=== PATIENT | female | born 1935 | race Hispanic/Latino ===

== ENCOUNTER 2018-06-03 12:09 | Emergency (ER) | payer OTHER ==
--- NOTE | 2018-06-03 13:07 | RAD REPORT ---
EXAM DESCRIPTION: David Single View06/03/2018 12:58 pm CLINICAL HISTORY: Chest pain COMPARISON: 2013 FINDINGS: The patient is in a poor degree of inspiration. The lungs appear clear of acute infiltrate. The heart is normal size
[2018-06-03 13:17] LABS: Absolute Monocytes 0.5 K/uL (0.1-1.3); Absolute Neutrophil 4.3 K/uL (1.8-8.0); Basophils % 0.5 % (0-1.3); Eosinophils % 1.6 % (0-4.4); Lymphocytes % 17.4 % (15.3-44.8); Monocytes % 8.3 % (3.3-12.3); Protime INR 1.25; RBC Red Blood Cell Count 3.22 M/uL (3.86-4.86)
[2018-06-03 13:35] LABS: ALT/SGPT 20 U/L (12-78); AST/SGOT 33 U/L (15-37); Albumin 3.8 g/dL (3.4-5.0); Alkaline Phosphatase 62 U/L (45-117); BUN Blood Urea Nitrogen 34 mg/dL (7-18); Bicarbonate 27 mmol/L (21-32); Bilirubin Direct 0.2 mg/dL (0-0.2); Bilirubin Total 0.6 mg/dL (0.2-1.0); Glucose Level 108 mg/dL (74-106); Magnesium 1.9 mg/dL (1.8-2.4); NT PRO-BNP 1716 pg/mL (<450); Potassium 4.4 mmol/L (3.5-5.1); Protein, Total 7.5 g/dL (6.4-8.2); Sodium Level 139 mmol/L (136-145); Troponin (Emerg Dept Use Only) < 0.02 ng/mL (0.0-0.045)
--- NOTE | 2018-06-03 14:50 | ER ---
Nurse's Notes [facility] Name: Bibiana Lara Age: 82 yrs Sex: Female : 1935 Arrival Date: 06/03/2018 Time: 12:10 Bed 14 Private MD: Judith Lizama Diagnosis: Chest pain, unspecified Presentation: 06/03 12:20 Presenting complaint: Patient states: N/V x 2 days, substernal chest pain that began ph yesterday, radiates to back, denies fever. Transition of care: patient was not received from another setting of care. Onset of symptoms was June 03, 2018. Risk Assessment: Do you want to hurt yourself or someone else? Patient reports no desire to harm self or others. Initial Sepsis Screen: Does the patient meet any 2 criteria? No. Patient's initial sepsis screen is negative. Care prior to arrival: None. 12:20 Method Of Arrival: Ambulatory 12:20 Acuity: ROBERT 3 ph 15:22 Initial Sepsis Screen: Does the patient have a suspected source of infection? No. ls4 Patient's initial sepsis screen is negative. Triage Assessment: 15:22 General: Appears in no apparent distress. Behavior is calm, cooperative. Pain: Denies ls4 pain. Historical: - Allergies: 12:21 No Known Allergies; ph - PMHx: 12:21 Depression; Hypertension; Hypothyroidism; ph - Immunization history:: Adult Immunizations unknown. - Social history:: Smoking status: Patient/guardian denies using tobacco. - Ebola Screening: : No symptoms or risks identified at this time. Screenin:29 Abuse screen: Denies threats or abuse. Nutritional screening: No deficits noted. ls4 Tuberculosis screening: No symptoms or risk factors identified. Fall Risk None identified. Assessment: 15:21 Pain: Denies pain. Pain does not radiate. Pain began 2-3 days ago. Is intermittent, ls4 episodic. Cardiovascular: Reports chest pain, yesterday and today intermittently with vomitting. Respiratory: Airway is patent Respiratory effort is even, unlabored, Respiratory pattern is regular, Breath sounds are clear bilaterally. Vital Signs: 12:20 BP 116 / 48; Pulse 60; Resp 18; Temp 98.6; Pulse Ox 98% on R/A; Weight 77.11 kg; ph 14:00 BP 114 / 70; Pulse 60; Resp 16; Temp 98.4; Pulse Ox 98% on R/A; ls4 14:00 BP 118 / 56; Pulse 61; Resp 16; Pulse Ox 98% on R/A; Pain 0/10; ls4 15:00 BP 110 / 54; Pulse 60; Resp 16; Pulse Ox 99% on R/A; Pain 0/10; ls4 ED Course: 12:10 Patient arrived in ED. ag5 12:11 Judith Lizama MD is Private Physician. ag5 12:20 Triage completed. ph 12:21 Arm band placed on. ph 12:32 Iman Durant, RN is Primary Nurse. ls4 12:34 EKG done, by information systems technician. reviewed by Enrico GUEVARA. at1 12:35 Inserted saline lock: 20 gauge in right antecubital area, using aseptic technique. ls4 12:35 No provider procedures requiring assistance completed. Initial lab(s) drawn, by pa, ls4 sent to lab. Patient maintains SpO2 saturation greater than 95% on room air. 12:52 Enrico Pope PA is PHCP. jr8 12:52 Otto Maloney MD is Attending Physician. jr8 12:57 X-ray completed. Portable x-ray completed in exam room. Patient tolerated procedure jb2 well. 12:58 XRAY Chest (1 view) In Process Unspecified. EDMS 13:29 Patient has correct armband on for positive identification. Placed in gown. Bed in low ls4 position. Call light in reach. Side rails up X 1. 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 Pulse ox on. NIBP on. 14:49 Berhane Gonsalez MD is Referral Physician. jr8 15:23 IV discontinued, intact, bleeding controlled, No redness/swelling at site. ls4 Administered Medications: No medications were administered Outcome: 14:49 Discharge ordered by . jr8 15:23 Discharged to home ambulatory. ls4 15:23 Condition: stable 15:23 Discharge instructions given to patient, family, Instructed on discharge instructions, follow up and referral plans. medication usage, Demonstrated understanding of instructions, follow-up care, medications. 15:24 Patient left the ED. ls4 Signatures: Dispatcher [employer] EDOH Ricardo De León jb2 Enrico Pope PA PA jr8 Cassie Mendes, purchasing clerk EKG Tat1 Maribell Jurado, RN RN ph Iman Durant RN RN ls4 Kandi Roth ag5
--- NOTE | 2018-06-03 14:50 | EDPHYS ---
Physician Documentation [facility] Name: Bibiana Lara Age: 82 yrs Sex: Female : 1935 Arrival Date: 06/03/2018 Time: 12:10 Bed 14 Private MD: Judith Lizama ED Physician Otto Maloney HPI: 06/03 13:08 This 82 yrs old Female presents to ER via Ambulatory with complaints of Chest jr8 Pain, Back Pain. 13:08 The patient or guardian reports chest pain that is located primarily in the substernal jr8 area. Onset: acutely, yesterday. The pain radiates to neck, back. Associated signs and symptoms: The patient has no apparent associated signs or symptoms. The chest pain is described as a pressure. Duration: The patient or guardian reports a single episode, that is now resolved. Modifying factors: The symptoms are alleviated by nothing. the symptoms are aggravated by nothing. Severity of pain: At its worst the pain was moderate in the emergency department the pain is unchanged. The patient has not experienced similar symptoms in the past. The patient has not recently seen a physician. Patient stated that she had a few days of n/v/d which has subsided. Now had chest pain that has since resolved . Historical: - Allergies: 12:21 No Known Allergies; ph - PMHx: 12:21 Depression; Hypertension; Hypothyroidism; ph - Immunization history:: Adult Immunizations unknown. - Social history:: Smoking status: Patient/guardian denies using tobacco. - Ebola Screening: : No symptoms or risks identified at this time. ROS: 13:08 Eyes: Negative for injury, pain, redness, and discharge, ENT: Negative for injury, jr8 pain, and discharge, Neck: Negative for injury, pain, and swelling, Respiratory: Negative for shortness of breath, cough, wheezing, and pleuritic chest pain, Back: Negative for injury and pain, MS/Extremity: Negative for injury and deformity, Skin: Negative for injury, rash, and discoloration, Neuro: Negative for headache, weakness, numbness, tingling, and seizure. 13:08 Cardiovascular: Positive for chest pain, Negative for edema, orthopnea, palpitations, paroxysmal nocturnal dyspnea. 13:08 Abdomen/GI: Positive for nausea, vomiting, and diarrhea, Negative for abdominal cramps, abdominal distension, anorexia, dysphagia, hematemesis, black/tarry stool, rectal pain, rectal bleeding, bowel incontinence, flatulence. Exam: 13:08 Eyes: Pupils equal round and reactive to light, extra-ocular motions intact. Lids and jr8 lashes normal. Conjunctiva and sclera are non-icteric and not injected. Cornea within normal limits. Periorbital areas with no swelling, redness, or edema. ENT: Nares patent. No nasal discharge, no septal abnormalities noted. Tympanic membranes are normal and external auditory canals are clear. Oropharynx with no redness, swelling, or masses, exudates, or evidence of obstruction, uvula midline. Mucous membranes moist. Neck: Trachea midline, no thyromegaly or masses palpated, and no cervical lymphadenopathy. Supple, full range of motion without nuchal rigidity, or vertebral point tenderness. No Meningismus. Cardiovascular: Regular rate and rhythm with a normal S1 and S2. No gallops, murmurs, or rubs. Normal PMI, no JVD. No pulse deficits. Respiratory: Lungs have equal breath sounds bilaterally, clear to auscultation and percussion. No rales, rhonchi or wheezes noted. No increased work of breathing, no retractions or nasal flaring. Back: No spinal tenderness. No costovertebral tenderness. Full range of motion. Skin: Warm, dry with normal turgor. Normal color with no rashes, no lesions, and no evidence of cellulitis. MS/ Extremity: Pulses equal, no cyanosis. Neurovascular intact. Full, normal range of motion. Neuro: Awake and alert, GCS 15, oriented to person, place, time, and situation. Cranial nerves II-XII grossly intact. Motor strength 5/5 in all extremities. Sensory grossly intact. Cerebellar exam normal. Normal gait. 13:08 Abdomen/GI: Inspection: abdomen appears normal, Bowel sounds: active, all quadrants, Palpation: soft, in all quadrants, mild abdominal tenderness, in the epigastric area, right upper quadrant and left upper quadrant, mass, is not appreciated, rebound tenderness, is not appreciated, voluntary guarding, is not appreciated, involuntary guarding, is not appreciated, no appreciated organomegaly, Indicators: McBurney's point is not tender, Chiu's sign is negative, Rovsing's sign is negative, Liver: tenderness, is not appreciated. Vital Signs: 12:20 BP 116 / 48; Pulse 60; Resp 18; Temp 98.6; Pulse Ox 98% on R/A; Weight 77.11 kg; ph 14:00 BP 114 / 70; Pulse 60; Resp 16; Temp 98.4; Pulse Ox 98% on R/A; ls4 14:00 BP 118 / 56; Pulse 61; Resp 16; Pulse Ox 98% on R/A; Pain 0/10; ls4 15:00 BP 110 / 54; Pulse 60; Resp 16; Pulse Ox 99% on R/A; Pain 0/10; ls4 MDM: 12:52 Patient medically screened. jr8 14:47 Data reviewed: vital signs, nurses notes, lab test result(s), EKG, radiologic studies, jr8 plain films. Data interpreted: Pulse oximetry: on room air is 98 %. Interpretation: normal. Counseling: I had a detailed discussion with the patient and/or guardian regarding: the historical points, exam findings, and any diagnostic results supporting the discharge/admit diagnosis, lab results, radiology results, the need for outpatient follow up, a horse stud worker, a family practitioner, to return to the emergency department if symptoms worsen or persist or if there are any questions or concerns that arise at home. Response to treatment: the patient's symptoms have markedly improved after treatment. ED course: Patient wanting to go home. Will f/u with PCP tomorrow. Will stay with family tonight since she does not want to be admitted. Knows to come back immediately if something changes . 06/03 12:33 Order name: Basic Metabolic Panel; Complete Time: 14:25 [facility] 06/03 12:33 Order name: CBC with Diff; Complete Time: 13:35 [facility] 06/03 12:33 Order name: LFT's; Complete Time: 14:25 [facility] 06/03 12:33 Order name: Magnesium; Complete Time: 14:25 [facility] 06/03 12:33 Order name: NT PRO-BNP; Complete Time: 14:25 [facility] 06/03 12:33 Order name: PT-INR; Complete Time: 13:35 [facility] 06/03 12:33 Order name: Troponin (emerg Dept Use Only); Complete Time: 14:25 [facility] 06/03 12:33 Order name: XRAY Chest (1 view); Complete Time: 13:08 4 06/03 12:33 Order name: EKG; Complete Time: 12:34 ls4 06/03 12:33 Order name: Cardiac monitoring; Complete Time: 13:28 4 06/03 12:33 Order name: EKG - Nurse/Tech; Complete Time: 13:28 ls4 06/03 12:33 Order name: IV Saline Lock; Complete Time: 13:28 ls4 06/03 12:33 Order name: Labs collected and sent; Complete Time: 13:28 4 06/03 12:33 Order name: O2 Per Protocol; Complete Time: 13:28 ls4 06/03 12:33 Order name: O2 Sat Monitoring; Complete Time: 13:28 ls4 Administered Medications: No medications were administered Disposition: 06/04 08:51 Co-signature as Attending Physician, Otto Maloney MD I agree with the assessment and berta plan of care. Disposition: 06/03/18 14:49 Discharged to Home. Impression: Chest pain, unspecified. - Condition is Stable. - Discharge Instructions: Nonspecific Chest Pain, Aspirin and Your Heart, Chest Pain Observation. - Medication Reconciliation Form, Thank You Letter, Antibiotic Education, Prescription Opioid Use form. - Follow up: Berhane Gonsalez MD; When: 1 - 2 days; Reason: Recheck today's complaints, Continuance of care, Re-evaluation by your physician. - Problem is new. - Symptoms have improved. Signatures: Dispatcher [employer] EDID Otto Maloney MD MD cha Roszak, Josh, PA PA jr8 Maribell Jurado, RN RN Iman Hu RN RN ls4 Corrections: (The following items were deleted from the chart) 06/03 14:49 13:08 Onset: acutely, today, jr8 jr8 15:24 14:49 06/03/2018 14:49 Discharged to Home. Impression: Chest pain, unspecified. ls4 Condition is Stable. Forms are Medication Reconciliation Form, Thank You Letter, Antibiotic Education, Prescription Opioid Use. Follow up: Berhane Gonsalez; When: 1 - 2 days; Reason: Recheck today's complaints, Continuance of care, Re-evaluation by your physician. Problem is new. Symptoms have improved. jr8
[2018-06-03 15:29] VITALS: O2SAT 98
[2018-06-03 15:31] VITALS: BP 118/56; TEMP 98.4
--- NOTE | 2018-06-04 05:30 | EKG ---
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
== END 2018-06-03 15:24 | disposition home or self-care (01) ==
LOC: ER 12:09
DX: R07.9 Chest pain, unspecified (principal); I10 Essential (primary) hypertension
CPT/HCPCS: 36415; 71045; 80048; 80076; 83735; 83880; 84484; 85025; 85610; 93005; 99285

== ENCOUNTER 2018-11-04 16:06 | Observation (INO) | payer OTHER ==
[2018-11-04 16:50] LABS: Urine Blood NEGATIVE (NEG); Urine Glucose NEGATIVE (NEG); Urine Protein NEGATIVE (NEG); Urine Specific Gravity 1.015 (1.005-1.030)
[2018-11-04 16:52] LABS: Absolute Lymphocytes (CBC) 1.2 K/uL (0.7-4.9); Basophils % 0.5 % (0-1.3); Hematocrit 30.3 % (36.0-45.0); Lymphocytes % 12.8 % (15.3-44.8); MPV 9.9 fL (7.6-11.3); RBC Red Blood Cell Count 3.17 M/uL (3.86-4.86)
[2018-11-04 16:53] LABS: Protime INR 1.22
[2018-11-04 16:59] LABS: ALT/SGPT 19 U/L (12-78); AST/SGOT 22 U/L (15-37); Albumin 3.6 g/dL (3.4-5.0); Alkaline Phosphatase 78 U/L (45-117); BUN Blood Urea Nitrogen 28 mg/dL (7-18); Bicarbonate 25 mmol/L (21-32); Bilirubin Direct 0.2 mg/dL (0-0.2); Bilirubin Total 0.6 mg/dL (0.2-1.0); Glucose Level 119 mg/dL (74-106); Lipase 141 U/L (73-393); Magnesium 1.9 mg/dL (1.8-2.4); NT PRO-BNP 2885 pg/mL (<450); Potassium 4.1 mmol/L (3.5-5.1); Protein, Total 7.6 g/dL (6.4-8.2); Sodium Level 140 mmol/L (136-145); Troponin (Emerg Dept Use Only) < 0.02 ng/mL (0.0-0.045)
[2018-11-04] MEDS ORDERED: ASPIRIN EC 81 MG TAB PO ONE (17:27)
[2018-11-04] MEDS ORDERED: ENOXAPARIN 80 MG/0.8 ML SQ ONE (17:27)
[2018-11-04] MEDS ORDERED: PANTOPRAZOLE 40 MG INJ ONE (17:27)
--- NOTE | 2018-11-04 17:28 | EDPHYS ---
Physician Documentation [facility] Name: Bibiana Lara Age: 83 yrs Sex: Female : 1935 Arrival Date: 11/04/2018 Time: 16:07 Bed 6 Private MD: ED Physician Otto Maloney HPI: 11/04 17:24 This 83 yrs old Female presents to ER via Ambulatory with complaints of Chest berta Pain. 17:24 The patient or guardian reports chest pain that is located primarily in the substernal berta area. Onset: 1 day(s) ago. The pain does not radiate. Associated signs and symptoms: Pertinent positives: palpitations. The chest pain is described as a heaviness, sharp. Modifying factors: The symptoms are alleviated by nothing. the symptoms are aggravated by nothing. Severity of pain: At its worst the pain was moderate in the emergency department the pain has improved moderately. The patient has not experienced similar symptoms in the past. Historical: - Allergies: 16:16 No Known Allergies; la1 - PMHx: 16:16 Depression; Hypertension; Hypothyroidism; la1 - Immunization history:: Adult Immunizations up to date. - Social history:: Smoking status: Patient/guardian denies using tobacco. - Ebola Screening: : No symptoms or risks identified at this time. - Family history:: not pertinent. ROS: 17:24 Constitutional: Negative for fever, chills, and weight loss, Eyes: Negative for injury, berta pain, redness, and discharge, ENT: Negative for injury, pain, and discharge, Neck: Negative for injury, pain, and swelling, Respiratory: Negative for shortness of breath, cough, wheezing, and pleuritic chest pain, Abdomen/GI: Negative for abdominal pain, nausea, vomiting, diarrhea, and constipation, Back: Negative for injury and pain, : Negative for injury, bleeding, discharge, and swelling, MS/Extremity: Negative for injury and deformity, Skin: Negative for injury, rash, and discoloration, Neuro: Negative for headache, weakness, numbness, tingling, and seizure, Psych: Negative for depression, anxiety, suicide ideation, homicidal ideation, and hallucinations, Allergy/Immunology: Negative for hives, rash, and allergies, Endocrine: Negative for neck swelling, polydipsia, polyuria, polyphagia, and marked weight changes, Hematologic/Lymphatic: Negative for swollen nodes, abnormal bleeding, and unusual bruising. 17:24 Cardiovascular: Positive for chest pain. Exam: 17:24 Constitutional: This is a well developed, well nourished patient who is awake, alert, berta and in no acute distress. Head/Face: Normocephalic, atraumatic. Eyes: Pupils equal round and reactive to light, extra-ocular motions intact. Lids and lashes normal. Conjunctiva and sclera are non-icteric and not injected. Cornea within normal limits. Periorbital areas with no swelling, redness, or edema. ENT: Nares patent. No nasal discharge, no septal abnormalities noted. Tympanic membranes are normal and external auditory canals are clear. Oropharynx with no redness, swelling, or masses, exudates, or evidence of obstruction, uvula midline. Mucous membranes moist. Neck: Trachea midline, no thyromegaly or masses palpated, and no cervical lymphadenopathy. Supple, full range of motion without nuchal rigidity, or vertebral point tenderness. No Meningismus. Chest/axilla: Normal chest wall appearance and motion. Nontender with no deformity. No lesions are appreciated. Cardiovascular: Regular rate and rhythm with a normal S1 and S2. No gallops, murmurs, or rubs. Normal PMI, no JVD. No pulse deficits. Respiratory: Lungs have equal breath sounds bilaterally, clear to auscultation and percussion. No rales, rhonchi or wheezes noted. No increased work of breathing, no retractions or nasal flaring. Abdomen/GI: Soft, non-tender, with normal bowel sounds. No distension or tympany. No guarding or rebound. No evidence of tenderness throughout. Back: No spinal tenderness. No costovertebral tenderness. Full range of motion. Skin: Warm, dry with normal turgor. Normal color with no rashes, no lesions, and no evidence of cellulitis. MS/ Extremity: Pulses equal, no cyanosis. Neurovascular intact. Full, normal range of motion. Neuro: Awake and alert, GCS 15, oriented to person, place, time, and situation. Cranial nerves II-XII grossly intact. Motor strength 5/5 in all extremities. Sensory grossly intact. Cerebellar exam normal. Normal gait. Psych: Awake, alert, with orientation to person, place and time. Behavior, mood, and affect are within normal limits. Vital Signs: 16:16 BP 136 / 80; Pulse 66; Resp 16; Temp 97.5; Pulse Ox 98% on R/A; Weight 78.47 kg; Height la1 5 ft. 6 in. (167.64 cm); 17:24 BP 140 / 54; Pulse 60; Resp 18; Pulse Ox 100% on R/A; mg2 19:15 BP 158 / 63; Pulse 59; Resp 20; Temp 98.2(O); Pulse Ox 97% on R/A; Pain 0/10; lp1 16:16 Body Mass Index 27.92 (78.47 kg, 167.64 cm) la1 MDM: 16:09 Patient medically screened. [facility] 17:28 Data reviewed: vital signs, nurses notes, lab test result(s), EKG, radiologic studies, berta plain films. 11/04 16:11 Order name: Basic Metabolic Panel [facility] 11/04 16:11 Order name: CBC with Diff [facility] 11/04 16:11 Order name: LFT's [facility] 11/04 16:11 Order name: Magnesium [facility] 11/04 16:11 Order name: NT PRO-BNP [facility] 11/04 16:11 Order name: PT-INR; Complete Time: 17:30 [facility] 11/04 16:11 Order name: Troponin (emerg Dept Use Only); Complete Time: 17:21 [facility] 11/04 16:11 Order name: Lipase; Complete Time: 17:21 [facility] 11/04 16:12 Order name: Basic Metabolic Panel; Complete Time: 17:21 [facility] 11/04 16:12 Order name: CBC with Automated Diff; Complete Time: 17:21 [facility] 11/04 16:12 Order name: Liver (Hepatic) Function; Complete Time: 17:21 [facility] 11/04 16:12 Order name: Magnesium; Complete Time: 17:21 [facility] 11/04 16:12 Order name: NT PRO-BNP; Complete Time: 17:21 [facility] 11/04 16:43 Order name: Urine Dipstick--Ancillary (enter results); Complete Time: 17:21 11/04 16:11 Order name: XRAY Chest (1 view) [facility] 11/04 16:11 Order name: EKG; Complete Time: 16:12 [facility] 11/04 16:11 Order name: Cardiac monitoring; Complete Time: 16:29 [facility] 11/04 16:11 Order name: EKG - Nurse/Tech; Complete Time: 16:17 [facility] 11/04 16:11 Order name: IV Saline Lock; Complete Time: 16:29 [facility] 11/04 16:11 Order name: Labs collected and sent; Complete Time: 16:30 [facility] 11/04 16:11 Order name: O2 Per Protocol; Complete Time: 16:30 [facility] 11/04 16:11 Order name: O2 Sat Monitoring; Complete Time: 16:30 [facility] 11/04 16:11 Order name: Urine Dipstick-Ancillary (obtain specimen); Complete Time: 17:01 [facility] Administered Medications: 17:33 Drug: ProTONIX 40 mg Route: IVP; Site: right antecubital; mg2 18:45 Follow up: Response: No adverse reaction mg2 17:33 Drug: Aspirin 162 mg Route: PO; mg2 18:45 Follow up: Response: No adverse reaction mg2 17:33 Drug: Lovenox 1 mg/kg Route: Sub-Q; Site: right lower abdomen; mg2 18:45 Follow up: Response: No adverse reaction mg2 18:10 Not Given (Physician Discretion): Lopressor 25 mg PO once la1 Disposition: 11/04/18 17:27 Hospitalization ordered by Dorinda Coello for Observation. Preliminary diagnosis are Chest pain, unspecified, Essential (primary) hypertension, Gastro-esophageal reflux disease, Unspecified kidney failure - insufficency, Anemia, unspecified. - Bed requested for Telemetry/MedSurg (observation). - Status is Observation. lp1 - Condition is Fair. - Problem is new. - Symptoms have improved. UTI on Admission? No Signatures: Dispatcher [employer] EDIA Otto Maloney MD MD cha Pena, Laura, RN RN lp1 Heriberto Perales RN RN la1 Cindy Hillman Michele RN RN mg2 Corrections: (The following items were deleted from the chart) 17:28 17:27 Hospitalization Ordered by Dorinda Coello MD for Observation. Preliminary diagnosis berta is Chest pain, unspecified; Essential (primary) hypertension; Gastro-esophageal reflux disease. Bed requested for Telemetry/MedSurg (observation). Status is Observation. Condition is Fair. Problem is new. Symptoms have improved. UTI on Admission? No. [facility] 17:30 17:28 11/04/2018 17:27 Hospitalization Ordered by Dorinda Coello MD for Observation. berta Preliminary diagnosis is Chest pain, unspecified; Essential (primary) hypertension; Gastro-esophageal reflux disease; Unspecified kidney failure - insufficency. Bed requested for Telemetry/MedSurg (observation). Status is Observation. Condition is Fair. Problem is new. Symptoms have improved. UTI on Admission? No. berta 18:18 17:30 11/04/2018 17:27 Hospitalization Ordered by Dorinda Coello MD for Observation. eb Preliminary diagnosis is Chest pain, unspecified; Essential (primary) hypertension; Gastro-esophageal reflux disease; Unspecified kidney failure - insufficency; Anemia, unspecified. Bed requested for Telemetry/MedSurg (observation). Status is Observation. Condition is Fair. Problem is new. Symptoms have improved. UTI on Admission? No. berta 19:58 18:18 11/04/2018 17:27 Hospitalization Ordered by Dorinda Coello MD for Observation. lp1 Preliminary diagnosis is Chest pain, unspecified; Essential (primary) hypertension; Gastro-esophageal reflux disease; Unspecified kidney failure - insufficency; Anemia, unspecified. Bed requested for Telemetry/MedSurg (observation). Status is Observation. Condition is Fair. Problem is new. Symptoms have improved. UTI on Admission? No. eb
--- NOTE | 2018-11-04 17:28 | ER ---
Nurse's Notes [facility] Name: Bibiana Lara Age: 83 yrs Sex: Female : 1935 Arrival Date: 11/04/2018 Time: 16:07 Bed 6 Private MD: Diagnosis: Chest pain, unspecified;Essential (primary) hypertension;Gastro-esophageal reflux disease;Unspecified kidney failure-insufficency;Anemia, unspecified Presentation: 11/04 16:15 Presenting complaint: Patient states: chest pain since noon today while playing bingo. la1 Transition of care: patient was not received from another setting of care. Onset of symptoms was November 04, 2018. Risk Assessment: Do you want to hurt yourself or someone else? Patient reports no desire to harm self or others. Initial Sepsis Screen: Does the patient meet any 2 criteria? No. Patient's initial sepsis screen is negative. Does the patient have a suspected source of infection? No. Patient's initial sepsis screen is negative. Care prior to arrival: None. 16:15 Method Of Arrival: Ambulatory la1 16:15 Acuity: ROBERT 3 la1 Historical: - Allergies: 16:16 No Known Allergies; la1 - PMHx: 16:16 Depression; Hypertension; Hypothyroidism; la1 - Immunization history:: Adult Immunizations up to date. - Social history:: Smoking status: Patient/guardian denies using tobacco. - Ebola Screening: : No symptoms or risks identified at this time. - Family history:: not pertinent. Screenin:00 Abuse screen: Denies threats or abuse. Denies injuries from another. Nutritional mg2 screening: No deficits noted. Tuberculosis screening: No symptoms or risk factors identified. Fall Risk IV access (20 points). Assessment: 16:59 General: Appears in no apparent distress. comfortable, Behavior is calm, cooperative. mg2 Pain: Complains of pain in chest Pain does not radiate. Pain currently is 2 out of 10 on a pain scale. Quality of pain is described as burning, Pain began gradually, Is intermittent. Neuro: Level of Consciousness is awake, alert, obeys commands, Oriented to person, place, time, situation. Cardiovascular: Capillary refill < 3 seconds Patient's skin is warm and dry. Cardiovascular: Chest pain is described as mild. Respiratory: Airway is patent Respiratory effort is even, unlabored, Respiratory pattern is regular, symmetrical. GI: No signs and/or symptoms were reported involving the gastrointestinal system. : No signs and/or symptoms were reported regarding the genitourinary system. EENT: No signs and/or symptoms were reported regarding the EENT system. Derm: Skin is intact, is healthy with good turgor, Skin is pink, warm \T\ dry. normal. Musculoskeletal: Circulation, motion, and sensation intact. Capillary refill < 3 seconds. 18:45 Reassessment: dr coello came and spoke to the patient about the hospitalization. patient mg2 agreed for admission. 19:15 Reassessment: Patient appears in no apparent distress at this time. Patient is alert, lp1 oriented x 3, equal unlabored respirations, skin warm/dry/pink. Patient states feeling better. 19:15 Cardiovascular: Rhythm is sinus rhythm. lp1 Vital Signs: 16:16 BP 136 / 80; Pulse 66; Resp 16; Temp 97.5; Pulse Ox 98% on R/A; Weight 78.47 kg; Height la1 5 ft. 6 in. (167.64 cm); 17:24 BP 140 / 54; Pulse 60; Resp 18; Pulse Ox 100% on R/A; mg2 19:15 BP 158 / 63; Pulse 59; Resp 20; Temp 98.2(O); Pulse Ox 97% on R/A; Pain 0/10; lp1 16:16 Body Mass Index 27.92 (78.47 kg, 167.64 cm) la1 ED Course: 16:07 Patient arrived in ED. as 16:09 Otto Maloney MD is Attending Physician. [facility] 16:12 Guy Asencio, TUSHAR is Primary Nurse. mg2 16:15 Triage completed. la1 16:16 Arm band placed on right wrist. EKG completed in triage. Results shown to . la1 16:32 XRAY Chest (1 view) In Process Unspecified. EDMS 16:39 EKG done, by cartographic technician. reviewed by Otto Maloney MD. sm3 17:00 Patient has correct armband on for positive identification. software product manager on. Pulse mg2 ox on. NIBP on. Door closed. Warm blanket given. 17:00 No provider procedures requiring assistance completed. Inserted saline lock: 20 gauge mg2 in right antecubital area, using aseptic technique. Blood collected. Patient maintains SpO2 saturation greater than 95% on room air. 17:26 Dorinda Coello MD is Hospitalizing Provider. [facility] 19:42 Patient admitted, IV remains in place. lp1 Administered Medications: 17:33 Drug: ProTONIX 40 mg Route: IVP; Site: right antecubital; mg2 18:45 Follow up: Response: No adverse reaction mg2 17:33 Drug: Aspirin 162 mg Route: PO; mg2 18:45 Follow up: Response: No adverse reaction mg2 17:33 Drug: Lovenox 1 mg/kg Route: Sub-Q; Site: right lower abdomen; mg2 18:45 Follow up: Response: No adverse reaction mg2 18:10 Not Given (Physician Discretion): Lopressor 25 mg PO once la1 Outcome: 17:27 Decision to Hospitalize by Provider. [facility] 19:42 Condition: stable lp1 19:42 Instructed on the need for admit. 19:46 Admitted to Tele accompanied by tech, via wheelchair, room 401, with chart, Report lp1 called to TUSHAR Rivera 19:58 Patient left the ED. lp1 Signatures: Dispatcher [employer] Otto Mendiola MD MD cha Martinez, Amelia as Pena, Laura, RN RN lp1 Heriberto Perales RN RN la1 Guy Asencio RN RN [facility] Venus Clark 3
--- NOTE | 2018-11-04 18:18 | P.HP ---
Certification for Inpatient Patient admitted to: Observation With expected LOS: <2 Midnights Practitioner: I am a practitioner with admitting privileges, knowledge of patient current condition, hospital course, and medical plan of care. Services: Services provided to patient in accordance with Admission requirements found in Title 42 Section 412.3 of the Code of Federal Regulations Patient History Date of Service: 11/04/18 Reason for admission: Chest pain History of Present Illness: This is an 83-year-old female with a past medical history hypertension, hyperlipidemia, hypothyroidism, depression/anxiety and reflux disease admitted for chest pain. Per patient and daughter at bedside, chest pain started this afternoon around noon. It is a substernal chest pain that is intermittent. She describes it as sharp, without any radiation, and at its worst it is 10/10. There are no alleviating or exacerbating factors. This is associated with dizziness and feeling generally tired. She denied any other shortness of breath , nausea, vomiting, headache, vision changes, speech changes, GI or complaints. Patient does state that she has had previous episodes like this but usually they resolve on their own, but this time the pain has been more persistent and does not resolve with her over the counter reflux medicine. Per daughter, She has had a recent stress test about 2 months ago which was negative. She also has had a recent GI workup including endoscopy and colonoscopy that has been within normal limits. But since this pain remained persistent this time, EMS was called and patient was brought into the emergency room. In the ER, 136/80, heart rate of 66, respirations of 16, afebrile at 97.5, 98% on room air. Her BMI is 27.92. Her labs were remarkable for a hemoglobin of 10 , creatinine elevated at 1.44, BNP elevated at 2885. Her troponin was negative x1. Chest x-ray was still pending. She was given IV fluids, aspirin and reflux medication in the ER. At the time of my exam, she is alert oriented x3, in no acute distress and hemodynamically stable. She continued to complain of 8/10 sharp chest pain. Allergies No Known Allergies Allergy (Verified 07/13/15 10:33) Home medications list reviewed: Yes Home Medications: Citalopram [Celexa] 10 mg PO DAILY 02/25/14 Metoprolol Tartrate [Lopressor] 50 mg PO BID 02/25/14 Oxybutynin Chloride 5 mg PO BID 02/25/14 Pantoprazole Sodium [Protonix] 40 mg PO DAILY 02/25/14 Simvastatin [Zocor] 20 mg PO BEDTIME 02/25/14 Levothyroxine [Synthroid*] 1 tab PO DAILY 07/13/15 - Past Medical/Surgical History Diabetic: No -: Hyperlipidemia -: HTN -: Hypothyroidism -: GERD -: Shouler Sprain -: Hysterectomy -: Hernia repair -: appendectomy -: cholecystectomy -: Thyroiectomy - Social History Alcohol use: No CD- Drugs: No Caffeine use: No Review of Systems 10-point ROS is otherwise unremarkable Physical Examination - Physical Exam General: Alert, In no apparent distress, Oriented x3 HEENT: Atraumatic, PERRLA, Mucous membr. moist/pink, EOMI, Sclerae nonicteric Neck: Supple, 2+ carotid pulse no bruit, No LAD, Without JVD or thyroid abnormality Respiratory: Clear to auscultation bilaterally, Normal air movement Cardiovascular: Regular rate/rhythm, Normal S1 S2 Gastrointestinal: Normal bowel sounds, No tenderness Musculoskeletal: No tenderness Integumentary: No rashes Neurological: Normal gait, Normal speech, Normal strength at 5/5 x4 extr, Normal tone, Normal affect Lymphatics: No axilla or inguinal lymphadenopathy - Studies Laboratory Data (last 24 hrs) 11/04/18 16:20: PT 14.3 H, INR 1.22 11/04/18 16:20: WBC 9.4, Hgb 10.0 L, Hct 30.3 L, Plt Count 141 L 11/04/18 16:20: Sodium 140, Potassium 4.1, BUN 28 H, Creatinine 1.44 H, Glucose 119 H, Magnesium 1.9, Total Bilirubin 0.6, AST 22, ALT 19, Alkaline Phosphatase 78, Lipase 141 Assessment and Plan - Problems (Diagnosis) (1) Chest pain Current Visit: Yes Status: Acute Plan: Chest pain, rule out ACS. Risk factors: Age, female, overweight, hypertension, hyperlipidemia -troponin negative x1, and trend troponins -chest pain guidelines: Aspirin, Plavix, statin, beta-germain. Hold CHELSEA- inhibitor due to acute kidney injury. -morphine and sublingual nitro as needed for pain -echo ordered, pending -cardiology consult, awaiting recommendations. Qualifiers: Chest pain type: unspecified Qualified Code(s): R07.9 - Chest pain, unspecified (2) Acute kidney injury Current Visit: Yes Status: Acute Plan: Likely prerenal -continue IV fluids -monitor kidney function -avoid nephrotoxic medications (3) Anemia Current Visit: Yes Status: Acute Plan: Likely chronic, iron deficiency -monitor H&H. Qualifiers: Anemia type: unspecified type Qualified Code(s): D64.9 - Anemia, unspecified (4) Hypertension Current Visit: No Status: Chronic Plan: Stable, we will resume home medications. Adjust as needed. Qualifiers: Hypertension type: essential hypertension Qualified Code(s): I10 - Essential (primary) hypertension (5) Hypothyroid Current Visit: No Status: Chronic Qualifiers: Hypothyroidism type: unspecified Qualified Code(s): E03.9 - Hypothyroidism , unspecified (6) Hyperlipidemia Current Visit: No Status: Chronic Qualifiers: Hyperlipidemia type: unspecified Qualified Code(s): E78.5 - Hyperlipidemia , unspecified (7) Depression Current Visit: No Status: Chronic Qualifiers: Depression Type: unspecified Qualified Code(s): F32.9 - Major depressive disorder, single episode, unspecified (8) Anxiety Current Visit: No Status: Chronic (9) GERD (gastroesophageal reflux disease) Current Visit: Yes Status: Chronic Plan: Recent GI workup that has been normal. -will start Protonix and monitor Qualifiers: Esophagitis presence: esophagitis presence not specified Qualified Code(s) : K21.9 - Gastro-esophageal reflux disease without esophagitis - Plan DVT prophylaxis: Aspirin/Plavix GI prophylaxis: Protonix, as noted above Diet: Heart healthy Disposition: Pending symptomatic improvement. Anticipate discharge home in the next 24 hr Discharge Plan: Home Plan to discharge in: 24 Hours - Advance Directives Does patient have a Living Will: No Does patient have a Durable POA for Healthcare: No Time Spent Managing Pts Care (In Minutes): 55
--- NOTE | 2018-11-04 18:51 | RAD REPORT ---
EXAM DESCRIPTION: David Single View11/04/2018 4:33 pm CLINICAL HISTORY: Chest pain COMPARISON: May 2018 FINDINGS: The lungs appear clear of acute infiltrate. The heart is normal size IMPRESSION: No acute abnormalities displayed
[2018-11-04] MEDS ORDERED: ALPRAZOLAM 0.25 MG TABLET PO PRN (20:05)
[2018-11-04] MEDS ORDERED: NITROGLYCERIN 0.4 MG/TAB SL PRN (20:05)
[2018-11-04] MEDS ORDERED: MORPHINE 4 MG/ML SYR IV PRN (20:05)
[2018-11-04 20:14] VITALS: BMI 26.3
[2018-11-04] MEDS ORDERED: ATORVASTATIN 40 MG TAB PO SCH (21:00)
[2018-11-04] MEDS: METOPROLOL TAR 50 MG TAB PO SCH (21:34)
[2018-11-04] MEDS ORDERED: ONDANSETRON 4 MG/2 ML VIAL IV PRN (23:00)
[2018-11-05 05:44] LABS: Absolute Lymphocytes (CBC) 1.4 K/uL (0.7-4.9); Basophils % 0.6 % (0-1.3); Hematocrit 27.3 % (36.0-45.0); Lymphocytes % 18.5 % (15.3-44.8); MPV 9.8 fL (7.6-11.3); RBC Red Blood Cell Count 2.89 M/uL (3.86-4.86)
[2018-11-05 05:57] LABS: Potassium 4.4 mmol/L (3.5-5.1)
[2018-11-05] MEDS ORDERED: CLOPIDOGREL 75 MG TABLET PO SCH (09:00)
[2018-11-05] MEDS ORDERED: ASPIRIN EC 81 MG TAB PO SCH (09:00)
[2018-11-05] MEDS: METOPROLOL TAR 50 MG TAB PO SCH (10:35)
--- NOTE | 2018-11-05 11:47 | EKG ---
Test Date: 2018-11-04 Test Time: 16:18:01 Agricultural Education Professor: [place] MEASUREMENT RESULTS: Intervals: Rate: 70 NH: 214 QRSD: 96 QT: 396 QTc: 427 [place]: P: 35 NH: 214 QRS: 20 T: 36 INTERPRETIVE STATEMENTS: Sinus rhythm with 1st degree AV block Cannot rule out Anterior infarct, age undetermined Abnormal ECG Compared to ECG 06/03/2018 12:28:14 First degree AV block now present Sinus bradycardia no longer present Sinus arrhythmia no longer present Myocardial infarct finding still present Electronically Signed On 11-05-18 11:45:08 CDT by Berhane Gonsalez
[2018-11-05 12:42] VITALS: TEMP 97.8
--- NOTE | 2018-11-05 13:04 | ECHO ---
HEIGHT: 5 ft 6 in WEIGHT: 163 lb 0 oz DATE OF STUDY: 11/05/[address]: Dorinda Coello MD 2-DIMENSIONAL: YES M.MODE: YES DOPPLER: YES COLOR FLOW: YES TDS: NO PORTABLE: NO DEFINITY: NO BUBBLE STUDY: NO DIAGNOSIS: CHEST PAIN CARDIAC HISTORY: CATHERIZATION: NO SURGERY: NO PROSTHETIC VALVE: NO PACEMAKER: NO MEASUREMENTS (cm) DIASTOLIC (NORMALS) SYSTOLIC (NORMALS) IVSd 1.1 (0.6-1.2) LA Diam 3.7 (1.9-4.0) LVEF 70% LVIDd 4.1 (3.5-5.7) LVIDs 2.5 (2.0-3.5) %FS 39% LVPWd 1.1 (0.6-1.2) Ao Diam 2.8 (2.0-3.7) 2 DIMENSIONAL ASSESSMENT: RIGHT ATRIUM: NORMAL LEFT ATRIUM: NORMAL RIGHT VENTRICLE: NORMAL LEFT VENTRICLE: NORMAL TRICUSPID VALVE: NORMAL MITRAL VALVE: NORMAL PULMONIC VALVE: NORMAL AORTIC VALVE: NORMAL PERICARDIAL EFFUSION: NONE AORTIC ROOT: NORMAL LEFT VENTRICULAR WALL MOTION: NORMAL. DOPPLER/COLOR FLOW: TRACE AORTIC REGURGITATION. COMMENTS: NORMAL LEFT VENTRICULAR SIZE AND FUNCTION. MILD AORTIC REGURGITATION. NO WALL MOTION ABNORMALITY. NO EFFUSION. TECHNOLOGIST: ZOYA GAYLE RDCS
[2018-11-05 13:27] VITALS: BP 131/68
[2018-11-05 13:46] VITALS: O2SAT 96
--- NOTE | 2018-11-05 15:40 | CON ---
Date of Consultation: 11/05/2018 Reason For Consultation: Chest pain. History Of Present Illness: Ms. Lara is an 83-year-old woman who has a history of depression, hyp ertension, hypothyroidism. She takes Synthroid, metoprolol and Zocor. She came in with chest pain t hat is midepigastric radiating to the back, worse when she eats, worse when she lays down. No nausea , vomiting, diaphoresis, PND, orthopnea, pedal edema, palpitations, or syncope. Symptoms have been g oing on for 2 weeks. In June of this year, 4 months ago, she had a normal echo and a normal stress test in my office. Allergies: NONE. Review of Systems: Negative. Social History: Negative. Family History: Negative. Medications: Listed earlier. Physical Examination: Vital signs: Stable. Afebrile. HEENT: Negative. Neck: Supple. No bruit. Chest: Clear. Cardiac: Revealed a normal sinus rhythm. Regular rhythm and rate. No murmurs, gallops, or rubs. Abdomen: Benign. Extremities: Revealed no clubbing, cyanosis, or edema. Diagnostic Data: Her hemoglobin is 9.3. Creatinine is 1.49. BNP is 2885. Impression And Plan: 1.Hypertension, poorly controlled. I would increase the dose of metoprolol. 2.Chest pain, probably secondary to gastric reflux or ulcer. I would put her on a proton pump inhib itor. 3.Dyslipidemia, well controlled. 4.Depression. 5.Anemia, unknown etiology. 6.Chronic renal insufficiency stage 2. 7.Elevated BNP, not clinically significant. There is an echocardiogram pending on Ms. Lara to se lopez if there are any new wall motion abnormalities. If that is normal, I will send her home on a jose n pump inhibitor and I will see her in the office in the next 2 weeks. DESTINEE/GHANSHYAM Voice ID: [id number] Report ID: [id number]
--- NOTE | 2018-11-05 15:53 | P.SSS ---
Patient History Date of Service: 11/05/18 Reason for admission: Chest pain History of Present Illness: This is an 83-year-old female with a past medical history hypertension, hyperlipidemia, hypothyroidism, depression/anxiety and reflux disease admitted for chest pain. Per patient and daughter at bedside, chest pain started this afternoon around noon. It is a substernal chest pain that is intermittent. She describes it as sharp, without any radiation, and at its worst it is 10/10. There are no alleviating or exacerbating factors. This is associated with dizziness and feeling generally tired. She denied any other shortness of breath , nausea, vomiting, headache, vision changes, speech changes, GI or complaints. Patient does state that she has had previous episodes like this but usually they resolve on their own, but this time the pain has been more persistent and does not resolve with her over the counter reflux medicine. Per daughter, She has had a recent stress test about 2 months ago which was negative. She also has had a recent GI workup including endoscopy and colonoscopy that has been within normal limits. But since this pain remained persistent this time, EMS was called and patient was brought into the emergency room. In the ER, 136/80, heart rate of 66, respirations of 16, afebrile at 97.5, 98% on room air. Her BMI is 27.92. Her labs were remarkable for a hemoglobin of 10 , creatinine elevated at 1.44, BNP elevated at 2885. Her troponin was negative x1. Chest x-ray was still pending. She was given IV fluids, aspirin and reflux medication in the ER. At the time of my exam, she is alert oriented x3, in no acute distress and hemodynamically stable. She continued to complain of 8/10 sharp chest pain. Allergies No Known Allergies Allergy (Verified 07/13/15 10:33) Home medications list reviewed: Yes Home Medications: Citalopram Hydrobromide [Citalopram HBr] 10 mg PO DAILY 11/04/18 Levothyroxine Sodium 100 mcg PO 0630 11/04/18 Metoprolol Tartrate [Lopressor*] 50 mg PO BID 11/04/18 Oxybutynin Chloride 5 mg PO BID 11/04/18 Simvastatin 1 tab PO BEDTIME 11/04/18 Ondansetron [Zofran] 4 mg PO Q4H PRN #15 tab 11/05/18 Pantoprazole [Protonix Tab*] 40 mg PO DAILYAC #30 tab 11/05/18 - Past Medical/Surgical History Has patient received pneumonia vaccine in the past: Yes Diabetic: No -: Hyperlipidemia -: HTN -: Hypothyroidism -: GERD -: Shouler Sprain -: Hysterectomy -: Hernia repair -: appendectomy -: cholecystectomy -: Thyroiectomy - Social History Smoking Status: Never smoker Alcohol use: No CD- Drugs: No Caffeine use: No Place of Residence: Home Review of Systems 10-point ROS is otherwise unremarkable Physical Examination - Vital Signs Temperature: 97.8 F Blood Pressure: 131/68 Pulse: 61 Respirations: 18 Pulse Ox (%): 96 - Physical Exam General: Alert, In no apparent distress, Oriented x3 HEENT: Atraumatic, PERRLA, Mucous membr. moist/pink, EOMI, Sclerae nonicteric Neck: Supple, 2+ carotid pulse no bruit, No LAD, Without JVD or thyroid abnormality Respiratory: Clear to auscultation bilaterally, Normal air movement Cardiovascular: Regular rate/rhythm, Normal S1 S2 Gastrointestinal: Normal bowel sounds, No tenderness Musculoskeletal: No tenderness Integumentary: No rashes Neurological: Normal gait, Normal speech, Normal strength at 5/5 x4 extr, Normal tone, Normal affect Lymphatics: No axilla or inguinal lymphadenopathy - Studies Laboratory Data (last 24 hrs) 11/04/18 16:20: Triglycerides 99, Cholesterol 137, HDL Cholesterol 47, Cholesterol/HDL Ratio 2.91 11/04/18 16:20: PT 14.3 H, INR 1.22 11/04/18 16:20: WBC 9.4, Hgb 10.0 L, Hct 30.3 L, Plt Count 141 L 11/04/18 16:20: Sodium 140, Potassium 4.1, BUN 28 H, Creatinine 1.44 H, Glucose 119 H, Magnesium 1.9, Total Bilirubin 0.6, AST 22, ALT 19, Alkaline Phosphatase 78, Lipase 141 - Diagnosis (Problem(s)) (1) Chest pain Status: Acute Plan: Chest pain - resolved prior to discharge Risk factors: Age, female, overweight, hypertension, hyperlipidemia -troponin negative x3 -chest pain guidelines: Aspirin, Plavix, statin, beta-germain. Hold CHELSEA- inhibitor due to acute kidney injury. -morphine and sublingual nitro as needed for pain -echo normal with 70% ejection fraction. No wall abnormalities noted. -cardiology cleared patient for discharge. Patient has a recent echo and stress test 4 months ago that have been normal and cardiology office. -patient will follow up with cardiology as an outpatient. Qualifiers: Chest pain type: unspecified Qualified Code(s): R07.9 - Chest pain, unspecified (2) Acute kidney injury Status: Acute Plan: Follow up with primary care physician for repeat lab work (3) Anemia Status: Acute Qualifiers: Anemia type: unspecified type Qualified Code(s): D64.9 - Anemia, unspecified (4) Hypertension Status: Chronic Qualifiers: Hypertension type: essential hypertension Qualified Code(s): I10 - Essential (primary) hypertension (5) Hypothyroid Status: Chronic Qualifiers: Hypothyroidism type: unspecified Qualified Code(s): E03.9 - Hypothyroidism , unspecified (6) Hyperlipidemia Status: Chronic Qualifiers: Hyperlipidemia type: unspecified Qualified Code(s): E78.5 - Hyperlipidemia , unspecified (7) Depression Status: Chronic Qualifiers: Depression Type: unspecified Qualified Code(s): F32.9 - Major depressive disorder, single episode, unspecified (8) Anxiety Status: Chronic (9) GERD (gastroesophageal reflux disease) Status: Chronic Plan: Recent GI workup that has been normal. -started patient on Protonix. Symptoms did improve. -discharge patient on p.o. Protonix Qualifiers: Esophagitis presence: esophagitis presence not specified Qualified Code(s) : K21.9 - Gastro-esophageal reflux disease without esophagitis Treatment Summary: Patient otherwise remained stable throughout the stay. Her diagnoses and treatment plan explained to her, all questions were answered and patient/daughter verbalized understanding. She was then discharged home in a safe and stable manner. She will follow up with Cardiology as an outpatient. - Disposition Discharge Date: 11/05/18 Disposition: ROUTINE DISCHARGE Condition: GOOD Consultations: Cardiology Patient Discharge Instructions: Please follow up with your primary care physician in 2-3 days. Please follow up with cardiology in 1 week. Return to the Emergency room for worsening symptoms. Diet: AHA Activity: Ad pam Time Spent Managing Pts Care (In Minutes): 55
[2018-11-06] MEDS ORDERED: PANTOPRAZOLE 40MG TABLET PO SCH (06:30)
== END 2018-11-05 14:57 | disposition home or self-care (01) ==
LOC: ER 16:06 → ERHOLD 18:11 → 4TH 19:47
PROVIDERS: ADMIT Family Medicine; ATTEND Family Medicine
DX: N17.9 Acute kidney failure, unspecified (principal); E03.9 Hypothyroidism, unspecified; E78.5 Hyperlipidemia, unspecified; F32.9 Major depressive disorder, single episode, unspecified; F41.9 Anxiety disorder, unspecified; K21.9 Gastro-esophageal reflux disease without esophagitis; I10 Essential (primary) hypertension; D64.9 Anemia, unspecified
CPT/HCPCS: 93005; 93306; 85025 ×2; 80048 ×2; 36415; 83735; 85610; 80061; 80076; 81003; 84484 ×3; 83690; 83880; 71045; 97112; 97116; 97161; 94760; 96372; 96374; 99285; C9113; J1650; J2405; G0378 ×2

== ENCOUNTER 2020-05-18 08:58 | Emergency (ER) | payer OTHER ==
--- OUTSIDE RECORDS SUMMARY | 2020-05-18 09:01 | XMS REPORT | Continuity of Care Document ---
:1935 Author Organization [facility] t Address [address] [place] [address] Care Team Providers Name Role Phone Unavailable Unavailable Unavailable Problems This patient has no known problems. Allergies, Adverse Reactions, Alerts This patient has no known allergies or adverse reactions. Medications Ordered Filled Start Stop Current Ordering Indication Dosage Frequency Signature Comments Components Source Medication Medication Date Date Medication? Clinician (SIG) Name Name Hemocyte Hemocyte Yes Na Lizama [address] [facility] Levothyroxi Levothyroxi Yes Na Lizama [address] [facility] ne Sodium ne Sodium on an [facility] - empty [facility] stomach in l the [facility]ics Protonix Protonix Yes Na Lizama TAKE ONE [facility] TABLET [facility] Gabapentin Gabapentin Yes Na Lizama [address] [facility] Metoprolol Metoprolol Yes Na Lizama [address] [facility] [address] Tartrate Tartrate with food [facility] Celexa Celexa Yes Na Lizama TAKE ONE [facility] TABLET [facility] Oxybutynin Oxybutynin Yes Na Lizama [address] [facility] Chloride Ch[facility] Levothyroxi Levothyroxi Yes Na Lizama TAKE ONE [facility] ne Sodium ne Sodium TABLET BY [facility] EVERY l MORNING ON [facility]pat[facility] AN EMPTY ent STOMACH Clinics Ferrous Ferrous Yes Na Lizama [address] Sulfate Sulfate [facility] Metoprolol Metoprolol Yes Na Lizama [address] [facility] Tartrate Tartrate with food [facility] Simvastatin Simvastatin Yes Na Lizama [address] l Outpati ent Clinics Procedures This patient has no known procedures. Encounters Start End Encounter Admission Attending Care Care Encounter Source Date/Time Date/Time Type Type Clinicians Facility Department ID 2020-05-10 2020-05-10 Outpatient [facility] [id number] 2020-05-02 2020-05-02 Out[facility] [id number] [facility] 2020-05-02 2020-05-02 Out[facility] [id number] [facility] 2020-04-23 2020-04-23 Out[facility] [id number] [facility] 2020-02-06 2020-02-06 Out[facility] [id number] [facility] 2020-01-26 2020-01-26 Out[facility] [id number] [facility] 2020-01-16 2020-01-16 Out[facility] [id number] [facility] 2019-12-16 2019-12-16 Out[facility] [id number] [facility] 2019-12-16 2019-12-16 Out[facility] [id number] [facility] 2019-11-11 2019-11-11 [facility] [id number] [facility] 16[facility]20[facility]00 16:20:00 [facility] Out[facility] ent Clinics 2019 2019 Outpatient Kunal Jenkins [id number] [address] [facility]:22[facility]pat[facility] Clin[facility] 2019-07-08 2019-07-08 Outpatient Kunal Syedt [id number] [address] 15:00:00 15:00:00 [facility] Results This patient has no known results.
--- NOTE | 2020-05-18 09:43 | RAD REPORT ---
EXAM DESCRIPTION: CT - Head Brain Wo Cont - 05/18/2020 9:34 am CLINICAL HISTORY: TRAUMA COMPARISON: No comparisons TECHNIQUE: Axial 5 mm thick images of the head were obtained without IV contrast. All CT scans are performed using dose optimization technique as appropriate and may include automated exposure control or mA/KV adjustment according to patient size. FINDINGS: No intracranial hemorrhage, mass, edema or shift of mid-line structures. No acute infarcti on changes seen. No abnormal extra-axial fluid collections. Atrophy and chronic ischemic changes are present. Ventricles are in proportion to the volume loss. Small old infarction change present in the convexity of the right frontoparietal lobes. Mastoid air cells and visualized portions of the paranasal sinuses are clear. No acute bony findings. IMPRESSION: No hemorrhage or acute intracranial finding. 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
[2020-05-18] MEDS ORDERED: LIDOCAINE 1% MPF 5 ML VIAL ONE (10:02)
--- NOTE | 2020-05-18 10:58 | ER ---
Nurse's Notes [facility] Name: Bibiana Lara Age: 84 yrs Sex: Female : 1935 Arrival Date: 05/18/2020 Time: 09:00 Bed 19 Private MD: Diagnosis: Fall on same level from slipping, tripping and stumbling;Laceration without foreign body of left hand;Laceration without foreign body of scalp-left caodaism Presentation: 05/18 10:08 Chief complaint: Spouse and/or significant other states: Pt fell this am around 0800 ec1 hours banging the left side of her face on the floor and her glasses cut her just above and lateral to the left brow. Laceration also noted to Left palm. Pt unsure what she cut herself on. Also has a skin tear to the Left upper arm, above the elbow. Daughter states no LOC. 11:16 Coronavirus screen: Client denies travel out of the [place] in the last 14 days. At this dm14 time, the client does not indicate any symptoms associated with coronavirus-19. Ebola Screen: No symptoms or risks identified at this time. Initial Sepsis Screen: Does the patient meet any 2 criteria? No. Patient's initial sepsis screen is negative. Initial Sepsis Screen: Does the patient have a suspected source of infection? No. Patient's initial sepsis screen is negative. Risk Assessment: Do you want to hurt yourself or someone else? Patient reports no desire to harm self or others. Onset of symptoms was May 18, 2020. 11:16 Method Of Arrival: Wheelchair dm14 11:16 Acuity: ROBERT 3 dm14 Triage Assessment: 09:15 General: Appears in no apparent distress. uncomfortable, well groomed, Behavior is dm14 calm, cooperative, appropriate for age. Pain: Complains of pain in palm of left hand Pain currently is 8 out of 10 on a pain scale. Historical: - Allergies: 10:25 No Known Allergies; ec1 - PMHx: 10:25 Hypertension; Depression; Hypothyroidism; ec1 - Immunization history:: Adult Immunizations up to date. - Social history:: Smoking status: Patient denies any tobacco usage or history of. Screenin:00 Abuse screen: Denies threats or abuse. Denies injuries from another. Nutritional dm14 screening: No deficits noted. Tuberculosis screening: No symptoms or risk factors identified. Fall Risk Fall in past 12 months (25 points). Assessment: 09:25 Reassessment: To Radiology for a CT. dm14 11:00 Reassessment: Neosporin applied to head wound. Skin tear to Lt arm cleansed with NS, dm14 neosporin cream applied and dressed with vaseline gauze, 4X4 and secured with curlex. Laceration to left palm cleansed with NS, neosporin applied and dressed with 4 X 4 barbara and secured with curlex. Vital Signs: 09:15 BP 157 / 64; Pulse 93; Resp 18; Pulse Ox 96% ; dm14 11:10 BP 162 / 66; Pulse 50; Resp 18; Pulse Ox 94% ; dm14 ED Course: 09:00 Patient arrived in ED. ds1 09:05 Salena Stanton FNP-C is [facility] kb 09:05 Scooter Salazar MD is Attending Physician. kb 09:10 Darline Smith, TUSHAR is Primary Nurse. dm14 09:34 CT Head Brain wo Cont In Process Unspecified. EDMS 11:00 Patient has correct armband on for positive identification. Bed in low position. Call dm14 light in reach. Side rails up X 1. 11:00 Assist provider with laceration repair on left eye and left hand that was between 2.6 dm14 to 7.5 cm using sutures. Patient did not have IV access during this emergency room visit. 11:10 Arm band placed on right wrist. dm14 11:19 Triage completed. dm14 Administered Medications: No medications were administered Outcome: 10:58 Discharge ordered by . kb 11:00 Discharged to home via wheelchair. dm14 11:00 Condition: stable 11:00 Discharge instructions given to family, Instructed on discharge instructions, follow up and referral plans. medication usage. 11:00 Discharge instructions given to family, Demonstrated understanding of instructions, follow-up care, medications. 11:30 Patient left the ED. dm14 Signatures: Dispatcher [employer] EDMI Salena Stanton FNP-C FNP-Ckb Sanford, Demi ds1 Noelle Doshi RN RN ec1 Darline Smith, TUSHAR RN dm14 Corrections: (The following items were deleted from the chart) 11:22 09:25 BP 157 / 64; Pulse 93bpm; Resp 16bpm; dm14 dm14
--- NOTE | 2020-05-18 10:58 | EDPHYS ---
Physician Documentation [facility] Name: Bibiana Lara Age: 84 yrs Sex: Female : 1935 Arrival Date: 05/18/2020 Time: 09:00 Bed 19 Private MD: ED Physician Scooter Salazar HPI: 05/18 10:55 This 84 yrs old Female presents to ER via Unassigned with complaints of Fall kb Injury - Lac-Head, hand. 10:55 Details of fall: The patient fell from an upright position, while walking. Onset: The kb symptoms/episode began/occurred just prior to arrival. Associated injuries: The patient sustained injury to the head, laceration, 3 cm(s), of the left zoroastrianism, palm of left hand, laceration, 5 cm(s). Severity of symptoms: At their worst the symptoms were moderate, in the emergency department the symptoms are unchanged. The patient has not experienced similar symptoms in the past. The patient has not recently seen a physician. Daughter reports pt got to walking too fast and lost her footing causing her to fall. Cut hand on unknown object, cut left zoroastrianism on glasses. No LOC, no blood thinners. Pt denies any pain, headache, dizziness, chest pain or shortness of breath. Pt able to ambulate with steady gait. Historical: - Allergies: 10:25 No Known Allergies; ec1 - PMHx: 10:25 Hypertension; Depression; Hypothyroidism; ec1 - Immunization history:: Adult Immunizations up to date. - Social history:: Smoking status: Patient denies any tobacco usage or history of. ROS: 10:53 Constitutional: Negative for fever, chills, and weight loss, Cardiovascular: Negative kb for chest pain, palpitations, and edema, Respiratory: Negative for shortness of breath, cough, wheezing, and pleuritic chest pain, Abdomen/GI: Negative for abdominal pain, nausea, vomiting, diarrhea, and constipation, Neuro: Negative for headache, weakness, numbness, tingling, and seizure. 10:53 MS/extremity: Positive for laceration, of the palm of left hand. 10:53 Skin: Positive for laceration(s), of the left zoroastrianism and palm of left hand. Exam: 10:54 Constitutional: This is a well developed, well nourished patient who is awake, alert, kb and in no acute distress. MS/ Extremity: Pulses equal, no cyanosis. Neurovascular intact. Full, normal range of motion. Neuro: Awake and alert, GCS 15, oriented to person, place, time, and situation. Cranial nerves II-XII grossly intact. Motor strength 5/5 in all extremities. Sensory grossly intact. Cerebellar exam normal. Normal gait. 10:54 Head/face: Noted is no obvious of injury or deformity except a laceration(s), that is superficial, that is jagged, of the left zoroastrianism. 10:54 Respiratory: the patient does not display signs of respiratory distress, Respirations: normal. 10:54 Skin: injury, laceration(s), the wound is approximately 5 cm(s), that can be described as clean, no foreign body, linear, without bleeding. 10:55 Skin: injury, laceration(s), the second wound is approximately 3 cm(s), of the left kb zoroastrianism, that can be described as clean, no foreign body, irregular, without bleeding. Vital Signs: 09:15 BP 157 / 64; Pulse 93; Resp 18; Pulse Ox 96% ; dm14 11:10 BP 162 / 66; Pulse 50; Resp 18; Pulse Ox 94% ; dm14 Laceration: 10:51 Wound Repair of 3cm ( 1.2in ) subcutaneous laceration to left zoroastrianism. Irregularly kb shaped.. Distal neuro/vascular/tendon intact. Anesthesia: Wound infiltrated with 2 mls of 1% lidocaine. Wound prep: Moderate cleansing with hibiclenz by me, Wound irrigation with saline by me. Skin closed with 8 5-0 fast absorbing gut using interrupted sutures and sterile technique. Patient tolerated well. 10:51 Wound Repair of 5cm ( 2.0in ) subcutaneous laceration to palm of left hand. Linear kb shaped.. Distal neuro/vascular/tendon intact. Anesthesia: Wound infiltrated with 5 mls of 1% lidocaine. Wound prep: Extensive cleansing with hibiclenz by me, Wound irrigation with saline by me. Skin closed with 11 4-0 Prolene using interrupted sutures and sterile technique. Patient tolerated well. MDM: 09:05 Patient medically screened. kb 10:53 Data reviewed: vital signs, nurses notes. Data interpreted: Pulse oximetry: on room air kb is 100 %. Interpretation: normal. Counseling: I had a detailed discussion with the patient and/or guardian regarding: the historical points, exam findings, and any diagnostic results supporting the discharge/admit diagnosis, radiology results, the need for outpatient follow up, a family practitioner, to return to the emergency department if symptoms worsen or persist or if there are any questions or concerns that arise at home. 05/18 09:19 Order name: CT Head Brain wo Cont; Complete Time: 09:52 kb 05/18 09:19 Order name: Prolene, Sutures; Complete Time: 11:10 kb 05/18 09:19 Order name: Dressing - Wound; Complete Time: 09:42 kb 05/18 09:19 Order name: Gloves, Sterile; Complete Time: 09:42 kb 05/18 09:19 Order name: Setup Suture Tray; Complete Time: 09:43 kb Administered Medications: No medications were administered Disposition: 05/18/20 10:58 Discharged to Home. Impression: Fall on same level from slipping, tripping and stumbling, Laceration without foreign body of left hand, Laceration without foreign body of scalp - left zoroastrianism. - Condition is Stable. - Discharge Instructions: Laceration Care, Adult, [id number], Head Injury, Adult, [id number]. - Prescriptions for Keflex 500 mg Oral Capsule - take 1 capsule by ORAL route every 8 hours for 7 days; 21 capsule. - Medication Reconciliation Form, Thank You Letter, Antibiotic Education, Prescription Opioid Use form. - Follow up: Emergency Department; When: As needed; Reason: Worsening of condition. Follow up: Private Physician; When: 2 - 3 days; Reason: Recheck today's complaints, Continuance of care, Re-evaluation by your physician. Addendum: 05/21/2020 05:58 Co-signature as Attending Physician, Scooter Salazar MD I agree with the assessment and k dr plan of care. Signatures: Dispatcher [employer] EDSalena Mistry, CHOPPED STRAND OPERATOR-C CHOPPED STRAND OPERATOR-CkScooter Levy MD MD [facility] Noelle Doshi RN RN ec1 Darline Smith RN RN dm14 Corrections: (The following items were deleted from the chart) 05/18 10:57 10:55 Daughter reports pt got to walking too fast and lost her footing causing her to kb fall. Cut hand on unknown object, cut left zoroastrianism on glasses. No LOC, no blood thinners. Pt denies any pain, headache, dizziness, chest pain or shortness of breath. jacquelin 11:30 10:58 05/18/2020 10:58 Discharged to Home. Impression: Fall on same level from dm14 slipping, tripping and stumbling; Laceration without foreign body of left hand; Laceration without foreign body of scalp - left zoroastrianism. Condition is Stable. Forms are Medication Reconciliation Form, Thank You Letter, Antibiotic Education, Prescription Opioid Use. Follow up: Emergency Department; When: As needed; Reason: Worsening of condition. Follow up: Private Physician; When: 2 - 3 days; Reason: Recheck today's complaints, Continuance of care, Re-evaluation by your physician. kb
[2020-05-18 11:49] VITALS: BP 162/66; O2SAT 94
== END 2020-05-18 11:30 | disposition home or self-care (01) ==
LOC: ER 08:58
PROC: 0JQK0ZZ Repair Left Hand Subcutaneous Tissue and Fascia, Open Approach (ICD-10-PCS; principal; 2020-05-18)
PROC: 0JQ00ZZ Repair Scalp Subcutaneous Tissue and Fascia, Open Approach (ICD-10-PCS; 2020-05-18)
DX: S01.01XA Laceration without foreign body of scalp, initial encounter (principal); S61.412A Laceration without foreign body of left hand, initial encounter; W18.39XA Other fall on same level, initial encounter; Y93.01 Activity, walking, marching and hiking; Y92.9 Unspecified place or not applicable
CPT/HCPCS: 70450; 99283

== ENCOUNTER 2020-08-22 19:01 | Emergency (ER) | payer OTHER ==
--- OUTSIDE RECORDS SUMMARY | 2020-08-22 19:05 | XMS REPORT | Continuity of Care Document ---
:1935 Author Organization [facility] t Address [address] [place] [address] Care Team Providers Name Role Phone Unavailable [...] M[facility]TH [facility] Gabapentin Gabapentin Yes Na Lizama [address] [facility] Metoprolol Metoprolol Yes Na Lizama [address] Tartrate Tartrate with [facility] Celexa Celexa Yes Na Lizama TAKE ONE [facility] TABLET [facility] Oxybutynin Oxybutynin Yes Na Lizama [address] [facility] Levothyroxi Levothyroxi Yes Na Lizama TAKE ONE [facility] ne Sodium ne Sodium TABLET BY [facility]TH [facility]oria EVERY l MORNING ON Outpati AN EMPTY ent STOMACH Clinics Ferrous Ferrous Yes Na Lizama [address] Sulfate Sulfate [facility] Metoprolol Metoprolol Yes Na Lizama [address] Tartrate Tartrate with food [facility] Simvastatin Simvastatin Yes Na Lizama [address] [facility] l Outpati ent Clinics Procedures This patient has no known procedures. Encounters Start End Encounter Admission Attending Care Care Encounter Source Date/Time Date/Time Type Type Clinicians Facility Department ID 2020-07-12 2020-07-12 Outpatient [facility] [id number] [facility] 2020-06-21 2020-06-21 Outpatient [facility] [id number] [facility] 2020-05-31 2020-05-31 Outpatient [facility] [id number] [facility] 2020-05-15 2020-05-15 Outpatient [facility] [id number] [facility] 2020-05-10 2020-05-10 Outpatient [facility] [id number] [facility] 2020-05-02 2020-05-02 Outpatient [facility] [id number] [facility] 2020-05-02 2020-05-02 Outpatient [facility] [id number] [facility] 2020-04-23 2020-04-23 Outpatient [facility] [id number] [facility] 2020-02-06 2020-02-06 Outpatient [facility] [id number] [facility] 2020-01-26 2020-01-26 Outpatient [facility] [id number] [facility] 2020-01-16 2020-01-16 [facility] [id number] [facility] 2019-12-16 2019-12-16 [facility] [id number] [facility] 2019-12-16 2019-12-16 [facility] [id number] [facility] 2019-11-11 2019-11-11 [facility] [id number] 16:20:00 16:20:00 t [facility] Outpat[facility] Clinics 2019 2019 [facility] [id number] 11:22:00 11:22:00 t [facility] Medicine Outpati ent Clinics 2019-07-08 2019-07-08 [facility] [id number] [facility] 15:00:00 15:00:00 t [facility] Out[facility] Clinics Results This patient has no known results.
[2020-08-22 20:44] LABS: Absolute Lymphocytes (CBC) 2.1 K/uL (0.7-4.9); Basophils % 0.6 % (0-1.3); Hematocrit 35.1 % (36.0-45.0); Lymphocytes % 20.7 % (15.3-44.8); MPV 9.4 fL (7.6-11.3)
[2020-08-22 20:53] LABS: Potassium 4.1 mmol/L (3.5-5.1)
[2020-08-22 20:56] LABS: SARS-COV-2 RT PCR NEGATIVE (NEGATIVE)
--- NOTE | 2020-08-22 21:12 | RAD REPORT ---
EXAM DESCRIPTION: RAD - Chest Single View - 08/22/2020 8:20 pm CLINICAL HISTORY: Cough;Chest pain COMPARISON: Portable October 2018 TECHNIQUE: AP portable chest image was obtained 08/22/2020 8:20 pm . FINDINGS: Lung volumes are low accentuating parenchymal pattern. This could mask early edema or infi ltrate. No peripheral mass or consolidation. Significant failure or volume overload are doubtful. Hea rt and vasculature are normal. No measurable pleural effusion and no pneumothorax. No acute bony abno rmality seen. No acute aortic findings suspected. IMPRESSION: Limited portable imaging without acute cardiopulmonary finding. Shallow inspiration accentuates lung markings potentially masking early interstitial edema or infiltr ate.
--- NOTE | 2020-08-22 21:52 | EDPHYS ---
Physician Documentation [facility] Name: Bibiana Lara Age: 84 yrs Sex: Female : 1935 Arrival Date: 08/22/2020 Time: 19:04 Bed 8 Private MD: Judith Lizama ED Physician Kt Goode HPI: 08/22 21:47 This 84 yrs old Female presents to ER via Ambulatory with complaints of Cough. rn 21:47 The patient or guardian reports cough, described as moderate, with productive sputum. rn Onset: The symptoms/episode began/occurred 1 week(s) ago. Severity of symptoms: At their worst the symptoms were moderate, in the emergency department the symptoms are unchanged. Modifying factors: The symptoms are alleviated by nothing, the symptoms are aggravated by nothing. The patient has not experienced similar symptoms in the past. The patient has not recently seen a physician. Historical: - Allergies: 19:52 No Known Allergies; ca1 - PMHx: 19:52 Depression; Hypertension; Hypothyroidism; High Cholesterol; ca1 - PSHx: 19:52 Cholecystectomy; Thyroidectomy; Knee surgery; ca1 - Immunization history:: Client reports receiving the 2nd dose of the Covid vaccine, Client reports receiving the 1st dose of the Covid vaccine, Pneumococcal vaccine is up to date, Flu vaccine is up to date. - Social history:: Smoking status: Patient denies any tobacco usage or history of. - Family history:: not pertinent. - Hospitalizations: : No recent hospitalization is reported. ROS: 21:47 Constitutional: Negative for fever, chills, and weight loss, Eyes: Negative for injury, rn pain, redness, and discharge, ENT: + congestion Neck: Negative for injury, pain, and swelling, Cardiovascular: Negative for palpitations, and edema, Respiratory: + cough, neg for sob Abdomen/GI: Negative for abdominal pain, nausea, vomiting, diarrhea, and constipation, Back: Negative for injury and pain, MS/Extremity: Negative for injury and deformity, Skin: Negative for injury, rash, and discoloration, Neuro: Negative for headache, numbness, tingling, and seizure. Exam: 21:47 Constitutional: This is a well developed, well nourished patient who is awake, alert, rn and in no acute distress. Head/Face: Normocephalic, atraumatic. Eyes: Periorbital areas with no swelling, redness, or edema. Cardiovascular: Regular rate and rhythm with a normal S1 and S2. No gallops, murmurs, or rubs. Normal PMI, no JVD. No pulse deficits. Respiratory: Clear breath sounds bilaterally. No increased work of breathing, no retractions or nasal flaring. Abdomen/GI: Soft, non-tender Skin: Warm, dry MS/ Extremity: Pulses equal, no cyanosis Neuro: Awake and alert, GCS 15, oriented to person, place, time, and situation. Cranial nerves II-XII grossly intact. Motor strength 4/5 in all extremities. Sensory grossly intact. Vital Signs: 19:48 BP 148 / 70; Pulse 75; Resp 16 S; Temp 97.5(TE); Pulse Ox 94% on R/A; Weight 74.84 kg ca1 (R); Height 5 ft. 6 in. (167.64 cm) (R); Pain 8/10; 22:00 BP 138 / 72; Pulse 70; Resp 18; Pulse Ox 98% ; ea 19:48 Body Mass Index 26.63 (74.84 kg, 167.64 cm) ca1 MDM: 20:01 Patient medically screened. rn 21:47 Differential Diagnosis: Bronchitis Influenza Upper Respiratory Infection Viral Syndrome rn Pneumonia. Data reviewed: vital signs, nurses notes, lab test result(s), EKG, radiologic studies, plain films, and as a result, I will discharge patient. Counseling: I had a detailed discussion with the patient and/or guardian regarding: the historical points, exam findings, and any diagnostic results supporting the discharge/admit diagnosis, lab results, radiology results, the need for outpatient follow up, to return to the emergency department if symptoms worsen or persist or if there are any questions or concerns that arise at home. Response to treatment: the patient's symptoms have mildly improved after treatment, and as a result, I will discharge patient. Special discussion: I discussed with the patient/guardian in detail that at this point there is no indication for admission to the hospital. It is understood, however, that if the symptoms persist or worsen the patient needs to return immediately for re-evaluation. ED course: Feels better, CXR no acute findings, no oxygen requirement, procal neg, covid and flu neg, will dc home with abx given 1 week of symptoms and persistent cough.. 06/02 20:12 Order name: CBC with Diff rn 08/22 20:12 Order name: Basic Metabolic Panel; Complete Time: 21:24 rn 08/22 20:12 Order name: Procalcitonin; Complete Time: 21:40 rn 08/22 20:12 Order name: Blood Culture Adult (2) rn 08/22 20:12 Order name: Lactate; Complete Time: 21:24 rn 08/22 20:15 Order name: Chest Single View; Complete Time: 21:24 EDNE 08/22 20:23 Order name: CBC with Automated Diff; Complete Time: 21:24 EDNE 08/22 20:56 Order name: COVID-19/FLU A+B; Complete Time: 21:24 EDNE 08/22 19:53 Order name: EKG; Complete Time: 19:54 ca1 08/22 19:53 Order name: EKG - Nurse/Tech; Complete Time: 20:30 ca1 08/22 20:12 Order name: IV Start; Complete Time: 20:30 rn Administered Medications: No medications were administered Disposition: 08/22/20 21:52 Discharged to Home. Impression: Cough. - Condition is Stable. - Discharge Instructions: Cough, Adult. - Prescriptions for Augmentin 875- 125 mg Oral Tablet - take 1 tablet by ORAL route every 12 hours for 10 days; 20 tablet. Zithromax Z- Saran 250 mg Oral Tablet - take 1 tablet by ORAL route as directed for 5 days Day 1 - take two (2) tablets one time. Day 2, 3, 4 , 5 take one (1) tablet once daily.; 6 tablet. - Medication Reconciliation Form, Thank You Letter, Antibiotic Education, Prescription Opioid Use form. - Follow up: Private Physician; When: 2 - 3 days; Reason: Recheck today's complaints, Re-evaluation by your physician. - Problem is an ongoing problem. - Symptoms have improved. Signatures: Dispatcher [employer] EDMS Kt Goode MD MD rn Antunez, Elena RN TUSHAR ea Gloria Shahid RN RN ca1 Corrections: (The following items were deleted from the chart) 20:12 19:54 Influenza Screen (A \T\ B)+BA.LAB.BRZ ordered. EDMS EDMS 20:13 19:54 CORONAVIRUS+MR.LAB.BRZ ordered. EDMS EDMS 20:15 19:54 Chest Pa And Lat (2 Views)+RAD.RAD.BRZ ordered. EDMS EDMS 21:49 21:47 Constitutional: This is a well developed, well nourished patient who is awake, rn alert, and in no acute distress. Head/Face: Normocephalic, atraumatic. Eyes: Periorbital areas with no swelling, redness, or edema. Cardiovascular: Regular rate and rhythm with a normal S1 and S2. No gallops, murmurs, or rubs. Normal PMI, no JVD. No pulse deficits. Respiratory: Clear breath sounds bilaterally. No increased work of breathing, no retractions or nasal flaring. Abdomen/GI: Soft, non-tender Skin: Warm, dry MS/ Extremity: Pulses equal, no cyanosis Neuro: Awake and alert, GCS 15, oriented to person, place, time, and situation. Cranial nerves II-XII grossly intact. Motor strength 4/5 in all extremities. Sensory grossly intact. rn 22:07 21:52 08/22/2020 21:52 Discharged to Home. Impression: Cough. Condition is Stable. ea Forms are Medication Reconciliation Form, Thank You Letter, Antibiotic Education, Prescription Opioid Use. Follow up: Private Physician; When: 2 - 3 days; Reason: Recheck today's complaints, Re-evaluation by your physician. Problem is an ongoing problem. Symptoms have improved. rn
--- NOTE | 2020-08-22 21:52 | ER ---
Nurse's Notes [facility] Name: Bibiana Lara Age: 84 yrs Sex: Female : 1935 Arrival Date: 08/22/2020 Time: 19:04 Bed 8 Private MD: Judith Lizama Diagnosis: Cough Presentation: 08/22 19:48 Chief complaint: Patient states: Cough and congestion x 1 week. Now am having chest ca1 pains with the coughing. Denies fever. Denies N/V/D. Coronavirus screen: Client denies travel out of the [place] in the last 14 days. congestion, cough unrelated to allergies, Client presents with at least one sign or symptom that may indicate coronavirus-19. Standard/surgical mask placed on the client. Provider contacted for isolation considerations. Ebola Screen: Patient negative for fever greater than or equal to 101.5 degrees Fahrenheit, and additional compatible Ebola Virus Disease symptoms Patient denies exposure to infectious person. Patient denies travel to an Ebola-affected area in the 21 days before illness onset. No symptoms or risks identified at this time. Initial Sepsis Screen: Does the patient meet any 2 criteria? No. Patient's initial sepsis screen is negative. Does the patient have a suspected source of infection? No. Patient's initial sepsis screen is negative. Risk Assessment: Do you want to hurt yourself or someone else? Patient reports no desire to harm self or others. Onset of symptoms was August 22, 2020. 19:48 Method Of Arrival: Ambulatory ca1 19:48 Acuity: ROBERT 3 ca1 Historical: - Allergies: 19:52 No Known Allergies; ca1 - PMHx: 19:52 Depression; Hypertension; Hypothyroidism; High Cholesterol; ca1 - PSHx: 19:52 Cholecystectomy; Thyroidectomy; Knee surgery; ca1 - Immunization history:: Client reports receiving the 2nd dose of the Covid vaccine, Client reports receiving the 1st dose of the Covid vaccine, Pneumococcal vaccine is up to date, Flu vaccine is up to date. - Social history:: Smoking status: Patient denies any tobacco usage or history of. - Family history:: not pertinent. - Hospitalizations: : No recent hospitalization is reported. Screenin:08 Abuse screen: Denies threats or abuse. Nutritional screening: No deficits noted. ea Tuberculosis screening: No symptoms or risk factors identified. Fall Risk None identified. Assessment: 20:30 General: Appears in no apparent distress. Behavior is calm, cooperative, appropriate ea for age. Pain: Complains of pain in chest Pain does not radiate. Pain began 1 day ago. Neuro: Level of Consciousness is awake, alert, obeys commands, Oriented to person, place, time. Cardiovascular: Patient's skin is warm and dry. Respiratory: Airway is patent Respiratory effort is even, unlabored, Respiratory pattern is regular, symmetrical. Derm: Skin is pink, warm \T\ dry. 21:36 Reassessment: Patient and/or family updated on plan of care and expected duration. Pain ea level reassessed. Patient is alert, oriented x 3, equal unlabored respirations, skin warm/dry/pink. 21:42 Reassessment: Patient and/or family updated on plan of care and expected duration. Pain ea level reassessed. Patient is alert, oriented x 3, equal unlabored respirations, skin warm/dry/pink. Provider at bedside updating plan of care. 22:05 Reassessment: Patient and/or family updated on plan of care and expected duration. Pain ea level reassessed. Patient is alert, oriented x 3, equal unlabored respirations, skin warm/dry/pink. Discharge instruction given to patient verbalized the understanding of instruction. Pt left ED via wheelchair accompanied by family. Pt tolerating well. Vital Signs: 19:48 BP 148 / 70; Pulse 75; Resp 16 S; Temp 97.5(TE); Pulse Ox 94% on R/A; Weight 74.84 kg ca1 (R); Height 5 ft. 6 in. (167.64 cm) (R); Pain 8/10; 22:00 BP 138 / 72; Pulse 70; Resp 18; Pulse Ox 98% ; ea 19:48 Body Mass Index 26.63 (74.84 kg, 167.64 cm) ca1 ED Course: 19:04 Patient arrived in ED. es 19:04 Judith Lizama MD is Private Physician. es 19:50 Triage completed. ca1 19:52 Arm band placed on right wrist. ca1 20:01 Kt Goode MD is Attending Physician. rn 20:07 Patience Wade RN is Primary Nurse. ea 20:08 Patient has correct armband on for positive identification. Bed in low position. Call ea light in reach. Side rails up X2. lease out man on. Pulse ox on. NIBP on. 20:08 Patient maintains SpO2 saturation greater than 95% on room air. ea 20:21 Chest Single View In Process Unspecified. EDMS 22:06 No provider procedures requiring assistance completed. IV discontinued, intact, ea bleeding controlled, No redness/swelling at site. Pressure dressing applied. Administered Medications: No medications were administered Outcome: 21:52 Discharge ordered by . rn 22:06 Discharged to home ambulatory, with family. ea 22:06 Condition: stable 22:06 Discharge instructions given to patient, Instructed on discharge instructions, follow up and referral plans. medication usage, Demonstrated understanding of instructions, follow-up care, medications, Prescriptions given X 2. 22:07 Patient left the ED. ea Signatures: Dispatcher [employer] Renee Quiñones Roman, MD MD rn Antunez, Elena, RN RN ea Acob, Cheryl RN RN ca1
[2020-08-22 22:16] VITALS: TEMP 97.5
[2020-08-22 22:17] VITALS: BP 138/72; O2SAT 98
[2020-08-22] MEDS ORDERED: HYDROCODONE/CHLORPHEN 5 ML/OSYR ONE (22:19)
[2020-08-22] MEDS ORDERED: AZITHROMYCIN 250 MG TAB ONE (22:19)
[2020-08-22] MEDS ORDERED: AMOX/K CLAV 875 MG TAB ONE (22:19)
--- NOTE | 2020-08-23 07:51 | EKG ---
Test Date: 2020-08-22 Test Time: 20:07:47 Med Care Manager: ANDRE MEASUREMENT RESULTS: Intervals: Rate: 73 KS: 210 QRSD: 90 QT: 396 QTc: 436 [place]: P: 83 KS: 210 QRS: 15 T: 37 INTERPRETIVE STATEMENTS: Sinus rhythm with 1st degree AV block with premature atrial complexes Otherwise normal ECG Compared to ECG 11/04/2018 16:18:01 Atrial premature complex(es) now present Myocardial infarct finding no longer present Electronically Signed On 08-23-20 07:50:24 CDT by Berhane Gonsalez
== END 2020-08-22 22:07 | disposition home or self-care (01) ==
LOC: ER 19:01
DX: R05 Cough (principal); I10 Essential (primary) hypertension; Z20.822 Contact with and (suspected) exposure to COVID-19
CPT/HCPCS: 87040 ×2; 85025; 80048; 36415; 83605; 84145; 0240U; 71045; 93005; 99284

== ENCOUNTER 2021-06-22 19:19 | Emergency (ER) | payer OTHER ==
--- OUTSIDE RECORDS SUMMARY | 2021-06-22 19:26 | XMS REPORT | Continuity of Care Document ---
:1935 Author Organization [facility] [place] [facility] t Address [address] [place] [address] Care Team Providers Name Role Phone PROSPER CHO Primary Care Physician Unavailable Alyson Cho Attending Clinician Unavailable [id number] Attending Clinician Unavailable HELEN LONDONO Attending Clinician Unavailable Adis Shepherd Attending Clinician Unavailable Helen Londono V Attending Clinician Unavailable Parmjit FINLYE, B Attending Clinician Unavailable Ondina Lorenzana Attending Clinician Singer VILLASEÑOR Attending Clinician Lyric CYR Attending Clinician Chauncey CYR Attending Clinician Deepa VILLASEÑOR Attending Clinician DEEPA Attending Clinician Unavailable [id number] Admitting Clinician Unavailable CHAUNCEY Admitting Clinician Unavailable Sandie Shepherd Admitting Clinician Unavailable Helen Londono V Admitting Clinician Unavailable Deepa VILLASEÑOR Admitting Clinician DEEPA Admitting Clinician Unavailable Payers Payer Name Policy Type Policy Number Effective Date Expiration Date S cirilo [facility] [place] [id number] Problems Condition Condition Condition Status Onset Resolution Last Treating Co mments Source Name Details Category Date Date Treatment Clinician Date Pulmonary Pulmonary Disease Active 2020-03 Uni vers hypertensi hypertensi 2-06 it y of on on 00:00: [address] Persistent Persistent Disease Active 2020-03 U nivers atrial atrial 2-05 [place]y of fibrill[place] 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 2-05 ity of dysfunctio dysfunctio [place] Essential Essential Disease Active 2020-03 Uni vers hypertensi hypertensi 2-05 it y of on on 00:00: [place] 00 Medical Branch Chronic Chronic Disease Active 2020-03 Univers anticoagul anticoagul 2-05 it y of ation ation 00:00: [place] 00 Medical Branch Toxic Toxic Disease Active 2020-03 Univers metabolic metabolic 2-05 ity of encephalop encephalop [place] at[place] 00 Medical transient transient Bran ch alteration alteration of of awareness awareness Acute Acute Disease Active 2020-03 Univers respirator respirator 2-05 it y of y failure y failure 00:00: Jakubbell s with with 00 Medical hypoxia hypoxia Branch and and hypercapni hypercapni a a Dyslipidem Dyslipidem Disease Active 2020-03 U nivers ia ia 2-05 ity of 00:00: [place] 00 Medical Branch Acute Acute Disease Active 2020-03 Univers kidney kidney 2-05 ity of injury injury 00:00: [place] superimpos superimpos 00 Me dical ed on ed on Branch chronic chronic kidney kidney disease disease Acute Acute Disease Active 2020-03 Univers right-side right-side 2-02 it y of d CHF d CHF 00:00: [place] (congestiv (congestiv 00 Me dical e heart e heart Branch failure) failure) Acute on Acute on Disease Active 2020-03 Unive rs chronic chronic 2-02 ity of diastolic diastolic 00:00: [place] CHF CHF 00 Medical (congestiv (congestiv Br anch e heart e heart failure), failure), NYHA class NYHA class 3 3 Allergies, Adverse Reactions, Alerts Allergy Allergy Status Severity Reaction(s) Onset Inactive Treating Comm ents Source Name Type Date Date Clinician NKA Allergy Active ENCCLR 03-28 14:27: 36 NKA Allergy Active ENCCLR 03-28 14:27: 36 NO KNOWN Drug Active Univers ALLERGIE Class ity of S [facility] Social History Social Habit Start Date Stop Date Quantity Comments Source Exposure to Not sure [facility] SARS-CoV-2 [facility] (event) Branch Alcohol intake 2021-02-27 2021-02-27 Ex-drinker University 00:00:00 00:00:00 (finding) [facility] Tobacco use and 2021-02-21 2021-02-21 Never used Universit y of exposure 00:00:00 00:00:00 [facility] Sex Ass[birth year] At [birth year] Universit y of 00:00:00 00:00:00 [facility] Smoking Status Start Date Stop Date Source Never smoker [facility] Medications Ordered Filled Start Stop Current Ordering Indication Dosage Frequency Signature Comments Components Source Medication Medication Date Date Medication? Clinician (SIG) Name Name multivit-ir 2020-03- No 1{tbl} Take 1 Univers on-FA-calci 2-04-02 tablet by it y of um-mins 9 00:00: 05:59 mouth [place] mg iron-400 00 :00 daily for Med ical mcg tablet 30 days. Bran h vitamin 2020-03- No 1000ug Take 1 Un new B-12 1,000 2-11 04-02 tablet by ity of mcg tablet 00:00: 05:59 mouth [place] 00 :00 daily for Medical 30 days. Branch multivit-ir 2020-03- No 1{tbl} Take 1 Univers on-FA-calci 2-04-02 tablet by it y of um-mins 9 00:00: 05:59 mouth [place] mg iron-400 00 :00 daily for Med ical mcg tablet 30 days. Branc h vitamin 2020-03- No 1000ug Take 1 Un new B-12 1,000 2-11 04-02 tablet by ity of mcg tablet 00:00: 05:59 mouth [place] 00 :00 daily for Medical 30 days. Branch levothyroxi 2020-03 Yes 100ug Take 100 U nivers ne 100 mcg 2-10 mcg by ity of tablet 20:35: mouth [place] 23 every Medical morning. Branch rivaroxaban 2020-03 Yes Take by Un new (XARELTO) 2-10 mouth ity of 20 mg 20:35: daily. [place] tablet 23 Medical Branch simvastatin 2020-03 Yes 20mg Take 20 mg Univers 20 mg 2-10 by mouth ity of tablet 20:35: at [place] 23 bedtime. Medical Branch citalopram 2020-03 Yes 10mg Take 10 mg U nivers 10 mg 2-10 by mouth ity of tablet 20:35: at [place] 23 bedtime. Medical Branch levothyroxi 2020-03 Yes 100ug Take 100 U nivers ne 100 mcg 2-10 mcg by ity of tablet 20:35: mouth [place] 23 every Medical morning. Branch rivaroxaban 2020-03 Yes Take by Un new (XARELTO) 2-10 mouth ity of 20 mg 20:35: daily. [place] tablet 23 Medical Branch simvastatin 2020-03 Yes 20mg Take 20 mg Univers 20 mg 2-10 by mouth ity of tablet 20:35: at [place] 23 bedtime. Medical Branch citalopram 2020-03 Yes 10mg Take 10 mg U nivers 10 mg 2-10 by mouth ity of tablet 20:35: at [place] [id number] bedtime. Medical Branch metoprolol 2020-03- No 50mg Take 50 mg Univers succinate 2-10 12-10 by mouth ity o f XL 50 mg 24 15:57: 00:00 daily. Jakub as hr tablet 41 :00 Medical Branch amLODIPine 2020-03- No 5mg Take 5 mg U nivers 5 mg tablet 2-10 12-10 by mouth ity of 15:57: 00:00 at [place] 41 :00 bedtime. Medical Branch furosemide 2020-03- No 40mg Take 1 U nivers 40 mg 2-10 01-10 tablet by ity of tablet 00:00: 05:59 mouth [place] 00 :00 every Medical morning Branch and evening for 30 days. magnesium 2020-03- No 400mg Take 400 Univers oxide 420 2-10 01-10 mg by ity of mg Tab 00:00: 05:59 mouth [place] 00 :00 daily for Medical 30 days. Branch polyethylen 2020-03- No 17g Take 1 Univers e glycol 2-10 01-10 Packet by ity o f 3350 17 00:00: 05:59 mouth [place] gram powder 00 :00 daily for Med ical 30 days. Branch spironolact 2020-03 No 25mg Take 1 Univers one 25 mg 2-10 -10 tablet by ity of tablet 00:00: 05:59 mouth 2 [place] 00 :00 (two) Medical times Branch daily for 30 days. furosemide 2020-03 No 40mg Take 1 U nivers 40 mg 2-10 -10 tablet by ity of tablet 00:00: 05:59 mouth [place] 00 :00 every Medical morning Branch and evening for 30 days. magnesium 2020-03 No 400mg Take 400 Univers oxide 420 2-10 -10 mg by ity of mg Tab 00:00: 05:59 mouth [place] 00 :00 daily for Medical 30 days. Branch polyethylen 2020-03 No 17g Take 1 Univers e glycol 2-10 -10 Packet by ity o f 3350 17 00:00: 05:59 mouth [place] gram powder 00 :00 daily for Med ical 30 days. Branch spironolact 2020-03 No 25mg Take 1 Univers one 25 mg 2-10 -10 tablet by ity of tablet 00:00: 05:59 mouth 2 [place] 00 :00 (two) Medical times Branch daily for 30 days. bisacodyL 2020-03 10mg 10 mg, Unive rs (DULCOLAX) 05-01 Rectal, ity o f suppository 21:30: 20:40 ONCE, 1 [place] 10 mg 00 :00 dose, On Medical [place] Branch 02/28/21 at 1530, Routine iron 2020-03 300mg 300 mg, IV Unive rs sucrose 05-01 Infusion, ity of (VENOFER) 21:00: 02:00 ONCE, [place] 300 mg in 00 :00 Administer Medi idalmis NaCl 0.9% over 4 Branch (NS) 250 mL Hours, On infusion [place] 02/28/21 at 1500, For 1 dose magnesium 2020-03 Yes 400mg 400 mg, Univ ers oxide 05-01 Oral, BID, ity of (MAG-OX 17:00: [place] 400[place] tablet 00 on [place] Medica l 400 mg 02/28/21 at Branch 1100, Until Discontinu ed, Routine multivit-ir 2020-03 Yes 1{tbl} 1 tablet, Univers on-FA-calci 2-09 Oral, ity of um-mins 15:00: DAILY, [place] (THERA-M) 9 00 First dose Me dical mg iron-400 on [place] Branch mcg tablet 02/28/21 at 1 tablet 0900, Until Discontinu ed, Routine bisacodyL 2020-03 Yes 5mg 5 mg, Univers (DULCOLAX) 2-09 Oral, ity of tablet 5 mg 14:19: QDAILYPRN, [place] 59 Starting Medical on Thu Branch 02/28/21 at 0819, Until Discontinu ed, Routine, Constipati on iron 2020-03 No 300mg 300 mg, IV Unive rs sucrose 04-30 Infusion, ity of (VENOFER) 01:30: 07:02 ONCE, [place] 300 mg in 00 :00 Administer Medi idalmis NaCl 0.9% over 4 Branch (NS) 250 mL Hours, On infusion Thu02/26/21 at 1930, For 1 dose rivaroxaban 2020-03 Yes 15mg 15 mg, Univ ers (XARELTO) 2- Oral, ity of tablet 15 15:00: DAILY, [place] mg 00 First dose Medical (after last modificati on) on Thu02/26/21 at 0900, Until Discontinu ed, Routine traMADoL 2020-03- No 50mg 50 mg, Univer s (ULTRAM) 04-29- Oral, ity of tablet 50 03:52: 18:24 Q6HPRN, [place] mg 34 :55 Starting Medical on Thu02/25/21 at 2152, Until Thu02/27/21 at 1224, Routine, Pain (scale 4-6) polyethylen 2020-03 Yes 17g 17 g, Unive rs e glycol 2-07 Oral, BID, ity o f 3350 powder 02:00: First dose [place] 17 g 00 on [facility] 02/25/21 at Branch 2000, Until Discontinu ed, Routine amoxicillin 2020-03 Yes 1{tbl} 1 tablet, Univers -clavulanat 2-07 Oral, ity of e 02:00: Q12H, [place] (AUGMENTIN) 00 First dose Me dical 875-125 mg on [facility] per tablet 02/25/21 at 1 tablet 2000, Until Discontinu ed, Routine
Reason for Anti-Infec tive: Documented Infection< br>Documen maliha Infection Site: Urine
D uration of Therapy: 7 days sennosides 2020-03 Yes 8.6mg 8.6 mg, Uni vers (SENOKOT) 2-07 Oral, BID, ity of tablet 8.6 01:15: First dose [place] mg 00 on [facility] 02/25/21 at Branch 1915, Until Discontinu ed, Routine furosemide 2020-03 Yes 40mg 40 mg, Unive rs (LASIX) 2 Oral, ity of tablet 40 23:00: QAM+PM, [place] mg 00 First dose Medical on [facility] 02/24/21 at 1700, Until Discontinu ed, Routine traMADoL 2020-03- No 50mg 50 mg, Univer s (ULTRAM) 04-27 Oral, ity of tablet 50 18:35: 17:27 Q6HPRN, [place] mg 00 :14 Starting Medical on [facility] 02/24/21 at 1235, Until [facility] 02/25/21 at 1127, Routine, Pain (scale 7-10) acetaminoph 2020-03 Yes 650mg 650 mg, Un new en 205 Oral, ity of (TYLENOL) 18:34: Q4HPRN, [place] tablet 650 52 Starting Medic al mg on [facility] 02/24/21 at 1234, Until Discontinu ed, Routine, Pain (scale 1-3) cefTRIAXone 2020-03- No 1000mg 1,000 mg, Univers (ROCEPHIN) 04-27- IV ity of 1,000 mg in 18:00: 16:19 [facility], [place] NaCl 0.9% 00 :25 Q24H ABX, Medic al (NS) 50 mL First dose Bra [facility] MINI-BAG (after last modificati on) on [place] 02/24/21 at 1200, Until Discontinu ed, Administer over 30 Minutes, 50 mL
Reas on for Anti-Infec tive: Empiric Therapy for Suspected Infection< br>Empiric Therapy Site: Urine
D uration of therapy: 7 days vitamin 2020-03 Yes 1000ug 1,000 mcg, Un new B-12 2-05 Oral, ity of (CYANOCOBAL 15:15: DAILY, [place] LINDSEY) 00 First dose Medical tablet on [place] Branch 1,000 mcg 02/24/21 at 0915, Until Discontinu ed, Routine furosemide 2020-03 No 40mg 40 mg, IV U nivers (LASIX) 04-27 Push, ity of injection 02:00: 22:38 Q12H, [place] 40 mg 00 :08 First dose Medical (after Branch last modificati on) on 02/23/21 at 2000, Until Discontinu ed, Routine azithromyci 2020-03 No 500mg 500 mg, IV Univers n 04-26 Piggyback, ity of (ZITHROMAX) 17:00: 22:38 Q24H ABX, [place] 500 mg in 00 :53 First dose Medi idalmis NaCl 0.9% on [facility] Branch (NS) 250 mL 02/23/21 at VIAL-MATE 1100, IV Until piggyback Discontinu ed, Administer over 60 Minutes, 250 mL
Reas on for Anti-Infec tive: Empiric Therapy for Suspected Infection< br>Empiric Therapy Site: Respirator y
Durat ion of therapy: 72 hours spironolact 2020-03 No 25mg 25 mg, Uni vers one 04-26 12-11 Oral, BID, ity of (ALDACTONE) 15:45: 02:08 First dose [place] tablet 25 00 :27 on [facility] Medical mg 02/23/21 at Branch 0945, Until Discontinu ed, Routine simvastatin 2020-03 Yes 20mg 20 mg, Univ ers (ZOCOR) 2-04 Oral, QHS, ity of tablet 20 03:00: [place] mg 00 on Thu Medical 02/22/21 at Branch 2100, Until Discontinu ed, Routine KCL 2020-03 No 40meq 40 mEq, Univers (KLOR-CON 2- 12-04 Oral, BID, ity of M20) tablet 16:45: 15:44 First dose [place] 40 mEq 00 :46 on Thu Medical 02/22/21 at Branch 1045, Until Discontinu ed, Routine citalopram 2020-03 Yes 10mg 10 mg, Unive rs (CELEXA) 04-25 Oral, ity of tablet 10 15:00: DAILY, [place] mg 00 First dose Medical on Thu Branch 02/22/21 at 0900, Until Discontinu ed, Routine rivaroxaban 2020-03 No 20mg 20 mg, Uni vers (XARELTO) 04-2506 Oral, ity of tablet 20 15:00: 17:43 DAILY, [place] mg 00 :43 First dose Medical on Thu Branch 02/22/21 at 0900, Until Discontinu ed, Routine amLODIPine 2020-03 No 2.5mg 2.5 mg, Un new (NORVASC) 04-25 1204 Oral, ity of tablet 2.5 15:00: 15:44 DAILY, [place] mg 00 :02 First dose Medical on Thu Branch 02/22/21 at 0900, Until Discontinu ed, Routine levothyroxi 2020-03 Yes 100ug 100 mcg, U nivers ne 04-25 Oral, ity of (SYNTHROID) 12:00: QAM-0600, [place] tablet 100 00 First dose Med ical mcg on Thu Branch 02/22/21 at 0600, Until Discontinu ed, Routine cefTRIAXone 2020-03 No 1000mg 1,000 mg, Univers (ROCEPHIN) 04-25 IV ity of 1,000 mg in 06:15: 16:17 [facility], [place] NaCl 0.9% 00 :58 Q12H ABX, Medic al (NS) 50 mL First dose Bra [facility] MINI-BAG on Thu02/22/21 at 0015, Until Discontinu ed, Administer over 30 Minutes, 50 mL
Reas on for Anti-Infec tive: Empiric Therapy for Suspected Infection< br>Empiric Therapy Site: Urine
D uration of therapy: 7 days furosemide 2020-03 No 20mg 20 mg, IV U nivers (LASIX) 04-25 Push, TID, ity o f injection 05:15: 14:53 First dose [place] 20 mg 00 :25 on [facility] Medical 02/21/21 at Branch 2315, Until Discontinu ed, Routine bumetanide 2020-03- No 1.25mg 1.25 mg, [facility] (BUMEX) 04-24 Slow IV ity of injection 22:30: 04:57 Push, [place] 1.25 mg 00 :57 Q24H, Medical First dose Branch on [place] 02/21/21 at 1630, Until Discontinu ed, Routine Hemocyte Hemocyte Yes Na Cho [address] [facility] Levothyroxi Levothyroxi Yes Na Cho [address] ne Sodium ne Sodium on an Luke s - empty Memoria stomach in l the Outpati morning ent Clinics Protonix Protonix Yes Na Cho TAKE ONE [facility] TABLET BY [facility] - [facility]TH Memoria DAILY l [facility] ent [facility] Gabapentin Gabapentin Yes Na Cho [address] k[facility] - [facility] ent [facility] Metoprolol Metoprolol Yes Na Cho [address] Tartrate Tartrate with food [facility] ent [facility] Celexa Celexa Yes Na Cho TAKE ONE [facility] TABLET BY [facility] - [facility]oria DAILY l [facility] ent [facility] Oxybutynin Oxybutynin Yes Na Cho [address] [facility] [facility] ent [facility] Levothyroxi Levothyroxi Yes Na Cho TAKE ONE [facility] ne Sodium ne Sodium TABLET BY [facility] - [facility]TH Memoria EVERY l MORNING ON Outpati AN EMPTY ent STOMACH Clinics Ferrous Ferrous Yes Na Cho [address] Sulfate Sulfate [facility] ent [facility] Metoprolol Metoprolol Yes Na Cho [address] Tartrate Tartrate with food [facility] ent [facility] Simvastatin Simvastatin Yes Na Cho [address] in the [facility] - evening [facility] ent [facility] Immunizations Ordered Filled Immunization Date Status Comments [facility] e Immunization Name Name Influenza Virus 2021-03-01 Completed Universit y of Vaccine,quad 00:00:00 [place] Medica l Im,preserve [facility] 65+ Influenza Virus 2021-03-01 Completed Universit y of Vaccine,quad 00:00:00 [place] Medica l Im,preserve Free Branch 65+ Vital Signs Vital Name Observation Time Observation Value Comments Source Systolic blood 2021-03-01 22:00:00 122 mm[Hg] Univer sity of pressure [facility] Diastolic blood 2021-03-01 22:00:00 64 mm[Hg] [facility] Heart rate 2021-03-01 22:00:00 83 /min [facility] Body temperature 2021-03-01 22:00:00 36.67 Yesi [facility] Respiratory rate 2021-03-01 22:00:00 15 /min [facility] Oxygen saturation in 2021-03-01 22:00:00 100 /min [facility] Arterial blood by [facility] Pulse oximetry [place] Body weight 2021-03-01 10:02:00 69.99 kg [facility] BMI 2021-03-01 10:02:00 24.17 kg/m2 [facility] Body height 2021-02-21 21:21:00 170.2 cm [facility] Procedures Procedure Date / Time Performing Clinician Source Performed MAGNESIUM 2021-03-01 11:25:00 Jamilah Arenas [facility] [place] [facility] BASIC METABOLIC PANEL (NA, 2021-03-01 11:25:00 Jamilah Arenas [facility] K, CL, CO2, GLUCOSE, BUN, Medica l Branch CREATININE, CA) CBC WITH DIFF 2021-03-01 11:25:00 Jamilah Arenas [facility] [place] [facility] XR ABDOMEN 1 VW 2021-02-28 19:32:28 Ankit Aponte [facility] BASIC METABOLIC PANEL (NA, 2021-02-28 10:25:00 Jamilah Arenas [facility] K, CL, CO2, GLUCOSE, BUN, Medica l Branch CREATININE, CA) N-TERMINAL PRO-BNP 2021-02-28 10:25:00 [facility] US DUPLEX VENOUS ARM RIGHT 2021-02-27 14:40:00 Jamilah Arenas [facility] - BY VASCULAR LAB [facility] FOLATE 2021-02-27 10:18:00 Jamilah Arenas [facility] [place] [facility] BASIC METABOLIC PANEL (NA, 2021-02-27 10:18:00 Jamilah Arenas [facility] K, CL, CO2, GLUCOSE, BUN, Medica l Branch CREATININE, CA) CBC WITH DIFF 2021-02-27 10:18:00 Jamilah Arenas [facility] BASIC METABOLIC PANEL (NA, 2021-02-26 10:41:00 Alfredo Gunter [facility] K, CL, CO2, GLUCOSE, BUN, Medica Branch CREATININE, CA) CBC WITH DIFF 2021-02-26 10:41:00 [facility] 2021-02-25 11:29:00 [facility] MAGNESIUM 2021-02-25 11:29:00 Lyric [facility] BASIC METABOLIC PANEL (NA, 2021-02-25 11:29:00 Alfredo Gunter [facility] K, CL, CO2, GLUCOSE[facility]) TROPONIN I 2021-02-24 16:39:00 Georgina Leach [facility] MAGNESIUM 2021-02-24 11:13:00 Jamilah Arenas [facility] COMP. METABOLIC PANEL 2021-02-24 11:13:00 Dony Grossman [facility] ([id number]) [facility] CBC WITH DIFF 2021-02-24 11:13:00 Deepa [facility] N-TERMINAL PRO-BNP 2021-02-24 11:13:00 Dony Grossman [facility] ACUTE CARE ARTERIAL BLOOD 2021-02-23 20:23:00 [facility] 2021-02-23 15:03:00 [facility] 1 VW 2021-02-23 14:47:06 Alfredo Gunter [facility] ACUTE CARE ARTERIAL BLOOD 2021-02-23 12:33:00 [facility] PHOSPHORUS 2021-02-23 11:09:00 Alfredo Gunter [facility] URIC ACID 2021-02-23 11:09:00 Dony Grossman [facility] MAGNESIUM 2021-02-23 11:09:00 Dony Grossman [facility] TROPONIN I 2021-02-23 11:09:00 Georgina Leach [facility] COMP. METABOLIC PANEL 2021-02-23 11:09:00 Dony Grossman [facility] ([id number]) Medical Branch CBC WITH DIFF 2021-02-23 11:09:00 Chauncey melissa [facility] N-TERMINAL PRO-BNP 2021-02-23 11:09:00 Dony Grossman [facility] AMMONIA, PLASMA 2021-02-23 05:03:00 Jamilah Arenas [facility] ACUTE CARE ARTERIAL BLOOD 2021-02-23 05:01:00 Jamilah Arenas [facility] TROPONIN I 2021-02-22 21:05:00 Alfredo Gunter [facility] HB ECG ROUTINE & RHYTHM 2021-02-22 20:54:09 Shelley Medel [facility] MR BRAIN WO CONTRAST 2021-02-22 19:50:00 Shelley Medel [facility] EKG-12 LEAD 2021-02-22 17:39:32 Shelley Medel [facility] TRANSTHORACIC ECHO (TTE) 2021-02-22 17:28:00 Dony Grossman [facility] US RETROPERITONEAL 2021-02-22 15:00:00 Dony Grossman [facility] PHOSPHORUS 2021-02-22 11:05:00 Dony Grossman [facility] URIC ACID 2021-02-22 11:05:00 Chauncey melissa [facility] MAGNESIUM 2021-02-22 11:05:00 Chauncey [facility] TROPONIN I 2021-02-22 11:05:00 Chauncey [facility] COMP. METABOLIC PANEL 2021-02-22 11:05:00 Chauncey melissa [facility] ([id number]) [facility] LIPID PANEL ([id number])(TOTAL 2021-02-22 11:05:00 Georgina Leach [facility] CHOLESTEROL, Medical Branch TRIGLYCERIDES, HDL) CBC WITH DIFF 2021-02-22 11:05:00 Chauncey melissa [facility] N-TERMINAL PRO-BNP 2021-02-22 11:05:00 Dony Grossman [facility] URINE CULTURE 2021-02-22 06:00:00 Dony Grossman [facility] SODIUM, URINE RANDOM 2021-02-22 06:00:00 Dony Grossman [facility] PROTEIN CREAT RATIO URINE 2021-02-22 06:00:00 oDny Grossman [facility] OSMOLALITY URINE 2021-02-22 05:59:00 Chauncey melissa [facility] UREA NITROGEN, URINE 2021-02-22 05:59:00 Dony Grossman [facility] SEDIMENTATION RATE 2021-02-22 05:50:00 Dony Grossman [facility] RESPIRATORY PANEL BY PCR 2021-02-22 05:49:00 Dony Grossman [facility] PHOSPHORUS 2021-02-22 05:48:00 Dony Grossman [facility] CREATINE KINASE 2021-02-22 05:48:00 Chauncey melissa [facility] URIC ACID 2021-02-22 05:48:00 Chauncey melissa [facility] MAGNESIUM 2021-02-22 05:48:00 Chauncey melissa [facility] FERRITIN SERUM 2021-02-22 05:48:00 Chauncey melissa [facility] VITAMIN B12, LEVEL 2021-02-22 05:48:00 Dony Grossman [facility] TROPONIN I 2021-02-22 05:48:00 Dony Grossman [facility] THYROID STIMULATING 2021-02-22 05:48:00 [facility] LIPID PANEL ([id number])(TOTAL 2021-02-22 05:48:00 Dony Grossman [facility] CHOLESTEROL, Medical Branch TRIGLYCERIDES, HDL) IRON PANEL 2021-02-22 05:48:00 Chauncey melissa [facility] PROTHROMBIN TIME / INR 2021-02-22 05:48:00 Chauncey melissa [facility] VITAMIN D, 25-OH 2021-02-22 05:48:00 Chauncey [facility] PROCALCITONIN 2021-02-22 05:48:00 Chauncey [facility] COVID-19 (ID NOW RAPID 2021-02-21 23:50:00 Singer [facility] TESTING) Medical Branch LAB ONLY COVID 2021-02-21 23:50:00 Singer [facility] URINALYSIS 2021-02-21 23:08:00 Villalpando, [facility] XR CHEST 1 VW 2021-02-21 21:47:00 [facility] TROPONIN I 2021-02-21 21:32:00 [facility] COMP. METABOLIC PANEL 2021-02-21 21:32:00 Singer Tobias [facility] ([id number]) Medical Branch DIFF CONSULT 2021-02-21 21:32:00 Chauncey [facility] CBC WITH DIFF 2021-02-21 21:32[facility] GLYCOSYLATED HEMOGLOBIN 2021-02-21 21:32:00 Chauncey melissa [facility] [facility] ([facility] N-TERMINAL PRO-BNP 2021-02-21 21:32:00 Tobias Villalpando [facility] [place] HB ECG ROUTINE & RHYTHM 2021-02-21 21:17:16 Georgina Leach [facility] NOTICE OF PRIVACY 2021-02-21 21:11:15 Doctor Minerva, [facility] PRACTICES [facility] CONSENT/REFUSAL FOR 2021-02-21 21:08:07 Doctor Unalarry, [facility] DIAGNOSIS AND TREATMENT [facility] [place] Encounters Start End Encounter Admission Attending Care Care Encounter Source Date/Time Date/Time Type Type Clinicians Facility Department ID 2021-05-03 Outpatient Judith Cho [facility]ML[facility] [id number] [facility] 15[facility]53[facility]01 [facility] 2021-04-25 Outpatient Judith Cho STLMLC STLML[facility] [id number] [facility] 10:15:01 [facility] 2021-04-18 Outpatient 3 [id number] E[facility] BIN [id number] [facility] 13:28:13 1209 2021-04-18 Outpatient 3 [id number] E[facility] REF [id number] [facility] 13:27:40 1208 2021-04-17 Outpatient Judith Cho STLMLC STLMLC [id number] [facility] 14:35:27 [facility] 2021-04-17 Outpatient Judith Coh STLMLC STLMLC [id number] [facility] 14:29:40 [id number] [facility] 2021-04-17 Outpatient Judith Cho STLMLC STLMLC [id number] [facility] 13:34:21 [id number] [facility] 2021-04-17 Outpatient Judith Cho STLMLC STLMLC [id number] [facility] 13:10:15 [id number] [facility] 2021-04-17 Outpatient Judith Cho STLMLC STLMLC [id number] [facility] 12:47:18 16068 [facility] 2021-04-17 Outpatient Judith Cho STLMLC STLMLC [id number] [facility] 12:39:12 [id number] [facility] 2021-04-17 Outpatient Dl Na STLMLC STLMLC [id number] [facility] 12:31:18 [id number] [facility] 2021-04-17 Outpatient Dl Na STLMLC STLMLC [id number] [facility] 12:26:31 16984 [facility] 2021-04-17 Outpatient Dl, Na STLMLC STLMLC [id number] [facility] 11:58:28 [id number] [facility] 2021-04-17 Outpatient Dl, Na STLMLC STLMLC [id number] [facility] 11:57:56 [id number] [facility] 2021-04-17 Outpatient Dl, Na STLMLC STLMLC [id number] [facility] 11:39:59 [id number] [facility] 2021-04-17 Outpatient Dl, Na STLMLC STLMLC [id number] [facility] 11:38:39 41694 [facility] 2021-04-17 Outpatient Dl, Na STLMLC STLMLC [id number] [facility] 11:35:50 [id number] [facility] 2021-04-17 Outpatient Dl, Na STLMLC STLMLC [id number] [facility] 11:18:15 [id number] [facility] 2021-04-17 Outpatient Dl, Na STLMLC STLMLC [id number] [facility] 11:17:46 [id number] [facility] 2021-06-06 2021-06-06 ambulatory [facility]MLC [facility] [id number] [facility] 2021-06-05 2021-06-05 ambulatory [facility]LMLC STLMLC [id number] [facility] 2021-06-03 2021-06-03 ambulatory [facility]MLC [facility]ML[facility] [id number] [facility] 2021-05-21 2021-05-21 ambulatory [facility]LMLC STLMLC [id number] [facility] 2021-05-21 2021-05-21 ambulatory [facility]LMLC STLMLC [id number] [facility] 2021-05-21 2021-05-21 ambulatory [facility]LMLC ST[facility]MLC [id number] [facility] 2021-05-03 2021-05-03 ambulatory [facility]MLC [facility]C [id number] [facility] 2021-04-30 2021-04-30 ambulatory [facility]MLC [facility] [id number] [facility] 2021-04-29 2021-04-29 ambulatory [facility]MLC STLMLC [id number] [facility] 2021-04-17 2021-04-17 ambulatory [facility]MLC [facility]C [id number] [facility] 2021-04-16 2021-04-16 ambulatory [facility]MLC [facility]MLC [id number] [facility] 2021-03-28 2021-03-28 Outpatient READMISSMAHAD CERVANTES ENCCLR ENCCLR [id number] ENCCLR 00:00:00 00:00:00 GRICELDA SCHNEIDER 2021-03-26 2021-03-26 ambulatory [facility]LMLC STLMLC [id number] [facility] 2021-03-20 2021-03-20 ambulatory [facility]LMLC STLMLC [id number] [facility] 2021-03-01 2021-03-14 Inpatient 3 [facility] ENCPL BIN [id number] ENCPL 21:21:00 13:25:00 Claudia ely 2021-03-08 2021-03-08 Outpatient Helen [facility] [id number] [facility] 08:58:00 08:58:00 Bry [id number] Romina Knox [facility] 2021-03-04 2021-03-04 Transition EDUARDO Parnell [id number] [facility] 00:00:00 00:00:00 of Jhoana MARCUS [id number] [place] 4.2.7.2.686 Ania wolf [id number] [address] 2021-02-21 2021-03-01 [facility] Patric Bolivar [facility] 1.2.840.1 [id number] [facility] 15:13:00 19:35:00 Encounter Tobias Villalpando [id number] ity of Alfredo Gunter 4.2.7.2.686 [facility] [id number] Jamilah Suero [address] 2021-02-21 2021-03-01 Inpatient Lupis [facility] [id number] [facility] 15:13:00 19:35:00 JAMILAH ramesh [facility] 2021-02-25 2021-02-25 ambulatory STLMLC STLC [id number] [facility] 2021-02-22 2021-02-22 ambulatory [facility]LMLC STLC [id number] [facility] 2021-01-31 2021-01-31 ambulatory STLMLC STLMLC [id number] [facility] 2021-01-24 2021-01-24 ambulatory [facility]LMLC STLMLC [id number] [facility] 2020-11-07 2020-11-07 Outpatient [facility]MLC [facility]C [id number] [facility] 2020-10-25 2020-10-25 Outpatient [facility]LMLC [facility]C [id number] [facility] 2020-10-23 2020-10-23 Outpatient [facility]LMLC STLMLC [id number] [facility] 2020-08-22 2020-08-22 Outpatient [facility]LMLC [facility]MLC [id number] [facility] 2020-07-12 2020-07-12 Outpatient [facility]LMLC [facility]MLC [id number] [facility] 2020-06-21 2020-06-21 Outpatient [facility]LMLC [facility]LMLC [id number] [facility] 2020-05-31 2020-05-31 Outpatient STLMLC [facility]MLC [id number] [facility] 2020-05-15 2020-05-15 Outpatient [facility]LMLC [facility]ML[facility] [id number] [facility] 2020-05-10 2020-05-10 Outpatient STLMLC [facility]LMLC [id number] [facility] 2020-05-02 2020-05-02 Outpatient [facility]LMLC STLMLC [id number] [facility] 2020-05-02 2020-05-02 Outpatient [facility]LMLC STLMLC [id number] [facility] 2020-04-23 2020-04-23 Outpatient [facility]LMLC STLMLC [id number] [facility] 2020-02-06 2020-02-06 Outpatient [facility]LMLC [facility]LMLC [id number] [facility] 2020-01-26 2020-01-26 Outpatient [facility]LMLC [facility]LMLC [id number] [facility] 2020-01-16 2020-01-16 [id number] 2019-12-16 2019-12-16 [facility] [id number] [facility] 2019-12-16 2019-12-16 [facility] [id number] [facility] 2019-11-11 2019-11-11 [facility] [id number] [facility] 16:20:00 16:20:00 [facility] [facility] Clin[facility] 2019 2019 [facility] [id number] [facility] 11:22:00 11:22:00 [facility] Medicine Outpati ent Clinics 2019-07-08 2019-07-08 [facility] [id number] 15:00:00 15:00:00 [employer] [facility] Results Test Description Test Time Test Comments Results Result Comments Source BASIC METABOLIC PANEL 2021-03-08 09:15:00 Test Item Value Reference Range Interpretation Comme nts SODIUM (test code = NA) 134 mmol/L 134-147 N POTASSIUM (test code = K) 4.0 mmol/L 3.4-5.0 N CHLORIDE (test code = CL) 96 mmol/L 100-108 L CARBON DIOXIDE (test code = CO2) 34 mmol/L 21-32 H ANION GAP (test code = GAP) 4.0 GAP calc 4.0-15.0 N GLUCOSE (test code = GLU) 87 MG/DL 70-110 N BLOOD UREA NITROGEN (test code = BUN) 40 MG/DL 7-18 H GLOMERULAR FILTRATION RATE (test code = GFR) 42 estGFR >60 L CREATININE (test code = CREAT) 1.3 MG/DL 0.6-1.0 H CALCIUM (test code = CA) 8.4 MG/DL 8.5-10.1 L BASIC METABOLIC PANEL (NA, K, CL, CO2, GLUCOSE, BUN, CREATININE, CA)2021-03-01 13:01:42 Test Item Value Reference Range Interpretation Comments NA (test code = 131 mmol/L 135-145 L 3113584301) K (test code = 4.9 mmol/L 3.5-5.0 6702129853) CL (test code = 82 mmol/L 98-108 L 7583562071) CO2 TOTAL (test code = 43 mmol/L 23-31 H 4273473376) AGAP (test code = 2-16 6050844545) BUN (test code = 42 mg/dL 7-23 H 7242814203) GLUCOSE (test code = 103 mg/dL 70-110 2231572295) CREATININE (test code = 1.05 mg/dL 0.50-1.04 H 5185797149) CALCIUM (test code = 9.3 mg/dL 8.6-10.6 3087059309) eGFR (test code = mL/min/1.73m2 8535275106) DYLAN (test code = DYLAN) Association of Glomerular Filtration Rate (GFR) and Staging of Kidney Disease* + --+ --+ ------+| GFR (mL/min/1.73 m2) ?| With Kidney Damage ?| ?Without Kidney Damage+ --------+ --------+ +| ?>90 ?| ?Stage one ?| ? Normal ?+ ---+ ---+ -------+| ?60-89 ?| ?Stage two ?| ? Decreased GFR ? + --+ --+ ------+| ?30-59 ?| ?Stage three ?| ? Stage three ? + --+ --+ ------+| ?15-29 ?| ?Stage four ? | ? Stage four ?+ ---+ ---+ -------+| ?<15 (or dialysis) ? ?| ?Stage five ? | ? Stage five ?+ ---+ ---+ -------+ *Each stage assumes the associated GFR level has been in effect for at least three months. ?Stages 1 to 5, with or without kidney disease, indicate chronic kidney disease. Notes: Determination of stages one and two (with eGFR >59mL/min/1.73 m2) requires estimation of kidney damage for at least three months as defined by structural or functional abnormalities of the kidney, manifested by either:Pathological abnormalities or Markers of kidney damage (including abnormalities in the composition of the blood or urine or abnormalities in imaging tests). Lab Interpretation Abnormal (test code = 68177-3) [facility]45 Test Item Value Reference Range Interpretation Comments MAGNESIUM (test code = 3428829780) 2.1 mg/dL 1.7-2.4 Lab Interpretation (test code = Normal 88925-6) [facility] [id number] 12:44:49 Test Item Value Reference Range Interpretation Comments WBC (test code = See_Comment [Automated 6690-2) message] The sy stem which generated this result transmitted reference range : 4.30 - 11.10 10*3/?L. The reference range was not used to interpret this result as normal/abnormal . RBC (test code = See_Comment L [Automated 789-8) message] The sy stem which generated this result transmitted reference range : 3.93 - 5.25 10*6/?L. The reference range was not used to interpret this result as normal/abnormal . HGB (test code = 10.0 g/dL 11.6-15.0 L 718-7) HCT (test code = 30.4 % 35.7-45.2 L 4544-3) MCV (test code = 97.7 fL 80.6-95.5 H 787-2) MCH (test code = 32.2 pg 25.9-32.8 785-6) MCHC (test code = 32.9 g/dL 31.6-35.1 786-4) RDW-SD (test code = 48.2 fL 39.0-49.9 02231-6) RDW-CV (test code = 13.3 % 12.0-15.5 788-0) PLT (test code = See_Comment L [Automated 777-3) message] The sy stem which generated this result transmitted reference range : 166 - 358 10*3/ ?L. The reference r nati was not used to interpret this result as normal/abnormal . MPV (test code = 11.3 fL 9.5-12.9 38145-4) IPF % (test code = 4.4 % 1.3-7.7 Platelet count 2837908560) measured by fluorescence method. NRBC/100 WBC (test See_Comment [Automat ed code = 9894458498) message] The system which generated this result transmitted reference range : 0.0 - 10.0 /100 WBCs. The refer ence range was not u sed to interpret th is result as normal/abnormal . NRBC x10^3 (test code <0.01 See_Comment [Auto mated = 3579414335) message] The s ystem which generated this result transmitted reference range : 10*3/?L. The reference range was not used to interpret this result as normal/abnormal . GRAN MAT (NEUT) % 81.0 % (test code = 770-8) IMM GRAN % (test code 0.70 % = 9462098580) LYMPH % (test code = 7.1 % 736-9) MONO % (test code = 8.5 % 5905-5) EOS % (test code = 2.6 % 713-8) BASO % (test code = 0.1 % 706-2) GRAN MAT x10^3(ANC) 6.12 10*3/uL 1.88-7.09 (test code = 8586307604) IMM GRAN x10^3 (test 0.05 10*3/uL 0.00-0.06 code = 6556461200) LYMPH x10^3 (test code 0.54 10*3/uL 1.32-3.29 L = 731-0) MONO x10^3 (test code 0.64 10*3/uL 0.33-0.92 = 742-7) EOS x10^3 (test code = 0.20 10*3/uL 0.03-0.39 711-2) BASO x10^3 (test code <0.03 0.01-0.07 = 704-7) Lab Interpretation Abnormal (test code = 75147-8) [facility] [id number] 17:56:00 Test Item Value Reference Range Interpretation Comments NT-proBNP (test code 2460 pg/mL See_Comment H [Autom ated = 7765817427) message] The system which generated this result transmitted reference range : <=450. The reference range was not used to interpret this result as normal/abnormal . DYLAN (test code = DYLAN) Biotin has been reported to cause a negative bias, interpret results relative to patient's use of biotin. Lab Interpretation Abnormal (test code = 98231-5) [facility] METABOLIC PANEL (NA, K, CL, CO2, GLUCOSE, BUN, CREATININE, CA)2021-02-28 13:09:46 Test Item Value Reference Range Interpretation Comments NA (test code = 132 mmol/L 135-145 L 7043031875) K (test code = 4.2 mmol/L 3.5-5.0 5459641303) CL (test code = 84 mmol/L 98-108 L 5847414560) CO2 TOTAL (test code = 46 mmol/L 23-31 H 1061723640) AGAP (test code = 2-16 2864723010) BUN (test code = 41 mg/dL 7-23 H 2471917921) GLUCOSE (test code = 94 mg/dL 70-110 8535239747) CREATININE (test code = 1.13 mg/dL 0.50-1.04 H 6042804615) CALCIUM (test code = 8.8 mg/dL 8.6-10.6 7936964664) eGFR (test code = mL/min/1.73m2 9039108756) DYLAN (test code = DYLAN) Association of Glomerular Filtration Rate (GFR) and Staging of Kidney Disease* + --+ --+ ------+| GFR (mL/min/1.73 m2) ?| With Kidney Damage ?| ?Without Kidney Damage+ --------+ --------+ +| ?>90 ?| ?Stage one ?| ? Normal ?+ ---+ ---+ -------+| ?60-89 ?| ?Stage two ?| ? Decreased GFR ? + --+ --+ ------+| ?30-59 ?| ?Stage three ?| ? Stage three ? + --+ --+ ------+| ?15-29 ?| ?Stage four ? | ? Stage four ?+ ---+ ---+ -------+| ?<15 (or dialysis) ? ?| ?Stage five ? | ? Stage five ?+ ---+ ---+ -------+ *Each stage assumes the associated GFR level has been in effect for at least three months. ?Stages 1 to 5, with or without kidney disease, indicate chronic kidney disease. Notes: Determination of stages one and two (with eGFR >59mL/min/1.73 m2) requires estimation of kidney damage for at least three months as defined by structural or functional abnormalities of the kidney, manifested by either:Pathological abnormalities or Markers of kidney damage (including abnormalities in the composition of the blood or urine or abnormalities in imaging tests). Lab Interpretation Abnormal (test code = 13364-9) [facility]18 Test Item Value Reference Range Interpretation Comments FOLATE SER (test code = 5.9 ng/mL 3.0-20.0 Biot in has been 2168561545) reported to cau se a positive bias, interpret resul ts relative to patient's use o f biotin. Lab Interpretation (test Normal code = 99936-4) [facility] (NA, K, CL, CO2, GLUCOSE, BUN, CREATININE, CA)2021-02-27 12:45:07 Test Item Value Reference Range Interpretation Comments NA (test code = 133 mmol/L 135-145 L 4290378802) K (test code = 4.2 mmol/L 3.5-5.0 5670468464) CL (test code = 84 mmol/L 98-108 L 0849553753) CO2 TOTAL (test code = 43 mmol/L 23-31 H 2428879380) AGAP (test code = 2-16 8747766423) BUN (test code = 44 mg/dL 7-23 H 3272681288) GLUCOSE (test code = 89 mg/dL 70-110 6030798550) CREATININE (test code = 1.15 mg/dL 0.50-1.04 H 2655619689) CALCIUM (test code = 8.7 mg/dL 8.6-10.6 0025121081) eGFR (test code = mL/min/1.73m2 7207344047) DYLAN (test code = DYLAN) Association of Glomerular Filtration Rate (GFR) and Staging of Kidney Disease* + --+ --+ ------+| GFR (mL/min/1.73 m2) ?| With Kidney Damage ?| ?Without Kidney Damage+ --------+ --------+ +| ?>90 ?| ?Stage one ?| ? Normal ?+ ---+ ---+ -------+| ?60-89 ?| ?Stage two ?| ? Decreased GFR ? + --+ --+ ------+| ?30-59 ?| ?Stage three ?| ? Stage three ? + --+ --+ ------+| ?15-29 ?| ?Stage four ? | ? Stage four ?+ ---+ ---+ -------+| ?<15 (or dialysis) ? ?| ?Stage five ? | ? Stage five ?+ ---+ ---+ -------+ *Each stage assumes the associated GFR level has been in effect for at least three months. ?Stages 1 to 5, with or without kidney disease, indicate chronic kidney disease. Notes: Determination of stages one and two (with eGFR >59mL/min/1.73 m2) requires estimation of kidney damage for at least three months as defined by structural or functional abnormalities of the kidney, manifested by either:Pathological abnormalities or Markers of kidney damage (including abnormalities in the composition of the blood or urine or abnormalities in imaging tests). Lab Interpretation Abnormal (test code = 73555-9) [facility] WITH [id number] 11:50:40 Test Item Value Reference Range Interpretation Comments WBC (test code = See_Comment [Automated 8590-2) message] The sy stem which generated this result transmitted reference range : 4.30 - 11.10 10*3/?L. The reference range was not used to interpret this result as normal/abnormal . RBC (test code = See_Comment L [Automated 959-8) message] The sy stem which generated this result transmitted reference range : 3.93 - 5.25 10*6/?L. The reference range was not used to interpret this result as normal/abnormal . HGB (test code = 9.8 g/dL 11.6-15.0 L 718-7) HCT (test code = 30.4 % 35.7-45.2 L 4544-3) MCV (test code = 100.7 fL 80.6-95.5 H 787-2) MCH (test code = 32.5 pg 25.9-32.8 785-6) MCHC (test code = 32.2 g/dL 31.6-35.1 786-4) RDW-SD (test code = 49.5 fL 39.0-49.9 75426-7) RDW-CV (test code = 13.2 % 12.0-15.5 788-0) PLT (test code = See_Comment L [Automated 777-3) message] The sy stem which generated this result transmitted reference range : 166 - 358 10*3/ ?L. The reference r nati was not used to interpret this result as normal/abnormal . MPV (test code = 12.4 fL 9.5-12.9 48061-3) NRBC/100 WBC (test See_Comment [Automat ed code = 5448879163) message] The system which generated this result transmitted reference range : 0.0 - 10.0 /100 WBCs. The refer ence range was not u sed to interpret th is result as normal/abnormal . NRBC x10^3 (test code <0.01 See_Comment [Auto mated = 9632456910) message] The s ystem which generated this result transmitted reference range : 10*3/?L. The reference range was not used to interpret this result as normal/abnormal . GRAN MAT (NEUT) % 83.8 % (test code = 770-8) IMM GRAN % (test code 0.80 % = 1193895183) LYMPH % (test code = 5.2 % 736-9) MONO % (test code = 8.0 % 5905-5) EOS % (test code = 2.1 % 713-8) BASO % (test code = 0.1 % 706-2) GRAN MAT x10^3(ANC) 6.39 10*3/uL 1.88-7.09 (test code = 2977724826) IMM GRAN x10^3 (test 0.06 10*3/uL 0.00-0.06 code = 2263963299) LYMPH x10^3 (test code 0.40 10*3/uL 1.32-3.29 L = 731-0) MONO x10^3 (test code 0.61 10*3/uL 0.33-0.92 = 742-7) EOS x10^3 (test code = 0.16 10*3/uL 0.03-0.39 711-2) BASO x10^3 (test code <0.03 0.01-0.07 = 704-7) Lab Interpretation Abnormal (test code = 94186-3) [facility] WITH [id number] 14:18:05 Test Item Value Reference Range Interpretation Comments WBC (test code = See_Comment [Automated 6690-2) message] The sy stem which generated this result transmitted reference range : 4.30 - 11.10 10*3/?L. The reference range was not used to interpret this result as normal/abnormal . RBC (test code = See_Comment L [Automated 789-8) message] The sy stem which generated this result transmitted reference range : 3.93 - 5.25 10*6/?L. The reference range was not used to interpret this result as normal/abnormal . HGB (test code = 9.9 g/dL 11.6-15.0 L 718-7) HCT (test code = 30.9 % 35.7-45.2 L 4544-3) MCV (test code = 101.3 fL 80.6-95.5 H 787-2) MCH (test code = 32.5 pg 25.9-32.8 785-6) MCHC (test code = 32.0 g/dL 31.6-35.1 786-4) RDW-SD (test code = 50.0 fL 39.0-49.9 H 85828-2) RDW-CV (test code = 13.4 % 12.0-15.5 788-0) PLT (test code = See_Comment L [Automated 777-3) message] The sy stem which generated this result transmitted reference range : 166 - 358 10*3/ ?L. The reference r nati was not used to interpret this result as normal/abnormal . MPV (test code = 11.6 fL 9.5-12.9 72222-3) IPF % (test code = 4.5 % 1.3-7.7 Platelet count 0249543518) measured by fluorescence method. NRBC/100 WBC (test See_Comment [Automat ed code = 0799875496) message] The system which generated this result transmitted reference range : 0.0 - 10.0 /100 WBCs. The refer ence range was not u sed to interpret th is result as normal/abnormal . NRBC x10^3 (test code <0.01 See_Comment [Auto mated = 5719979448) message] The s ystem which generated this result transmitted reference range : 10*3/?L. The reference range was not used to interpret this result as normal/abnormal . GRAN MAT (NEUT) % 80.2 % (test code = 770-8) IMM GRAN % (test code 1.40 % = 8898006261) LYMPH % (test code = 7.8 % 736-9) MONO % (test code = 9.4 % 5905-5) EOS % (test code = 1.1 % 713-8) BASO % (test code = 0.1 % 706-2) GRAN MAT x10^3(ANC) 6.42 10*3/uL 1.88-7.09 (test code = 9491374734) IMM GRAN x10^3 (test 0.11 10*3/uL 0.00-0.06 H code = 1049038636) LYMPH x10^3 (test code 0.62 10*3/uL 1.32-3.29 L = 731-0) MONO x10^3 (test code 0.75 10*3/uL 0.33-0.92 = 742-7) EOS x10^3 (test code = 0.09 10*3/uL 0.03-0.39 711-2) BASO x10^3 (test code <0.03 0.01-0.07 = 704-7) HYPERSEG NEUTS (test Present See_Comment A [Autom ated code = 765-8) message] The s ystem which generated this result transmitted reference range : (none). The reference range was not used to interpret this result as normal/abnormal . Lab Interpretation Abnormal (test code = 18452-0) [facility] METABOLIC PANEL (NA, K, CL, CO2, GLUCOSE, BUN, CREATININE, CA)2021-02-26 13:21:25 Test Item Value Reference Range Interpretation Comments NA (test code = 134 mmol/L 135-145 L [id number]) K (test code = 3.9 mmol/L 3.5-5.0 7357795011) CL (test code = 86 mmol/L 98-108 L 0673955919) CO2 TOTAL (test code = 44 mmol/L 23-31 H 9941355545) AGAP (test code = 2-16 8571292881) BUN (test code = 44 mg/dL 7-23 H 5235105791) GLUCOSE (test code = 89 mg/dL 70-110 6203513101) CREATININE (test code = 1.25 mg/dL 0.50-1.04 H 3389436069) CALCIUM (test code = 8.9 mg/dL 8.6-10.6 1550559259) eGFR (test code = mL/min/1.73m2 9469503133) DYLAN (test code = DYLAN) Association of Glomerular Filtration Rate (GFR) and Staging of Kidney Disease* + --+ --+ ------+| GFR (mL/min/1.73 m2) ?| With Kidney Damage ?| ?Without Kidney Damage+ --------+ --------+ +| ?>90 ?| ?Stage one ?| ? Normal ?+ ---+ ---+ -------+| ?60-89 ?| ?Stage two ?| ? Decreased GFR ? + --+ --+ ------+| ?30-59 ?| ?Stage three ?| ? Stage three ? + --+ --+ ------+| ?15-29 ?| ?Stage four ? | ? Stage four ?+ ---+ ---+ -------+| ?<15 (or dialysis) ? ?| ?Stage five ? | ? Stage five ?+ ---+ ---+ -------+ *Each stage assumes the associated GFR level has been in effect for at least three months. ?Stages 1 to 5, with or without kidney disease, indicate chronic kidney disease. Notes: Determination of stages one and two (with eGFR >59mL/min/1.73 m2) requires estimation of kidney damage for at least three months as defined by structural or functional abnormalities of the kidney, manifested by either:Pathological abnormalities or Markers of kidney damage (including abnormalities in the composition of the blood or urine or abnormalities in imaging tests). Lab Interpretation Abnormal (test code = 80141-6) [facility] (NA, K, CL, CO2, GLUCOSE, BUN, CREATININE, CA)2021-02-25 13:41:42 Test Item Value Reference Range Interpretation Comments NA (test code = 135 mmol/L 135-145 7936413851) K (test code = 3.9 mmol/L 3.5-5.0 1228039234) CL (test code = 90 mmol/L 98-108 L 3412799694) CO2 TOTAL (test code = 41 mmol/L 23-31 H 6624605317) AGAP (test code = 2-16 8121422382) BUN (test code = 40 mg/dL 7-23 H 8649236945) GLUCOSE (test code = 90 mg/dL 70-110 1770483928) CREATININE (test code = 1.13 mg/dL 0.50-1.04 H 8046584177) CALCIUM (test code = 8.9 mg/dL 8.6-10.6 4609044354) eGFR (test code = mL/min/1.73m2 6804502081) DYLAN (test code = DYLAN) Association of Glomerular Filtration Rate (GFR) and Staging of Kidney Disease* + --+ --+ ------+| GFR (mL/min/1.73 m2) ?| With Kidney Damage ?| ?Without Kidney Damage+ --------+ --------+ +| ?>90 ?| ?Stage one ?| ? Normal ?+ ---+ ---+ -------+| ?60-89 ?| ?Stage two ?| ? Decreased GFR ? + --+ --+ ------+| ?30-59 ?| ?Stage three ?| ? Stage three ? + --+ --+ ------+| ?15-29 ?| ?Stage four ? | ? Stage four ?+ ---+ ---+ -------+| ?<15 (or dialysis) ? ?| ?Stage five ? | ? Stage five ?+ ---+ ---+ -------+ *Each stage assumes the associated GFR level has been in effect for at least three months. ?Stages 1 to 5, with or without kidney disease, indicate chronic kidney disease. Notes: Determination of stages one and two (with eGFR >59mL/min/1.73 m2) requires estimation of kidney damage for at least three months as defined by structural or functional abnormalities of the kidney, manifested by either:Pathological abnormalities or Markers of kidney damage (including abnormalities in the composition of the blood or urine or abnormalities in imaging tests). Lab Interpretation Abnormal (test code = 37665-6) [facility]:25 Test Item Value Reference Range Interpretation Comments MAGNESIUM (test code = 5134877456) 1.6 mg/dL 1.7-2.4 L Lab Interpretation (test code = Abnormal 08999-0) [facility] 13:08:05 Test Item Value Reference Range Interpretation Comments PHOSPHORUS (test code = 3117502841) 3.0 mg/dL 2.5-5.0 Lab Interpretation (test code = Normal 47185-6) [facility] [id number] 18:31:07 Test Item Value Reference Interpretation Comments Range TROPONIN I (test 0.009 ng/mL See_Comment [Automated code = 6112887129) message] The system which generated this result transmitted reference range : <=0.034. The reference range was not used to interpret this result as normal/abnormal . DYLAN (test code = Reference (Normal) DYLAN) Range (defined by the 99th percentile reference limit): <= 0.034 ng/mL Note: Cardiac troponin begins to rise 3-4 hours after the onset of ischemia. Repeat in 4-6 hours if the sample was drawn within 3-4 hours of the onset of the symptom and found normal. Diagnosis of myocardial injury is made with acute changes in cTn concentrations with at least one serial sample above the 99th percentile upper reference limit (URL), taken together with the patient's clinical presentation. Biotin has been reported to cause a negative bias, interpret results relative to patient's use of biotin. Lab Interpretation Normal (test code = 68958-4) [facility] ([id number][facility]2021-02-24 12:15:59 Test Item Value Reference Range Interpretation Comments NA (test code = 139 mmol/L 135-145 5597031870) K (test code = 3.9 mmol/L 3.5-5.0 8029781131) CL (test code = 95 mmol/L 98-108 L 7253090180) CO2 TOTAL (test code = 42 mmol/L 23-31 H 8594987665) AGAP (test code = 2-16 8191339920) BUN (test code = 37 mg/dL 7-23 H 7656102251) GLUCOSE (test code = 99 mg/dL 70-110 7682600276) CREATININE (test code = 1.26 mg/dL 0.50-1.04 H 3741953350) TOTAL BILI (test code = 0.7 mg/dL 0.1-1.9 5797588043) CALCIUM (test code = 9.1 mg/dL 8.6-10.6 5478639875) T PROTEIN (test code = 6.1 g/dL 6.3-8.2 L 2242082163) ALBUMIN (test code = 3.2 g/dL 3.5-5.0 L 6639106989) ALK PHOS (test code = 68 U/L 34-122 6524034434) ALTv (test code = 12 U/L 5-35 1742-6) AST(SGOT) (test code = 22 U/L 13-40 4553934056) eGFR (test code = mL/min/1.73m2 5291587595) DYLAN (test code = DYLAN) Association of Glomerular Filtration Rate (GFR) and Staging of Kidney Disease* + --+ --+ ------+| GFR (mL/min/1.73 m2) ?| With Kidney Damage ?| ?Without Kidney Damage+ --------+ --------+ +| ?>90 ?| ?Stage one ?| ? Normal ?+ ---+ ---+ -------+| ?60-89 ?| ?Stage two ?| ? Decreased GFR ? + --+ --+ ------+| ?30-59 ?| ?Stage three ?| ? Stage three ? + --+ --+ ------+| ?15-29 ?| ?Stage four ? | ? Stage four ?+ ---+ ---+ -------+| ?<15 (or dialysis) ? ?| ?Stage five ? | ? Stage five ?+ ---+ ---+ -------+ *Each stage assumes the associated GFR level has been in effect for at least three months. ?Stages 1 to 5, with or without kidney disease, indicate chronic kidney disease. Notes: Determination of stages one and two (with eGFR >59mL/min/1.73 m2) requires estimation of kidney damage for at least three months as defined by structural or functional abnormalities of the kidney, manifested by either:Pathological abnormalities or Markers of kidney damage (including abnormalities in the composition of the blood or urine or abnormalities in imaging tests). Lab Interpretation Abnormal (test code = 95106-5) [facility] [id number] 12:13:11 Test Item Value Reference Range Interpretation Comments NT-proBNP (test code 4500 pg/mL See_Comment H [Autom ated = 4722455767) message] The system which generated this result transmitted reference range : <=450. The reference range was not used to interpret this result as normal/abnormal . DYLAN (test code = DYLAN) Biotin has been reported to cause a negative bias, interpret results relative to patient's use of biotin. Lab Interpretation Abnormal (test code = 96276-1) [facility] 12:04:51 Test Item Value Reference Range Interpretation Comments MAGNESIUM (test code = 8002195962) 1.7 mg/dL 1.7-2.4 Lab Interpretation (test code = Normal 31096-4) [facility] WITH [id number] 12:04:31 Test Item Value Reference Range Interpretation Comments WBC (test code = See_Comment [Automated 6690-2) message] The sy stem which generated this result transmitted reference range : 4.30 - 11.10 10*3/?L. The reference range was not used to interpret this result as normal/abnormal . RBC (test code = See_Comment L [Automated 549-8) message] The sy stem which generated this result transmitted reference range : 3.93 - 5.25 10*6/?L. The reference range was not used to interpret this result as normal/abnormal . HGB (test code = 9.5 g/dL 11.6-15.0 L 718-7) HCT (test code = 30.0 % 35.7-45.2 L 4544-3) MCV (test code = 101.4 fL 80.6-95.5 H 787-2) MCH (test code = 32.1 pg 25.9-32.8 785-6) MCHC (test code = 31.7 g/dL 31.6-35.1 786-4) RDW-SD (test code = 52.4 fL 39.0-49.9 H 55691-5) RDW-CV (test code = 14.0 % 12.0-15.5 788-0) PLT (test code = See_Comment L [Automated 777-3) message] The sy stem which generated this result transmitted reference range : 166 - 358 10*3/ ?L. The reference r nati was not used to interpret this result as normal/abnormal . MPV (test code = 11.4 fL 9.5-12.9 08535-8) NRBC/100 WBC (test See_Comment [Automat ed code = 2377578557) message] The system which generated this result transmitted reference range : 0.0 - 10.0 /100 WBCs. The refer ence range was not u sed to interpret th is result as normal/abnormal . NRBC x10^3 (test code <0.01 See_Comment [Auto mated = 4313979589) message] The s ystem which generated this result transmitted reference range : 10*3/?L. The reference range was not used to interpret this result as normal/abnormal . GRAN MAT (NEUT) % 76.7 % (test code = 770-8) IMM GRAN % (test code 0.70 % = 8192715592) LYMPH % (test code = 10.6 % 736-9) MONO % (test code = 11.0 % 5905-5) EOS % (test code = 0.7 % 713-8) BASO % (test code = 0.3 % 706-2) GRAN MAT x10^3(ANC) 5.43 10*3/uL 1.88-7.09 (test code = 8192597169) IMM GRAN x10^3 (test 0.05 10*3/uL 0.00-0.06 code = 6903107853) LYMPH x10^3 (test code 0.75 10*3/uL 1.32-3.29 L = 731-0) MONO x10^3 (test code 0.78 10*3/uL 0.33-0.92 = 742-7) EOS x10^3 (test code = 0.05 10*3/uL 0.03-0.39 711-2) BASO x10^3 (test code <0.03 0.01-0.07 = 704-7) Lab Interpretation Abnormal (test code = 51776-8) [facility] [id number] 14:57:34 Test Item Value Reference Interpretation Comments Range TROPONIN I (test 0.009 ng/mL See_Comment [Automated code = 7237150514) message] The system which generated this result transmitted reference range : <=0.034. The reference range was not used to interpret this result as normal/abnormal . DYLAN (test code = Reference (Normal) DYLAN) Range (defined by the 99th percentile reference limit): <= 0.034 ng/mL Note: Cardiac troponin begins to rise 3-4 hours after the onset of ischemia. Repeat in 4-6 hours if the sample was drawn within 3-4 hours of the onset of the symptom and found normal. Diagnosis of myocardial injury is made with acute changes in cTn concentrations with at least one serial sample above the 99th percentile upper reference limit (URL), taken together with the patient's clinical presentation. Biotin has been reported to cause a negative bias, interpret results relative to patient's use of biotin. Lab Interpretation Normal (test code = 19633-9) [facility] [id number] 11:51:46 Test Item Value Reference Range Interpretation Comments NT-proBNP (test code 4650 pg/mL See_Comment H [Autom ated = 1868900295) message] The system which generated this result transmitted reference range : <=450. The reference range was not used to interpret this result as normal/abnormal . DYLAN (test code = DYLAN) Biotin has been reported to cause a negative bias, interpret results relative to patient's use of biotin. Lab Interpretation Abnormal (test code = 98410-9) [facility] ([id number][facility]2021-02-23 11:45:21 Test Item Value Reference Range Interpretation Comments NA (test code = 141 mmol/L 135-145 2391860088) K (test code = 4.6 mmol/L 3.5-5.0 2151348289) CL (test code = 102 mmol/L 98-108 2984095428) CO2 TOTAL (test code = 38 mmol/L 23-31 H 1981977215) AGAP (test code = 2-16 L 5639451696) BUN (test code = 37 mg/dL 7-23 H 5295910704) GLUCOSE (test code = 97 mg/dL 70-110 2250121082) CREATININE (test code = 1.29 mg/dL 0.50-1.04 H 5644984212) TOTAL BILI (test code = 0.5 mg/dL 0.1-1.6 1598829095) CALCIUM (test code = 8.9 mg/dL 8.6-10.6 8753328205) T PROTEIN (test code = 6.3 g/dL 6.3-8.2 4794110623) ALBUMIN (test code = 3.4 g/dL 3.5-5.0 L 8504160371) ALK PHOS (test code = 67 U/L 34-122 4006326583) ALTv (test code = 13 U/L 5-35 2-6) AST(SGOT) (test code = 25 U/L 13-40 5403608193) eGFR (test code = mL/min/1.73m2 9410494140) DYLAN (test code = DYLAN) Association of Glomerular Filtration Rate (GFR) and Staging of Kidney Disease* + --+ --+ ------+| GFR (mL/min/1.73 m2) ?| With Kidney Damage ?| ?Without Kidney Damage+ --------+ --------+ +| ?>90 ?| ?Stage one ?| ? Normal ?+ ---+ ---+ -------+| ?60-89 ?| ?Stage two ?| ? Decreased GFR ? + --+ --+ ------+| ?30-59 ?| ?Stage three ?| ? Stage three ? + --+ --+ ------+| ?15-29 ?| ?Stage four ? | ? Stage four ?+ ---+ ---+ -------+| ?<15 (or dialysis) ? ?| ?Stage five ? | ? Stage five ?+ ---+ ---+ -------+ *Each stage assumes the associated GFR level has been in effect for at least three months. ?Stages 1 to 5, with or without kidney disease, indicate chronic kidney disease. Notes: Determination of stages one and two (with eGFR >59mL/min/1.73 m2) requires estimation of kidney damage for at least three months as defined by structural or functional abnormalities of the kidney, manifested by either:Pathological abnormalities or Markers of kidney damage (including abnormalities in the composition of the blood or urine or abnormalities in imaging tests). Lab Interpretation Abnormal (test code = 99019-0) [facility] 11:45:21 Test Item Value Reference Range Interpretation Comments MAGNESIUM (test code = 6627500390) 1.8 mg/dL 1.7-2.4 Lab Interpretation (test code = Normal 66633-6) [facility]URIC [id number] 11:45:06 Test Item Value Reference Range Interpretation Comments URIC ACID (test code = 7323237582) 7.3 mg/dL 2.9-6.0 H Lab Interpretation (test code = Abnormal 52036-7) [facility] 11:45:06 Test Item Value Reference Range Interpretation Comments PHOSPHORUS (test code = 2753262063) 5.2 mg/dL 2.5-5.0 H Lab Interpretation (test code = Abnormal 11015-6) [facility] WITH [id number] 11:41:08 Test Item Value Reference Range Interpretation Comments WBC (test code = See_Comment [Automated 6690-2) message] The sy stem which generated this result transmitted reference range : 4.30 - 11.10 10*3/?L. The reference range was not used to interpret this result as normal/abnormal . RBC (test code = See_Comment L [Automated 789-8) message] The sy stem which generated this result transmitted reference range : 3.93 - 5.25 10*6/?L. The reference range was not used to interpret this result as normal/abnormal . HGB (test code = 9.8 g/dL 11.6-15.0 L 718-7) HCT (test code = 32.2 % 35.7-45.2 L 4544-3) MCV (test code = 105.2 fL 80.6-95.5 H 787-2) MCH (test code = 32.0 pg 25.9-32.8 785-6) MCHC (test code = 30.4 g/dL 31.6-35.1 L 786-4) RDW-SD (test code = 54.5 fL 39.0-49.9 H 11567-7) RDW-CV (test code = 14.2 % 12.0-15.5 788-0) PLT (test code = See_Comment L [Automated 777-3) message] The sy stem which generated this result transmitted reference range : 166 - 358 10*3/ ?L. The reference r nati was not used to interpret this result as normal/abnormal . MPV (test code = 11.1 fL 9.5-12.9 43526-7) NRBC/100 WBC (test See_Comment [Automat ed code = 4156244317) message] The system which generated this result transmitted reference range : 0.0 - 10.0 /100 WBCs. The refer ence range was not u sed to interpret th is result as normal/abnormal . NRBC x10^3 (test code <0.01 See_Comment [Auto mated = 3763165859) message] The s ystem which generated this result transmitted reference range : 10*3/?L. The reference range was not used to interpret this result as normal/abnormal . GRAN MAT (NEUT) % 81.2 % (test code = 770-8) IMM GRAN % (test code 0.70 % = 7387774969) LYMPH % (test code = 7.6 % 736-9) MONO % (test code = 9.5 % 5905-5) EOS % (test code = 0.7 % 713-8) BASO % (test code = 0.3 % 706-2) GRAN MAT x10^3(ANC) 5.67 10*3/uL 1.88-7.09 (test code = 4471575276) IMM GRAN x10^3 (test 0.05 10*3/uL 0.00-0.06 code = 9938181825) LYMPH x10^3 (test code 0.53 10*3/uL 1.32-3.29 L = 731-0) MONO x10^3 (test code 0.66 10*3/uL 0.33-0.92 = 742-7) EOS x10^3 (test code = 0.05 10*3/uL 0.03-0.39 711-2) BASO x10^3 (test code <0.03 0.01-0.07 = 704-7) Lab Interpretation Abnormal (test code = 56107-8) [facility] CenterAMMONIA, [id number] 05:26:30 Test Item Value Reference Range Interpretation Comments AMMONIA (test code = 5773095842) <9 9-33 L Lab Interpretation (test code = Abnormal 27298-7) [facility]TR[facility] [id number] 21:59:55 Test Item Value Reference Interpretation Comments Range TROPONIN I (test 0.008 ng/mL See_Comment [Automated code = 0538855939) message] The system which generated this result transmitted reference range : <=0.034. The reference range was not used to interpret this result as normal/abnormal . DYLAN (test code = Reference (Normal) DYLAN) Range (defined by the 99th percentile reference limit): <= 0.034 ng/mL Note: Cardiac troponin begins to rise 3-4 hours after the onset of ischemia. Repeat in 4-6 hours if the sample was drawn within 3-4 hours of the onset of the symptom and found normal. Diagnosis of myocardial injury is made with acute changes in cTn concentrations with at least one serial sample above the 99th percentile upper reference limit (URL), taken together with the patient's clinical presentation. Biotin has been reported to cause a negative bias, interpret results relative to patient's use of biotin. Lab Interpretation Normal (test code = 57185-6) [facility] CenterDIFF CON[facility]ULT [id number] 20:03:46 ABSOLUTE LYMPHOCYTOPENIA. MACROCYTIC NORMOCHROMIC ANEMIA. MILD THROMBOCYTOPENIA. [facility] CenterFERRITIN [id number] 16:23:21 Test Item Value Reference Range Interpretation Comments FERRITIN (test code = 70.3 ng/mL 11.0-264.0 5469721943) DYLAN (test code = DYLAN) Biotin has been reported to cause a negative bias, interpret results relative to patient's use of biotin. Lab Interpretation (test Normal code = 11195-3) [facility] CenterTHYROID STIMULATING [id number] 16:19:39 Test Item Value Reference Range Interpretation Comments TSH (test code = See_Comment [Automated message] 9559580713) The system [employer] generated this result transmitted ref erence range: 0.45 - 4 .70 mIU/L. The refe rence range was not u sed to interpret this result as normal/abnor mal. Lab Interpretation (test Normal code = 01073-8) [facility] CenterIRON [id number] 15:54:20 Test Item Value Reference Range Interpretation Comments IRON (test code = 4379592634) 45 ug/dL 50-160 L TIBC (test code = 4212223353) 322 ug/dL 250-410 % FE SAT (test code = 1304593762) 14 % 20-50 L Lab Interpretation (test code = Abnormal 73257-0) [facility] CenterLIPID PANEL (97749)(TOTAL CHOLESTEROL, TRIGLYCERIDES, HDL)2021-02-22 15:45:34 Test Item Value Reference Range Interpretation Comments CHOL (test code = 123 mg/dL 120-200 4631932875) HDL (test code = 60 mg/dL >50 4250490977) HDLC RATIO (test code = See_Comment [Au tomated message] 9106533036) The system [employer] generated this result transmit maliha reference range : <=4.5. The refe rence range was not u sed to interpret th is result as normal/abnormal . TRIG (test code = 50 mg/dL 30-170 2849346319) LDL CHOL (test code = 53 mg/dL See_Comment [Auto mated message] 71406-0) The system [employer] generated this result transmit maliha reference range : <=160. The refe rence range was not u sed to interpret th is result as normal/abnormal . VLDL (test code = 10 mg/dL 5-60 4590259759) Lab Interpretation (test Normal code = 25578-7) [facility]URIC [id number] 15:45:34 Test Item Value Reference Range Interpretation Comments URIC ACID (test code = 3217232514) 6.6 mg/dL 2.9-6.0 H Lab Interpretation (test code = Abnormal 26180-5) [facility]20[facility] 15:45:34 Test Item Value Reference Range Interpretation Comments MAGNESIUM (test code = 4825339910) 1.9 mg/dL 1.7-2.4 Lab Interpretation (test code = Normal 58017-6) [facility]2021-[facility] 15:45:34 Test Item Value Reference Range Interpretation Comments PHOSPHORUS (test code = 0879266584) 5.3 mg/dL 2.5-5.0 H Lab Interpretation (test code = Abnormal 30638-1) [facility] CenterLIP[facility] PANEL (68942)(TOTAL CHOLESTEROL, TRIGLYCERIDES, HDL)2021-02-22 15:21:13 Test Item Value Reference Range Interpretation Comments CHOL (test code = 108 mg/dL 120-200 L 9972188213) HDL (test code = 54 mg/dL >50 3630898951) HDLC RATIO (test code = See_Comment [Au tomated message] 8523097256) The system [employer] generated this result transmit maliha reference range : <=4.5. The refe rence range was not u sed to interpret th is result as normal/abnormal . TRIG (test code = 46 mg/dL 30-170 7175156885) LDL CHOL (test code = 45 mg/dL See_Comment [Auto mated message] 68109-2) The system [employer] generated this result transmit maliha reference range : <=160. The refe rence range was not u sed to interpret th is result as normal/abnormal . VLDL (test code = 9 mg/dL 5-60 2254105810) Lab Interpretation (test Abnormal code = 30229-5) [facility] CenterPROCALCITONIN2021-12-03 14:32:44 Test Item Value Reference Range Interpretation Comments Procalcitonin (test 0.05 ng/mL <0.07 code = 6992691711) DYLAN (test code = DYLAN) INTERPRETATION OF PROCALCITONIN RESULTS IN ADULTS >= 18 YEARS OF AGE Initiation and discontinuation of antibiotics on patients with suspected or confirmed Lower Respiratory Tract Infection in Adults >= 18 years of age. + +-------- --------+ + -----+|Procalcitonin |Interpretation ?|Antibiotic ? ? |Considerations ? |ng/mL ? | ?|recommendation | ? + +-------- --------+ + -----+| <0.1 ? | Bacterial ? ? ?| Strongly ? ? ?| ? | ?| infection very | discouraged ? | Overruling: ? | ?| unlikely ? ? ? | ? | ? Clinically unstable ? ? ? + +-------- --------+ + ? High risk for adverse ? ? | <0.25 ?| Bacterial ? ? ?| Discouraged ? | ? outcome ? | ?| infection ? ? ?| ? | ? SEE IMPORTANT NOTE ?| ?| unlikely ? ? ? | ? | ? + +-------- --------+ + -----+| >=0.25 ? ? ? | Bacterial ? ? ?| Encouraged ? ?| ? | ?| infection ? ? ?| ? | ? | ?| likely ? | ? | Consider treatment failure ?+ +------- ---------+ -+ if levels does not decrease | >0.5 ? | Bacterial ? ? ?| Strongly ? ? ?| appropriately ? | ?| infection very | encouraged ? ?| ? | ?| likely ? | ? | ? + +-------- --------+ + -----+ Discontinuation of antibiotics in high-acuity patients with suspected or confirmed sepsis in Adults >= 18 years of age. + +-------- --------+ + -----+|Procalcitonin |Interpretation ?|Antibiotic ? ? |Considerations ? |ng/mL ? | ?|recommendation | ? + +-------- --------+ + -----+| <0.25 ?| Bacterial ? ? ?| Strongly ? ? ?| ? | ?| infection very | discouraged ? | Overruling: ? | ?| unlikely ? ? ? | ? | ? Clinically unstable ? ? ? + +-------- --------+ + ? High risk for adverse ? ? | <0.5 or drop | Bacterial ? ? ?| Discouraged ? | ? outcome ? | >80% from ? ?| infection ? ? ?| ? | ? SEE IMPORTANT NOTE ?| highest PCT ?| unlikely ? ? ? | ? | ? | level ?| ?| ? | ? + +-------- --------+ + -----+| >=0.5 ?| Bacterial ? ? ?| Encouraged ? ?| ? | ?| infection ? ? ?| ? | ? | ?| likely ? | ? | Consider treatment failure ?+ +------- ---------+ -+ if levels does not decrease | >1.0 ? | Bacterial ? ? ?| Strongly ? ? ?| appropriately ? | ?| infection very | encouraged ? ?| ? | ?| likely ? | ? | ? + +-------- --------+ + -----+ Percentage of drop of Procalcitonin calculation for Discontinuation of antibiotics in high-acuity patients with suspected or confirmed sepsis in Adults >= 18 years of age. ? Procalcitonin highest{}-Procalcitonin current{}Delta Procalcitonin = x100% ? Procalcitonin current {} IMPORTANT NOTE: Procalcitonin may be elevated without bacterial infection by physiologic stress related to trauma, castillo, chronic dialysis, metastatic cancer, surgery in the past seven days, malaria, some fungal infections, and some forms of vasculitis. The interpretation algorithm may not apply to patients with immunosuppression (equivalent of >10 mg of prednisone daily), HIV with CD4 cell count < 350 cells/mm3, active malignancy on systemic chemotherapy, solid organ transplant or hematopoietic stem cell transplantation, or hospital acquired pneumonia. Additionally, some clinical trials of procalcitonin have excluded patients with shock requiring vasopressor use, acute respiratory failure requiring mechanical ventilation, or those with known lung abscess/empyema. For further information please refer to:[email or web address] Lab Interpretation Normal (test code = 93568-6) [facility]. METABOLIC PANEL (22940)2021-02-22 13:28:43 Test Item Value Reference Range Interpretation Comments NA (test code = 142 mmol/L 135-145 6729673530) K (test code = 3.1 mmol/L 3.5-5.0 L 9626506549) CL (test code = 106 mmol/L 98-108 6278913227) CO2 TOTAL (test code = 34 mmol/L 23-31 H 2654491954) AGAP (test code = 2-16 0078597471) BUN (test code = 36 mg/dL 7-23 H 5945417850) GLUCOSE (test code = 94 mg/dL 70-110 4017652722) CREATININE (test code = 1.15 mg/dL 0.50-1.04 H 2361621825) TOTAL BILI (test code = 0.6 mg/dL 0.1-1.3 7948581272) CALCIUM (test code = 8.2 mg/dL 8.6-10.6 L 1830230885) T PROTEIN (test code = 6.1 g/dL 6.3-8.2 L [id number]) ALBUMIN (test code = 3.3 g/dL 3.5-5.0 L 8058610878) ALK PHOS (test code = 60 U/L 34-122 3328732799) ALTv (test code = 13 U/L 5-35 1742-6) AST(SGOT) (test code = 27 U/L 13-40 4734298435) eGFR (test code = mL/min/1.73m2 8504554885) DYLAN (test code = DYLAN) Association of Glomerular Filtration Rate (GFR) and Staging of Kidney Disease* + --+ --+ ------+| GFR (mL/min/1.73 m2) ?| With Kidney Damage ?| ?Without Kidney Damage+ --------+ --------+ +| ?>90 ?| ?Stage one ?| ? Normal ?+ ---+ ---+ -------+| ?60-89 ?| ?Stage two ?| ? Decreased GFR ? + --+ --+ ------+| ?30-59 ?| ?Stage three ?| ? Stage three ? + --+ --+ ------+| ?15-29 ?| ?Stage four ? | ? Stage four ?+ ---+ ---+ -------+| ?<15 (or dialysis) ? ?| ?Stage five ? | ? Stage five ?+ ---+ ---+ -------+ *Each stage assumes the associated GFR level has been in effect for at least three months. ?Stages 1 to 5, with or without kidney disease, indicate chronic kidney disease. Notes: Determination of stages one and two (with eGFR >59mL/min/1.73 m2) requires estimation of kidney damage for at least three months as defined by structural or functional abnormalities of the kidney, manifested by either:Pathological abnormalities or Markers of kidney damage (including abnormalities in the composition of the blood or urine or abnormalities in imaging tests). Lab Interpretation Abnormal (test code = 07610-1) [facility] [id number] 13:17:03 Test Item Value Reference Interpretation Comments Range TROPONIN I (test 0.030 ng/mL See_Comment [Automated code = 0974302405) message] The system which generated this result transmitted reference range : <=0.034. The reference range was not used to interpret this result as normal/abnormal . DYLAN (test code = Reference (Normal) DYLAN) Range (defined by the 99th percentile reference limit): <= 0.034 ng/mL Note: Cardiac troponin begins to rise 3-4 hours after the onset of ischemia. Repeat in 4-6 hours if the sample was drawn within 3-4 hours of the onset of the symptom and found normal. Diagnosis of myocardial injury is made with acute changes in cTn concentrations with at least one serial sample above the 99th percentile upper reference limit (URL), taken together with the patient's clinical presentation. Biotin has been reported to cause a negative bias, interpret results relative to patient's use of biotin. Lab Interpretation Normal (test code = 51684-3) [id number] 13:13:44 Test Item Value Reference Range Interpretation Comments NT-proBNP (test code 4320 pg/mL See_Comment H [Autom ated = 7222026199) message] The system which generated this result transmitted reference range : <=450. The reference range was not used to interpret this result as normal/abnormal . DYLAN (test code = DYLAN) Biotin has been reported to cause a negative bias, interpret results relative to patient's use of biotin. Lab Interpretation Abnormal (test code = 94533-7) [facility] 13:08:01 Test Item Value Reference Range Interpretation Comments MAGNESIUM (test code = 2688228573) 1.8 mg/dL 1.7-2.4 Lab Interpretation (test code = Normal 89089-2) [facility] 13:07:41 Test Item Value Reference Range Interpretation Comments PHOSPHORUS (test code = 4301932500) 5.3 mg/dL 2.5-5.0 H Lab Interpretation (test code = Abnormal 47332-3) [facility]URIC [id number] 13:07:21 Test Item Value Reference Range Interpretation Comments URIC ACID (test code = 0574438038) 6.5 mg/dL 2.9-6.0 H Lab Interpretation (test code = Abnormal 32374-6) [facility] WITH [id number] 12:46:23 Test Item Value Reference Range Interpretation Comments WBC (test code = See_Comment [Automated 6690-2) message] The sy stem which generated this result transmitted reference range : 4.30 - 11.10 10*3/?L. The reference range was not used to interpret this result as normal/abnormal . RBC (test code = See_Comment L [Automated 789-8) message] The sy stem which generated this result transmitted reference range : 3.93 - 5.25 10*6/?L. The reference range was not used to interpret this result as normal/abnormal . HGB (test code = 9.3 g/dL 11.6-15.0 L 718-7) HCT (test code = 29.8 % 35.7-45.2 L 4544-3) MCV (test code = 104.6 fL 80.6-95.5 H 787-2) MCH (test code = 32.6 pg 25.9-32.8 785-6) MCHC (test code = 31.2 g/dL 31.6-35.1 L 786-4) RDW-SD (test code = 54.2 fL 39.0-49.9 H 84318-9) RDW-CV (test code = 14.2 % 12.0-15.5 788-0) PLT (test code = See_Comment L [Automated 777-3) message] The sy stem which generated this result transmitted reference range : 166 - 358 10*3/ ?L. The reference r nati was not used to interpret this result as normal/abnormal . MPV (test code = 11.7 fL 9.5-12.9 99170-0) NRBC/100 WBC (test See_Comment [Automat ed code = 9465810776) message] The system which generated this result transmitted reference range : 0.0 - 10.0 /100 WBCs. The refer ence range was not u sed to interpret th is result as normal/abnormal . NRBC x10^3 (test code <0.01 See_Comment [Auto mated = 9411264884) message] The s ystem which generated this result transmitted reference range : 10*3/?L. The reference range was not used to interpret this result as normal/abnormal . GRAN MAT (NEUT) % 81.9 % (test code = 770-8) IMM GRAN % (test code 0.60 % = 2034261448) LYMPH % (test code = 8.3 % 736-9) MONO % (test code = 8.1 % 5905-5) EOS % (test code = 0.9 % 713-8) BASO % (test code = 0.2 % 706-2) GRAN MAT x10^3(ANC) 4.46 10*3/uL 1.88-7.09 (test code = 2719894891) IMM GRAN x10^3 (test 0.03 10*3/uL 0.00-0.06 code = 3505656097) LYMPH x10^3 (test code 0.45 10*3/uL 1.32-3.29 L = 731-0) MONO x10^3 (test code 0.44 10*3/uL 0.33-0.92 = 742-7) EOS x10^3 (test code = 0.05 10*3/uL 0.03-0.39 711-2) BASO x10^3 (test code <0.03 0.01-0.07 = 704-7) Lab Interpretation Abnormal (test code = 26207-3) [facility], [id number] 11:38:50 Test Item Value Reference Range Interpretation Comments VIT D 25OH (test code = 71 ng/mL 25-80 81715-0) DYLAN (test code = DYLAN) Deficiency: <20 ng/mLInsufficiency : 20-24 ng/mLOptimal: 25-80 ng/mL Lab Interpretation (test Normal code = 30382-9) [facility] B12, [id number] 11:35:50 Test Item Value Reference Range Interpretation Comments VIT B12 (test code = 302 pg/mL 240-930 4404699885) DYLAN (test code = DYLAN) Biotin has been reported to cause a positive bias, interpret results relative to patient's use of biotin. Lab Interpretation (test Normal code = 65144-4) [facility] CenterSEDIMENTATION [id number] 07:20:15 Test Item Value Reference Range Interpretation Comments ESR (test code = See_Comment H [Automated message] 6589241978) The system [employer] generated this result transmitted ref erence range: 0 - 20 m m/HR. The reference r nati was not used to interpret this result as normal/abnor mal. Lab Interpretation (test Abnormal code = 80252-1) [facility]TR[facility] [id number] 07:08:06 Test Item Value Reference Interpretation Comments Range TROPONIN I (test 0.009 ng/mL See_Comment [Automated code = 2303295867) message] The system which generated this result transmitted reference range : <=0.034. The reference range was not used to interpret this result as normal/abnormal . DYLAN (test code = Reference (Normal) DYLAN) Range (defined by the 99th percentile reference limit): <= 0.034 ng/mL Note: Cardiac troponin begins to rise 3-4 hours after the onset of ischemia. Repeat in 4-6 hours if the sample was drawn within 3-4 hours of the onset of the symptom and found normal. Diagnosis of myocardial injury is made with acute changes in cTn concentrations with at least one serial sample above the 99th percentile upper reference limit (URL), taken together with the patient's clinical presentation. Biotin has been reported to cause a negative bias, interpret results relative to patient's use of biotin. Lab Interpretation Normal (test code = 21015-1) [facility] CenterCREATINE [id number] 06:55:22 Test Item Value Reference Range Interpretation Comments CK (test code = 0540516292) 33 U/L 33-194 Lab Interpretation (test code = Normal 26613-7) [facility] CenterPROTHROMBIN TIME / [id number] 06:46:18 Test Item Value Reference Range Interpretation Comments PROTIME PATIENT (test See_Comment H [Auto mated message] code = 5964-2) The system wh ich generated this result transmitted ref erence range: 12.0 - 1 4.7 Seconds. The reference range was not used to int erpret this result as normal/abnormal . INR (test code = 6301-6) Nor mal INR <1.1; Warfarin Therap eutic range 2.0 to 3. 0 or 2.5 to 3.5, dep ending upon the indica tions. Lab Interpretation (test Abnormal code = 71393-8) [facility] CenterGLYCOSYLATED HEMOGLOBIN (A1C)2021-02-22 05:35:13 Test Item Value Reference Range Interpretation Comments HGB A1C (test code = 5.7 % 4.0-5.7 4548-4) DYLAN (test code = DYLAN) Reference RangesNormal: <5.7%Prediabetes: 5.7 - 6.4%Diabetes: > 6.5% Lab Interpretation (test Normal code = 63079-0) [facility]TROPONIN [id number] 22:37:55 Test Item Value Reference Interpretation Comments Range TROPONIN I (test 0.012 ng/mL See_Comment [Automated code = 7822266545) message] The system which generated this result transmitted reference range : <=0.034. The reference range was not used to interpret this result as normal/abnormal . DYLAN (test code = Reference (Normal) DYLAN) Range (defined by the 99th percentile reference limit): <= 0.034 ng/mL Note: Cardiac troponin begins to rise 3-4 hours after the onset of ischemia. Repeat in 4-6 hours if the sample was drawn within 3-4 hours of the onset of the symptom and found normal. Diagnosis of myocardial injury is made with acute changes in cTn concentrations with at least one serial sample above the 99th percentile upper reference limit (URL), taken together with the patient's clinical presentation. Biotin has been reported to cause a negative bias, interpret results relative to patient's use of biotin. Lab Interpretation Normal (test code = 56808-1) [facility]N-[facility]MINAL [id number] 22:34:52 Test Item Value Reference Range Interpretation Comments NT-proBNP (test code 4930 pg/mL See_Comment H [Autom ated = 1604646728) message] The system which generated this result transmitted reference range : <=450. The reference range was not used to interpret this result as normal/abnormal . DYLAN (test code = DYLAN) Biotin has been reported to cause a negative bias, interpret results relative to patient's use of biotin. Lab Interpretation Abnormal (test code = 88530-0) [facility] CenterCOMP. METABOLIC PANEL (42221)2021-02-21 22:26:11 Test Item Value Reference Range Interpretation Comments NA (test code = 140 mmol/L 135-145 1657656456) K (test code = 4.1 mmol/L 3.5-5.0 0242179252) CL (test code = 104 mmol/L 98-108 5530047740) CO2 TOTAL (test code = 32 mmol/L 23-31 H 2048230540) AGAP (test code = 2-16 6989289976) BUN (test code = 41 mg/dL 7-23 H 4167222207) GLUCOSE (test code = 111 mg/dL 70-110 H 6278464425) CREATININE (test code = 1.28 mg/dL 0.50-1.04 H 4082591875) TOTAL BILI (test code = 1.0 mg/dL 0.1-1.6 3231085321) CALCIUM (test code = 9.1 mg/dL 8.6-10.6 1445388985) T PROTEIN (test code = 7.0 g/dL 6.3-8.2 7276511919) ALBUMIN (test code = 4.1 g/dL 3.5-5.0 5541706632) ALK PHOS (test code = 61 U/L 34-122 7741258545) ALTv (test code = 14 U/L 5-35 1742-6) AST(SGOT) (test code = 34 U/L 13-40 1520399386) eGFR (test code = mL/min/1.73m2 6236394584) DYLAN (test code = DYLAN) Association of Glomerular Filtration Rate (GFR) and Staging of Kidney Disease* + --+ --+ ------+| GFR (mL/min/1.73 m2) ?| With Kidney Damage ?| ?Without Kidney Damage+ --------+ --------+ +| ?>90 ?| ?Stage one ?| ? Normal ?+ ---+ ---+ -------+| ?60-89 ?| ?Stage two ?| ? Decreased GFR ? + --+ --+ ------+| ?30-59 ?| ?Stage three ?| ? Stage three ? + --+ --+ ------+| ?15-29 ?| ?Stage four ? | ? Stage four ?+ ---+ ---+ -------+| ?<15 (or dialysis) ? ?| ?Stage five ? | ? Stage five ?+ ---+ ---+ -------+ *Each stage assumes the associated GFR level has been in effect for at least three months. ?Stages 1 to 5, with or without kidney disease, indicate chronic kidney disease. Notes: Determination of stages one and two (with eGFR >59mL/min/1.73 m2) requires estimation of kidney damage for at least three months as defined by structural or functional abnormalities of the kidney, manifested by either:Pathological abnormalities or Markers of kidney damage (including abnormalities in the composition of the blood or urine or abnormalities in imaging tests). Lab Interpretation Abnormal (test code = 39819-1) [facility] WITH [id number] 22:02:47 Test Item Value Reference Range Interpretation Comments WBC (test code = See_Comment [Automated 4190-2) message] The sy stem which generated this result transmitted reference range : 4.30 - 11.10 10*3/?L. The reference range was not used to interpret this result as normal/abnormal . RBC (test code = See_Comment L [Automated 839-8) message] The sy stem which generated this result transmitted reference range : 3.93 - 5.25 10*6/?L. The reference range was not used to interpret this result as normal/abnormal . HGB (test code = 10.7 g/dL 11.6-15.0 L 718-7) HCT (test code = 33.9 % 35.7-45.2 L 4544-3) MCV (test code = 101.8 fL 80.6-95.5 H 787-2) MCH (test code = 32.1 pg 25.9-32.8 785-6) MCHC (test code = 31.6 g/dL 31.6-35.1 786-4) RDW-SD (test code = 53.8 fL 39.0-49.9 H 90466-6) RDW-CV (test code = 14.5 % 12.0-15.5 788-0) PLT (test code = See_Comment L [Automated 777-3) message] The sy stem which generated this result transmitted reference range : 166 - 358 10*3/ ?L. The reference r nati was not used to interpret this result as normal/abnormal . MPV (test code = 11.1 fL 9.5-12.9 12474-7) IPF % (test code = 3.2 % 1.3-7.7 Platelet count [id number]) measured by fluorescence method. NRBC/100 WBC (test See_Comment [Automat ed code = 0625691349) message] The system which generated this result transmitted reference range : 0.0 - 10.0 /100 WBCs. The refer ence range was not u sed to interpret th is result as normal/abnormal . NRBC x10^3 (test code <0.01 See_Comment [Auto mated = 9583925329) message] The s ystem which generated this result transmitted reference range : 10*3/?L. The reference range was not used to interpret this result as normal/abnormal . GRAN MAT (NEUT) % 76.4 % (test code = 770-8) IMM GRAN % (test code 0.40 % = 1899080173) LYMPH % (test code = 12.8 % 736-9) MONO % (test code = 8.0 % 5905-5) EOS % (test code = 1.8 % 713-8) BASO % (test code = 0.6 % 706-2) GRAN MAT x10^3(ANC) 5.47 10*3/uL 1.88-7.09 (test code = 8916242247) IMM GRAN x10^3 (test 0.03 10*3/uL 0.00-0.06 code = 8632176837) LYMPH x10^3 (test code 0.92 10*3/uL 1.32-3.29 L = 731-0) MONO x10^3 (test code 0.57 10*3/uL 0.33-0.92 = 742-7) EOS x10^3 (test code = 0.13 10*3/uL 0.03-0.39 711-2) BASO x10^3 (test code 0.04 10*3/uL 0.01-0.07 = 704-7) Lab Interpretation Abnormal (test code = 89583-6) [facility]"
[2021-06-22 20:50] LABS: Absolute Lymphocytes (CBC) 1.1 K/uL (0.7-4.9); Lymphocytes % 14.7 % (15.3-44.8); MPV 8.2 fL (7.6-11.3); RBC Red Blood Cell Count 1.94 M/uL (3.86-4.86)
[2021-06-22 20:51] LABS: Protime INR 1.83
[2021-06-22 20:55] LABS: Hematocrit 18.9 % (36.0-45.0)
[2021-06-22 21:12] LABS: Albumin 3.9 g/dL (3.4-5.0); Bilirubin Direct 0.2 mg/dL (0-0.2); Bilirubin Total 0.5 mg/dL (0.2-1.0); Magnesium 2.6 mg/dL (1.8-2.4); Potassium 3.9 mmol/L (3.5-5.1); Protein, Total 7.3 g/dL (6.4-8.2); Troponin High Sensitivity 15.8 pg/mL (<58.9)
[2021-06-22] MEDS ORDERED: NA CHLORIDE 0.9% 250 ML ONE (21:22)
[2021-06-22] MEDS ORDERED: PANTOPRAZOLE 40 MG INJ ONE ×2 (21:22→21:25)
[2021-06-22 21:30] LABS: SARS-COV-2 RT PCR NEGATIVE (NEGATIVE)
--- NOTE | 2021-06-22 21:53 | RAD REPORT ---
EXAM DESCRIPTION: RAD - Ankle Left 3 View - 06/22/2021 9:33 pm CLINICAL HISTORY: SWELLING COMPARISON: No comparisons FINDINGS: No fracture, dislocation or periosteal reaction. No joint effusion seen. Tibiotalar joint space is narrowed slightly. Minimal marginal spurring changes are present. Large plantar spur is pres ent. Lateral soft tissue swelling is present. IMPRESSION: Left ankle degenerative changes are present as detailed. No acute bone or joint finding. Lateral soft tissue swelling.
--- NOTE | 2021-06-22 21:55 | RAD REPORT ---
EXAM DESCRIPTION: RAD - Chest Single View - 06/22/2021 9:33 pm CLINICAL HISTORY: SOB COMPARISON: Portable 08/22/2020 TECHNIQUE: AP portable chest image was obtained 06/22/2021 9:33 pm . FINDINGS: Lung volumes are low accentuating the baseline interstitial pattern. Findings are slightly more prominent the lower left lung field. Mild or early left base infiltrate cannot be excluded. Mil d failure or volume overload cannot be excluded either. Heart size still within normal range. Trachea is midline. No measurable pleural effusion and no pneu mothorax. No acute bony abnormality seen. No acute aortic findings suspected. IMPRESSION: Prominent baseline interstitial pattern increased at the left base. Mild failure cannot be excluded and early left base infiltrate cannot be excluded.
[2021-06-22 21:59] LABS: Urine Blood 2+ (Negative); Urine Glucose Negative (Negative); Urine Protein Negative (Negative); Urine Specific Gravity 1.015 (1.005-1.030); Urine pH 5.5 (5.0-7.0)
--- NOTE | 2021-06-22 23:27 | EDPHYS ---
Physician Documentation [facility] Name: Bibiana Lara Age: 85 yrs Sex: Female : 1935 Arrival Date: 06/22/2021 Time: 19:24 Bed 26 Private MD: ED Physician Stu Wise HPI: 06/22 20:36 This 85 yrs old Female presents to ER via Ambulatory with complaints of mh7 Breathing Difficulty. 20:36 The patient has shortness of breath at rest, with light activity. Onset: The mh7 symptoms/episode began/occurred 1 day(s) ago. Duration: The symptoms are intermittent, with no pattern. The patient's shortness of breath is aggravated by exertion, light activity, is alleviated by rest. Associated signs and symptoms: Pertinent positives: chest pain, nausea, Pertinent negatives: non-productive cough, productive cough, dizziness, fever, hemoptysis, loss of consciousness, numbness in extremities, visual changes, vomiting. Severity of symptoms: At their worst the symptoms were moderate last night, in the emergency department the symptoms have improved moderately. Historical: - Allergies: 19:54 No Known Allergies; ld1 - PMHx: 19:54 Depression; Hypertension; Hypothyroidism; High Cholesterol; ld1 - PSHx: 19:54 Hysterectomy; ld1 - Immunization history:: Adult Immunizations up to date, Client reports receiving the 2nd dose of the Covid vaccine. - Social history:: Smoking status: Patient denies any tobacco usage or history of. Patient/guardian denies using alcohol. ROS: 20:36 Constitutional: Negative for fever, chills, and weight loss, Eyes: Negative for injury, mh7 pain, redness, and discharge, ENT: Negative for injury, pain, and discharge, Neck: Negative for injury, pain, and swelling. 20:36 Back: Negative for injury and pain, : Negative for injury, bleeding, discharge, and swelling, MS/Extremity: Negative for injury and deformity, Skin: Negative for injury, rash, and discoloration, Neuro: Negative for headache, weakness, numbness, tingling, and seizure, Psych: Negative for depression, anxiety, suicide ideation, homicidal ideation, and hallucinations, Allergy/Immunology: Negative for hives, rash, and allergies, Endocrine: Negative for neck swelling, polydipsia, polyuria, polyphagia, and marked weight changes, Hematologic/Lymphatic: Negative for swollen nodes, abnormal bleeding, and unusual bruising. Exam: 20:36 Constitutional: This is a well developed, well nourished patient who is awake, alert, mh7 and in no acute distress. Head/Face: Normocephalic, atraumatic. Eyes: Pupils equal round and reactive to light, extra-ocular motions intact. Lids and lashes normal. Conjunctiva and sclera are non-icteric and not injected. Cornea within normal limits. Periorbital areas with no swelling, redness, or edema. Neck: Trachea midline, no thyromegaly or masses palpated, and no cervical lymphadenopathy. Supple, full range of motion without nuchal rigidity, or vertebral point tenderness. No Meningismus. Chest/axilla: Normal chest wall appearance and motion. Nontender with no deformity. No lesions are appreciated. 20:36 Cardiovascular: Regular rate and rhythm with a normal S1 and S2. No gallops, murmurs, or rubs. Normal PMI, no JVD. No pulse deficits. 20:36 Abdomen/GI: Soft, non-tender, with normal bowel sounds. No distension or tympany. No guarding or rebound. No evidence of tenderness throughout. Back: No spinal tenderness. No costovertebral tenderness. Full range of motion. Skin: Warm, dry with normal turgor. Normal color with no rashes, no lesions, and no evidence of cellulitis. 20:36 Neuro: Awake and alert, GCS 15, oriented to person, place, time, and situation. Cranial nerves II-XII grossly intact. Motor strength 5/5 in all extremities. Sensory grossly intact. Cerebellar exam normal. Normal gait. Psych: Awake, alert, with orientation to person, place and time. Behavior, mood, and affect are within normal limits. 20:36 Respiratory: the patient does not display signs of respiratory distress, Respirations: normal, Breath sounds: rhonchi, that are mild, are scattered, Respiratory rate: 20 20:36 Musculoskeletal/extremity: Extremities: noted in the left ankle: ecchymosis, swelling, ROM: intact in all extremities, Circulation is intact in all extremities. Sensation intact. Compartment Syndrome exam of affected extremity: is normal. no pain, no numbness, no tingling, no sensation deficit, no palor, no weak pulses, Joints: the left ankle displays swelling, Weight bearing: can bear weight with assistance only, uses walker, Tendon exam: specific tendon testing normal through active and passive range of motion Calves: are non-tender, have equal circumference. 21:15 Abdomen/GI: Rectal exam: rectal tone normal, Stool: guaiac positive, green, mh7 hemorrhoid(s), are not appreciated, mass, is not appreciated, swelling, is not appreciated, tenderness, is not appreciated, fecal impaction, is not appreciated, the exam is chaperoned by the nurse. Vital Signs: 19:53 Pulse 60; Resp 20; Temp 98.9(O); Pulse Ox 98% on R/A; Weight 81.65 kg; Height 5 ft. 7 ld1 in. (170.18 cm); Pain 0/10; 20:48 BP 119 / 57; Pulse 67; Resp 18; Pulse Ox 95% on R/A; jb4 22:58 BP 118 / 47; Pulse 103; Resp 20; Pulse Ox 97% on 2 lpm NC; jb4 06/23 01:00 BP 124 / 53; Pulse 59; Resp 16; Pulse Ox 96% on 2 lpm NC; jb4 02:00 BP 109 / 48; Pulse 63; Resp 16; Pulse Ox 100% on 2 lpm NC; jb4 03:00 BP 119 / 52; Pulse 64; Resp 21; Temp 97.7(TE); Pulse Ox 96% on R/A; jb4 06/22 19:53 Body Mass Index 28.19 (81.65 kg, 170.18 cm) ld1 MDM: 06/22 23:24 Differential diagnosis: Anemia Anxiety Reaction asthma, Bronchitis CHF exacerbation, mh7 Chronic Obstructive Pulmonary Disease Myocardial Infarction pneumonia, Pneumothorax Psychogenic pulmonary edema, reactive airway disease. Data reviewed: vital signs, nurses notes, old medical records, lab test result(s), cardiac enzymes, CBC, electrolytes, EKG, radiologic studies, CT scan, plain films. Data interpreted: Pulse oximetry: on room air is 97 %. Interpretation: normal. Counseling: I had a detailed discussion with the patient and/or guardian regarding: the historical points, exam findings, and any diagnostic results supporting the discharge/admit diagnosis, the presence of at least one elevated blood pressure reading (>120/80) during this emergency department visit, lab results, radiology results, the need to transfer to another facility, [facility] does not immediately have the required specialist. Response to treatment: the patient's symptoms have mildly improved after treatment. 23:27 Patient medically screened. [facility] 06/22 20:06 Order name: Basic Metabolic Panel; Complete Time: 22:53 7 06/22 20:06 Order name: CBC with Diff; Complete Time: 20:56 [facility] 06/22 20:06 Order name: LFT's; Complete Time: 22:53 [facility] 06/22 20:06 Order name: Magnesium; Complete Time: 22:53 7 06/22 20:06 Order name: NT PRO-BNP; Complete Time: 22:53 [facility] 06/22 20:06 Order name: PT-INR; Complete Time: 20:56 [facility] 06/22 20:06 Order name: Troponin HS; Complete Time: 22:53 [facility] 06/22 20:07 Order name: COVID-19/FLU A+B/RSV (Document "Date of Onset" if Symptomatic); Complete [facility] Time: 22:53 06/22 20:57 Order name: Type And Screen [facility] 06/22 21:15 Order name: Lipase; Complete Time: 22:53 EDIL 06/22 22:00 Order name: Urine Dipstick-Ancillary; Complete Time: 22:53 EDMS 06/22 22:00 Order name: ABO/RH no charge; Complete Time: 22:53 EDMS 06/22 20:06 Order name: EKG; Complete Time: 20:07 [facility] 06/22 20:06 Order name: Cardiac monitoring; Complete Time: 20:47 [facility] 06/22 20:06 Order name: EKG - Nurse/Tech; Complete Time: 20:47 [facility] 06/22 20:06 Order name: IV Saline Lock; Complete Time: 20:48 [facility] 06/22 20:06 Order name: Labs collected and sent; Complete Time: 20:48 [facility] 06/22 20:06 Order name: O2 Per Protocol; Complete Time: 20:48 [facility] 06/22 20:06 Order name: O2 Sat Monitoring; Complete Time: 20:48 [facility] 06/22 20:19 Order name: Chest Single View; Complete Time: 22:53 EDMS 06/22 20:25 Order name: Ankle Left 3 View XRAY; Complete Time: 22:53 [facility] 06/22 20:47 Order name: Urine Dipstick-Ancillary (obtain specimen); Complete Time: 03:20 [facility] 06/22 21:08 Order name: Transfuse; Complete Time: 03:14 [facility] 06/22 21:10 Order name: CT Abd/Pelvis - Without Contrast [facility] 06/23 01:22 Order name: Packed RBCs (Additional Unit) EDMS Administered Medications: 21:32 Drug: ProTONIX (pantoprazole) 80 mg Route: IVP; Site: right forearm; [facility] 06/23 01:22 Follow up: Response: No adverse reaction [facility] 06/22 21:39 Drug: ProTONIX (pantoprazole) 8 mg/hr Route: IV; Rate: 25 ml/hr; Site: right forearm; [facility] 06/23 03:20 Follow up: Response: No adverse reaction; IV Status: Infusion continued upon transfer jb4 Disposition Summary: 06/22/21 23:27 Transfer Ordered Transfer Location: [place] [address] Reason: Higher level of care [facility] Condition: Stable [facility] Problem: new [facility] Symptoms: have improved [facility] Accepting Physician: Dr. Calabrese(06/23/21 03:21) jb4 Diagnosis - GI Bleed, Anemia 7 - Dyspnea [facility] Forms: - Medication Reconciliation Form 7 - SBAR form 7 Signatures: Dispatcher [employer] EDBrent Fisher RN RN jb4 Stu Wise MD MD mh7 Kailey Corbin RN RN ld1 Corrections: (The following items were deleted from the chart) 06/22 20:18 20:07 Chest Single View+RAD.RAD.BRZ ordered. EDIL EDMS 21:15 21:10 LIPASE+C.LAB.BRZ ordered. EDMS EDMS 06/23 03:21 06/22 23:27 Dr. Calabrese 7 jb4
--- NOTE | 2021-06-22 23:27 | ER ---
Nurse's Notes [facility] Name: Bibiana Lara Age: 85 yrs Sex: Female : 1935 Arrival Date: 06/22/2021 Time: 19:24 Bed 26 Private MD: Diagnosis: GI Bleed, Anemia;Dyspnea Presentation: 06/22 19:53 Chief complaint: Patient states: SOB and nausea X 1 day. Coronavirus screen: Client ld1 presents with at least one sign or symptom that may indicate coronavirus-19. Standard/surgical mask placed on the client. Ebola Screen: No symptoms or risks identified at this time. Initial Sepsis Screen: Does the patient meet any 2 criteria? No. Patient's initial sepsis screen is negative. Does the patient have a suspected source of infection? No. Patient's initial sepsis screen is negative. Risk Assessment: Do you want to hurt yourself or someone else? Patient reports no desire to harm self or others. Onset of symptoms was June 22, 2021. 19:53 Method Of Arrival: Ambulatory ld1 19:53 Acuity: ROBERT 3 ld1 Triage Assessment: 19:54 General: Appears in no apparent distress. comfortable, Behavior is calm, cooperative, ld1 appropriate for age. Pain: Denies pain. EENT: No signs and/or symptoms were reported regarding the EENT system. Neuro: Level of Consciousness is awake, alert, obeys commands, Oriented to person, place, time, situation. Cardiovascular: Capillary refill < 3 seconds Patient's skin is warm and dry. Respiratory: Reports shortness of breath at rest on exertion cough that is air hunger Airway is patent Respiratory effort is even, unlabored, Onset: The symptoms/episode began/occurred gradually, the patient has mild shortness of breath. Historical: - Allergies: 19:54 No Known Allergies; ld1 - PMHx: 19:54 Depression; Hypertension; Hypothyroidism; High Cholesterol; ld1 - PSHx: 19:54 Hysterectomy; ld1 - Immunization history:: Adult Immunizations up to date, Client reports receiving the 2nd dose of the Covid vaccine. - Social history:: Smoking status: Patient denies any tobacco usage or history of. Patient/guardian denies using alcohol. Screenin:00 Abuse screen: Denies threats or abuse. Nutritional screening: No deficits noted. jb4 Tuberculosis screening: No symptoms or risk factors identified. Fall Risk None identified. Assessment: 20:00 General: Appears in no apparent distress. uncomfortable, Behavior is calm, cooperative, jb4 appropriate for age. Pain: Denies pain. Neuro: Level of Consciousness is awake, alert, obeys commands, Oriented to person, place, time, situation. Cardiovascular: Patient's skin is warm and dry. Respiratory: Airway is patent Respiratory effort is even, labored, Respiratory pattern is regular, symmetrical, Breath sounds are clear. GI: No signs and/or symptoms were reported involving the gastrointestinal system. : No signs and/or symptoms were reported regarding the genitourinary system. EENT: No signs and/or symptoms were reported regarding the EENT system. Derm: Skin is intact, Skin is dry, Skin is pale, Skin temperature is warm. Musculoskeletal: Circulation, motion, and sensation intact. Range of motion: intact in all extremities. 21:10 Reassessment: Patient appears in no apparent distress at this time. Patient and/or jb4 family updated on plan of care and expected duration. Pain level reassessed. Respirations remains labored. Pt continues to report feeling short of breath. 22:57 Reassessment: Patient appears in no apparent distress at this time. Patient and/or jb4 family updated on plan of care and expected duration. Pain level reassessed. Patient is alert, oriented x 3, equal unlabored respirations, skin warm/dry/pink. 06/23 00:00 Reassessment: Patient appears in no apparent distress at this time. Patient and/or jb4 family updated on plan of care and expected duration. Pain level reassessed. Patient is alert, oriented x 3, equal unlabored respirations, skin warm/dry/pink. 01:00 Reassessment: Patient appears in no apparent distress at this time. Patient and/or jb4 family updated on plan of care and expected duration. Pain level reassessed. Patient is alert, oriented x 3, equal unlabored respirations, skin warm/dry/pink. Vital Signs: 06/22 19:53 Pulse 60; Resp 20; Temp 98.9(O); Pulse Ox 98% on R/A; Weight 81.65 kg; Height 5 ft. 7 ld1 in. (170.18 cm); Pain 0/10; 20:48 BP 119 / 57; Pulse 67; Resp 18; Pulse Ox 95% on R/A; jb4 22:58 BP 118 / 47; Pulse 103; Resp 20; Pulse Ox 97% on 2 lpm NC; jb4 06/23 01:00 BP 124 / 53; Pulse 59; Resp 16; Pulse Ox 96% on 2 lpm NC; jb4 02:00 BP 109 / 48; Pulse 63; Resp 16; Pulse Ox 100% on 2 lpm NC; jb4 03:00 BP 119 / 52; Pulse 64; Resp 21; Temp 97.7(TE); Pulse Ox 96% on R/A; jb4 06/22 19:53 Body Mass Index 28.19 (81.65 kg, 170.18 cm) ld1 ED Course: 06/22 19:24 Patient arrived in ED. jj6 19:51 Stu Wise MD is Attending Physician. mh7 19:54 Triage completed. ld1 19:54 Arm band placed on right wrist. ld1 20:19 Brent Robertson, RN is Primary Nurse. jb4 20:54 Notified ED physician of a critical lab result(s). hemiglobin 6.3 hematocrit 18.9. tw5 21:06 Served as a sample display preparer during rectal exam. tw5 21:34 Chest Single View In Process Unspecified. EDMS 21:34 Ankle Left 3 View XRAY In Process Unspecified. EDMS 22:01 CT Abd/Pelvis - Without Contrast In Process Unspecified. EDMS 06/23 00:29 Inserted saline lock: 20 gauge in right antecubital area, using aseptic technique. oe 03:15 Patient transferred, IV remains in place. jb4 Administered Medications: 06/22 21:32 Drug: ProTONIX (pantoprazole) 80 mg Route: IVP; Site: right forearm; jb4 06/23 01:22 Follow up: Response: No adverse reaction jb4 06/22 21:39 Drug: ProTONIX (pantoprazole) 8 mg/hr Route: IV; Rate: 25 ml/hr; Site: right forearm; jb4 06/23 03:20 Follow up: Response: No adverse reaction; IV Status: Infusion continued upon transfer jb4 Outcome: 06/22 23:27 ER care complete, transfer ordered by . 7 06/23 03:15 Transferred by ground EMS to [facility]. jb4 Condition: stable Discharge instructions given to patient, family, Instructed on the need for transfer, Demonstrated understanding of instructions. 03:21 Patient left the ED. jb4 Signatures: Dispatcher [employer] [facility] Brent Robertson RN RN jb4 Ernie Pathak Maurice, MD MD 7 Kailey Corbin RN RN ld1 Iraida Person tw5 Princess [email or web address] Corrections: (The following items were deleted from the chart) 06/22 20:18 20:09 In radiology for Chest Single View+RAD.RAD.BRZ. [facility] EDGA 21:11 21:10 Reassessment: Patient appears in no apparent distress at this time. Patient jb4 and/or family updated on plan of care and expected duration. Pain level reassessed. Patient is alert, oriented x 3, equal unlabored respirations, skin warm/dry/pink. jb4
[2021-06-23] MEDS ORDERED: NA CHLORIDE 0.9% 50 ML ONE (02:17)
[2021-06-23] MEDS ORDERED: NA CHLORIDE 0.9% 250 ML ONE (02:33)
[2021-06-23 03:35] VITALS: BP 119/52; TEMP 97.7; O2SAT 96
--- NOTE | 2021-06-23 18:22 | RAD REPORT ---
CLINICAL HISTORY: 85 years, Female, Abd pain;GI bleed COMPARISON: 05/27/2016 TECHNIQUE: Multiple transaxial tomograms of the abdomen and pelvis were performed from the lung base s to the symphysis pubis 5 mm slice thickness at 5 mm interval reconstruction, without administration of IV and oral contrast. Multiplanar reformats in the sagittal and coronal plane were generated and reviewed. This exam was performed according to our departmental dose-optimization protocol, which includes auto mated exposure control, adjustment of the mA and/or kV according to patient size and/or use of iterat esha reconstruction technique. FINDINGS: The lack of IV and oral contrast limits evaluation of solid organs, subtle lesions cannot be excluded. The lung bases demonstrate mild prominence of the pulmonary markings and minimal haziness perhaps sug gesting air trapping/or early fluid overload. The heart is prominent. There are coronary artery calci fications. There are small bilateral diaphragmatic elevation. Grossly the unopacified liver, pancreas, spleen and adrenal glands demonstrate to be within normal li mits, no significant focal lesions were identified. The gallbladder was not visualized correspondin g to previous cholecystectomy The kidneys demonstrate grossly unremarkable. There is no evidence for nephrolithiasis and/or hydro nephrosis. There is a posterior upper pole right renal cyst measuring 2.6 x 2.9 cm on image 30. Grossly the unopacified stomach, small bowel and large bowel demonstrate to be within normal limits. There is no evidence for significant bowel dilatation and/or free air. There is diverticulosis within the left site colon/sigmoid colon. The urinary bladder demonstrate to be within normal limits. The uterus is absent. There are no adnexa l masses The aorta demonstrate minimal atherosclerotic disease. There is no retroperitoneal lymphad enopathy. There is no evidence for ascites. The bone windows demonstrate mild diffuse bony osteopenia. Multilevel degenerative disc disease with spinal canal narrowing. There is posterior laminectomy at L4-S1 area. IMPRESSION: No evidence for nephrolithiasis and/or hydronephrosis. Diverticulosis without evidence for acute diverticulitis. Status post cholecystectomy and hysterectomy. Cardiomegaly with coronary artery calcifications. Mild prominence of the pulmonary markings and minimal haziness perhaps suggesting air trapping/or ear ly fluid overload. Multilevel degenerative disc disease and lower lumbar spine laminectomy. Electronically signed by: Jovany Dumont MD 06/22/2021 10:37 PM CDT Due to temporary technical issues with the PACS/Fluency reporting system, reports are being signed by the in house radiologists without review as a courtesy to insure prompt reporting. The interpreting radiologist is fully responsible for the content of the report.
--- NOTE | 2021-06-24 11:16 | EKG ---
Test Date: 2021-06-22 Test Time: 20:41:18 Care Advocate: ROXY MEASUREMENT RESULTS: Intervals: Rate: 66 MD: QRSD: 98 QT: 442 QTc: 463 [place]: P: MD: QRS: 54 T: 22 INTERPRETIVE STATEMENTS: Atrial fibrillation Abnormal ECG Compared to ECG 08/22/2020 20:07:47 Sinus rhythm no longer present Atrial premature complex(es) no longer present First degree AV block no longer present Electronically Signed On 06-24-21 11:12:50 CDT by Berhane Gonsalez
== END 2021-06-23 03:21 | disposition short-term general hospital (02) ==
LOC: ER 19:19
DX: D64.9 Anemia, unspecified (principal); R06.00 Dyspnea, unspecified; I10 Essential (primary) hypertension; Z20.822 Contact with and (suspected) exposure to COVID-19
CPT/HCPCS: 96365; 93005; 85025; 80048; 36415; 86900; 83735; 86850; 85610; 86901; 80076; 81003; 84484; 83690; 83880; 0241U; 74176; 71045; 73610; 99285; 96366; C9113 ×2; P9016; J7050 ×2

== ENCOUNTER 2021-07-21 20:08 | Inpatient (IN) | payer OTHER ==
--- OUTSIDE RECORDS SUMMARY | 2021-07-21 20:21 | XMS REPORT | Continuity of Care Document ---
:1935 Author Organization [facility] t Address [address] [place] [address] Care Team Providers Name Role Phone Lizama, Laura Primary Care Physician Alyson Lizama Attending Clinician Unavailable [id number] Attending Clinician Unavailable Doctor Unassigned, Name Attending Clinician Unavailable Emely FINLEY, L Attending Clinician Unavailable JOHANA CALABRESE Attending Clinician Unavailable Johana Calabrese MD Attending Clinician Yomaira Mcadams MD Attending Clinician HELEN LONDONO Attending Clinician Unavailable Adis Shepherd Attending Clinician Unavailable Helen Londono V Attending Clinician Unavailable Parmjit FINLEY, B Attending Clinician Unavailable Ondina Lorenzana Attending Clinician Singer VILLASEÑOR Attending Clinician Lyric CYR Attending Clinician Diane CYR Attending Clinician Deepa VILLASEÑOR Attending Clinician DEEPA Attending Clinician Unavailable [id number] Admitting Clinician Unavailable JOHANA CALABRESE Admitting Clinician Unavailable Johana Calabrese MD Admitting Clinician DIANE Admitting Clinician Unavailable Sandie Shepherd Admitting Clinician Unavailable Helen Londono V Admitting Clinician Unavailable Deepa VILLASEÑOR Admitting Clinician DEEPA Admitting Clinician Unavailable Payers Payer Name Policy Type Policy Number Effective Date Expiration Date Han kerr [facility] [id number] Problems Condition Condition Condition Status Onset Resolution Last Treating Co mments Source Name Details Category Date Date Treatment Clinician Date GIB GIB Disease Active Univers (gastroint (gastroint 4-03 it y of estinal estinal 00:00: [place] bleeding) bleeding) 00 [facility] Pulmonary Pulmonary Disease Active 2020-03 Uni vers hypertensi hypertensi 2-06 it y of on on 00:00: [place] 00 Medical Branch 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 00:00: Ania s with with 00 Medical hypoxia hypoxia [...] Disease Active 2020-03 Unive rs chronic chronic 2- ity of diastolic diastolic 00:00: [place]ia wolf CHF CHF 00 Medical (congestiv (congestiv Br [...] Active Univers ALLERGIE Class ity of S [facility] [place] Social History Social Habit Start Date Stop Date Quantity Comments Source Alcohol intake 2021-06-28 2021-06-28 Ex-drinker [facility] 00:00:00 00:00:00 (finding) [facility] [place] Exposure to 2021-05-24 2021-06-23 Not sure [facility]-CoV-2 00:00:00 05:03:00 [facility] (event) [place] Tobacco use and 2021-02-21 2021-02-21 Never used Universit y of exposure 00:00:00 00:00:00 [facility] [place] Sex Ass[birth year] At [birth year] Universit y of 00:00:00 00:00:00 [facility] [place] Smoking Status Start Date Stop Date Source Never smoker [facility] Medications Ordered Filled Start Stop Current Ordering Indication Dosage Frequency Signature Comments Components Source Medication Medication Date Date Medication? Clinician (SIG) Name Name citalopram Yes 10mg Take 10 mg U nivers 10 mg 4-09 by mouth ity of tablet 14:31: at [place] [address] bedtime. [facility] Branch oxybutynin Yes 5mg Take 5 mg Un new XL 5 mg 24 4-09 by mouth ity o f hr tablet 14:31: daily. [address] amLODIPine Yes 5mg Take 5 mg Un new 5 mg tablet 4-09 by mouth ity of 14:31: daily. [address] furosemide Yes 40mg Take 40 mg U nivers (LASIX) 40 4-09 by mouth ity o f mg tablet 14:31: daily. [address] spironolact 2022-0 Yes 25mg Take 25 mg Univers one 25 mg 4-09 by mouth ity of tablet 14:31: daily. [place] [address] Medical Branch cranberry Yes Take by Univ ers fruit 4-09 mouth. ity of concentrate 14:31: [place] (AZO 12 Medical CRANBERRY Branch ORAL) ergocalcife 0 Yes Take by Un new rol, 4-09 mouth. ity of vitamin D2, 14:31: [place] (VITAMIN D 12 Medical ORAL) Branch Yes Take by [facility] V[facility] 4-09 mouth. ity of 10-IRON-FOL 14:31: [place] IC-DHA ORAL Medical Branch zinc Yes 50mg Take 50 mg Univers gluconate 4-09 by mouth ity of 50 mg 14:31: daily. [place] tablet Medical Branch multivitami Yes 50mg Take 50 mg Univers n 4-09 by mouth ity of (HIGH-POTEN 14:31: daily. [facility] s CY DAILY Medical VITAMIN Branch ORAL) citalopram Yes 10mg Take 10 mg U nivers 10 mg 4-09 by mouth ity of tablet 14:31: at [place] [address] bedtime. Medical Branch oxybutynin 0 Yes 5mg Take 5 mg Un new XL 5 mg 24 4-09 by mouth ity o f hr tablet 14:31: daily. [address] Branch amLODIPine 0 Yes 5mg Take 5 mg Un new 5 mg tablet 4-09 by mouth ity of 14:31: daily. [address] Branch furosemide 0 Yes 40mg Take 40 mg U nivers (LASIX) 40 4-09 by mouth ity o f mg tablet 14:31: daily. [address] Branch spironolact 0 Yes 25mg Take 25 mg Univers one 25 mg 4-09 by mouth ity of tablet 14:31: daily. [place] [address] Medical Branch cranberry 0 Yes Take by Univ ers fruit 4-09 mouth. ity of concentrate 14:31: [place] (AZO 12 Medical CRANBERRY Branch ORAL) ergocalcife 0 Yes Take by Un new rol, 4-09 mouth. ity of vitamin D2, 14:31: [place] (VITAMIN D 12 Medical ORAL) Branch 0 Yes Take by Unive rs VIT 4-09 mouth. ity of 10-IRON-FOL 14:31: [place] IC-DHA ORAL Medical Branch zinc Yes 50mg Take 50 mg Univers gluconate 4-09 by mouth ity of 50 mg 14:31: daily. [place] tablet [address] [place] [address] Branch multivitami Yes 50mg Take 50 mg Univers n 4-09 by mouth ity of (HIGH-POTEN 14:31: [place]. [place] DA[place] VITAMIN Branch ORAL) citalopram Yes 10mg Take 10 mg U nivers 10 mg 4-09 by mouth ity of tablet 14:31: at [place] [address] bedtime. [facility] Branch oxybutynin Yes 5mg Take 5 mg Un new XL 5 mg 24 4-09 by mouth ity o f hr tablet 14:31: daily. [address] amLODIPine Yes 5mg Take 5 mg Un new 5 mg tablet 4-09 by mouth ity of 14:31: daily. [address] furosemide Yes 40mg Take 40 mg U nivers (LASIX) 40 4-09 by mouth ity o f mg tablet 14:31: daily. [address] Branch spironolact Yes 25mg Take 25 mg Univers one 25 mg 4-09 by mouth ity of tablet 14:31: daily. [address] cranberry Yes Take by [place] [facility] fruit 4-09 mouth. ity of concentrate 14:31: [place] (AZO Medical CRANBERRY Branch ORAL) ergocalcife Yes Take by Un new rol, 4-09 mouth. ity of vitamin D2, 14:31: [place] (VITAMIN D Medical ORAL) Branch Yes Take by [facility] rs VIT 4-09 mouth. ity of 10-IRON-FOL 14:31: [place] IC-DHA ORAL [address] [place] [address] Branch zinc 0 Yes 50mg Take 50 mg Univers gluconate 4-09 by mouth ity of 50 mg 14:31: daily. [address] multivitami Yes 50mg Take 50 mg Univers n 4-09 by mouth ity of (HIGH-POTEN 14:31: [place]. [place] DA[place] VITAMIN Branch ORAL) levothyroxi 2022-0 2022- No 100ug Take 100 Univers ne 100 mcg 06-29-09 mcg by ity of tablet 12:15: 00:00 mouth [place] 38 :00 every Medical morning. Branch simvastatin 2021-2021- No 20mg Take 20 mg Univers 20 mg 06-29- by mouth ity of tablet 12:15: 00:00 at [place] 38 :00 bedtime. Medical Branch rivaroxaban 2021-2021- No 15mg Take 15 mg Univers (XARELTO) 06-29 by mouth ity o f 15 mg 12:15: 00:00 daily. [place] tablet 37 :00 Medical Branch simvastatin 2021-0 Yes [id number] 20mg Take 1 Univers 20 mg 4-09 tablet by ity of tablet 00:00: mouth at [place] 00 bedtime. Medical Branch levothyroxi 0 Yes [id number] 100ug Take 1 Univers ne 100 mcg 4-09 tablet by ity of tablet 00:00: mouth [place] 00 every Medical morning. Branch pantoprazol 0 Yes [id number] 40mg Take 1 Univers e 40 mg EC 4-09 tablet by ity of tablet 00:00: mouth 2 [place] 00 (two) Medical times Branch daily. simvastatin 2021-0 Yes [id number] 20mg Take 1 Univers 20 mg 4-09 tablet by ity of tablet 00:00: mouth at [place] 00 bedtime. Medical Branch levothyroxi 0 Yes [id number] 100ug Take 1 Univers ne 100 mcg 4-09 tablet by ity of tablet 00:00: mouth [place] 00 every Medical morning. Branch pantoprazol 2021-0 Yes [id number] 40mg Take 1 Univers e 40 mg EC 4-09 tablet by ity of tablet 00:00: mouth 2 [place] 00 (two) Medical times Branch daily. simvastatin 2021-0 Yes [id number] 20mg Take 1 Univers 20 mg 4-09 tablet by ity of tablet 00:00: mouth at [place] 00 bedtime. Medical Branch levothyroxi 2021-0 Yes [id number] 100ug Take 1 Univers ne 100 mcg 4-09 tablet by ity of tablet 00:00: mouth [place] 00 every Medical morning. Branch pantoprazol 2021-0 Yes [id number] 40mg Take 1 Univers e 40 mg EC 4-09 tablet by ity of tablet 00:00: mouth 2 [place] [address] (two) Medical times Branch daily. KCL 2021-0 2022- No 40meq 40 mEq, Univers (KLOR-CON 06-28 04-08 Oral, ity of M20) tablet 12:15: 14:36 ONCE, 1 [place] 40 mEq 00 :00 dose, On Medical 06/28/21 Branch at 0715, Routine heparin 2021-0 Yes 5000U 5,000 Univers (porcine) 4-07 Units, ity of injection 21:00: Subcutaneo [place] 5,000 Units 00 us, Q8H, Medi idalmis First dose Branch (after last modificati on) on [place] 06/27/21 at 1600, Until Discontinu ed, Routine heparin 2021-0 Yes 5000U 5,000 Univers (porcine) 4-07 Units, ity of injection 21:00: Subcut[place]o [place] 5,000 Units 00 us, Q8H, Medi idalmis First dose Branch (after last modificati on) on [place] 06/27/21 at 1600, Until Discontinu ed, Routine simethicone 2021-0 202- No PRN, Unive rs (GAS RELIEF 06-27- Starting ity of (SIMETHICON 18:26: 19:54 on [place] Jakub as E)) 40 00 :50 06/27/21 at Medical mg/0.6 mL 1326, Branch drops Until [place] 06/27/21 at 1454, Routine, Intra-op rivaroxaban 2021-0 Yes 15mg Take 15 mg Univers (XARELTO) 07 by mouth ity of 15 mg 14:54: daily. [address] oxybutynin 2021-0 Yes 5mg Take 5 mg Un new XL 5 mg 24 4-07 by mouth ity o f hr tablet 14:54: daily. [address] amLODIPine 2021-0 Yes 5mg Take 5 mg Un new 5 mg tablet -07 by mouth ity of 14:54: daily. [address] furosemide 2021-0 Yes 40mg Take 40 mg U nivers (LASIX) 40 4-07 by mouth ity o f mg tablet 14:54: daily. [address] spironolact 2021-0 Yes 25mg Take 25 mg Univers one 25 mg 4-07 by mouth ity of tablet 14:54: daily. [place] 50 Medical Branch cranberry Yes Take by [facility] ers fruit 4-07 mouth. ity of concentrate 14:54: [place] (AZO 50 Medical CRANBERRY Branch ORAL) ergocalcife Yes Take by Un new rol, -07 mouth. ity of vitamin D2, 14:54: [place] (VITAMIN D 50 Medical ORAL) Branch Yes Take by [facility] rs VIT 4-07 mouth. ity of 10-IRON-FOL 14:54: [place] IC-DHA ORAL 50 [facility] Branch zinc Yes 50mg Take 50 mg Univers gluconate 07 by mouth ity of 50 mg 14:54: daily. [place] tablet 50 [facility] multivitami Yes 50mg Take 50 mg Univers n 06-27 by mouth ity of (HIGH-POTEN 14:54: daily. [place] CY DAILY 50 [facility] VITAMIN Branch ORAL) zinc 2021- No Take by Univers sulfate 06-27 04-03 mouth. ity of (ZINC-15 14:54: 00:00 [place] ORAL) 50 :00 [facility] zinc 2021- No Take by Univers sulfate 06-27-03 mouth. ity of (ZINC-15 14:54: 00:00 [place] ORAL) 50 :00 [facility] bisacodyL 2021- No 10mg 10 mg, Unive rs (DULCOLAX) 06-26 04-06 Oral, ity of tablet 10 21:30: 21:58 PRE-PROCED [place] mg 00 :00 URE ONCE, Medical 1 dose, Branch Starting on Thu06/26/21 at 1630, Until Discontinu ed, Routine, Bowel Prep, Colonoscop y peg-electro Yes 4000mL 4,000 mL, Univers lyte soln 4-06 Oral, PRN ity o f (GOLYTELY) 20:26: - SEE [place] [id number] INSTRUCTIO Nd dical .74 -5.86 NS, Branch gram Starting solution on Thu 4,000 mL 06/26/21 at 1526, Until Discontinu ed, Routine, Bowel Prep, colonoscop y peg-electro 0 Yes 4000mL 4,000 mL, Univers lyte soln 4-06 Oral, PRN ity o f (GOLYTELY) 20:26: - SEE [place] [id number] INSTRUCTIO Nd dical .74 -5.86 NS, Branch gram Starting solution on Thu 4,000 mL 06/26/21 at 1526, Until Discontinu ed, Routine, Bowel Prep, colonoscop y bisacodyL 2021-0 2021- No 10mg 10 mg, Unive rs (DULCOLAX) 4- 04-06 Oral, ity of tablet 10 20:26: 23:21 PRE-PROCED [place] mg 14 :00 URE ONCE, Medical 1 dose, Branch Starting on Thu06/26/21 at 1526, Until Discontinu ed, Routine, Bowel Prep, Colonoscop y furosemide 2021- Yes 40mg 40 mg, Unive rs (LASIX) 4-06 Slow IV ity of injection 19:45: Push, [place] 40 mg 00 DAILY, Medical First dose Branch (after last reorder) on Thu06/26/21 at 1445, Until Discontinu ed, Routine furosemide 2021-0 Yes 40mg 40 mg, Unive rs (LASIX) 4-06 Slow IV ity of injection 19:45: Push, [place] 40 mg 00 DAILY, Medical First dose Branch (after last reorder) on Thu06/26/21 at 1445, Until Discontinu ed, Routine lactulose 2021-0 2021- No 30mL 30 mL, Unive rs (CEPHULAC) 4- 04-06 Oral, ity of solution 30 17:45: 18:22 ONCE, 1 [place] mL 00 :00 dose, On Medical Thu06/26/21 Branch at 1245, Routine sodium 2021-0 Yes 4mL 4 mL, Univers chloride 7% 4-06 Inhalation it y of (HYPER-VIRGEN) 14:00: , DAILY, [place] nebulizer 00 First dose Medi idalmis solution 4 on Thu Branch mL 06/26/21 at 0900, Until Discontinu ed, Routine sodium 2021-0 Yes 4mL 4 mL, Univers chloride 7% 4-06 Inhalation it y of (HYPER-VIRGEN) 14:00: , DAILY, [place] nebulizer 00 First dose Medi idalmis solution 4 on Thu Branch mL 06/26/21 at 0900, Until Discontinu ed, Routine cefTRIAXone 2022-0 Yes 1000mg 1,000 mg, Univers (ROCEPHIN) 06-26 Intravenou ity of 1,000 mg in 13:45: s, Q24H Jakub as NaCl 0.9% 00 ABX, First Medi idalmis (NS) 50 mL dose on Branch MINI-BAG Thu06/26/21 at 0845, Until Discontinu ed, Administer over 30 Minutes, 50 mL
Reas on for Anti-Infec tive: Documented Infection< br>Documen maliha Infection Site: Urine
D uration of Therapy: 7 days cefTRIAXone 2021- No 1000mg 1,000 mg, Univers (ROCEPHIN) 06-26 04-09 Intravenou it y of 1,000 mg in 13:45: 15:58 s, Q24H [place] NaCl 0.9% 00 :25 ABX, First Medi idalmis (NS) 50 mL dose on MINI-BAG Thu06/26/21 at 0845, Until Discontinu ed, Administer over 30 Minutes, 50 mL
Reas on for Anti-Infec tive: Documented Infection< br>Documen maliha Infection Site: Urine
D uration of Therapy: 7 days lactulose 2021- No 30mL 30 mL, Unive rs (CEPHULAC) 06-26 04-06 Oral, ity of solution 30 13:45: 13:10 ONCE, 1 [place] mL 00 :00 dose, On Medical Thu06/26/21 Branch at 0845, Routine furosemide 2021- No 40mg 40 mg, Univ ers (LASIX) 06-26 04-06 Slow IV ity of injection 07:41: 07:59 Push, [place] 40 mg 00 :00 ONCE, 1 Medical dose, On Branch Thu06/26/21 at 0245, Routine guaiFENesin Yes 200mg 200 mg, Un new 100 mg/5 mL 06-26 Oral, ity of solution 07:40: Q4HPRN, [place] 200 mg 40 Starting Medical on Thu06/26/21 at 0240, Until Discontinu ed, Routine, Cough, Congestion guaiFENesin Yes 200mg 200 mg, Un new 100 mg/5 mL 06-26 Oral, ity of solution 07:40: Q4HPRN, [place] 200 mg 40 Starting Medical on Thu Branch 06/26/21 at 0240, Until Discontinu ed, Routine, Cough, Congestion acetylcyste 2022-0 Yes 4mL 800 mg (4 U nivers ine 4-06 mL), ity of (MUCOMYST) 01:00: Inhalation [place] 200 mg/mL 00 , BID, Medical (20 %) First dose Branch solution on Thu 800 mg 06/25/21 at 2000, Until Discontinu ed, Routine acetylcyste 2022-0 Yes 4mL 800 mg (4 U nivers ine 4-06 mL), ity of (MUCOMYST) 01:00: Inhalation [place] 200 mg/mL 00 , BID, Medical (20 %) First dose Branch solution on Thu 800 mg 06/25/21 at 2000, Until Discontinu ed, Routine ipratropium 2022-0 Yes 3mL 3 mL, Unive rs -albuteroL 4-05 Inhalation ity of (DUONEB) 21:00: , QID, [place] 0.5 mg-3 00 First dose Medic al mg(2.5 mg on Thu Branch base)/3 mL 06/25/21 at nebulizer 1600, solution 3 Until mL Discontinu ed, Routine ipratropium 2022-0 Yes 3mL 3 mL, Unive rs -albuteroL 4-05 Inhalation ity of (DUONEB) 21:00: , QIDLuz 0.5 mg-3 00 First dose Medic al mg(2.5 mg on Thu base)/3 mL 06/25/21 at nebulizer 1600, solution 3 Until mL Discontinu ed, Routine pantoprazol 2022-0 Yes 40mg 40 mg, Univ ers e 4-05 Oral, BID, ity of (PROTONIX) 13:00: First dose [place] EC tablet 00 on Thu Medical 40 mg 06/25/21 at Branch 0800, Until Discontinu ed, Routine pantoprazol 2022-0 Yes 40mg 40 mg, Univ ers e 4-05 Oral, BID, ity of (PROTONIX) 13:00: First dose [place] EC tablet 00 on Thu Medical 40 mg 06/25/21 at Branch 0800, Until Discontinu ed, Routine pantoprazol 2022-0 Yes 40mg 40 mg, Univ ers e 4-05 Oral, BID, ity of (PROTONIX) 13:00: First dose [place] EC tablet 00 on [facility] 40 mg 06/25/21 at Branch 0800, Until Discontinu ed, Routine polyethylen 2021-0 Yes 17g 17 g, Unive rs e glycol 4-05 Oral, BID, ity o f 3350 powder 01:00: First dose [place] 17 g 00 on [facility] 06/24/21 at Branch 1999, Until Discontinu ed, Routine polyethylen 2021-0 Yes 17g 17 g, Unive rs e glycol 4-05 Oral, BID, ity o f 3350 powder 01:00: First dose [place] 17 g 00 on [facility] 06/24/21 at [place] 1999, Until Discontinu ed, Routine polyethylen 0 Yes 17g 17 g, Unive rs e glycol 4-05 Oral, BID, ity o f 3350 powder 01:00: First dose [place] 17 g 00 on [facility] 06/24/21 at Branch 1999, Until Discontinu ed, Routine sennosides Yes 8.6mg 8.6 mg, Uni vers (SENOKOT) 4-04 Oral, ity of tablet 8.6 19:15: DAILY, [place] mg 00 First dose Medical on Thu [place] 06/24/21 at 1415, Until Discontinu ed, Routine sennosides 0 Yes 8.6mg 8.6 mg, Uni vers (SENOKOT) 4-04 Oral, ity of tablet 8.6 19:15: DAILY, [place] mg 00 First dose Medical on [facility] 06/24/21 at 1415, Until Discontinu ed, Routine sennosides 0 Yes 8.6mg 8.6 mg, Uni vers (SENOKOT) 4-04 Oral, ity of tablet 8.6 19:15: DAILY, [place] mg 00 First dose Medical on [facility] 06/24/21 at 1415, Until Discontinu ed, Routine atropine 2021-0 Yes .4mg 0.4 mg, IV Uni vers injection 4-04 Push, PRN ity o f 0.4 mg 16:14: - SEE [address] Starting on Thu06/24/21 at 1114, Until Discontinu ed, Routine, Symptomati c bradycardi a if HR is 30 or less atropine 2021-0 Yes .4mg 0.4 mg, IV Uni vers injection 4-04 Push, PRN ity o f 0.4 mg 16:14: - SEE [address], Branch Starting on Thu06/24/21 at 1114, Until Discontinu ed, Routine, Symptomati c bradycardi a if HR is 30 or less atropine 2021-0 Yes .4mg 0.4 mg, IV Uni vers injection 4-04 Push, PRN ity o f 0.4 mg 16:14: - SEE [address], Branch Starting on Thu06/24/21 at 1114, Until Discontinu ed, Routine, Symptomati c bradycardi a if HR is 30 or less rivaroxaban Yes 15mg Take 15 mg Univers (XARELTO) 4-04 by mouth ity of 15 mg 13:56: daily. [place] tablet [address] [place] [address] oxybutynin Yes 5mg Take 5 mg Un new XL 5 mg 24 4-04 by mouth ity o f hr tablet 13:56: daily. [address] amLODIPine Yes 5mg Take 5 mg Un new 5 mg tablet 4-04 by mouth ity of 13:56: daily. [address] furosemide Yes 40mg Take 40 mg U nivers (LASIX) 40 4-04 by mouth ity o f mg tablet 13:56: daily. [address] spironolact Yes 25mg Take 25 mg Univers one 25 mg 4-04 by mouth ity of tablet 13:56: daily. [address] cranberry Yes Take by [facility] ers fruit 4-04 mouth. ity of concentrate 13:56: [place] (AZO [address] [place] [address] CRANBERRY [place] ORAL) ergocalcife Yes Take by Un new rol, 4-04 mouth. ity of vitamin D2, 13:56: [place] (VITAMIN D [address] [place] [address] ORAL) Branch Yes Take by [facility] rs VIT 4-04 mouth. ity of 10-IRON-FOL 13:56: [place] IC-DHA ORAL [address] [place] [address] zinc Yes 50mg Take 50 mg Univers gluconate 4-04 by mouth ity of 50 mg 13:56: daily. [place] tablet 34 [facility] multivitami 0 Yes 50mg Take 50 mg Univers n 4-04 by mouth ity of (HIGH-POTEN 13:56: daily. [place] CY DAILY 34 [facility] VITAMIN [place] ORAL) zinc 2021-0 2021- No Take by Univers sulfate 4-04 04-03 mouth. ity of (ZINC-15 13:56: 00:00 [place] ORAL) 34 :00 [facility] Branch acetaminoph 2021-0 Yes 1{tbl} 1 tablet, Univers en-codeine 4-04 Oral, ity of (TYLENOL 08:32: Q4HPRN, [place] #3) 300-30 02 Starting Medic al mg tablet 1 on [facility] tablet 06/24/21 at 0332, Until Discontinu ed, Routine, Pain (scale 4-6), Pain (scale 7-10) acetaminoph 2021-0 Yes 1{tbl} 1 tablet, Univers en-codeine 4-04 Oral, ity of (TYLENOL 08:32: Q4HPRN, [place] #3) 300-30 02 Starting Medic al mg tablet 1 on [facility] Branch tablet 06/24/21 at 0332, Until Discontinu ed, Routine, Pain (scale 4-6), Pain (scale 7-10) acetaminoph 2021-0 Yes 1{tbl} 1 tablet, Univers en-codeine 4-04 Oral, ity of (TYLENOL 08:32: Q4HPRN, [place] #3) 300-30 02 Starting Medic al mg tablet 1 on [facility] tablet 06/24/21 at 0332, Until Discontinu ed, Routine, Pain (scale 4-6), Pain (scale 7-10) citalopram 0 Yes 10mg 10 mg, Unive rs (CELEXA) 4-04 Oral, QHS, ity o f tablet 10 02:00: First dose [place] mg 00 on [facility] 06/23/21 at [place] 2100, Until Discontinu ed, Routine simvastatin 0 Yes 20mg 20 mg, Univ ers (ZOCOR) 4-04 Oral, QHS, ity of tablet 20 02:00: First dose [place] mg 00 on [facility] 06/23/21 at [place] 2100, Until Discontinu ed, Routine citalopram 2021-0 Yes 10mg 10 mg, Unive rs (CELEXA) 4-04 Oral, QHS, ity o f tablet 10 02:00: First dose [place] mg 00 on [facility] 06/23/21 at [place] 2100, Until Discontinu ed, Routine simvastatin 2021-0 Yes 20mg 20 mg, Univ ers (ZOCOR) 4-04 Oral, QHS, ity of tablet 20 02:00: First dose [place] mg 00 on [facility] 06/23/21 at [place] 2100, Until Discontinu ed, Routine citalopram 0 Yes 10mg 10 mg, Unive rs (CELEXA) 4-04 Oral, QHS, ity o f tablet 10 02:00: First dose [place] mg 00 on [facility] 06/23/21 at [place] 2100, Until Discontinu ed, Routine simvastatin 0 Yes 20mg 20 mg, Univ ers (ZOCOR) 4-04 Oral, QHS, ity of tablet 20 02:00: First dose [place] mg 00 on [facility] 06/23/21 at [place] 2100, Until Discontinu ed, Routine lactated 2021-0 202- No 1000mL at [address] [facility] ers ringers IV 4-03 04-03 mL/hr, ity of infusion 13:00: 17:54 1,000 mL, Jakub as 1,000 mL 00 :00 Intravenou Medic al s, ONCE, 1 Branch dose, On [place] 06/23/21 at 0815, Routine acetaminoph 2021-0 Yes 650mg 650 mg, Un new en -03 Oral, ity of (TYLENOL) 12:59: Q6HPRNHenderson, [place] tablet 650 10 Starting Medic al mg on [facility] 06/23/21 at 0759, Until Discontinu ed, Routine, Pain (scale 1-3) acetaminoph 2021-0 Yes 650mg 650 mg, Un new en 4-03 Oral, ity of (TYLENOL) 12:59: Q6HPRN, [place] tablet 650 10 Starting Medic al mg on [facility] 06/23/21 at 0759, Until Discontinu ed, Routine, Pain (scale 1-3) acetaminoph 2021-0 Yes 650mg 650 mg, Un new en 4-03 Oral, ity of (TYLENOL) 12:59: Q6HPRN, [place] tablet 650 10 Starting Medic al mg on [facility] 06/23/21 at 0759, Until Discontinu ed, Routine, Pain (scale 1-3) phytonadion No 10mg IV Unive rs e (VITAMIN 06-23 04-03 Piggyback, it y of K) 10 mg in 11:42: 13:23 ONCE, 1 [place] NaCl 0.9% 00 :00 dose, On Medica l (NS) [place] 06/23/21 Branch piggyback at 0645, 50 mL levothyroxi Yes 100ug 100 mcg, U nivers ne 4-03 Oral, ity of (SYNTHROID) 11:00: QAM-0600, [place] tablet 100 00 First dose Med ical mcg on [facility] 06/23/21 at 0600, Until Discontinu ed, Routine levothyroxi Yes 100ug 100 mcg, U nivers ne 4-03 Oral, ity of (SYNTHROID) 11:00: QAM-0600, [place] tablet 100 00 First dose Med ical mcg on [facility] 06/23/21 at 0600, Until Discontinu ed, Routine levothyroxi Yes 100ug 100 mcg, U nivers ne 4-03 Oral, ity of (SYNTHROID) 11:00: QAM-0600, [place] tablet 100 00 First dose Med ical mcg on [facility] 06/23/21 at 0600, Until Discontinu ed, Routine levothyroxi Yes 100ug Take 100 U nivers ne 100 mcg 4-03 mcg by ity of tablet 05:49: mouth [place] 58 every Medical morning. Branch simvastatin Yes 20mg Take 20 mg Univers 20 mg 4-03 by mouth ity of tablet 05:49: at [place] 58 bedtime. Medical Branch citalopram Yes 10mg Take 10 mg U nivers 10 mg 4-03 by mouth ity of tablet 05:49: at [place] 58 bedtime. Medical Branch levothyroxi Yes 100ug Take 100 U nivers ne 100 mcg 4-03 mcg by ity of tablet 05:49: mouth [place] 58 every Medical morning. Branch simvastatin Yes 20mg Take 20 mg Univers 20 mg 4-03 by mouth ity of tablet 05:49: at [place] 58 bedtime. Medical Branch citalopram Yes 10mg Take 10 mg U nivers 10 mg 4-03 by mouth ity of tablet 05:49: at [place] 58 bedtime. Medical Branch rivaroxaban 2021- No 15mg Take 15 mg Univers (XARELTO) 06-23 04-03 by mouth ity o f 20 mg 05:24: 00:00 daily. [place] tablet 47 :00 Medical Branch rivaroxaban 2021- No 15mg Take 15 mg Univers (XARELTO) 06-23 04-03 by mouth ity o f 20 mg 05:24: 00:00 daily. [place] tablet 47 :00 Medical Branch rivaroxaban 2021- No 15mg Take 15 mg Univers (XARELTO) 06-23 04-03 by mouth ity o f 20 mg 05:24: 00:00 daily. [place] tablet 47 :00 Medical Branch multivit-ir 2020-03 1{tbl} Take 1 Univers on-FA-calci 2-11 tablet by it y of um-mins 9 00:00: 05:59 mouth [place] mg iron-400 00 :00 daily for Med ical mcg tablet 30 days. [facility] vitamin 2020-03 No 1000ug Take 1 Un new B-12 1,000 2-11 -11 tablet by ity of mcg tablet 00:00: 05:59 mouth [place] 00 :00 daily for Medical 30 days. Branch multivit-ir 2020-03 No 1{tbl} Take 1 Univers on-FA-calci 2-11 -11 tablet by it y of um-mins 9 00:00: 05:59 mouth [place] mg iron-400 00 :00 daily for Med ical mcg tablet 30 days. Bran h vitamin 2020-03 No 1000ug Take 1 Un new B-12 1,000 2-11 -11 tablet by ity of mcg tablet 00:00: 05:59 mouth [place] 00 :00 daily for Medical 30 days. Branch levothyroxi 2020-03 Yes 100ug Take 100 U nivers ne 100 mcg 2-10 mcg by ity of tablet 20:35: mouth [place] 23 every Medical morning. Branch rivaroxaban 2020-03 Yes Take by Un new (XARELTO) 2-10 mouth ity of 20 mg 20:35: daily. [place] tablet 23 Medical Branch simvastatin 2020-03 Yes 20mg Take 20 mg Univers 20 mg 2-10 by mouth ity of tablet 20:35: at [place] 23 bedtime. Medical Branch citalopram 2020-03 Yes 10mg Take 10 mg U nivers 10 mg 2-10 by mouth ity of tablet 20:35: at [place] 23 bedtime. Medical Branch levothyroxi 2020-03 Yes 100ug Take 100 U nivers ne 100 mcg 2-10 mcg by ity of tablet 20:35: mouth [place] 23 every Medical morning. Branch rivaroxaban 2020-03 Yes Take by Un new (XARELTO) 2-10 mouth ity of 20 mg 20:35: daily. [place] tablet 23 Medical Branch simvastatin 2020-03 Yes 20mg Take 20 mg Univers 20 mg 2-10 by mouth ity of tablet 20:35: at [place] [id number] bedtime. Medical Branch citalopram 2020-03 Yes 10mg Take 10 mg U nivers 10 mg 2-10 by mouth ity of tablet 20:35: at [place] [id number] bedtime. Medical Branch metoprolol 2020-03- No 50mg [...] 2 [place] 00 :00 (two) Medical times [place] daily for 30 days. bisacodyL 2020-03 10mg 10 mg, Unive rs (DULCOLAX) 05-01 Rectal, ity o f suppository 21:30: 20:40 ONCE, 1 [place] 10 mg 00 :00 dose, On Medical [place] Branch 02/28/21 at 1530, Routine iron 2020-03 No 300mg 300 mg, IV Unive rs sucrose 05-01 Infusion, ity of (VENOFER) 21:00: 02:00 ONCE, [place] 300 mg in 00 :00 Administer Medi idalmis NaCl 0.9% over 4 Branch (NS) 250 mL Hours, On infusion [place] 02/28/21 at 1500, For 1 dose magnesium 2020-03 Yes 400mg 400 mg, Univ ers oxide 2-09 Oral, BID, ity of (MAG-OX 17:00: First [...] 2020-03 Yes 5mg 5 mg, Univers (DULCOLAX) 2 Oral, ity of tablet 5 mg 14:19: QDAILYPRN, [place] 59 Starting Medical on [place] Branch 02/28/21 at 0819, Until Discontinu ed, Routine, Constipati on iron 2020-03- No 300mg 300 mg, IV Unive rs sucrose 202-27 Infusion, ity of (VENOFER) 01:30: 07:02 ONCE, [place] 300 mg in 00 :00 Administer Medi idalmis NaCl 0.9% over 4 Branch (NS) 250 mL Hours, On infusion Thu02/26/21 at 1930, For 1 dose rivaroxaban 2020-03 Yes 15mg 15 mg, Univ ers (XARELTO) 2 Oral, ity of tablet 15 15:00: DAILY, [place] mg 00 First dose Medical (after Branch last modificati on) on Thu02/26/21 at 0900, Until Discontinu ed, Routine traMADoL 2020-03- No 50mg 50 mg, Univer s (ULTRAM) 2- 12- Oral, ity of tablet 50 03:52: 18:24 Q6HPRN, [place] mg 34 :55 Starting Medical on Thu02/25/21 at 2152, Until Thu02/27/21 at 1224, Routine, Pain (scale 4-6) polyethylen 2020-03 Yes 17g 17 g, Unive rs e glycol 2-07 Oral, BID, ity o f 3350 powder 02:00: First dose [place] 17 g 00 on [facility] 02/25/21 at Branch 2000, Until Discontinu ed, Routine amoxicillin 2020-03 Yes 1{tbl} 1 tablet, Univers -clavulanat 2 Oral, ity of e 02:00: Q12H, [place] (AUGMENTIN) 00 First dose Me dical 875-125 mg on [facility] per tablet 02/25/21 at 1 tablet 1999, Until Discontinu ed, Routine
Reason for Anti-Infec tive: Documented Infection< br>Documen maliha Infection Site: Urine
D uration of Therapy: 7 days sennosides 2020-03 Yes 8.6mg 8.6 mg, Uni vers (SENOKOT) 207 Oral, BID, ity of tablet 8.6 01:15: First dose [place] mg 00 on [facility] 02/25/21 at Branch 1915, Until Discontinu ed, Routine furosemide 2020-03 Yes 40mg 40 mg, Unive rs (LASIX) 2 Oral, ity of tablet 40 23:00: QAM+PM, [place] mg 00 First dose Medical on [facility] 02/24/21 at 1700, Until Discontinu ed, Routine traMADoL 2020-03- No 50mg 50 mg, Univer s (ULTRAM) 04-27 Oral, ity of tablet 50 18:35: 17:27 Q6HPRN, [place] mg 00 :14 Starting Medical on [facility] 02/24/21 at 1235, Until [facility] 02/25/21 at 1127, Routine, Pain (scale 7-10) acetaminoph 2020-03 Yes 650mg 650 mg, Un new en 205 Oral, ity of (TYLENOL) 18:34: Q4HPRN, [place] tablet 650 52 Starting Medic al mg on [facility] 02/24/21 at 1234, Until Discontinu ed, Routine, Pain (scale 1-3) cefTRIAXone 2020-03- No 1000mg 1,000 mg, Univers (ROCEPHIN) 04-27 IV ity of 1,000 mg in 18:00: 16:19 Piggyback, [place] NaCl 0.9% 00 :25 Q24H ABX, Medic al (NS) 50 mL First dose [facility] MINI-BAG (after last modificati on) on [place] 02/24/21 at 1200, Until Discontinu ed, Administer over 30 Minutes, 50 mL
Reas on for Anti-Infec tive: Empiric Therapy for Suspected Infection< br>Empiric Therapy Site: Urine
D uration of therapy: 7 days vitamin 2020-03 Yes 1000ug 1,000 mcg, Un new B-12 2-05 Oral, ity of (CYANOCOBAL 15:15: DAILY, [place] LINDSEY) 00 First dose Medical tablet on [place] Branch 1,000 mcg 02/24/21 at 0915, Until Discontinu ed, Routine furosemide 2020-03 No 40mg 40 mg, IV U nivers (LASIX) 04-2705 Push, ity of injection 02:00: 22:38 Q12H, [place] 40 mg 00 :08 First dose Medical (after Branch last modificati on) on [facility] 02/23/21 at 2000, Until Discontinu ed, Routine azithromyci 2020-03 No 500mg 500 mg, IV Univers n 2- 12-05 Piggyback, ity of (ZITHROMAX) 17:00: 22:38 Q24H ABX, [place] 500 mg in 00 :53 First dose Medi idalmis NaCl 0.9% on [facility] Branch (NS) 250 mL 02/23/21 at VIAL-MATE 1100, IV Until piggyback Discontinu ed, Administer over 60 Minutes, 250 mL
Reas on for Anti-Infec tive: Empiric Therapy for Suspected Infection< br>Empiric Therapy Site: Respirator y
Durat ion of therapy: 72 hours spironolact 2020-03 No 25mg 25 mg, Uni vers one - 12-11 Oral, BID, ity of (ALDACTONE) 15:45: 02:08 First dose [place] tablet 25 00 :27 on [facility] Medical mg 02/23/21 at Branch 0945, Until Discontinu ed, Routine simvastatin 2020-03 Yes 20mg 20 mg, Univ ers (ZOCOR) 2-04 Oral, QHS, ity of tablet 20 03:00: First [place] mg 00 on Fri Medical 02/22/21 at Branch 2100, Until Discontinu ed, Routine KCL 2020-03 No 40meq 40 mEq, Univers (KLOR-CON 04-25- Oral, BID, ity of M20) tablet 16:45: 15:44 First dose [place] 40 mEq 00 :[address] [facility] Medical 02/22/21 at Branch 1045, Until Discontinu [...] 00 :43 First dose Medical on Thu [place] 02/22/21 at 0900, Until Discontinu ed, Routine amLODIPine 2020-03 No 2.5mg 2.5 mg, Un new (NORVASC) 04-25 Oral, ity of tablet 2.5 15:00: 15:44 DAILY, [place] mg 00 :02 First dose Medical on Fri Branch 02/22/21 at 0900, Until Discontinu ed, Routine levothyroxi 2020-03 Yes 100ug 100 mcg, U nivers ne 04-25 Oral, ity of (SYNTHROID) 12:00: QAM-0600, [place] tablet 100 00 First dose Med ical mcg on Thu [place] 02/22/21 at 0600, Until Discontinu ed, Routine cefTRIAXone 2020-03 No 1000mg 1,000 mg, Univers (ROCEPHIN) 04-25- IV ity of 1,000 mg in 06:15: 16:17 Piggyback, [place] NaCl 0.9% 00 :58 Q12H ABX, Medic al (NS) 50 mL First dose [facility] MINI-BAG on Thu02/22/21 at 0015, Until Discontinu ed, Administer over 30 Minutes, 50 mL
Reas on for Anti-Infec tive: Empiric Therapy for Suspected Infection< br>Empiric Therapy Site: Urine
D uration of therapy: 7 days furosemide 2021-1 2021- No 20mg 20 mg, IV U nivers (LASIX) 04-25 Push, TID, ity o f injection 05:15: 14:53 First dose [place] 20 mg 00 :25 on [place] [facility] 02/21/21 at Branch 2315, Until Discontinu ed, Routine bumetanide 2020-03- No 1.25mg 1.25 mg, Univers (BUMEX) 04-24 Slow IV ity of injection 22:30: 04:57 Push, [place] 1.25 mg 00 :57 Q24H, Medical First dose Branch on [place] 02/21/21 at 1630, Until Discontinu ed, Routine Hemocyte Hemocyte Yes Na Lizama [address] [facility] ent Clinics Levothyroxi Levothyroxi Yes Na Lizama [address] ne Sodium ne Sodium on an [facility] - empty [facility] stomach [facility] Protonix Protonix Yes Na Lizama TAKE ONE [facility] TABLET BY [facility] - M[facility]TH Memoria DAILY l [facility] ent [facility] Gabapentin Gabapentin Yes Na Lizama [address] [facility] ent Clinics Metoprolol Metoprolol Yes Na Lizama [address] Tartrate Tartrate with food [facility] Celexa Celexa Yes Na Lizama TAKE ONE [facility] TABLET BY [facility] - M[facility]TH Memoria DAILY l [facility] ent Clinics Oxybutynin Oxybutynin Yes Na Lizama [address] Chloride Chloride [facility] ent [facility] Levothyroxi Levothyroxi Yes Na Lizama TAKE ONE [facility] ne Sodium ne Sodium TABLET BY [facility] - MOUTH Memoria EVERY l MORNING ON Outpati AN EMPTY ent STOMACH Clinics Ferrous Ferrous Yes Na Lizama [address] Sulfate Sulfate [facility] ent [facility] Metoprolol Metoprolol Yes Na Lizama [address] Tartrate Tartrate with food Meena kes - [facility] ent [facility] Simvastatin Simvastatin Yes Na Lizama [address] in the [facility] - evening Memoria [facility] ent [facility] Immunizations Ordered Filled Immunization Date Status Comments [facility] e Immunization Name Name Influenza Virus 2021-03-01 Completed Universit y of Vaccine,quad 00:00:00 [facility] [facility] Im,preserve Free Branch 65+ Influenza Virus 2021-03-01 Completed Universit y of Vaccine,quad 00:00:00 [place] Med[facility] l Im,preserve Free Branch 65+ Influenza Virus 2021-03-01 Completed Universit y of Vaccine,quad 00:00:00 [place] Medica l Im,preserve Free Branch 65+ Influenza Virus 2021-03-01 Completed Universit y of Vaccine,quad 00:00:00 [place] Medica l Im,preserve Free Branch 65+ Influenza Virus 2021-03-01 Completed Universit y of Vaccine,quad 00:00:00 [place] Medica l Im,preserve Free Branch 65+ Influenza Virus 2021-03-01 Completed Universit y of Vaccine,quad 00:00:00 [place] Medica l Im,preserve Free Branch 65+ Influenza Virus 2021-03-01 Completed Universit y of Vaccine,quad 00:00:00 [place] Medica l Im,preserve Free Branch 65+ Vital Signs Vital Name Observation Time Observation Value Comments Source Heart rate 2021-06-29 16:42:00 83 /min [facility] Respiratory rate 2021-06-29 16:42:00 20 /min [facility] Oxygen saturation in 2021-06-29 16:42:00 93 /min [facility] Arterial blood by [facility] Pulse oximetry [place] Systolic blood 2021-06-29 16:32:00 136 mm[Hg] Univer sity of [facility] Diastolic blood 2021-06-29 16:32:00 57 mm[Hg] Unive rsity of [facility] Body temperature 2021-06-29 16:32:[address] [facility] Body weight 2021-06-29 12:09:00 72.5 kg [facility] BMI 2021-06-29 12:09:00 25.03 kg/m2 [facility] Body height 2021-06-23 10:06:00 170.2 cm [facility] Systolic blood 2021-06-27 17:31:00 127 mm[Hg] Univer sity of [facility] Diastolic blood 2021-06-27 17:31:00 57 mm[Hg] Unive rsity of [facility] Heart rate 2021-06-27 17:31:00 71 /min Universi ty of [place] [facility] Body temperature 2021-06-27 17:31:00 36.5 Yesi Univ ersity of [place] [facility] Respiratory rate 2021-06-27 17:31:00 21 /min Univ ersity of [place] [facility] Oxygen saturation in 2021-06-27 17:31:00 96 /min University of Arterial blood by [facility] Pulse oximetry Branch Body weight 2021-06-23 10:47:00 78.926 kg Universi ty of [place] [facility] BMI 2021-06-23 10:47:00 25.90 kg/m2 Universi ty [facility] [place] [facility] Body height 2021-06-23 10:06:00 170.2 cm Universi ty [facility] [place] [facility] Systolic blood 2021-06-24 17:18:00 119 mm[Hg] Univer sity of pressure [place] [facility] Diastolic blood 2021-06-24 17:18:00 66 mm[Hg] Unive rsity of pressure [place] [facility] Heart rate 2021-06-24 17:18:00 82 /min Universi ty [facility] [place] [facility] Body temperature 2021-06-24 17:18:00 35.67 Yesi Univ ersity of [place] [facility] Respiratory rate 2021-06-24 17:18:00 22 /min Univ ersity of [place] [facility] Oxygen saturation in 2021-06-24 17:18:00 100 /min University of Arterial blood by [facility] Pulse oximetry Branch Body weight 2021-06-23 10:47:00 78.926 kg Universi ty of [place] [facility] BMI 2021-06-23 10:47:00 27.25 kg/m2 Universi ty [facility] [place] [facility] Body height 2021-06-23 10:06:00 170.2 cm Universi ty [facility] [place] [facility] Systolic blood 2021-03-01 22:00:00 122 mm[Hg] Univer sity of pressure [place] [facility] Diastolic blood 2021-03-01 22:00:00 64 mm[Hg] Unive rsity of pressure [place] [facility] Heart rate 2021-03-01 22:00:00 83 /min Universi ty of [place] [facility] Body temperature 2021-03-01 22:00:00 36.67 Yesi Univ ersity of [place] [facility] Respiratory rate 2021-03-01 22:00:00 15 /min Univ ersity of [facility] [place] Oxygen saturation in 2021-03-01 22:00:00 100 /min [facility] Arterial blood by [facility] Pulse oximetry [place] Body weight 2021-03-01 10:02:00 69.99 kg [facility] BMI 2021-03-01 10:02:00 24.17 kg/m2 [facility] Body height 2021-02-21 21:21:00 170.2 cm [facility] Procedures Procedure Date / Time Performing Source Performed Clinician AUTHORIZATION FOR RELEASE OF PHI 2021-07-12 [facility] 05:01:00 Unassigned, No [facility] Branch MAGNESIUM 2021-06-29 [facility] [place] of 10:28:00 [facility] [place] BASIC METABOLIC PANEL (NA, K, CL, 2021-06-29 [facility] of CO2, GLUCOSE, BUN, CREATININE, [place]) 10:28:00 [facility] [place] CBC WITH DIFF 2021-06-29 [facility] [place] of 10:28:00 [facility] [place] MAGNESIUM 2021-06-28 Tita [facility] of 09:20:00 [facility] [place] BASIC METABOLIC PANEL (NA, K, CL, 2021-06-28 [facility] of CO2, GLUCOSE, BUN, CREATININE, [place]) 09:20:00 [facility] [place] CBC WITH DIFF 2021-06-28 [place] of 09:20:00 [facility] [place] MAGNESIUM 2021-06-28 Tita [place] of 09:20:00 [facility] [place] BASIC METABOLIC PANEL (NA, K, CL, 2021-06-28 Tita [facility] of CO2, GLUCOSE, BUN, CREATININE, [place]) 09:20:00 [facility] [place] CBC WITH DIFF 2021-06-28 Tita [place] of 09:20:00 [facility] [place] BASIC METABOLIC PANEL (NA, K, CL, 2021-06-27 Tita, [place] of CO2, GLUCOSE, BUN, CREATININE, CA) 20:52:00 [facility] [place] CBC WITH DIFF 2021-06-27 [place]ita [place] of 20:52:00 [facility] [place] BASIC METABOLIC PANEL (NA, K, CL, 2021-06-27 [place] of CO2, GLUCOSE, BUN, CREATININE, CA) 20:52:00 [facility] [place] CBC WITH DIFF 2021-06-27 [place] of 20:52:00 [facility] [place] COLONOSCOPY 2021-06-27 [facility] of 18:06:00 [facility] COLONOSCOPY 2021-06-27 [facility] of 18:06:00 [facility] COLONOSCOPY (ENDO) 2021-06-27 [facility] o f 16:45:43 [facility] COLONOSCOPY (ENDO) 2021-06-27 [facility] o f 16:45:43 [facility] URINE CULTURE 2021-06-27 [facility] 02:32:00 [facility] [place] URINE CULTURE 2021-06-27 [facility] 02:32:00 [facility] [place] XR CHEST 1 VW 2021-06-26 [facility] of 18:29:00 [facility] [place] XR CHEST 1 VW 2021-06-26 [facility] of 18:29:00 [facility] [place] MAGNESIUM 2021-06-26 [place] of 08:45:00 [facility] [place] BASIC METABOLIC PANEL (NA, K, CL, 2021-06-26 [place] of CO2, GLUCOSE, BUN, CREATININE, CA) 08:45:00 [facility] [place] CBC WITH DIFF 2021-06-26 [place] of 08:45:00 [facility] [place] N-TERMINAL PRO-BNP 2021-06-26 [facility] of 08:45:00 [facility] [place] MAGNESIUM 2021-06-26 [place] of 08:45:00 [facility] [place] BASIC METABOLIC PANEL (NA, K, CL, 2021-06-26 [place] of CO2, GLUCOSE, BUN, CREATININE, CA) 08:45:00 [facility] [place] CBC WITH DIFF 2021-06-26 [place] of 08:45:00 [facility] [place] N-TERMINAL PRO-BNP 2021-06-26 [facility] of 08:45:00 [facility] [place] XR CHEST 2 VW 2021-06-25 [facility] of 21:57:32 [facility] [place] XR KUB 2021-06-25 [facility] of 21:57:32 [facility] Branch XR CHEST 2 VW 2021-06-25 [facility] of 21:57:32 [facility] [place] XR KUB 2021-06-25 [facility] of 21:57:32 [facility] [place] [facility]INALYSIS 2021[facility]06-[facility] 19:09:00 [facility] [place] URINALYSIS 2021-06-25 [facility] of 19:09:00 [facility] [place] MAGNESIUM 2021-06-25 [facility] of 08:00:00 [facility] [place] BASIC METABOLIC PANEL (NA, K, CL, 2021-06-25 [facility] of CO2, GLUCOSE, BUN, CREATININE, [place]) 08:00:00 [facility] [place] CBC WITHOUT DIFF 2021-06-25 [facility] 08:00:00 [facility] [place] MAGNESIUM 2021-06-25 [facility] of 08:00:00 [facility] [place] BASIC METABOLIC PANEL (NA, K, CL, 2021-06-25 [facility] of CO2, GLUCOSE, BUN, CREATININE, CA) 08:00:00 [facility] [place] CBC WITHOUT DIFF 2021-06-25 [facility] 08:00:00 [facility] [place] MAGNESIUM 2021-06-25 [facility] 08:00:00 [facility] [place] BASIC METABOLIC PANEL (NA, K, CL, 2021-06-25 [facility] of CO2, GLUCOSE, BUN, CREATININE, CA) 08:00:00 [facility] [place] CBC WITHOUT DIFF 2021-06-25 Crescencio, [facility] of 08:00:00 [facility] [place] ESOPHAGOGASTRODUODENOSCOPY 2021-06-24 Ulisses Mcadams rsity of 16:40:00 [facility] ESOPHAGOGASTRODUODENOSCOPY 2021-06-24 [facility] rs[facility] of 16:40:00 [facility] EGD (ENDO) 2021-06-24 [facility] 16:13:49 Unassigned, No [facility] Name Branch EGD (ENDO) 2021-06-24 [facility] 16:13:49 Unassigned, No [place] [facility] Name Branch EGD (ENDO) 2021-06-24 [facility] 16:13:49 Unassigned, No [place] [facility] Name Branch CBC WITH DIFF 2021-06-24 Heriberto, [facility] of 13:12:00 [place] [facility] CBC WITH DIFF 2021-06-24 Heriberto, [facility] of 13:12:00 [place] [facility] CBC WITH DIFF 2021-06-24 Heriberto, [facility] of 13:12:00 [place] [facility] MAGNESIUM 2021-06-24 Heriberto, [facility] of 05:03:00 [facility] Branch BASIC METABOLIC PANEL (NA, K, CL, 2021-06-24 Heriberto [facility] of CO2, GLUCOSE, BUN, CREATININE, [place]) 05:03:00 [place] [facility] FREE T3 2021-06-24 [facility] 05:03:00 [place] [facility] MAGNESIUM 2021-06-24 Heriberto [facility] of 05:03:00 [facility] Branch BASIC METABOLIC PANEL (NA, K, CL, 2021-06-24 Heriberto, [facility] of CO2, GLUCOSE, BUN, CREATININE, CA) 05:03:00 [place] [facility] FREE T3 2021-06-24 [facility] 05:03:00 [place] [facility] MAGNESIUM 2021-06-24 Heriberto [facility] of 05:03:00 [facility] Branch BASIC METABOLIC PANEL (NA, K, CL, 2021-06-24 Heriberto [facility] of CO2, GLUCOSE, BUN, CREATININE, CA) 05:03:00 [place] [facility] FREE T3 2021-06-24 [facility] 05:03:00 [facility] [place] ENDOSCOPY PROCEDURE DOCUMENTATION 2021-06-24 [facility] 05:01:00 Unassigned, No [facility] Name Branch ENDOSCOPY PROCEDURE DOCUMENTATION 2021-06-24 [facility] 05:01:00 Unassigned, No [place] [facility] Branch ENDOSCOPY PROCEDURE DOCUMENTATION 2021-06-24 [facility] 05:01:00 Unassigned, No [place] [facility] Name Branch FREE T4 2021-06-24 Heriberto [facility] of 04:50:00 [facility] [place] THYROID STIMULATING HORMONE 2021-06-24 Heriberto [facility] ersity of 04:50:00 [facility] [place] CBC WITHOUT DIFF 2021-06-24 Pancho [facility] of 04:50:00 [facility] [place] FREE T4 2021-06-24 Heriberto [facility] [place] [facility] of 04:50:00 [facility] [place] THYROID STIMULATING HORMONE 2021-06-24 Heriberto [facility] ersity of 04:50:00 [facility] [place] CBC WITHOUT DIFF 2021-06-24 Pancho, [facility] of 04:50:00 [facility] [place] FREE T4 2021-06-24 Heriberto [facility] of 04:50:00 [facility] [place] THYROID STIMULATING HORMONE 2021-06-24 Heriberto [facility] ersity of 04:50:00 [facility] [place] CBC WITHOUT DIFF 2021-06-24 Pancho, [facility] of 04:50:00 [facility] [place] COVID-19 (ID NOW RAPID TESTING) 2021-06-24 [facility] of 00:53:00 [facility] [place] LAB ONLY COVID INTERPRETATION 2021-06-24 [facility] of 00:53:00 [facility] [place] COVID-19 (ID NOW RAPID TESTING) 2021-06-24 [facility] of 00:53:00 [facility] [place] LAB ONLY COVID INTERPRETATION 2021-06-24 [facility] of 00:53:00 [facility] [place] COVID-19 (ID NOW RAPID TESTING) 2021-06-24 [facility] of 00:53:00 [facility] [place] LAB ONLY COVID INTERPRETATION 2021-06-24 [facility] of 00:53:00 [facility] [place] CBC WITHOUT DIFF 2021-06-23 Heriberto [facility] of 19:28:00 [facility] [place] CBC WITHOUT DIFF 2021-06-23 Heriberto [facility] [facility] of 19:28:00 [facility] [place] CBC WITHOUT DIFF 2021-06-23 Heriberto [facility] [facility] of 19:28:00 [facility] [place] PREPARE PACKED RBC 2021-06-23 Heriberto [facility] of 14:47:57 [facility] [place] PREPARE PACKED RBC 2021-06-23 Heriberto [facility] of 14:47:57 [facility] [place] PREPARE PACKED RBC 2021-06-23 Heriberto [facility] of 14:47:57 [facility] [place] HB ECG ROUTINE & RHYTHM STRIP 2021-06-23 Pancho, April Un iversity of 13:35:06 [facility] [place] HB ECG ROUTINE & RHYTHM STRIP 2021-06-23 Pancho, April Un iversity of 13:35:06 [facility] [place] ABORH CONFIRMATION (LAB ONLY) 2021-06-23 Pancho, April Un iversity of 13:04:00 [facility] [place] ABORH CONFIRMATION (LAB ONLY) 2021-06-23 Pancho, April Un iversity of 13:04:00 [facility] [place] ABORH CONFIRMATION (LAB ONLY) 2021-06-23 Pancho, April Un iversity of 13:04:00 [facility] [place] XR CHEST 1 VW 2021-06-23 Pancho, April [facility] of 12:27:00 [facility] [place] XR CHEST 1 VW 2021-06-23 Pancho, April [facility] of 12:27:00 [facility] [place] XR CHEST 1 VW 2021-06-23 Pancho, [place] [facility] of 12:27:00 [facility] [place] HB ABO GROUPING 2021-06-23 Pancho, [facility] of 11:42:00 [facility] [place] HB ABO GROUPING 2021-06-23 Pancho, [place] [facility] of 11:42:00 [facility] [place] HB ABO GROUPING 2021-06-23 Pancho, [facility] of 11:42:00 [facility] [place] PHOSPHORUS 2021-06-23 Pancho, [facility] of 11:07:00 [facility] [place] MAGNESIUM 2021-06-23 Pancho, [facility] of 11:07:00 [facility] [place] TROPONIN I 2021-06-23 Pancho, [facility] of 11:07:00 [facility] [place] HEPATIC FUNCTION PANEL (67123) 2021-06-23 April De[facility] n[facility] of (ALB,T.PRO,BILI 11:07:00 [facility] T,BU/BC,ALT,AST,ALK PHOS) [place] BASIC METABOLIC PANEL (NA, K, CL, 2021-06-23 Pancho [place] of CO2, GLUCOSE, BUN, CREATININE, CA) 11:07:00 [facility] [place] CBC WITH DIFF 2021-06-23 Pancho, [facility] of 11:07:00 [facility] [place] PHOSPHORUS 2021-06-23 Pancho, [facility] of 11:07:00 [facility] [place] MAGNESIUM 2021-06-23 Pancho, [facility] of 11:07:00 [facility] [place] TROPONIN I 2021-06-23 Pancho, April [facility] of 11:07:00 [facility] [place] HEPATIC FUNCTION PANEL ([id number]) 2021-06-23 Pancho, April U niversity of (ALB,T.PRO,BILI 11:07:00 [place] [facility] T,BU/BC,ALT,AST,ALK PHOS) [place] BASIC METABOLIC PANEL (NA, K, CL, 2021-06-23 [facility]anch[facility], [place] [facility] of CO2, GLUCOSE, BUN, CREATININE, CA) 11:07:00 [facility] [place] CBC WITH DIFF 2021-06-23 [facility]ancho, [place] [facility] of 11:07:00 [facility] [place] TISSUE TRANSGLUTAMINASE (TTG) IGA 2021-06-23 Tierney Louis [place] of 11:07:00 [facility] [place] PHOSPHORUS 2021-06-23 Pancho, [place] [facility] of 11:07:00 [facility] [place] MAGNESIUM 2021-06-23 Pancho, [facility] of 11:07:00 [facility] [place] TROPONIN I 2021-06-23 Pancho, [facility] of 11:07:00 [facility] [place] HEPATIC FUNCTION PANEL ([id number]) 2021-06-23 Pancho, April [facility] niversity of (ALB,T.PRO,BILI 11:07:00 [place] [facility] T,BU/BC,ALT,AST,ALK PHOS) [place] BASIC METABOLIC PANEL (NA, K, CL, 2021-06-23 Pancho, [facility] of CO2, GLUCOSE, BUN, CREATININE, CA) 11:07:00 [facility] [place] CBC WITH DIFF 2021-06-23 Pancho, [facility] of 11:07:00 [facility] [place] TISSUE TRANSGLUTAMINASE (TTG) IGA 2021-06-23 Tierney Louis [place] of 11:07:00 [facility] [place] PROTHROMBIN TIME / INR 2021-06-23 [facility], [place] [facility] of 11:06:00 [facility] [place] PROTHROMBIN TIME / INR 2021-06-23 [facility], [place] [facility] of 11:06:00 [facility] [place] PROTHROMBIN TIME / INR 2021-06-23 [facility]anch[facility], [place] [facility] of 11:06:00 [facility] [place] MAGNESIUM 2021-03-01 Jamilah Gonsales [place] of 11:25:00 [facility] [place] BASIC METABOLIC PANEL (NA, K, CL, 2021-03-01 Jamilah Gonsales [place] of CO2, GLUCOSE, BUN, CREATININE, CA) 11:25:00 [facility] [place] CBC WITH DIFF 2021-03-01 Jamilah Gonsales [place] of 11:25:00 [facility] [place] XR ABDOMEN 1 VW 2021-02-28 Ankit turpin [facility] of 19:32:28 [facility] [place] BASIC METABOLIC PANEL (NA, K, CL, 2021-02-28 Jamilah Gonsales [place] of CO2, GLUCOSE, BUN, CREATININE, CA) 10:25:00 [facility] [place] N-TERMINAL PRO-BNP 2021-02-28 Georgina Leach [place] of 10:25:00 [facility] [place] US DUPLEX VENOUS ARM RIGHT - BY 2021-02-27 Jamilah Gonsales [place] of VASCULAR LAB 14:40:00 [facility] [place] FOLATE 2021-02-27 Jamilah Gonsales [place] of 10:18:00 [facility] [place] BASIC METABOLIC PANEL (NA, K, CL, 2021-02-27 Jamilah Gonsales [place] of CO2, GLUCOSE, BUN, CREATININE, CA) 10:18:00 [facility] [place] CBC WITH DIFF 2021-02-27 Jamilah Gonsales [place] of 10:18:00 [facility] [place] BASIC METABOLIC PANEL (NA, K, CL, 2021-02-26 [facility] [address] of CO2, GLUCOSE, BUN, CREATININE, CA) 10:41:00 [facility] [place] CBC WITH DIFF 2021-02-26 MoustaphaAlfredo [place] of 10:41:00 [facility] [place] PHOSPHORUS 2021-02-25 [facility] of 11:29:00 [facility] [place] MAGNESIUM 2021-02-25 [facility] of 11:29:00 [facility] [place] BASIC METABOLIC PANEL (NA, K, CL, 2021-02-25 [facility] [place] CO2, GLUCOSE, BUN, CREATININE, CA) 11:29:00 [facility] [place] TROPONIN I 2021-02-24 Georgina Leach [place] of 16:39:00 K.HNestor [facility] [place] MAGNESIUM 2021-02-24 Jamilah Gonsales [place] of 11:13:00 [facility] [place] COMP. METABOLIC PANEL ([id number]) 2021-02-24 Dony Grossman iversity of 11:13:00 [facility] [place] CBC WITH DIFF 2021-02-24 Jamilah Gonsales [place] of 11:13:00 [facility] [place] N-TERMINAL PRO-BNP 2021-02-24 Dony Grossman [place] of 11:13:00 [facility] [place] ACUTE CARE ARTERIAL BLOOD GAS 2021-02-23 Alfredo Gunter Un iversity of 20:23:00 [facility] [place] ACUTE CARE ARTERIAL BLOOD GAS 2021-02-23 Alfredo Gunter Un iversity of 15:03:00 [facility] [place] XR CHEST 1 VW 2021-02-23 Alfredo Gunter of 14:47:06 [facility] [place] ACUTE CARE ARTERIAL BLOOD GAS 2021-02-23 Jamilah Gonsales Un iversity of 12:33:00 [facility] [place] PHOSPHORUS 2021-02-23 Alfredo Gunter [place] of 11:09:00 [facility] [place] URIC ACID 2021-02-23 Dony Grossman [place] of 11:09:00 [facility] [place] MAGNESIUM 2021-02-23 Diane [facility] of 11:09:00 [facility] [place] TROPONIN I 2021-02-23 Hany [facility] of 11:09:00 [facility] [place] COMP. METABOLIC PANEL ([id number]) 2021-02-23 Dony Grossman iversity of 11:09:00 [facility] [place] CBC WITH DIFF 2021-02-23 [facility] 11:09:00 [facility] [place] N-TERMINAL PRO-BNP 2021-02-23 [facility] of 11:09:00 [facility] [place] AMMONIA, PLASMA 2021-02-23 Jamilah Gonsales [place] of 05:03:00 [facility] [place] ACUTE CARE ARTERIAL BLOOD GAS 2021-02-23 Jamilah Gonsales Un iversity of 05:01:00 [facility] [place] TROPONIN I 2021-02-22 Alfredo Gunter of 21:05:00 [facility] [place] HB ECG ROUTINE & RHYTHM STRIP 2021-02-22 Shelley Medel Un iversity of 20:54:09 [facility] MR BRAIN WO CONTRAST 2021-02-22 [facility] of 19:50:00 [facility] EKG-12 LEAD 2021-02-22 Gianfranco [facility] [address] of 17:39:32 [facility] TRANSTHORACIC ECHO (TTE) COMPLETE 2021-02-22 Dony Grossman [place] of 17:28:00 [facility] [place] US RETROPERITONEAL COMPLETE 2021-02-[address] [facility] ersity of 15:00:00 [facility] [place] PHOSPHORUS 2021-02-22 Diane [facility] of 11:05:00 [facility] [place] URIC ACID 2021-02-22 Diane [facility] of 11:05:00 [facility] [place] MAGNESIUM 2021-02-22 Diane, [facility] of 11:05:00 [facility] [place] TROPONIN I 2021-02-22 Diane, [facility] of 11:05:00 [facility] [place] COMP. METABOLIC PANEL ([id number]) 2021-02-22 Diane [facility] iversity of 11:05:00 [facility] [place] LIPID PANEL ([id number])(TOTAL 2021-02-22 LeachGeorgina alcocer [facility] sitshaheen of CHOLESTEROL, TRIGLYCERIDES, HDL) 11:05:00 K.HNestor [facility] [place] CBC WITH DIFF 2021-02-22 Diane [facility] of 11:05:00 [facility] [place] N-TERMINAL PRO-BNP 2021-02-22 Diane [facility] of 11:05:00 [facility] [place] URINE CULTURE 2021-02-22 Diane [facility] of 06:00:00 [facility] [place] SODIUM, URINE RANDOM 2021-02-22 Diane [facility] of 06:00:00 [facility] [place] PROTEIN CREAT RATIO URINE RANDOM 2021-02-22 Diane [facility] of 06:00:00 [facility] [place] OSMOLALITY URINE 2021-02-22 Diane [facility] of 05:59:00 [facility] [place] UREA NITROGEN, URINE RANDOM 2021-02-22 Diane [facility] ersity of 05:59:00 [facility] [place] SEDIMENTATION RATE 2021-02-22 Diane [facility] of 05:50:00 [facility] [place] RESPIRATORY PANEL BY PCR 2021-02-22 Diane [facility] ity of 05:49:00 [facility] [place] PHOSPHORUS 2021-02-22 Diane [facility] of 05:48:00 [facility] [place] CREATINE KINASE 2021-02-22 Diane [facility] of 05:48:00 [facility] [place] URIC ACID 2021-02-22 Diane [facility] of 05:48:00 [facility] [place] MAGNESIUM 2021-02-22 Diane [facility] of 05:48:00 [facility] [place] FERRITIN SERUM 2021-02-22 Diane [facility] of 05:48:00 [facility] [place] VITAMIN B12, LEVEL 2021-02-22 Diane [facility] of 05:48:00 [facility] [place] TROPONIN I 2021-02-22 Diane [facility] of 05:48:00 [facility] [place] THYROID STIMULATING HORMONE 2021-02-22 Diane [facility] ersity of 05:48:00 [facility] [place] LIPID PANEL ([id number])(TOTAL 2021-02-22 Diane [facility] sity of CHOLESTEROL, TRIGLYCERIDES, HDL) 05:48:00 [facility] [place] IRON PANEL 2021-02-22 Diane [facility] of 05:48:00 [facility] [place] PROTHROMBIN TIME / INR 2021-02-22 Diane [facility] y of 05:48:00 [facility] [place] VITAMIN D, 25-OH 2021-02-22 Diane [facility] of 05:48:00 [facility] [place] PROCALCITONIN 2021-02-22 Diane [facility] of 05:48:00 [facility] [place] COVID-19 (ID NOW RAPID TESTING) 2021-02-21 Tobias Villalpando of 23:50:00 [facility] [place] LAB ONLY COVID INTERPRETATION 2021-02-21 Tobias Villalpando iversity of 23:50:00 [facility] [place] URINALYSIS 2021-02-21 Singer Tobias Robert of 23:08:00 [facility] [place] XR CHEST 1 VW 2021-02-21 Tobias Villalpando of 21:47:00 [facility] [place] TROPONIN I 2021-02-21 Singer [facility] of 21:32:00 [facility] [place] COMP. METABOLIC PANEL ([id number]) 2021-02-21 Tobias Villalpando iversity of 21:32:00 [facility] [place] DIFF CONSULT INTERPRETATION 2021-02-[address] [facility] ersity of 21:32:00 [facility] [place] CBC WITH DIFF 2021-02-21 Singer [facility] of 21:32:00 [facility] [place] GLYCOSYLATED HEMOGLOBIN (A1C) 2021-02-21 Dony Grossman Un iversity of 21:32:00 [facility] [place] N-TERMINAL PRO-BNP 2021-02-21 Tobias Villalpando [place] of 21:32:00 [facility] [place] HB ECG ROUTINE & RHYTHM STRIP 2021-02-21 Georgina Leach iversity of 21:17:16 K.HNestor [facility] [place] NOTICE OF PRIVACY PRACTICES 2021-02-[address] [facility] ersity of 21:11:15 Unassigned, No [facility] CONSENT/REFUSAL FOR DIAGNOSIS AND 2021-02-21 Doctor [place] of TREATMENT 21:08:07 Unassigned, No [facility] Encounters Start End Encounter Admission Attending Care Care Encounter Source Date/Time Date/Time Type Type Clinicians Facility Department ID 2021-07-04 Outpatient Lizama, Na STLMLC STLMLC [id number] [facility] 11:36:02 [facility] 2021-05-03 Outpatient Lizama, Na STLMLC STLMLC [id number] [facility] 15:53:01 [facility] 2021-04-25 Outpatient Lizama, Na STLMLC STLMLC [id number] 10:15:01 [facility] 2021-04-18 Outpatient 3 [id number] ENC[place] B[place] [id number] ENCPL 13:28:13 1209 2021-04-18 Outpatient 3 [id number] ENCPL REF [id number] ENCPL 13:27:40 [id number] 2021-04-17 Outpatient Lizama, Na STLMLC STLMLC [id number] 14:35:27 [facility] 2021-04-17 Outpatient Lizama, Na STLMLC STLMLC [id number] 14:29:40 [id number] [facility] 2021-04-17 Outpatient Lizama, Na STLMLC STLMLC [id number] 13:34:21 [id number] [facility] 2021-04-17 Outpatient Lizama, Na STLMLC STLMLC [id number] 13:10:15 [id number] [facility] 2021-04-17 Outpatient Lizama, Na STLMLC STLMLC [id number] 12:47:18 [id number] [facility] 2021-04-17 Outpatient Lizama, Na STLMLC STLMLC [id number] 12:39:12 [id number] [facility] 2021-04-17 Outpatient Lizama, Na STLMLC STLMLC [id number] [facility] 12:31:18 [id number] [facility] 2021-04-17 Outpatient Lizama, Na STLMLC STLMLC [id number] [facility] 12:26:31 [id number] [facility] 2021-04-17 Outpatient Lizama, Na STLMLC STLMLC [id number] 11:58:28 [id number] [facility] 2021-04-17 Outpatient Lizama, Na STLMLC STLMLC [id number] 11:57:56 [id number] [facility] 2021-04-17 Outpatient Lizama, Na STLMLC STLMLC [id number] 11:39:59 [id number] [facility] 2021-04-17 Outpatient Lizama, Na STLMLC STLMLC [id number] [facility] 11:38:39 [id number] [facility] 2021-04-17 Outpatient Lizama, Na STLMLC STLMLC [id number] 11:35:50 [id number] [facility] 2021-04-17 Outpatient Lizama, Na STLMLC STLMLC [id number] [facility] 11:18:15 [id number] [facility] 2021-04-17 Outpatient Lizama, Na STLMLC STLMLC [id number] 11:17:46 [id number] [facility] 2021-07-12 2021-07-12 Theron HAYWARD [id number] [place] [address] 00:00:00 00:00:00 Only Unassigned, JOSSY [id number] ity of [place] [facility] [id number] Jakub as [id number] [facility] [address] 2021-07-12 2021-07-12 ambulatory STLMLC STLMLC [id number] [facility]00 [facility] 2021-07-05 2021-07-05 ambulatory STLMLC STLC [id number] [facility] 2021-07-01 2021-07-01 Transition EDUARDO Han [id number] Univers 00:00:00 00:00:00 of Care Tiffanie L AMRIT [id number] i ty of [id number] [id number] [facility] [address] 2021-06-23 2021-06-29 Inpatient U [facility] [id number] Univers 05:01:00 14:30:00 IDA ity of [facility] [place] 2021-06-23 2021-06-29 [facility] ROCAEL Calabrese [id number] Univers 05:01:00 14:30:00 Encounter Ida Vaughn JOSSY [id number] ity of [facility] [id number] Jakub as [id number] [facility] [address] 2021-06-27 2021-06-27 Surgery [facility] [id number] Univers 12:30:00 13:22:00 Ulisses ICAL [id number] it y of [place] [employer] [id number] Jakub as BLDG [id number] [facility] [address] 2021-06-24 2021-06-24 Surgery [facility] [id number] Univers 12:00:00 12:31:00 Ulisses ICAL [id number] it y of [place] [employer] [id number] Jakub as BLDG [id number] [facility] [address] 2021-06-24 2021-06-24 ambulatory STLMLC STLMLC [id number] [facility]00 [facility] 2021-06-06 2021-06-06 ambulatory STLMLC STLMLC [id number] [facility]00 [facility] 2021-06-05 2021-06-05 ambulatory STLMLC STLMLC [id number] [facility]00 [facility] 2021-06-03 2021-06-03 ambulatory STLMLC STLMLC [id number] [facility]00 [facility] 2021-05-21 2021-05-21 ambulatory STLMLC STLMLC [id number] [facility]00 [facility] 2021-05-21 2021-05-21 ambulatory STLMLC STLMLC [id number] [facility]00 [facility] 2021-05-21 2021-05-21 ambulatory STLMLC STLMLC [id number] [facility]00 [facility] 2021-05-03 2021-05-03 ambulatory STLMLC STLMLC [id number] [facility]00 [facility] 2021-04-30 2021-04-30 ambulatory STLMLC STLMLC [id number] [facility]00 [facility] 2021-04-29 2021-04-29 ambulatory STLMLC STLMLC [id number] [facility]00 [facility] 2021-04-17 2021-04-17 ambulatory STLMLC STLMLC [id number] [facility]00 [facility] 2021-04-162021-04-16 ambulatory STLMLC STLMLC [id number] [facility]00 [facility] 2021-03-28 2021-03-28 Outpatient READMISSMAHAD CERVANTES ENCCLR ENCCLR [id number] ENCCLR 00:00:00 00:00:00 N GRICELDA LONDONO 2021-03-26 2021-03-26 ambulatory STLMLC STLMLC [id number] [facility]00 [facility] 2021-03-20 2021-03-20 ambulatory STLMLC STLMLC [id number] [facility]00 [facility] 2021-03-01 2021-03-14 Inpatient 3 [facility] ENCPL BIN [id number] ENCPL 21:21:00 13:25:00 jhoana, 1210 Adis 2021-03-08 2021-03-08 Outpatient Helen [facility] [id number] [facility] 08:58:00 08:58:00 Bry, [id number] Romina hudson [facility] 2021-03-04 2021-03-04 Transition EDUARDO Parnell [id number] Univers 00:00:00 00:00:00 of Care Erika MARCUS [id number] [place] 4.2.7.2.686 [facility] [id number] [address] 2021-02-21 2021-03-01 [facility] [id number] Univers 15:13:00 19:35:00 Encounter Tobias Villalpando 350.1.13.10 ity of Alfredo Gunter 4.2.7.2.686 [facility] [id number] Jamilah Suero [address] 2021-02-21 2021-03-01 Inpatient X [facility] RAF [id number] Univers 15:13:00 19:35:00 JAMILAH ramesh [facility] 2021-02-25 2021-02-25 ambulatory [facility] [id number] [facility] 2021-02-22 2021-02-22 ambulatory [facility] [id number] [facility] 2021-01-31 2021-01-31 ambulatory [facility] [id number] [facility] 2021-01-24 2021-01-24 ambulatory [facility] [id number] [facility] 2020-11-07 2020-11-07 Outpatient [facility] [id number] [facility] 2020-10-25 2020-10-25 Outpatient [facility] [id number] [facility] 2020-10-23 2020-10-23 Outpatient [facility] [id number] [facility] 2020-08-22 2020-08-22 Outpatient [facility] [id number] [facility] 2020-07-12 2020-07-12 Outpatient [facility] [id number] [facility] 2020-06-21 2020-06-21 Outpatient [facility] [id number] [facility] 2020-05-31 2020-05-31 Outpatient [facility] [id number] [facility] 2020-05-15 2020-05-15 Outpatient [facility] [id number] [facility] 2020-05-10 2020-05-10 Outpatient [facility] [id number] [facility] 2020-05-02 2020-05-02 Outpatient [facility] [id number] [facility] 2020-05-02 2020-05-02 Outpatient [facility] [id number] [facility] 2020-04-23 2020-04-23 Outpatient [facility] [id number] [facility] 2020-02-06 2020-02-06 Outpatient [facility] [id number] [facility] 2020-01-26 2020-01-26 Outpatient [facility] [id number] [facility] 2020-01-16 2020-01-16 Outpatient [facility] [id number] [facility] 2019-12-16 2019-12-16 Outpatient [facility] [id number] [facility] 2019-12-16 2019-12-16 Outpatient [facility] [id number] [facility] 2019-11-11 2019-11-11 [facility] [id number] [facility] 16:20:00 16:20:00 t Phun[employer] s - [employer] 2019 2019 [facility] [id number] 11:22:00 11:22:[address] [facility] 2019-07-08 2019-07-08 Outpatient Kunal Jenkins [id number] 15:00:00 15:00:00 t Stamped [facility] ent [facility] Results Test Description Test Time Test Comments Results Result Comments Source BASIC METABOLIC PANEL (NA, K, CL, CO2, GLUCOSE, BUN, 2021-06 11:06:28 CREATININE, CA) Test Item Value Reference Range Interpretation Comme nts NA (test code = 4511718598) 136 mmol/L 135-145 K (test code = 9545523985) 3.7 mmol/L 3.5-5.0 CL (test code = 7174338062) 97 mmol/L 98-108 L CO2 TOTAL (test code = 2918639898) 36 mmol/L 23-31 H AGAP (test code = 8104767967) 2-16 BUN (test code = 0192458581) 18 mg/dL 7-23 GLUCOSE (test code = 6651809306) 103 mg/dL 70-110 CREATININE (test code = 1.14 mg/dL 0.50-1.04 H 1686345563) CALCIUM (test code = 4109138853) 8.0 mg/dL 8.6-10.6 L eGFR (test code = 3161783163) mL/min/1.73m2 DYLAN (test code = DYLAN) Association of Glomerular Filtration Rate (GFR) and Staging of Kidney Disease* + +-------- + ------+| GFR (mL/min/1.73 m2) ?| With Kidney Damage ?| ?Without Kidney Damage+ +-- + +| ?>90 ?| ?Stage one ?| ? Normal ?+ +------- + -------+| ?60-89 ?| ?Stage two ?| ? Decreased GFR ? + +-------- + ------+| ?30-59 ?| ?Stage three ?| ? Stage three ? + +-------- + ------+| ?15-29 ?| ?Stage four ? | ? Stage four ?+ +------- + -------+| ?<15 (or dialysis) ? ?| ?Stage five ? | ? Stage five ?+ +------- + -------+ *Each stage assumes the associated GFR [...] or abnormalities in imaging tests). Lab Interpretation (test code = Abnormal 78743-7) [facility]28 Test Item Value Reference Range Interpretation Comments MAGNESIUM (test code = 4387726687) 1.9 mg/dL 1.7-2.4 Lab Interpretation (test code = Normal 38842-3) [facility] WITH [id number] 10:52:07 Test Item Value Reference Range Interpretation Comments [...] as normal/abnormal . HGB (test code = 8.2 g/dL 11.6-15.0 L 718-7) HCT (test code = 26.1 % 35.7-45.2 L 4544-3) MCV (test code = 97.8 fL 80.6-95.5 H 787-2) MCH (test code = 30.7 pg 25.9-32.8 785-6) MCHC (test code = 31.4 g/dL 31.6-35.1 L 786-4) RDW-SD (test code = 58.7 fL 39.0-49.9 H 92587-0) RDW-CV (test code = 16.6 % 12.0-15.5 H 788-0) PLT (test code = See_Comment L [Automated 777-3) message] The sy stem which generated this result transmitted reference range : 166 - 358 10*3/ ?L. The reference r nati was not used to interpret this result as normal/abnormal . MPV (test code = 10.3 fL 9.5-12.9 63956-0) NRBC/100 WBC (test See_Comment [Automat ed code = 4678848212) message] The system which generated this result transmitted reference range : 0.0 - 10.0 /100 WBCs. The refer ence range was not u sed to interpret th is result as normal/abnormal . NRBC x10^3 (test code <0.01 See_Comment [Auto mated = 8874897800) message] The s ystem which generated this result transmitted reference range : 10*3/?L. The reference range was not used to interpret this result as normal/abnormal . GRAN MAT (NEUT) % 74.8 % (test code = 770-8) IMM GRAN % (test code 0.30 % = 7997550038) LYMPH % (test code = 11.5 % 736-9) MONO % (test code = 8.9 % 5905-5) EOS % (test code = 4.3 % 713-8) BASO % (test code = 0.2 % 706-2) GRAN MAT x10^3(ANC) 4.38 10*3/uL 1.88-7.09 (test code = 0618057918) IMM GRAN x10^3 (test <0.03 0.00-0.06 code = 9548823268) LYMPH x10^3 (test code 0.67 10*3/uL 1.32-3.29 L = 731-0) MONO x10^3 (test code 0.52 10*3/uL 0.33-0.92 = 742-7) EOS x10^3 (test code = 0.25 10*3/uL 0.03-0.39 711-2) BASO x10^3 (test code <0.03 0.01-0.07 = 704-7) Lab Interpretation Abnormal (test code = 66900-3) [facility] METABOLIC PANEL (NA, K, CL, CO2, GLUCOSE, BUN, CREATININE, CA)2021-06-28 10:30:20 Test Item Value Reference Range Interpretation Comments NA (test code = 134 mmol/L 135-145 L 2674173614) K (test code = 3.1 mmol/L 3.5-5.0 L 7284669666) CL (test code = 97 mmol/L 98-108 L 7334586230) CO2 TOTAL (test code = 36 mmol/L 23-31 H 9308598888) AGAP (test code = 2-16 L 6749628479) BUN (test code = 20 mg/dL 7-23 3986096259) GLUCOSE (test code = 89 mg/dL 70-110 5119193304) CREATININE (test code = 1.26 mg/dL 0.50-1.04 H 8432552316) CALCIUM (test code = 7.8 mg/dL 8.6-10.6 L 0553396597) eGFR (test code = mL/min/1.73m2 7852111522) DYLAN (test code = DYLAN) Association of [...] tests). Lab Interpretation Abnormal (test code = 26512-1) [facility] 10:30[facility]20 Test Item Value Reference Range Interpretation Comments MAGNESIUM (test code = 7301369640) 1.8 mg/dL 1.7-2.4 Lab Interpretation (test code = Normal 50004-7) [facility] METABOLIC PANEL (NA, K, CL, CO2, GLUCOSE, BUN, CREATININE, CA)2021-06-28 10:30:20 Test Item Value Reference Range Interpretation Comments NA (test code = 134 mmol/L 135-145 L 0036921430) K (test code = 3.1 mmol/L 3.5-5.0 L 7261291063) CL (test code = 97 mmol/L 98-108 L 6068250014) CO2 TOTAL (test code = 36 mmol/L 23-31 H 7819590150) AGAP (test code = 2-16 L 0897751768) BUN (test code = 20 mg/dL 7-23 6250358652) GLUCOSE (test code = 89 mg/dL 70-110 6268590548) CREATININE (test code = 1.26 mg/dL 0.50-1.04 H 7888171866) CALCIUM (test code = 7.8 mg/dL 8.6-10.6 L 3077185135) eGFR (test code = mL/min/1.73m2 3538902005) DYLAN (test code = DYLAN) Association of [...] tests). Lab Interpretation Abnormal (test code = 24080-2) [facility] 10:30:20 Test Item Value Reference Range Interpretation Comments MAGNESIUM (test code = 2314822927) 1.8 mg/dL 1.7-2.4 Lab Interpretation (test code = Normal 94727-8) [facility] WITH [id number] 10:16:57 Test Item Value Reference Range Interpretation Comments [...] as normal/abnormal . HGB (test code = 7.9 g/dL 11.6-15.0 L 718-7) HCT (test code = 25.3 % 35.7-45.2 L 4544-3) MCV (test code = 97.3 fL 80.6-95.5 H 787-2) MCH (test code = 30.4 pg 25.9-32.8 785-6) MCHC (test code = 31.2 g/dL 31.6-35.1 L 786-4) RDW-SD (test code = 58.8 fL 39.0-49.9 H 53082-1) RDW-CV (test code = 16.7 % 12.0-15.5 H 788-0) PLT (test code = See_Comment L [Automated 777-3) message] The sy stem which generated this result transmitted reference range : 166 - 358 10*3/ ?L. The reference r nati was not used to interpret this result as normal/abnormal . MPV (test code = 10.9 fL 9.5-12.9 37991-1) NRBC/100 WBC (test See_Comment [Automat ed code = 6880761677) message] The system which generated this result transmitted reference range : 0.0 - 10.0 /100 WBCs. The refer ence range was not u sed to interpret th is result as normal/abnormal . NRBC x10^3 (test code <0.01 See_Comment [Auto mated = 6279037157) message] The s ystem which generated this result transmitted reference range : 10*3/?L. The reference range was not used to interpret this result as normal/abnormal . GRAN MAT (NEUT) % 76.1 % (test code = 770-8) IMM GRAN % (test code 0.50 % = 6366586662) LYMPH % (test code = 10.0 % 736-9) MONO % (test code = 8.2 % 5905-5) EOS % (test code = 4.9 % 713-8) BASO % (test code = 0.3 % 706-2) GRAN MAT x10^3(ANC) 5.02 10*3/uL 1.88-7.09 (test code = 3391357212) IMM GRAN x10^3 (test 0.03 10*3/uL 0.00-0.06 code = 4605125128) LYMPH x10^3 (test code 0.66 10*3/uL 1.32-3.29 L = 731-0) MONO x10^3 (test code 0.54 10*3/uL 0.33-0.92 = 742-7) EOS x10^3 (test code = 0.32 10*3/uL 0.03-0.39 711-2) BASO x10^3 (test code <0.03 0.01-0.07 = 704-7) Lab Interpretation Abnormal (test code = 51051-5) [facility] WITH [id number] 10:16:57 Test Item Value Reference Range Interpretation Comments [...] as normal/abnormal . HGB (test code = 7.9 g/dL 11.6-15.0 L 718-7) HCT (test code = 25.3 % 35.7-45.2 L 4544-3) MCV (test code = 97.3 fL 80.6-95.5 H 787-2) MCH (test code = 30.4 pg 25.9-32.8 785-6) MCHC (test code = 31.2 g/dL 31.6-35.1 L 786-4) RDW-SD (test code = 58.8 fL 39.0-49.9 H 34609-8) RDW-CV (test code = 16.7 % 12.0-15.5 H 788-0) PLT (test code = See_Comment L [Automated 777-3) message] The sy stem which generated this result transmitted reference range : 166 - 358 10*3/ ?L. The reference r nati was not used to interpret this result as normal/abnormal . MPV (test code = 10.9 fL 9.5-12.9 59469-2) NRBC/100 WBC (test See_Comment [Automat ed code = 2834601900) message] The system which generated this result transmitted reference range : 0.0 - 10.0 /100 WBCs. The refer ence range was not u sed to interpret th is result as normal/abnormal . NRBC x10^3 (test code <0.01 See_Comment [Auto mated = 0378215694) message] The s ystem which generated this result transmitted reference range : 10*3/?L. The reference range was not used to interpret this result as normal/abnormal . GRAN MAT (NEUT) % 76.1 % (test code = 770-8) IMM GRAN % (test code 0.50 % = 8088312680) LYMPH % (test code = 10.0 % 736-9) MONO % (test code = 8.2 % 5905-5) EOS % (test code = 4.9 % 713-8) BASO % (test code = 0.3 % 706-2) GRAN MAT x10^3(ANC) 5.02 10*3/uL 1.88-7.09 (test code = 5737200233) IMM GRAN x10^3 (test 0.03 10*3/uL 0.00-0.06 code = 4887313187) LYMPH x10^3 (test code 0.66 10*3/uL 1.32-3.29 L = 731-0) MONO x10^3 (test code 0.54 10*3/uL 0.33-0.92 = 742-7) EOS x10^3 (test code = 0.32 10*3/uL 0.03-0.39 711-2) BASO x10^3 (test code <0.03 0.01-0.07 = 704-7) Lab Interpretation Abnormal (test code = 65064-0) [facility] METABOLIC PANEL (NA, K, CL, CO2, GLUCOSE, BUN, CREATININE, CA)2021-06-27 21:19:59 Test Item Value Reference Range Interpretation Comments NA (test code = 135 mmol/L 135-145 8996845915) K (test code = 3.1 mmol/L 3.5-5.0 L 7803996348) CL (test code = 98 mmol/L 98-108 2039954637) CO2 TOTAL (test code <5 23-31 L = 9264085943) AGAP (test code = Unable to 9953362376) calculate because, either,SODIUM SERUM, CHLORIDE SERUM, CO2 TOTA L or all are less than the sensitivity of the analyzer. BUN (test code = 20 mg/dL 7-23 1850786982) GLUCOSE (test code = 115 mg/dL 70-110 H 5736659956) CREATININE (test 1.23 mg/dL 0.50-1.04 H code = 7883379551) CALCIUM (test code = 8.0 mg/dL 8.6-10.6 L 1685984647) eGFR (test code = mL/min/1.73m2 1748544444) DYLAN (test code = Association of DYLAN) Glomerular Filtration Rate (GFR) and Staging of Kidney Disease* + -----+ --------+ +| GFR (mL/min/1.73 m2) ?| With Kidney Damage ?| ?Without Kidney Damage+ +------- +---- --+| ?>90 ?| ?Stage one ?| ? Normal ?+ ------+ ---------+--------- +| ?60-89 ?| ?Stage two ?| ? Decreased GFR ? + -----+ --------+ +| ?30-59 ?| ?Stage three ?| ? Stage three ? + -----+ --------+ +| ?15-29 ?| ?Stage four ? | ? Stage four ?+ ------+ ---------+--------- +| ?<15 (or dialysis) ? ?| ?Stage five ? | ? Stage five ?+ ------+ ---------+--------- + *Each stage assumes the associated GFR level [...] tests). Lab Interpretation Abnormal (test code = 33543-7) [facility] METABOLIC PANEL (NA, K, CL, CO2, GLUCOSE, BUN, CREATININE, CA)2021-06-27 21:19:59 Test Item Value Reference Range Interpretation Comments NA (test code = 135 mmol/L 135-145 2883044339) K (test code = 3.1 mmol/L 3.5-5.0 L 0306744397) CL (test code = 98 mmol/L 98-108 9542697085) CO2 TOTAL (test code <5 23-31 L = 8219906022) AGAP (test code = Unable to 1089302766) calculate because, either,SODIUM SERUM, CHLORIDE SERUM, CO2 TOTA L or all are less than the sensitivity of the analyzer. BUN (test code = 20 mg/dL 7-23 1304694571) GLUCOSE (test code = 115 mg/dL 70-110 H 4301243430) CREATININE (test 1.23 mg/dL 0.50-1.04 H code = 9993015691) CALCIUM (test code = 8.0 mg/dL 8.6-10.6 L 6075231386) eGFR (test code = mL/min/1.73m2 0834761171) DYLAN (test code = Association of DYLAN) Glomerular Filtration Rate (GFR) and Staging of Kidney Disease* + -----+ --------+ +| GFR (mL/min/1.73 m2) ?| With Kidney Damage ?| ?Without Kidney Damage+ +------- +---- --+| ?>90 ?| ?Stage one ?| ? Normal ?+ ------+ ---------+--------- +| ?60-89 ?| ?Stage two ?| ? Decreased GFR ? + -----+ --------+ +| ?30-59 ?| ?Stage three ?| ? Stage three ? + -----+ --------+ +| ?15-29 ?| ?Stage four ? | ? Stage four ?+ ------+ ---------+--------- +| ?<15 (or dialysis) ? ?| ?Stage five ? | ? Stage five ?+ ------+ ---------+--------- + *Each stage assumes the associated GFR level [...] tests). Lab Interpretation Abnormal (test code = 71240-7) [facility] WITH [id number] 21:03:37 Test Item Value Reference Range Interpretation Comments [...] as normal/abnormal . HGB (test code = 8.5 g/dL 11.6-15.0 L 718-7) HCT (test code = 27.3 % 35.7-45.2 L 4544-3) MCV (test code = 99.3 fL 80.6-95.5 H 787-2) MCH (test code = 30.9 pg 25.9-32.8 785-6) MCHC (test code = 31.1 g/dL 31.6-35.1 L 786-4) RDW-SD (test code = 59.6 fL 39.0-49.9 H 66724-6) RDW-CV (test code = 16.7 % 12.0-15.5 H 788-0) PLT (test code = See_Comment L [Automated 777-3) message] The sy stem which generated this result transmitted reference range : 166 - 358 10*3/ ?L. The reference r nati was not used to interpret this result as normal/abnormal . MPV (test code = 10.0 fL 9.5-12.9 26409-2) NRBC/100 WBC (test See_Comment [Automat ed code = 5643882357) message] The system which generated this result transmitted reference range : 0.0 - 10.0 /100 WBCs. The refer ence range was not u sed to interpret th is result as normal/abnormal . NRBC x10^3 (test code <0.01 See_Comment [Auto mated = 1980444381) message] The s ystem which generated this result transmitted reference range : 10*3/?L. The reference range was not used to interpret this result as normal/abnormal . GRAN MAT (NEUT) % 77.9 % (test code = 770-8) IMM GRAN % (test code 0.30 % = 0607596571) LYMPH % (test code = 8.5 % 736-9) MONO % (test code = 8.7 % 5905-5) EOS % (test code = 4.3 % 713-8) BASO % (test code = 0.3 % 706-2) GRAN MAT x10^3(ANC) 5.56 10*3/uL 1.88-7.09 (test code = 2439200348) IMM GRAN x10^3 (test <0.03 0.00-0.06 code = 4059684922) LYMPH x10^3 (test code 0.61 10*3/uL 1.32-3.29 L = 731-0) MONO x10^3 (test code 0.62 10*3/uL 0.33-0.92 = 742-7) EOS x10^3 (test code = 0.31 10*3/uL 0.03-0.39 711-2) BASO x10^3 (test code <0.03 0.01-0.07 = 704-7) Lab Interpretation Abnormal (test code = 02078-0) [facility] WITH [id number] 21:03:37 Test Item Value Reference Range Interpretation Comments WBC (test code = See_Comment [Automated 6690-2) message] The sy stem which generated this result transmitted reference range : 4.30 - 11.10 10*3/?L. The reference range was not used to interpret this result as normal/abnormal . RBC (test code = See_Comment L [Automated 369-8) message] The sy stem which generated this result transmitted reference range : 3.93 - 5.25 10*6/?L. The reference range was not used to interpret this result as normal/abnormal . HGB (test code = 8.5 g/dL 11.6-15.0 L 718-7) HCT (test code = 27.3 % 35.7-45.2 L 4544-3) MCV (test code = 99.3 fL 80.6-95.5 H 787-2) MCH (test code = 30.9 pg 25.9-32.8 785-6) MCHC (test code = 31.1 g/dL 31.6-35.1 L 786-4) RDW-SD (test code = 59.6 fL 39.0-49.9 H 02365-4) RDW-CV (test code = 16.7 % 12.0-15.5 H 788-0) PLT (test code = See_Comment L [Automated 777-3) message] The sy stem which generated this result transmitted reference range : 166 - 358 10*3/ ?L. The reference r nati was not used to interpret this result as normal/abnormal . MPV (test code = 10.0 fL 9.5-12.9 63006-2) NRBC/100 WBC (test See_Comment [Automat ed code = 5177114746) message] The system which generated this result transmitted reference range : 0.0 - 10.0 /100 WBCs. The refer ence range was not u sed to interpret th is result as normal/abnormal . NRBC x10^3 (test code <0.01 See_Comment [Auto mated = 5400020819) message] The s ystem which generated this result transmitted reference range : 10*3/?L. The reference range was not used to interpret this result as normal/abnormal . GRAN MAT (NEUT) % 77.9 % (test code = 770-8) IMM GRAN % (test code 0.30 % = 7074286776) LYMPH % (test code = 8.5 % 736-9) MONO % (test code = 8.7 % 5905-5) EOS % (test code = 4.3 % 713-8) BASO % (test code = 0.3 % 706-2) GRAN MAT x10^3(ANC) 5.56 10*3/uL 1.88-7.09 (test code = 8678187066) IMM GRAN x10^3 (test <0.03 0.00-0.06 code = 8269185187) LYMPH x10^3 (test code 0.61 10*3/uL 1.32-3.29 L = 731-0) MONO x10^3 (test code 0.62 10*3/uL 0.33-0.92 = 742-7) EOS x10^3 (test code = 0.31 10*3/uL 0.03-0.39 711-2) BASO x10^3 (test code <0.03 0.01-0.07 = 704-7) Lab Interpretation Abnormal (test code = 96945-5) [facility] TRANSGLUTAMINASE (TTG) [id number] 18:07:07 Test Item Value Reference Range Interpretation Comments Tissue Transglutaminase Negative Negative (tTG) Ab, IgA Interpretation (test code = 02192-1) Tissue Transglutaminase <0.6 See_Comment [Au tomated (tTG) Ab, IgA (test message] The code = 0352825003) system [facility] generated this result transmitted reference range : <=7.0 U/mL. The reference range was not used to interpret this result as normal/abnormal . DYLNA (test code = DYLAN) < 7 U/mL ? Negative7 - 10 U/mL ?Equivocal> 10 U/mL ?Positive In case of equivocal results, we recommend to retest the patient after 8 -12 weeks. Lab Interpretation Normal (test code = 13820-9) [facility] TRANSGLUTAMINASE (TTG) [id number] 18:07:07 Test Item Value Reference Range Interpretation Comments Tissue Transglutaminase Negative Negative (tTG) Ab, IgA Interpretation (test code = 04661-4) Tissue Transglutaminase <0.6 See_Comment [Au tomated (tTG) Ab, IgA (test message] The code = 7623230445) system [facility] generated this result transmitted reference range : <=7.0 U/mL. The reference range was not used to interpret this result as normal/abnormal . DYLAN (test code = DYLAN) < 7 U/mL ? Negative7 - 10 U/mL ?Equivocal> 10 U/mL ?Positive In case of equivocal results, we recommend to retest the patient after 8 -12 weeks. Lab Interpretation Normal (test code = 74148-5) [id number] 09:33:08 Test Item Value Reference Range Interpretation Comments NT-proBNP (test code 6010 pg/mL See_Comment H [Autom ated = 2952856747) message] The system which generated this result transmitted reference range : <=450. The reference range was not used to interpret this result as normal/abnormal . DYLAN (test code = DYLAN) Biotin has been reported to cause a negative bias, interpret results relative to patient's use of biotin. Lab Interpretation Abnormal (test code = 83651-8) [facility] [id number] 09:33:08 Test Item Value Reference Range Interpretation Comments NT-proBNP (test code 6010 pg/mL See_Comment H [Autom ated = 9961709582) message] The system which generated this result transmitted reference range : <=450. The reference range was not used to interpret this result as normal/abnormal . DYLAN (test code = DYLAN) Biotin has been reported to cause a negative bias, interpret results relative to patient's use of biotin. Lab Interpretation Abnormal (test code = 41015-4) [facility] (NA, K, CL, CO2, GLUCOSE, BUN, CREATININE, CA)2021-06-26 09:25:05 Test Item Value Reference Range Interpretation Comments NA (test code = 132 mmol/L 135-145 L [id number]) K (test code = 4.3 mmol/L 3.5-5.0 2135393388) CL (test code = 103 mmol/L 98-108 5239162423) CO2 TOTAL (test code = 27 mmol/L 23-31 2574401142) AGAP (test code = 2-16 9758637324) BUN (test code = 27 mg/dL 7-23 H 8284619023) GLUCOSE (test code = 98 mg/dL 70-110 8382100274) CREATININE (test code = 1.46 mg/dL 0.50-1.04 H 5719326237) CALCIUM (test code = 8.0 mg/dL 8.6-10.6 L 8676974212) eGFR (test code = mL/min/1.73m2 9764135942) DYLAN (test code = DYLAN) Association of [...] tests). Lab Interpretation Abnormal (test code = 48840-6) [facility]22-[facility] 09:25:05 Test Item Value Reference Range Interpretation Comments MAGNESIUM (test code = 0234927017) 2.4 mg/dL 1.7-2.4 Lab Interpretation (test code = Normal 03365-6) [facility] (NA, K, CL, CO2, GLUCOSE, BUN, CREATININE, CA)2021-06-26 09:25:05 Test Item Value Reference Range Interpretation Comments NA (test code = 132 mmol/L 135-145 L [id number]) K (test code = 4.3 mmol/L 3.5-5.0 3178993853) CL (test code = 103 mmol/L 98-108 0349429433) CO2 TOTAL (test code = 27 mmol/L 23-31 4792369512) AGAP (test code = 2-16 8407376252) BUN (test code = 27 mg/dL 7-23 H 7838345851) GLUCOSE (test code = 98 mg/dL 70-110 6028873718) CREATININE (test code = 1.46 mg/dL 0.50-1.04 H 2746426730) CALCIUM (test code = 8.0 mg/dL 8.6-10.6 L 2367261897) eGFR (test code = mL/min/1.73m2 1687709880) DYLAN (test code = DYLAN) Association of [...] tests). Lab Interpretation Abnormal (test code = 44251-7) [facility]22-[facility]-06 09:25:05 Test Item Value Reference Range Interpretation Comments MAGNESIUM (test code = 7093884127) 2.4 mg/dL 1.7-2.4 Lab Interpretation (test code = Normal 14867-3) [facility] [id number] 09:08:22 Test Item Value Reference Range Interpretation Comments WBC (test code = See_Comment [Automated 8490-2) message] The sy stem which generated this [...] as normal/abnormal . HGB (test code = 8.3 g/dL 11.6-15.0 L 718-7) HCT (test code = 27.2 % 35.7-45.2 L 4544-3) MCV (test code = 100.4 fL 80.6-95.5 H 787-2) MCH (test code = 30.6 pg 25.9-32.8 785-6) MCHC (test code = 30.5 g/dL 31.6-35.1 L 786-4) RDW-SD (test code = 63.2 fL 39.0-49.9 H 22957-1) RDW-CV (test code = 17.3 % 12.0-15.5 H 788-0) PLT (test code = See_Comment L [Automated 777-3) message] The sy stem which generated this result transmitted reference range : 166 - 358 10*3/ ?L. The reference r nati was not used to interpret this result as normal/abnormal . MPV (test code = 10.0 fL 9.5-12.9 77501-2) NRBC/100 WBC (test See_Comment [Automat ed code = 7668019074) message] The system which generated this result transmitted reference range : 0.0 - 10.0 /100 WBCs. The refer ence range was not u sed to interpret th is result as normal/abnormal . NRBC x10^3 (test code <0.01 See_Comment [Auto mated = 2790800076) message] The s ystem which generated this result transmitted reference range : 10*3/?L. The reference range was not used to interpret this result as normal/abnormal . GRAN MAT (NEUT) % 82.0 % (test code = 770-8) IMM GRAN % (test code 0.30 % = 3786479683) LYMPH % (test code = 7.4 % 736-9) MONO % (test code = 7.7 % 5905-5) EOS % (test code = 2.4 % 713-8) BASO % (test code = 0.2 % 706-2) GRAN MAT x10^3(ANC) 7.48 10*3/uL 1.88-7.09 H (test code = 2770167022) IMM GRAN x10^3 (test 0.03 10*3/uL 0.00-0.06 code = 2275661134) LYMPH x10^3 (test code 0.68 10*3/uL 1.32-3.29 L = 731-0) MONO x10^3 (test code 0.70 10*3/uL 0.33-0.92 = 742-7) EOS x10^3 (test code = 0.22 10*3/uL 0.03-0.39 711-2) BASO x10^3 (test code <0.03 0.01-0.07 = 704-7) Lab Interpretation Abnormal (test code = 40254-3) [facility] WITH [id number] 09:08:22 Test Item Value Reference Range Interpretation Comments [...] as normal/abnormal . HGB (test code = 8.3 g/dL 11.6-15.0 L 718-7) HCT (test code = 27.2 % 35.7-45.2 L 4544-3) MCV (test code = 100.4 fL 80.6-95.5 H 787-2) MCH (test code = 30.6 pg 25.9-32.8 785-6) MCHC (test code = 30.5 g/dL 31.6-35.1 L 786-4) RDW-SD (test code = 63.2 fL 39.0-49.9 H 90584-1) RDW-CV (test code = 17.3 % 12.0-15.5 H 788-0) PLT (test code = See_Comment L [Automated 777-3) message] The sy stem which generated this result transmitted reference range : 166 - 358 10*3/ ?L. The reference r nati was not used to interpret this result as normal/abnormal . MPV (test code = 10.0 fL 9.5-12.9 65291-9) NRBC/100 WBC (test See_Comment [Automat ed code = 3370561731) message] The system which generated this result transmitted reference range : 0.0 - 10.0 /100 WBCs. The refer ence range was not u sed to interpret th is result as normal/abnormal . NRBC x10^3 (test code <0.01 See_Comment [Auto mated = 9294385342) message] The s ystem which generated this result transmitted reference range : 10*3/?L. The reference range was not used to interpret this result as normal/abnormal . GRAN MAT (NEUT) % 82.0 % (test code = 770-8) IMM GRAN % (test code 0.30 % = 7861752773) LYMPH % (test code = 7.4 % 736-9) MONO % (test code = 7.7 % 5905-5) EOS % (test code = 2.4 % 713-8) BASO % (test code = 0.2 % 706-2) GRAN MAT x10^3(ANC) 7.48 10*3/uL 1.88-7.09 H (test code = 3592414056) IMM GRAN x10^3 (test 0.03 10*3/uL 0.00-0.06 code = 3825869808) LYMPH x10^3 (test code 0.68 10*3/uL 1.32-3.29 L = 731-0) MONO x10^3 (test code 0.70 10*3/uL 0.33-0.92 = 742-7) EOS x10^3 (test code = 0.22 10*3/uL 0.03-0.39 711-2) BASO x10^3 (test code <0.03 0.01-0.07 = 704-7) Lab Interpretation Abnormal (test code = 68149-8) [facility] METABOLIC PANEL (NA, K, CL, CO2, GLUCOSE, BUN, CREATININE, CA)2021-06-25 08:30:36 Test Item Value Reference Range Interpretation Comments NA (test code = 134 mmol/L 135-145 L 6853533734) K (test code = 3.9 mmol/L 3.5-5.0 1446510079) CL (test code = 105 mmol/L 98-108 2354264821) CO2 TOTAL (test code = 26 mmol/L 23-31 3226780953) AGAP (test code = 2-16 5685534201) BUN (test code = 34 mg/dL 7-23 H 8411646759) GLUCOSE (test code = 105 mg/dL 70-110 0733351753) CREATININE (test code = 1.41 mg/dL 0.50-1.04 H 9755584975) CALCIUM (test code = 7.7 mg/dL 8.6-10.6 L 1560918674) eGFR (test code = mL/min/1.73m2 5193182470) DYLAN (test code = DYLAN) Association of [...] tests). Lab Interpretation Abnormal (test code = 30296-4) [facility] 08[facility]30:36 Test Item Value Reference Range Interpretation Comments MAGNESIUM (test code = 8178789445) 2.3 mg/dL 1.7-2.4 Lab Interpretation (test code = Normal 40366-8) [facility] (NA, K, CL, CO2, GLUCOSE, BUN, CREATININE, CA)2021-06-25 08:30:36 Test Item Value Reference Range Interpretation Comments NA (test code = 134 mmol/L 135-145 L 6198180470) K (test code = 3.9 mmol/L 3.5-5.0 1647785912) CL (test code = 105 mmol/L 98-108 0971964359) CO2 TOTAL (test code = 26 mmol/L 23-31 8591572556) AGAP (test code = 2-16 3086271661) BUN (test code = 34 mg/dL 7-23 H 9176347931) GLUCOSE (test code = 105 mg/dL 70-110 3675130645) CREATININE (test code = 1.41 mg/dL 0.50-1.04 H 0782002506) CALCIUM (test code = 7.7 mg/dL 8.6-10.6 L 2680091500) eGFR (test code = mL/min/1.73m2 4510014291) DYLAN (test code = DYLAN) Association of [...] tests). Lab Interpretation Abnormal (test code = 98447-6) [facility] 08:30:36 Test Item Value Reference Range Interpretation Comments MAGNESIUM (test code = 1694905224) 2.3 mg/dL 1.7-2.4 Lab Interpretation (test code = Normal 98062-4) [facility] (NA, K, CL, CO2, GLUCOSE, BUN, CREATININE, CA)2021-06-25 08:30:36 Test Item Value Reference Range Interpretation Comments NA (test code = 134 mmol/L 135-145 L 4736788806) K (test code = 3.9 mmol/L 3.5-5.0 9704919177) CL (test code = 105 mmol/L 98-108 7226949452) CO2 TOTAL (test code = 26 mmol/L 23-31 2575882756) AGAP (test code = 2-16 9908701305) BUN (test code = 34 mg/dL 7-23 H 8698973252) GLUCOSE (test code = 105 mg/dL 70-110 9427062535) CREATININE (test code = 1.41 mg/dL 0.50-1.04 H 9315834794) CALCIUM (test code = 7.7 mg/dL 8.6-10.6 L 3828384958) eGFR (test code = mL/min/1.73m2 1311967124) DYLAN (test code = DYLAN) Association of [...] tests). Lab Interpretation Abnormal (test code = 94117-4) [facility] 08:30:36 Test Item Value Reference Range Interpretation Comments MAGNESIUM (test code = 1245404868) 2.3 mg/dL 1.7-2.4 Lab Interpretation (test code = Normal 21192-1) [facility] [id number] 08:09:39 Test Item Value Reference Range Interpretation Comments WBC (test code = 6690-2) See_Comment [A utomated message] The system [employer] generated this result transmit maliha reference range : 4.30 - 11.10 10*3/?L. The reference range was not used to interpret this result as normal/abnormal . RBC (test code = 789-8) See_Comment L [Au tomated message] The system [employer] generated this result transmit maliha reference range : 3.93 - 5.25 10* 6/?L. The reference r nati was not used to interpret this result as normal/abnormal . HGB (test code = 718-7) 8.2 g/dL 11.6-15.0 L HCT (test code = 4544-3) 26.9 % 35.7-45.2 L MCH (test code = 785-6) 30.5 pg 25.9-32.8 MCV (test code = 787-2) 100.0 fL 80.6-95.5 H MCHC (test code = 786-4) 30.5 g/dL 31.6-35.1 L PLT (test code = 777-3) See_Comment L [Au tomated message] The system [facility] generated this result transmit maliha reference range : 166 - 358 10*3/?L. The reference range was not used to interpret this result as normal/abnormal . MPV (test code = 10.1 fL 9.5-12.9 76059-1) RDW-CV (test code = 17.9 % 12.0-15.5 H 788-0) RDW-SD (test code = 65.4 fL 39.0-49.9 H 57874-6) NRBC x10^3 (test code = <0.01 See_Comment [Au tomated message] 6095851909) The system [facility] generated this result transmit maliha reference range : 10*3/?L. The reference range was not used to interpret this result as normal/abnormal . NRBC/100 WBC (test code See_Comment [Au tomated message] = 2400140269) The system [facility] generated this result transmit maliha reference range : 0.0 - 10.0 /100 WBC s. The reference r nati was not used to interpret this result as normal/abnormal . IPF % (test code = 3513363039) Lab Interpretation (test Abnormal code = 73965-1) [facility] WITHOUT [id number] 08:09:39 Test Item Value Reference Range Interpretation Comments WBC (test code = 6690-2) See_Comment [A utomated message] The system [facility] generated this result transmit maliha reference range : 4.30 - 11.10 10*3/?L. The reference range was not used to interpret this result as normal/abnormal . RBC (test code = 789-8) See_Comment L [Au tomated message] The system [employer] generated this result transmit maliha reference range : 3.93 - 5.25 10* 6/?L. The reference r nati was not used to interpret this result as normal/abnormal . HGB (test code = 718-7) 8.2 g/dL 11.6-15.0 L HCT (test code = 4544-3) 26.9 % 35.7-45.2 L MCH (test code = 785-6) 30.5 pg 25.9-32.8 MCV (test code = 787-2) 100.0 fL 80.6-95.5 H MCHC (test code = 786-4) 30.5 g/dL 31.6-35.1 L PLT (test code = 777-3) See_Comment L [Au tomated message] The system [employer] generated this result transmit maliha reference range : 166 - 358 10*3/?L. The reference range was not used to interpret this result as normal/abnormal . MPV (test code = 10.1 fL 9.5-12.9 27706-3) RDW-CV (test code = 17.9 % 12.0-15.5 H 788-0) RDW-SD (test code = 65.4 fL 39.0-49.9 H 95465-9) NRBC x10^3 (test code = <0.01 See_Comment [Au tomated message] 6221395398) The system [employer] generated this result transmit maliha reference range : 10*3/?L. The reference range was not used to interpret this result as normal/abnormal . NRBC/100 WBC (test code See_Comment [Au tomated message] = 4669084722) The system [facility] generated this result transmit maliha reference range : 0.0 - 10.0 /100 WBC s. The reference r nati was not used to interpret this result as normal/abnormal . IPF % (test code = 2612868928) Lab Interpretation (test Abnormal code = 43217-9) [facility] WITHOUT [id number] 08:09:39 Test Item Value Reference Range Interpretation Comments WBC (test code = 6690-2) See_Comment [A utomated message] The system [employer] generated this result transmit maliha reference range : 4.30 - 11.10 10*3/?L. The reference range was not used to interpret this result as normal/abnormal . RBC (test code = 789-8) See_Comment L [Au tomated message] The system [employer] generated this result transmit maliha reference range : 3.93 - 5.25 10* 6/?L. The reference r nati was not used to interpret this result as normal/abnormal . HGB (test code = 718-7) 8.2 g/dL 11.6-15.0 L HCT (test code = 4544-3) 26.9 % 35.7-45.2 L MCH (test code = 785-6) 30.5 pg 25.9-32.8 MCV (test code = 787-2) 100.0 fL 80.6-95.5 H MCHC (test code = 786-4) 30.5 g/dL 31.6-35.1 L PLT (test code = 777-3) See_Comment L [Au tomated message] The system [facility] generated this result transmit maliha reference range : 166 - 358 10*3/?L. The reference range was not used to interpret this result as normal/abnormal . MPV (test code = 10.1 fL 9.5-12.9 12803-0) RDW-CV (test code = 17.9 % 12.0-15.5 H 788-0) RDW-SD (test code = 65.4 fL 39.0-49.9 H 03885-6) NRBC x10^3 (test code = <0.01 See_Comment [Au tomated message] 1249778687) The system [facility] generated this result transmit maliha reference range : 10*3/?L. The reference range was not used to interpret this result as normal/abnormal . NRBC/100 WBC (test code See_Comment [Au tomated message] = 2257796420) The system [facility] generated this result transmit maliha reference range : 0.0 - 10.0 /100 WBC s. The reference r nati was not used to interpret this result as normal/abnormal . IPF % (test code = 9995056192) Lab Interpretation (test Abnormal code = 19731-4) [facility] 21:32:51 Test Item Value Reference Range Interpretation Comments FREE T3 (test code = 2907115056) 2.83 pg/mL 2.77-5.27 Lab Interpretation (test code = Normal 65704-4) [facility] 21:32:51 Test Item Value Reference Range Interpretation Comments FREE T3 (test code = 3353721258) 2.83 pg/mL 2.77-5.27 Lab Interpretation (test code = Normal 04344-0) [facility] 21:32:51 Test Item Value Reference Range Interpretation Comments FREE T3 (test code = 3986849012) 2.83 pg/mL 2.77-5.27 Lab Interpretation (test code = Normal 45645-1) [facility] WITH [id number] 13:20:51 Test Item Value Reference Range Interpretation Comments [...] as normal/abnormal . HGB (test code = 8.1 g/dL 11.6-15.0 L 718-7) HCT (test code = 25.6 % 35.7-45.2 L 4544-3) MCV (test code = 98.5 fL 80.6-95.5 H 787-2) MCH (test code = 31.2 pg 25.9-32.8 785-6) MCHC (test code = 31.6 g/dL 31.6-35.1 786-4) RDW-SD (test code = 63.2 fL 39.0-49.9 H 23546-2) RDW-CV (test code = 17.9 % 12.0-15.5 H 788-0) PLT (test code = See_Comment L [Automated 777-3) message] The sy stem which generated this result transmitted reference range : 166 - 358 10*3/ ?L. The reference r nati was not used to interpret this result as normal/abnormal . MPV (test code = 10.2 fL 9.5-12.9 05178-3) NRBC/100 WBC (test See_Comment [Automat ed code = 6895958532) message] The system which generated this result transmitted reference range : 0.0 - 10.0 /100 WBCs. The refer ence range was not u sed to interpret th is result as normal/abnormal . NRBC x10^3 (test code <0.01 See_Comment [Auto mated = 6014133412) message] The s ystem which generated this result transmitted reference range : 10*3/?L. The reference range was not used to interpret this result as normal/abnormal . GRAN MAT (NEUT) % 74.4 % (test code = 770-8) IMM GRAN % (test code 0.40 % = 6789164336) LYMPH % (test code = 14.5 % 736-9) MONO % (test code = 8.7 % 5905-5) EOS % (test code = 1.7 % 713-8) BASO % (test code = 0.3 % 706-2) GRAN MAT x10^3(ANC) 5.24 10*3/uL 1.88-7.09 (test code = 5458319255) IMM GRAN x10^3 (test 0.03 10*3/uL 0.00-0.06 code = 1041687333) LYMPH x10^3 (test code 1.02 10*3/uL 1.32-3.29 L = 731-0) MONO x10^3 (test code 0.61 10*3/uL 0.33-0.92 = 742-7) EOS x10^3 (test code = 0.12 10*3/uL 0.03-0.39 711-2) BASO x10^3 (test code <0.03 0.01-0.07 = 704-7) Lab Interpretation Abnormal (test code = 29892-3) [facility] WITH [id number] 13:20:51 Test Item Value Reference Range Interpretation Comments [...] as normal/abnormal . HGB (test code = 8.1 g/dL 11.6-15.0 L 718-7) HCT (test code = 25.6 % 35.7-45.2 L 4544-3) MCV (test code = 98.5 fL 80.6-95.5 H 787-2) MCH (test code = 31.2 pg 25.9-32.8 785-6) MCHC (test code = 31.6 g/dL 31.6-35.1 786-4) RDW-SD (test code = 63.2 fL 39.0-49.9 H 96514-3) RDW-CV (test code = 17.9 % 12.0-15.5 H 788-0) PLT (test code = See_Comment L [Automated 777-3) message] The sy stem which generated this result transmitted reference range : 166 - 358 10*3/ ?L. The reference r nati was not used to interpret this result as normal/abnormal . MPV (test code = 10.2 fL 9.5-12.9 24700-4) NRBC/100 WBC (test See_Comment [Automat ed code = 1929478838) message] The system which generated this result transmitted reference range : 0.0 - 10.0 /100 WBCs. The refer ence range was not u sed to interpret th is result as normal/abnormal . NRBC x10^3 (test code <0.01 See_Comment [Auto mated = 0520470094) message] The s ystem which generated this result transmitted reference range : 10*3/?L. The reference range was not used to interpret this result as normal/abnormal . GRAN MAT (NEUT) % 74.4 % (test code = 770-8) IMM GRAN % (test code 0.40 % = 8436847221) LYMPH % (test code = 14.5 % 736-9) MONO % (test code = 8.7 % 5905-5) EOS % (test code = 1.7 % 713-8) BASO % (test code = 0.3 % 706-2) GRAN MAT x10^3(ANC) 5.24 10*3/uL 1.88-7.09 (test code = 4234761685) IMM GRAN x10^3 (test 0.03 10*3/uL 0.00-0.06 code = 8641047122) LYMPH x10^3 (test code 1.02 10*3/uL 1.32-3.29 L = 731-0) MONO x10^3 (test code 0.61 10*3/uL 0.33-0.92 = 742-7) EOS x10^3 (test code = 0.12 10*3/uL 0.03-0.39 711-2) BASO x10^3 (test code <0.03 0.01-0.07 = 704-7) Lab Interpretation Abnormal (test code = 84251-3) [facility] WITH [id number] 13:20:51 Test Item Value Reference Range Interpretation Comments WBC (test code = See_Comment [Automated 6690-2) message] The sy stem which generated this result transmitted reference range : 4.30 - 11.10 10*3/?L. The reference range was not used to interpret this result as normal/abnormal . RBC (test code = See_Comment L [Automated 179-8) message] The sy stem which generated this result transmitted reference range : 3.93 - 5.25 10*6/?L. The reference range was not used to interpret this result as normal/abnormal . HGB (test code = 8.1 g/dL 11.6-15.0 L 718-7) HCT (test code = 25.6 % 35.7-45.2 L 4544-3) MCV (test code = 98.5 fL 80.6-95.5 H 787-2) MCH (test code = 31.2 pg 25.9-32.8 785-6) MCHC (test code = 31.6 g/dL 31.6-35.1 786-4) RDW-SD (test code = 63.2 fL 39.0-49.9 H 54028-9) RDW-CV (test code = 17.9 % 12.0-15.5 H 788-0) PLT (test code = See_Comment L [Automated 777-3) message] The sy stem which generated this result transmitted reference range : 166 - 358 10*3/ ?L. The reference r nati was not used to interpret this result as normal/abnormal . MPV (test code = 10.2 fL 9.5-12.9 84751-2) NRBC/100 WBC (test See_Comment [Automat ed code = 7196513995) message] The system which generated this result transmitted reference range : 0.0 - 10.0 /100 WBCs. The refer ence range was not u sed to interpret th is result as normal/abnormal . NRBC x10^3 (test code <0.01 See_Comment [Auto mated = 6791398426) message] The s ystem which generated this result transmitted reference range : 10*3/?L. The reference range was not used to interpret this result as normal/abnormal . GRAN MAT (NEUT) % 74.4 % (test code = 770-8) IMM GRAN % (test code 0.40 % = 1147812873) LYMPH % (test code = 14.5 % 736-9) MONO % (test code = 8.7 % 5905-5) EOS % (test code = 1.7 % 713-8) BASO % (test code = 0.3 % 706-2) GRAN MAT x10^3(ANC) 5.24 10*3/uL 1.88-7.09 (test code = 1685731197) IMM GRAN x10^3 (test 0.03 10*3/uL 0.00-0.06 code = 8384322404) LYMPH x10^3 (test code 1.02 10*3/uL 1.32-3.29 L = 731-0) MONO x10^3 (test code 0.61 10*3/uL 0.33-0.92 = 742-7) EOS x10^3 (test code = 0.12 10*3/uL 0.03-0.39 711-2) BASO x10^3 (test code <0.03 0.01-0.07 = 704-7) Lab Interpretation Abnormal (test code = 03575-4) [facility] [id number] 06:38:24 Test Item Value Reference Range Interpretation Comments TSH (test code = See_Comment H Biotin has been 9778240853) reported to cau se a negative bias, interpret resul ts relative to pat ient's use of biotin. [Automated mess age] The system [employer] generated this result transmitted ref erence range: 0.45 - 4 .70 mIU/L. The refe rence range was not u sed to interpret this result as normal/abnor mal. Lab Interpretation (test Abnormal code = 77151-8) [facility] [id number] 06:38:24 Test Item Value Reference Range Interpretation Comments TSH (test code = See_Comment H Biotin has been 4697009866) reported to cau se a negative bias, interpret resul ts relative to pat ient's use of biotin. [Automated mess age] The system [employer] generated this result transmitted ref erence range: 0.45 - 4 .70 mIU/L. The refe rence range was not u sed to interpret this result as normal/abnor mal. Lab Interpretation (test Abnormal code = 87555-5) [facility] [id number] 06:38:24 Test Item Value Reference Range Interpretation Comments TSH (test code = See_Comment H Biotin has been 6535457856) reported to cau se a negative bias, interpret resul ts relative to pat ient's use of biotin. [Automated mess age] The system [employer] generated this result transmitted ref erence range: 0.45 - 4 .70 mIU/L. The refe rence range was not u sed to interpret this result as normal/abnor mal. Lab Interpretation (test Abnormal code = 46803-7) [facility] [id number] 06:24:03 Test Item Value Reference Range Interpretation Comments FREE T4 (test code = See_Comment [Autom ated message] 0497872504) The system [employer] generated this result transmitted ref erence range: 0.78 - 2 .20 ng/dL:. The ref erence range was not u sed to interpret this result as normal/abnor mal. Lab Interpretation (test Normal code = 98782-4) [facility] [id number] 06:24:03 Test Item Value Reference Range Interpretation Comments FREE T4 (test code = See_Comment [Autom ated message] 2451615428) The system [employer] generated this result transmitted ref erence range: 0.78 - 2 .20 ng/dL:. The ref erence range was not u sed to interpret this result as normal/abnor mal. Lab Interpretation (test Normal code = 81722-8) [facility] [id number] 06:24:03 Test Item Value Reference Range Interpretation Comments FREE T4 (test code = See_Comment [Autom ated message] 7055957082) The system [employer] generated this result transmitted ref erence range: 0.78 - 2 .20 ng/dL:. The ref erence range was not u sed to interpret this result as normal/abnor mal. Lab Interpretation (test Normal code = 65041-5) [facility] METABOLIC PANEL (NA, K, CL, CO2, GLUCOSE, BUN, CREATININE, CA)2021-06-24 06:08:07 Test Item Value Reference Range Interpretation Comments NA (test code = 134 mmol/L 135-145 L 3868921319) K (test code = 4.1 mmol/L 3.5-5.0 1121646954) CL (test code = 103 mmol/L 98-108 2714795427) CO2 TOTAL (test code = 26 mmol/L 23-31 7066700678) AGAP (test code = 2-16 6228521673) BUN (test code = 46 mg/dL 7-23 H 5388792748) GLUCOSE (test code = 83 mg/dL 70-110 6631191761) CREATININE (test code = 1.32 mg/dL 0.50-1.04 H 7764524958) CALCIUM (test code = 8.0 mg/dL 8.6-10.6 L 4383200021) eGFR (test code = mL/min/1.73m2 5905833774) DYLAN (test code = DYLAN) Association of [...] tests). Lab Interpretation Abnormal (test code = 00677-9) [facility] 06[facility]08:07 Test Item Value Reference Range Interpretation Comments MAGNESIUM (test code = 8290081355) 2.2 mg/dL 1.7-2.4 Lab Interpretation (test code = Normal 99409-4) [facility] (NA, K, CL, CO2, GLUCOSE, BUN, CREATININE, CA)2021-06-24 06:08:07 Test Item Value Reference Range Interpretation Comments NA (test code = 134 mmol/L 135-145 L 0606373323) K (test code = 4.1 mmol/L 3.5-5.0 1636766724) CL (test code = 103 mmol/L 98-108 6066656070) CO2 TOTAL (test code = 26 mmol/L 23-31 3479522582) AGAP (test code = 2-16 4574577654) BUN (test code = 46 mg/dL 7-23 H 4494932702) GLUCOSE (test code = 83 mg/dL 70-110 4612865661) CREATININE (test code = 1.32 mg/dL 0.50-1.04 H 9395995069) CALCIUM (test code = 8.0 mg/dL 8.6-10.6 L 9163974113) eGFR (test code = mL/min/1.73m2 6445761428) DYLAN (test code = DYLAN) Association of [...] tests). Lab Interpretation Abnormal (test code = 25605-6) [facility] Test Item Value Reference Range Interpretation Comments MAGNESIUM (test code = 4564321543) 2.2 mg/dL 1.7-2.4 Lab Interpretation (test code = Normal 93401-9) [facility] METABOLIC PANEL (NA, K, CL, CO2, GLUCOSE, BUN, CREATININE, CA)2021-06-24 06:08:07 Test Item Value Reference Range Interpretation Comments NA (test code = 134 mmol/L 135-145 L 9189704206) K (test code = 4.1 mmol/L 3.5-5.0 3096284293) CL (test code = 103 mmol/L 98-108 5054254513) CO2 TOTAL (test code = 26 mmol/L 23-31 6782429489) AGAP (test code = 2-16 2430593832) BUN (test code = 46 mg/dL 7-23 H [id number]) GLUCOSE (test code = 83 mg/dL 70-110 4456134503) CREATININE (test code = 1.32 mg/dL 0.50-1.04 H 3208308726) CALCIUM (test code = 8.0 mg/dL 8.6-10.6 L 9118260051) eGFR (test code = mL/min/1.73m2 4266003135) DYLAN (test code = DYLAN) Association of [...] tests). Lab Interpretation Abnormal (test code = 45217-4) [facility]07 Test Item Value Reference Range Interpretation Comments MAGNESIUM (test code = 5834065636) 2.2 mg/dL 1.7-2.4 Lab Interpretation (test code = Normal 57583-8) [facility] [id number] 05:13:21 Test Item Value Reference Range Interpretation Comments WBC (test code = 6690-2) See_Comment [A utomated message] The system [employer] generated this result transmit maliha reference range : 4.30 - 11.10 10*3/?L. The reference range was not used to interpret this result as normal/abnormal . RBC (test code = 789-8) See_Comment L [Au tomated message] The system [employer] generated this result transmit maliha reference range : 3.93 - 5.25 10* 6/?L. The reference r nati was not used to interpret this result as normal/abnormal . HGB (test code = 718-7) 8.3 g/dL 11.6-15.0 L HCT (test code = 4544-3) 26.3 % 35.7-45.2 L MCH (test code = 785-6) 30.5 pg 25.9-32.8 MCV (test code = 787-2) 96.7 fL 80.6-95.5 H MCHC (test code = 786-4) 31.6 g/dL 31.6-35.1 PLT (test code = 777-3) See_Comment L [Au tomated message] The system [employer] generated this result transmit maliha reference range : 166 - 358 10*3/?L. The reference range was not used to interpret this result as normal/abnormal . MPV (test code = 10.4 fL 9.5-12.9 10532-5) RDW-CV (test code = 17.5 % 12.0-15.5 H 788-0) RDW-SD (test code = 62.0 fL 39.0-49.9 H 59311-0) NRBC x10^3 (test code = <0.01 See_Comment [Au tomated message] 8335199324) The system [employer] generated this result transmit maliha reference range : 10*3/?L. The reference range was not used to interpret this result as normal/abnormal . NRBC/100 WBC (test code See_Comment [Au tomated message] = 8079833405) The system [facility] generated this result transmit maliha reference range : 0.0 - 10.0 /100 WBC s. The reference r nati was not used to interpret this result as normal/abnormal . IPF % (test code = 8425359923) Lab Interpretation (test Abnormal code = 12552-6) [facility] WITHOUT [id number] 05:13:21 Test Item Value Reference Range Interpretation Comments WBC (test code = 6690-2) See_Comment [A utomated message] The system [facility] generated this result transmit maliha reference range : 4.30 - 11.10 10*3/?L. The reference range was not used to interpret this result as normal/abnormal . RBC (test code = 789-8) See_Comment L [Au tomated message] The system [facility] generated this result transmit maliha reference range : 3.93 - 5.25 10* 6/?L. The reference r nati was not used to interpret this result as normal/abnormal . HGB (test code = 718-7) 8.3 g/dL 11.6-15.0 L HCT (test code = 4544-3) 26.3 % 35.7-45.2 L MCH (test code = 785-6) 30.5 pg 25.9-32.8 MCV (test code = 787-2) 96.7 fL 80.6-95.5 H MCHC (test code = 786-4) 31.6 g/dL 31.6-35.1 PLT (test code = 777-3) See_Comment L [Au tomated message] The system [facility] generated this result transmit maliha reference range : 166 - 358 10*3/?L. The reference range was not used to interpret this result as normal/abnormal . MPV (test code = 10.4 fL 9.5-12.9 40690-5) RDW-CV (test code = 17.5 % 12.0-15.5 H 788-0) RDW-SD (test code = 62.0 fL 39.0-49.9 H 41377-6) NRBC x10^3 (test code = <0.01 See_Comment [Au tomated message] 3647016882) The system [employer] generated this result transmit maliha reference range : 10*3/?L. The reference range was not used to interpret this result as normal/abnormal . NRBC/100 WBC (test code See_Comment [Au tomated message] = 3394179779) The system [facility] generated this result transmit maliha reference range : 0.0 - 10.0 /100 WBC s. The reference r nati was not used to interpret this result as normal/abnormal . IPF % (test code = 2640080377) Lab Interpretation (test Abnormal code = 78245-7) [facility] WITHOUT [id number] 05:13:21 Test Item Value Reference Range Interpretation Comments WBC (test code = 6690-2) See_Comment [A utomated message] The system [employer] generated this result transmit maliha reference range : 4.30 - 11.10 10*3/?L. The reference range was not used to interpret this result as normal/abnormal . RBC (test code = 789-8) See_Comment L [Au tomated message] The system [employer] generated this result transmit maliha reference range : 3.93 - 5.25 10* 6/?L. The reference r nati was not used to interpret this result as normal/abnormal . HGB (test code = 718-7) 8.3 g/dL 11.6-15.0 L HCT (test code = 4544-3) 26.3 % 35.7-45.2 L MCH (test code = 785-6) 30.5 pg 25.9-32.8 MCV (test code = 787-2) 96.7 fL 80.6-95.5 H MCHC (test code = 786-4) 31.6 g/dL 31.6-35.1 PLT (test code = 777-3) See_Comment L [Au tomated message] The system [employer] generated this result transmit maliha reference range : 166 - 358 10*3/?L. The reference range was not used to interpret this result as normal/abnormal . MPV (test code = 10.4 fL 9.5-12.9 77095-0) RDW-CV (test code = 17.5 % 12.0-15.5 H 788-0) RDW-SD (test code = 62.0 fL 39.0-49.9 H 88965-8) NRBC x10^3 (test code = <0.01 See_Comment [Au tomated message] 8629862482) The system [employer] generated this result transmit maliha reference range : 10*3/?L. The reference range was not used to interpret this result as normal/abnormal . NRBC/100 WBC (test code See_Comment [Au tomated message] = 4871666371) The system [facility] generated this result transmit maliha reference range : 0.0 - 10.0 /100 WBC s. The reference r nati was not used to interpret this result as normal/abnormal . IPF % (test code = 5023368290) Lab Interpretation (test Abnormal code = 82750-2) [facility] WITHOUT [id number] 19:46:16 Test Item Value Reference Range Interpretation Comments WBC (test code = 6690-2) See_Comment [A utomated message] The system [employer] generated this result transmit maliha reference range : 4.30 - 11.10 10*3/?L. The reference range was not used to interpret this result as normal/abnormal . RBC (test code = 789-8) See_Comment L [Au tomated message] The system [employer] generated this result transmit maliha reference range : 3.93 - 5.25 10* 6/?L. The reference r nati was not used to interpret this result as normal/abnormal . HGB (test code = 718-7) 7.4 g/dL 11.6-15.0 L HCT (test code = 4544-3) 23.0 % 35.7-45.2 L MCH (test code = 785-6) 31.2 pg 25.9-32.8 MCV (test code = 787-2) 97.0 fL 80.6-95.5 H MCHC (test code = 786-4) 32.2 g/dL 31.6-35.1 PLT (test code = 777-3) See_Comment L [Au tomated message] The system [employer] generated this result transmit maliha reference range : 166 - 358 10*3/?L. The reference range was not used to interpret this result as normal/abnormal . MPV (test code = 10.1 fL 9.5-12.9 52780-5) RDW-CV (test code = 17.2 % 12.0-15.5 H 788-0) RDW-SD (test code = 59.2 fL 39.0-49.9 H 70202-0) NRBC x10^3 (test code = <0.01 See_Comment [Au tomated message] 6425573340) The system [employer] generated this result transmit maliha reference range : 10*3/?L. The reference range was not used to interpret this result as normal/abnormal . NRBC/100 WBC (test code See_Comment [Au tomated message] = 8527301303) The system [facility] generated this result transmit maliha reference range : 0.0 - 10.0 /100 WBC s. The reference r nati was not used to interpret this result as normal/abnormal . IPF % (test code = 8574530252) Lab Interpretation (test Abnormal code = 17327-3) [facility] WITHOUT [id number] 19:46:16 Test Item Value Reference Range Interpretation Comments WBC (test code = 6690-2) See_Comment [A utomated message] The system [facility] generated this result transmit maliha reference range : 4.30 - 11.10 10*3/?L. The reference range was not used to interpret this result as normal/abnormal . RBC (test code = 789-8) See_Comment L [Au tomated message] The system [facility] generated this result transmit maliha reference range : 3.93 - 5.25 10* 6/?L. The reference r nati was not used to interpret this result as normal/abnormal . HGB (test code = 718-7) 7.4 g/dL 11.6-15.0 L HCT (test code = 4544-3) 23.0 % 35.7-45.2 L MCH (test code = 785-6) 31.2 pg 25.9-32.8 MCV (test code = 787-2) 97.0 fL 80.6-95.5 H MCHC (test code = 786-4) 32.2 g/dL 31.6-35.1 PLT (test code = 777-3) See_Comment L [Au tomated message] The system [facility] generated this result transmit maliha reference range : 166 - 358 10*3/?L. The reference range was not used to interpret this result as normal/abnormal . MPV (test code = 10.1 fL 9.5-12.9 24911-9) RDW-CV (test code = 17.2 % 12.0-15.5 H 788-0) RDW-SD (test code = 59.2 fL 39.0-49.9 H 16461-5) NRBC x10^3 (test code = <0.01 See_Comment [Au tomated message] 1149465591) The system [facility] generated this result transmit maliha reference range : 10*3/?L. The reference range was not used to interpret this result as normal/abnormal . NRBC/100 WBC (test code See_Comment [Au tomated message] = 3346288072) The system [facility] generated this result transmit maliha reference range : 0.0 - 10.0 /100 WBC s. The reference r nati was not used to interpret this result as normal/abnormal . IPF % (test code = 4005031706) Lab Interpretation (test Abnormal code = 01873-4) [facility] WITHOUT [id number] 19:46:16 Test Item Value Reference Range Interpretation Comments WBC (test code = 6690-2) See_Comment [A utomated message] The system [facility] generated this result transmit malhia reference range : 4.30 - 11.10 10*3/?L. The reference range was not used to interpret this result as normal/abnormal . RBC (test code = 789-8) See_Comment L [Au tomated message] The system [facility] generated this result transmit maliha reference range : 3.93 - 5.25 10* 6/?L. The reference r nati was not used to interpret this result as normal/abnormal . HGB (test code = 718-7) 7.4 g/dL 11.6-15.0 L HCT (test code = 4544-3) 23.0 % 35.7-45.2 L MCH (test code = 785-6) 31.2 pg 25.9-32.8 MCV (test code = 787-2) 97.0 fL 80.6-95.5 H MCHC (test code = 786-4) 32.2 g/dL 31.6-35.1 PLT (test code = 777-3) See_Comment L [Au tomated message] The system [facility] generated this result transmit maliha reference range : 166 - 358 10*3/?L. The reference range was not used to interpret this result as normal/abnormal . MPV (test code = 10.1 fL 9.5-12.9 29099-8) RDW-CV (test code = 17.2 % 12.0-15.5 H 788-0) RDW-SD (test code = 59.2 fL 39.0-49.9 H 44585-2) NRBC x10^3 (test code = <0.01 See_Comment [Au tomated message] 9936677814) The system [facility] generated this result transmit maliha reference range : 10*3/?L. The reference range was not used to interpret this result as normal/abnormal . NRBC/100 WBC (test code See_Comment [Au tomated message] = 8183588649) The system [facility] generated this result transmit maliha reference range : 0.0 - 10.0 /100 WBC s. The reference r nati was not used to interpret this result as normal/abnormal . IPF % (test code = 0217325585) Lab Interpretation (test Abnormal code = 84022-6) [facility] Packed RBC (in units), 1 Units 2021-06-23 14:47:57 Test Item Value Reference Range Interpretation Comments Cross Match Result Compatible (test code = 4409) ISBT Blood Type Code (test code = 509560) Unit Blood Type (test O Pos code = 4410) Unit Number (test [id number] code = 4411) Blood Expiration Date & Time (test code = 177035) Status Information Issued (test code = 4412) Product Red Blood Cells Identification (test code = 4413) Product Code (test X4411V11 Performed at [facility] code = 4414) Laboratory Services [facility] Blood [address] [address]Fupj Free: [phone] A No. [id number] [facility] Packed RBC (in units), 1 Units 2021-06-23 14:47:57 Test Item Value Reference Range Interpretation Comments Cross Match Result Compatible (test code = 4409) ISBT Blood Type Code (test code = 414497) Unit Blood Type (test O Pos code = 4410) Unit Number (test [id number] code = 4411) Blood Expiration Date & Time (test code = 172988) Status Information Issued (test code = 4412) Product Red Blood Cells Identification (test code = 4413) Product Code (test X4876I39 Performed at [facility] code = 4414) Laboratory Services - [facility] Blood [address] [address]Yilp Free: [phone] A No. [id number] [facility] Packed RBC (in units), 1 Units 2021-06-23 14:47:57 Test Item Value Reference Range Interpretation Comments Cross Match Result Compatible (test code = 4409) ISBT Blood Type Code (test code = 132428) Unit Blood Type (test O Pos code = 4410) Unit Number (test [id number] code = 4411) Blood Expiration Date & Time (test code = 760952) Status Information Issued (test code = 4412) Product Red Blood Cells Identification (test code = 4413) Product Code (test I7826A89 Performed at [facility] code = 4414) Laboratory Services [facility] Blood [address] [address]Ssam Free: [phone] A No. [id number] [facility]TRAN[facility] [id number] 14:06:41 Test Item Value Reference Interpretation Comments Range TROPONIN I (test 0.011 ng/mL See_Comment [Automated code = 5045747630) message] The system which generated this result [...] biotin. Lab Interpretation Normal (test code = 54997-0) [facility] [id number] 14:06:41 Test Item Value Reference Interpretation Comments Range TROPONIN I (test 0.011 ng/mL See_Comment [Automated code = 1204159314) message] The system which generated this result [...] biotin. Lab Interpretation Normal (test code = 02144-7) [facility] [id number] 14:06:41 Test Item Value Reference Interpretation Comments Range TROPONIN I (test 0.011 ng/mL See_Comment [Automated code = 7382408338) message] The system which generated this result [...] biotin. Lab Interpretation Normal (test code = 40259-3) [facility] Confirmation (Lab Only)2021-06-23 13:41:20 Test Item Value Reference Range Interpretation Comments ABO & RH (test code O Positive Performe d at [facility] = 20) Laboratory [facility] Blood [facility] [place] [address]Renj Free: [phone] A No. [id number] [facility] Confirmation (Lab Only)2021-06-23 13:41:20 Test Item Value Reference Range Interpretation Comments ABO & RH (test code O Positive Performe d at [facility] = 20) Laboratory [facility] [place] [address] s [address]Pbbq Free: [phone] A No. [id number] [facility] Confirmation (Lab Only)2021-06-23 13:41:20 Test Item Value Reference Range Interpretation Comments ABO & RH (test code O Positive Performe d at [facility] = 20) Laboratory [facility] [place] [address] s [address]Rukw Free: [phone] A No. [id number] [facility] Screen - ONCE [id number] 12:25:55 Test Item Value Reference Range Interpretation Comments ABO & RH (test code O POSITIVE Performe d at [facility] = 20) Laboratory [facility] [place] [address] s [address]Avxh Free: [phone] A No. [id number] IAT (test code = Negative Performed a t [facility] 1185) Laboratory [facility] [place] [address] s [address]Dnpz Free: [phone] A No. [id number] [facility] - ONCE [id number] 12:25:55 Test Item Value Reference Range Interpretation Comments ABO & RH (test code O POSITIVE Performe d at [facility] = 20) Laboratory [facility] Blood [address] [address]Ceez Free: [phone] A No. [id number] IAT (test code = Negative Performed a t [facility] 1185) Laboratory [facility] Blood [address] [address]Cjty Free: [phone] A No. [id number] [facility] - ONCE [id number] 12:25:55 Test Item Value Reference Range Interpretation Comments ABO & RH (test code O POSITIVE Performe d at [facility] = 20) Laboratory [facility] Blood [address] [address]Dlwz Free: [phone] A No. [id number] IAT (test code = Negative Performed a t [facility] 1185) Laboratory [facility] Blood [address] [address]Qsyf Free: [phone] A No. [id number] [facility]PHOSPHORUS2022-[facility]-03 12:08:12 Test Item Value Reference Range Interpretation Comments PHOSPHORUS (test code = 1972648481) 4.1 mg/dL 2.5-5.0 Lab Interpretation (test code = Normal 48651-5) [facility] 12:08:12 Test Item Value Reference Range Interpretation Comments MAGNESIUM (test code = 5154860066) 2.2 mg/dL 1.7-2.4 Lab Interpretation (test code = Normal 54437-7) [facility] (NA, K, CL, CO2, GLUCOSE, BUN, CREATININE, CA)2021-06-23 12:08:12 Test Item Value Reference Range Interpretation Comments NA (test code = 134 mmol/L 135-145 L 2463676016) K (test code = 3.7 mmol/L 3.5-5.0 3071050476) CL (test code = 100 mmol/L 98-108 3829726918) CO2 TOTAL (test code = 27 mmol/L 23-31 5415066077) AGAP (test code = 2-16 9146793222) BUN (test code = 59 mg/dL 7-23 H 9392153072) GLUCOSE (test code = 95 mg/dL 70-110 9148664405) CREATININE (test code = 1.47 mg/dL 0.50-1.04 H 9802922755) CALCIUM (test code = 8.7 mg/dL 8.6-10.6 8957946072) eGFR (test code = mL/min/1.73m2 1720008075) DYLAN (test code = DYLAN) Association of [...] tests). Lab Interpretation Abnormal (test code = 28796-5) [facility] (87367) (ALB,T.PRO,BILI T,BU/BC,ALT,AST,ALK PHOS)2021-06-23 12:08:12 Test Item Value Reference Range Interpretation Comments TOTAL BILI (test code = 1332818774) 1.1 mg/dL 0.1-1.1 BILI UNCON (test code = 9953682716) 0.9 mg/dL 0.1-1.1 BILI CONJ (test code = 6103747213) 0.0 mg/dL 0.0-0.3 T PROTEIN (test code = 7731326129) 6.2 g/dL 6.3-8.2 L ALBUMIN (test code = 5643605423) 3.6 g/dL 3.5-5.0 ALK PHOS (test code = 3294284485) 40 U/L 34-122 ALTv (test code = 1742-6) 14 U/L 5-35 AST(SGOT) (test code = 0743477800) 26 U/L 13-40 Lab Interpretation (test code = Abnormal 32828-3) [facility]2022[facility] 12:08:12 Test Item Value Reference Range Interpretation Comments PHOSPHORUS (test code = 7917812750) 4.1 mg/dL 2.5-5.0 Lab Interpretation (test code = Normal 12777-7) [facility]20[facility] 12:08:12 Test Item Value Reference Range Interpretation Comments MAGNESIUM (test code = 6017041462) 2.2 mg/dL 1.7-2.4 Lab Interpretation (test code = Normal 66623-5) [facility] (NA, K, CL, CO2, GLUCOSE, BUN, CREATININE, CA)2021-06-23 12:08:12 Test Item Value Reference Range Interpretation Comments NA (test code = 134 mmol/L 135-145 L 5833383344) K (test code = 3.7 mmol/L 3.5-5.0 7836475565) CL (test code = 100 mmol/L 98-108 6980926478) CO2 TOTAL (test code = 27 mmol/L 23-31 2729221631) AGAP (test code = 2-16 4063019797) BUN (test code = 59 mg/dL 7-23 H 8638635936) GLUCOSE (test code = 95 mg/dL 70-110 6764491248) CREATININE (test code = 1.47 mg/dL 0.50-1.04 H 0227874954) CALCIUM (test code = 8.7 mg/dL 8.6-10.6 0305711403) eGFR (test code = mL/min/1.73m2 4601023456) DYLAN (test code = DYLAN) Association of [...] tests). Lab Interpretation Abnormal (test code = 94043-9) [facility] FUN[facility] (21170) (ALB,T.PRO,BILI T,BU/BC,ALT,AST,ALK PHOS)2021-06-23 12:08:12 Test Item Value Reference Range Interpretation Comments TOTAL BILI (test code = 1915783250) 1.1 mg/dL 0.1-1.1 BILI UNCON (test code = 6062475364) 0.9 mg/dL 0.1-1.1 BILI CONJ (test code = 4806382780) 0.0 mg/dL 0.0-0.3 T PROTEIN (test code = 3228365368) 6.2 g/dL 6.3-8.2 L ALBUMIN (test code = 0259756060) 3.6 g/dL 3.5-5.0 ALK PHOS (test code = 6874800802) 40 U/L 34-122 ALTv (test code = 1742-6) 14 U/L 5-35 AST(SGOT) (test code = 6714870248) 26 U/L 13-40 Lab Interpretation (test code = Abnormal 71663-7) [facility] 12:08:12 Test Item Value Reference Range Interpretation Comments PHOSPHORUS (test code = 7466879367) 4.1 mg/dL 2.5-5.0 Lab Interpretation (test code = Normal 93229-7) [facility] 12:08:12 Test Item Value Reference Range Interpretation Comments MAGNESIUM (test code = 2102027342) 2.2 mg/dL 1.7-2.4 Lab Interpretation (test code = Normal 20644-2) [facility] (NA, K, CL, CO2, GLUCOSE, BUN, CREATININE, CA)2021-06-23 12:08:12 Test Item Value Reference Range Interpretation Comments NA (test code = 134 mmol/L 135-145 L 2371848417) K (test code = 3.7 mmol/L 3.5-5.0 8150250217) CL (test code = 100 mmol/L 98-108 8998087864) CO2 TOTAL (test code = 27 mmol/L 23-31 4187109850) AGAP (test code = 2-16 0006745165) BUN (test code = 59 mg/dL 7-23 H 2930085416) GLUCOSE (test code = 95 mg/dL 70-110 0008209914) CREATININE (test code = 1.47 mg/dL 0.50-1.04 H 3698222287) CALCIUM (test code = 8.7 mg/dL 8.6-10.6 0900379763) eGFR (test code = mL/min/1.73m2 4369925913) DYLAN (test code = DYLAN) Association of [...] tests). Lab Interpretation Abnormal (test code = 98110-5) [facility] FUN[facility] (27136) (ALB,T.PRO,BILI T,BU/BC,ALT,AST,ALK PHOS)2021-06-23 12:08:12 Test Item Value Reference Range Interpretation Comments TOTAL BILI (test code = 1952026492) 1.1 mg/dL 0.1-1.1 BILI UNCON (test code = 2050143302) 0.9 mg/dL 0.1-1.1 BILI CONJ (test code = 7955986502) 0.0 mg/dL 0.0-0.3 T PROTEIN (test code = 9456498248) 6.2 g/dL 6.3-8.2 L ALBUMIN (test code = 3872407805) 3.6 g/dL 3.5-5.0 ALK PHOS (test code = 3134125991) 40 U/L 34-122 ALTv (test code = 1742-6) 14 U/L 5-35 AST(SGOT) (test code = 2002722095) 26 U/L 13-40 Lab Interpretation (test code = Abnormal 36979-2) [facility] PasoPROTHROMBIN TIME / [id number] 11:37:53 Test Item Value Reference Range Interpretation Comments PROTIME PATIENT (test See_Comment H [Auto mated message] code = 5964-2) The system [email or web address] generated this result transmitted ref erence range: 10.1 - 1 2.6 Seconds. The reference range was not used to int erpret this result as normal/abnormal . INR (test code = 6301-6) Nor mal INR <1.1; Warfarin Therap eutic range 2.0 to 3. 0 or 2.5 to 3.5, dep ending upon the indica tions. Lab Interpretation (test Abnormal code = 41192-7) [facility] PasoPROTHROMBIN TIME / [id number] 11:37:53 Test Item Value Reference Range Interpretation Comments PROTIME PATIENT (test See_Comment H [Auto mated message] code = 5964-2) The system [email or web address] generated this result transmitted ref erence range: 10.1 - 1 2.6 Seconds. The reference range was not used to int erpret this result as normal/abnormal . INR (test code = 6301-6) Nor mal INR <1.1; Warfarin Therap eutic range 2.0 to 3. 0 or 2.5 to 3.5, dep ending upon the indica tions. Lab Interpretation (test Abnormal code = 01333-2) [facility] PasoPROTHROMBIN TIME / [id number] 11:37:53 Test Item Value Reference Range Interpretation Comments PROTIME PATIENT (test See_Comment H [Auto mated message] code = 5964-2) The system wh ich generated this result transmitted ref erence range: 10.1 - 1 2.6 Seconds. The reference range was not used to int erpret this result as normal/abnormal . INR (test code = 6301-6) Nor mal INR <1.1; Warfarin Therap eutic range 2.0 to 3. 0 or 2.5 to 3.5, dep ending upon the indica tions. Lab Interpretation (test Abnormal code = 76733-8) [facility] WITH [id number] 11:32:31 Test Item Value Reference Range Interpretation Comments [...] as normal/abnormal . HGB (test code = 6.7 g/dL 11.6-15.0 L 718-7) HCT (test code = 21.1 % 35.7-45.2 L 4544-3) MCV (test code = 98.1 fL 80.6-95.5 H 787-2) MCH (test code = 31.2 pg 25.9-32.8 785-6) MCHC (test code = 31.8 g/dL 31.6-35.1 786-4) RDW-SD (test code = 57.4 fL 39.0-49.9 H 46371-8) RDW-CV (test code = 16.2 % 12.0-15.5 H 788-0) PLT (test code = See_Comment L [Automated 777-3) message] The sy stem which generated this result transmitted reference range : 166 - 358 10*3/ ?L. The reference r nati was not used to interpret this result as normal/abnormal . MPV (test code = 10.3 fL 9.5-12.9 54005-6) NRBC/100 WBC (test See_Comment [Automat ed code = 4393105514) message] The system which generated this result transmitted reference range : 0.0 - 10.0 /100 WBCs. The refer ence range was not u sed to interpret th is result as normal/abnormal . NRBC x10^3 (test code <0.01 See_Comment [Auto mated = 4653535785) message] The s ystem which generated this result transmitted reference range : 10*3/?L. The reference range was not used to interpret this result as normal/abnormal . GRAN MAT (NEUT) % 74.8 % (test code = 770-8) IMM GRAN % (test code 0.50 % = 0539527336) LYMPH % (test code = 15.1 % 736-9) MONO % (test code = 9.0 % 5905-5) EOS % (test code = 0.3 % 713-8) BASO % (test code = 0.3 % 706-2) GRAN MAT x10^3(ANC) 5.55 10*3/uL 1.88-7.09 (test code = 9265749886) IMM GRAN x10^3 (test 0.04 10*3/uL 0.00-0.06 code = 1778230674) LYMPH x10^3 (test code 1.12 10*3/uL 1.32-3.29 L = 731-0) MONO x10^3 (test code 0.67 10*3/uL 0.33-0.92 = 742-7) EOS x10^3 (test code = <0.03 0.03-0.39 L 711-2) BASO x10^3 (test code <0.03 0.01-0.07 = 704-7) Lab Interpretation Abnormal (test code = 92123-5) [facility] WITH [id number] 11:32:31 Test Item Value Reference Range Interpretation Comments WBC (test code = See_Comment [Automated 1990-2) message] The sy stem which generated this result transmitted reference range : 4.30 - 11.10 10*3/?L. The reference range was not used to interpret this result as normal/abnormal . RBC (test code = See_Comment L [Automated 379-8) message] The sy stem which generated this result transmitted reference range : 3.93 - 5.25 10*6/?L. The reference range was not used to interpret this result as normal/abnormal . HGB (test code = 6.7 g/dL 11.6-15.0 L 718-7) HCT (test code = 21.1 % 35.7-45.2 L 4544-3) MCV (test code = 98.1 fL 80.6-95.5 H 787-2) MCH (test code = 31.2 pg 25.9-32.8 785-6) MCHC (test code = 31.8 g/dL 31.6-35.1 786-4) RDW-SD (test code = 57.4 fL 39.0-49.9 H 14102-1) RDW-CV (test code = 16.2 % 12.0-15.5 H 788-0) PLT (test code = See_Comment L [Automated 777-3) message] The sy stem which generated this result transmitted reference range : 166 - 358 10*3/ ?L. The reference r nati was not used to interpret this result as normal/abnormal . MPV (test code = 10.3 fL 9.5-12.9 09408-1) NRBC/100 WBC (test See_Comment [Automat ed code = 4133929753) message] The system which generated this result transmitted reference range : 0.0 - 10.0 /100 WBCs. The refer ence range was not u sed to interpret th is result as normal/abnormal . NRBC x10^3 (test code <0.01 See_Comment [Auto mated = 4405876064) message] The s ystem which generated this result transmitted reference range : 10*3/?L. The reference range was not used to interpret this result as normal/abnormal . GRAN MAT (NEUT) % 74.8 % (test code = 770-8) IMM GRAN % (test code 0.50 % = 6693753651) LYMPH % (test code = 15.1 % 736-9) MONO % (test code = 9.0 % 5905-5) EOS % (test code = 0.3 % 713-8) BASO % (test code = 0.3 % 706-2) GRAN MAT x10^3(ANC) 5.55 10*3/uL 1.88-7.09 (test code = 2388731133) IMM GRAN x10^3 (test 0.04 10*3/uL 0.00-0.06 code = 4698137945) LYMPH x10^3 (test code 1.12 10*3/uL 1.32-3.29 L = 731-0) MONO x10^3 (test code 0.67 10*3/uL 0.33-0.92 = 742-7) EOS x10^3 (test code = <0.03 0.03-0.39 L 711-2) BASO x10^3 (test code <0.03 0.01-0.07 = 704-7) Lab Interpretation Abnormal (test code = 57466-5) [facility] WITH [id number] 11:32:31 Test Item Value Reference Range Interpretation Comments [...] as normal/abnormal . HGB (test code = 6.7 g/dL 11.6-15.0 L 718-7) HCT (test code = 21.1 % 35.7-45.2 L 4544-3) MCV (test code = 98.1 fL 80.6-95.5 H 787-2) MCH (test code = 31.2 pg 25.9-32.8 785-6) MCHC (test code = 31.8 g/dL 31.6-35.1 786-4) RDW-SD (test code = 57.4 fL 39.0-49.9 H 02864-9) RDW-CV (test code = 16.2 % 12.0-15.5 H 788-0) PLT (test code = See_Comment L [Automated 777-3) message] The sy stem which generated this result transmitted reference range : 166 - 358 10*3/ ?L. The reference r nati was not used to interpret this result as normal/abnormal . MPV (test code = 10.3 fL 9.5-12.9 69250-2) NRBC/100 WBC (test See_Comment [Automat ed code = 9813179784) message] The system which generated this result transmitted reference range : 0.0 - 10.0 /100 WBCs. The refer ence range was not u sed to interpret th is result as normal/abnormal . NRBC x10^3 (test code <0.01 See_Comment [Auto mated = 9774983848) message] The s ystem which generated this result transmitted reference range : 10*3/?L. The reference range was not used to interpret this result as normal/abnormal . GRAN MAT (NEUT) % 74.8 % (test code = 770-8) IMM GRAN % (test code 0.50 % = 6883110942) LYMPH % (test code = 15.1 % 736-9) MONO % (test code = 9.0 % 5905-5) EOS % (test code = 0.3 % 713-8) BASO % (test code = 0.3 % 706-2) GRAN MAT x10^3(ANC) 5.55 10*3/uL 1.88-7.09 (test code = 6499261851) IMM GRAN x10^3 (test 0.04 10*3/uL 0.00-0.06 code = 8918958960) LYMPH x10^3 (test code 1.12 10*3/uL 1.32-3.29 L = 731-0) MONO x10^3 (test code 0.67 10*3/uL 0.33-0.92 = 742-7) EOS x10^3 (test code = <0.03 0.03-0.39 L 711-2) BASO x10^3 (test code <0.03 0.01-0.07 = 704-7) Lab Interpretation Abnormal (test code = 67161-6) [facility] [id number] 09:15:00 Test Item Value Reference Range Interpretation Comments SODIUM (test code = NA) 134 mmol/L 134-147 N POTASSIUM (test code = K) 4.0 mmol/L 3.4-5.0 N CHLORIDE (test code = CL) 96 mmol/L 100-108 L CARBON DIOXIDE (test code = CO2) 34 mmol/L 21-32 H ANION GAP (test code = GAP) 4.0 GAP calc 4.0-15.0 N GLUCOSE (test code = GLU) 87 MG/DL 70-110 N BLOOD UREA NITROGEN (test code = 40 MG/DL 7-18 H BUN) GLOMERULAR FILTRATION RATE (test 42 estGFR >60 L code = GFR) CREATININE (test code = CREAT) 1.3 MG/DL 0.6-1.0 H CALCIUM (test code = CA) 8.4 MG/DL 8.5-10.1 L BASIC METABOLIC PANEL (NA, K, CL, CO2, GLUCOSE, BUN, CREATININE, CA)2021-03-01 13:01:42 Test Item Value Reference Range Interpretation Comments NA (test code = 131 mmol/L 135-145 L 2716558693) K (test code = 4.9 mmol/L 3.5-5.0 2573419091) CL (test code = 82 mmol/L 98-108 L 4776957039) CO2 TOTAL (test code = 43 mmol/L 23-31 H 5072205226) AGAP (test code = 2-16 5674256711) BUN (test code = 42 mg/dL 7-23 H 9010529271) GLUCOSE (test code = 103 mg/dL 70-110 9135149597) CREATININE (test code = 1.05 mg/dL 0.50-1.04 H 5295854250) CALCIUM (test code = 9.3 mg/dL 8.6-10.6 3706767992) eGFR (test code = mL/min/1.73m2 4934959172) DYLAN (test code = DYLAN) Association of [...] tests). Lab Interpretation Abnormal (test code = 77994-5) [facility] 12:45:45 Test Item Value Reference Range Interpretation Comments MAGNESIUM (test code = 7324679095) 2.1 mg/dL 1.7-2.4 Lab Interpretation (test code = Normal 17367-2) [facility] WITH [id number] 12:44:49 Test Item Value Reference Range Interpretation Comments WBC (test code = See_Comment [Automated 2290-2) message] The sy stem which generated this result transmitted reference range : 4.30 - 11.10 10*3/?L. The reference range was not used to interpret this result as normal/abnormal . RBC (test code = See_Comment L [Automated 419-8) message] The sy stem which generated this [...] RDW-SD (test code = 48.2 fL 39.0-49.9 59992-2) RDW-CV (test code = 13.3 % 12.0-15.5 788-0) PLT (test code = See_Comment L [Automated 777-3) message] The sy stem which generated this result transmitted reference range : 166 - 358 10*3/ ?L. The reference r nati was not used to interpret this result as normal/abnormal . MPV (test code = 11.3 fL 9.5-12.9 66969-3) IPF % (test code = 4.4 % 1.3-7.7 Platelet count 6372943659) measured by fluorescence method. NRBC/100 WBC (test See_Comment [Automat ed code = 5871843747) message] The system which generated this result transmitted reference range : 0.0 - 10.0 /100 WBCs. The refer ence range was not u sed to interpret th is result as normal/abnormal . NRBC x10^3 (test code <0.01 See_Comment [Auto mated = 2433293002) message] The s ystem which generated this result transmitted reference range : 10*3/?L. The reference range was not used to interpret this result as normal/abnormal . GRAN MAT (NEUT) % 81.0 % (test code = 770-8) IMM GRAN % (test code 0.70 % = 8913573357) LYMPH % (test code = 7.1 % 736-9) MONO % (test code = 8.5 % 5905-5) EOS % (test code = 2.6 % 713-8) BASO % (test code = 0.1 % 706-2) GRAN MAT x10^3(ANC) 6.12 10*3/uL 1.88-7.09 (test code = 6431809416) IMM GRAN x10^3 (test 0.05 10*3/uL 0.00-0.06 code = 7405058125) LYMPH x10^3 (test code 0.54 10*3/uL 1.32-3.29 L = 731-0) MONO x10^3 (test code 0.64 10*3/uL 0.33-0.92 = 742-7) EOS x10^3 (test code = 0.20 10*3/uL 0.03-0.39 711-2) BASO x10^3 (test code <0.03 0.01-0.07 = 704-7) Lab Interpretation Abnormal (test code = 85940-7) [id number] 17:56:00 Test Item Value Reference Range Interpretation Comments NT-proBNP (test code 2460 pg/mL See_Comment H [Autom ated = 2411004304) message] The system which generated this result transmitted reference range : <=450. The reference range was not used to interpret this result as normal/abnormal . DYLAN (test code = DYLAN) Biotin has been reported to cause a negative bias, interpret results relative to patient's use of biotin. Lab Interpretation Abnormal (test code = 79450-9) [facility] METABOLIC PANEL (NA, K, CL, CO2, GLUCOSE, BUN, CREATININE, CA)2021-02-28 13:09:46 Test Item Value Reference Range Interpretation Comments NA (test code = 132 mmol/L 135-145 L 4891452814) K (test code = 4.2 mmol/L 3.5-5.0 4263320514) CL (test code = 84 mmol/L 98-108 L 3707763327) CO2 TOTAL (test code = 46 mmol/L 23-31 H 9150770603) AGAP (test code = 2-16 0700197754) BUN (test code = 41 mg/dL 7-23 H 0118450171) GLUCOSE (test code = 94 mg/dL 70-110 6023100378) CREATININE (test code = 1.13 mg/dL 0.50-1.04 H 9535660188) CALCIUM (test code = 8.8 mg/dL 8.6-10.6 7935632324) eGFR (test code = mL/min/1.73m2 4661855619) DYLAN (test code = DYLAN) Association of [...] tests). Lab Interpretation Abnormal (test code = 08714-1) [facility] 17:25:18 Test Item Value Reference Range Interpretation Comments FOLATE SER (test code = 5.9 ng/mL 3.0-20.0 Biot in has been 9685797717) reported to cau se a positive bias, interpret resul ts relative to patient's use o f biotin. Lab Interpretation (test Normal code = 00232-1) [facility] (NA, K, CL, CO2, GLUCOSE, BUN, CREATININE, CA)2021-02-27 12:45:07 Test Item Value Reference Range Interpretation Comments NA (test code = 133 mmol/L 135-145 L 3861840523) K (test code = 4.2 mmol/L 3.5-5.0 1213114325) CL (test code = 84 mmol/L 98-108 L 0085840414) CO2 TOTAL (test code = 43 mmol/L 23-31 H 3382927847) AGAP (test code = 2-16 4474593930) BUN (test code = 44 mg/dL 7-23 H 9099381650) GLUCOSE (test code = 89 mg/dL 70-110 7363072055) CREATININE (test code = 1.15 mg/dL 0.50-1.04 H 2269484236) CALCIUM (test code = 8.7 mg/dL 8.6-10.6 7984654079) eGFR (test code = mL/min/1.73m2 7568936833) DYLAN (test code = DYLAN) Association of [...] tests). Lab Interpretation Abnormal (test code = 88694-2) [facility] WITH [id number] 11:50:40 Test Item Value Reference Range Interpretation [...] RDW-SD (test code = 49.5 fL 39.0-49.9 38173-2) RDW-CV (test code = 13.2 % 12.0-15.5 788-0) PLT (test code = See_Comment L [Automated 777-3) message] The sy stem which generated this result transmitted reference range : 166 - 358 10*3/ ?L. The reference r nati was not used to interpret this result as normal/abnormal . MPV (test code = 12.4 fL 9.5-12.9 25570-2) NRBC/100 WBC (test See_Comment [Automat ed code = 8243167461) message] The system which generated this result transmitted reference range : 0.0 - 10.0 /100 WBCs. The refer ence range was not u sed to interpret th is result as normal/abnormal . NRBC x10^3 (test code <0.01 See_Comment [Auto mated = 1902515064) message] The s ystem which generated this result transmitted reference range : 10*3/?L. The reference range was not used to interpret this result as normal/abnormal . GRAN MAT (NEUT) % 83.8 % (test code = 770-8) IMM GRAN % (test code 0.80 % = 7409893072) LYMPH % (test code = 5.2 % 736-9) MONO % (test code = 8.0 % 5905-5) EOS % (test code = 2.1 % 713-8) BASO % (test code = 0.1 % 706-2) GRAN MAT x10^3(ANC) 6.39 10*3/uL 1.88-7.09 (test code = 1399315772) IMM GRAN x10^3 (test 0.06 10*3/uL 0.00-0.06 code = 4852176406) LYMPH x10^3 (test code 0.40 10*3/uL 1.32-3.29 L = 731-0) MONO x10^3 (test code 0.61 10*3/uL 0.33-0.92 = 742-7) EOS x10^3 (test code = 0.16 10*3/uL 0.03-0.39 711-2) BASO x10^3 (test code <0.03 0.01-0.07 = 704-7) Lab Interpretation Abnormal (test code = 94884-7) [facility] WITH [id number] 14:18:05 Test Item Value Reference Range Interpretation [...] (test code = 50.0 fL 39.0-49.9 H 25097-7) RDW-CV (test code = 13.4 % 12.0-15.5 788-0) PLT (test code = See_Comment L [Automated 777-3) message] The sy stem which generated this result transmitted reference range : 166 - 358 10*3/ ?L. The reference r nati was not used to interpret this result as normal/abnormal . MPV (test code = 11.6 fL 9.5-12.9 59142-8) IPF % (test code = 4.5 % 1.3-7.7 Platelet count 8847017396) measured by fluorescence method. NRBC/100 WBC (test See_Comment [Automat ed code = 6888861809) message] The system which generated this result transmitted reference range : 0.0 - 10.0 /100 WBCs. The refer ence range was not u sed to interpret th is result as normal/abnormal . NRBC x10^3 (test code <0.01 See_Comment [Auto mated = 8566102905) message] The s ystem which generated this result transmitted reference range : 10*3/?L. The reference range was not used to interpret this result as normal/abnormal . GRAN MAT (NEUT) % 80.2 % (test code = 770-8) IMM GRAN % (test code 1.40 % = 3689365376) LYMPH % (test code = 7.8 % 736-9) MONO % (test code = 9.4 % 5905-5) EOS % (test code = 1.1 % 713-8) BASO % (test code = 0.1 % 706-2) GRAN MAT x10^3(ANC) 6.42 10*3/uL 1.88-7.09 (test code = 4849398227) IMM GRAN x10^3 (test 0.11 10*3/uL 0.00-0.06 H code = 8457649895) LYMPH x10^3 (test code 0.62 10*3/uL 1.32-3.29 L = 731-0) MONO x10^3 (test code 0.75 10*3/uL 0.33-0.92 = 742-7) EOS x10^3 (test code = 0.09 10*3/uL 0.03-0.39 711-2) BASO x10^3 (test code <0.03 0.01-0.07 = 704-7) HYPERSEG NEUTS (test Present See_Comment A [Autom ated code = 765-8) message] The [employer] which generated this result transmitted reference range : (none). The reference range was not used to interpret this result as normal/abnormal . Lab Interpretation Abnormal (test code = 34796-0) [facility] METABOLIC PANEL (NA, K, CL, CO2, GLUCOSE, BUN, CREATININE, CA)2021-02-26 13:21:25 Test Item Value Reference Range Interpretation Comments NA (test code = 134 mmol/L 135-145 L 5854052793) K (test code = 3.9 mmol/L 3.5-5.0 8603848450) CL (test code = 86 mmol/L 98-108 L 7153292086) CO2 TOTAL (test code = 44 mmol/L 23-31 H 2473268704) AGAP (test code = 2-16 1322284158) BUN (test code = 44 mg/dL 7-23 H 5619011289) GLUCOSE (test code = 89 mg/dL 70-110 5624002267) CREATININE (test code = 1.25 mg/dL 0.50-1.04 H 0667201906) CALCIUM (test code = 8.9 mg/dL 8.6-10.6 8955087335) eGFR (test code = mL/min/1.73m2 1155379288) DYLAN (test code = DYLAN) Association of [...] tests). Lab Interpretation Abnormal (test code = 07312-7) [facility] METABOLIC PANEL (NA, K, CL, CO2, GLUCOSE, BUN, CREATININE, CA)2021-02-25 13:41:42 Test Item Value Reference Range Interpretation Comments NA (test code = 135 mmol/L 135-145 6930494228) K (test code = 3.9 mmol/L 3.5-5.0 7846851705) CL (test code = 90 mmol/L 98-108 L 0881486137) CO2 TOTAL (test code = 41 mmol/L 23-31 H 7787401848) AGAP (test code = 2-16 6592612305) BUN (test code = 40 mg/dL 7-23 H 9783076006) GLUCOSE (test code = 90 mg/dL 70-110 3183214513) CREATININE (test code = 1.13 mg/dL 0.50-1.04 H 5914924836) CALCIUM (test code = 8.9 mg/dL 8.6-10.6 3171299502) eGFR (test code = mL/min/1.73m2 6306459013) DYLAN (test code = DYLAN) Association of [...] tests). Lab Interpretation Abnormal (test code = 28168-7) [facility] 13:08:25 Test Item Value Reference Range Interpretation Comments MAGNESIUM (test code = 9652446453) 1.6 mg/dL 1.7-2.4 L Lab Interpretation (test code = Abnormal 14284-7) [facility] 13:08:05 Test Item Value Reference Range Interpretation Comments PHOSPHORUS (test code = 9195889593) 3.0 mg/dL 2.5-5.0 Lab Interpretation (test code = Normal 93646-0) [facility] [id number] 18:31:07 Test Item Value Reference Interpretation Comments Range TROPONIN I (test 0.009 ng/mL See_Comment [Automated code = 8749589072) message] The system which generated this result [...] biotin. Lab Interpretation Normal (test code = 02581-5) [facility]. METABOLIC PANEL ([id number])2021-02-24 12:15:59 Test Item Value Reference Range Interpretation Comments NA (test code = 139 mmol/L 135-145 5663495826) K (test code = 3.9 mmol/L 3.5-5.0 1012682050) CL (test code = 95 mmol/L 98-108 L 2159146327) CO2 TOTAL (test code = 42 mmol/L 23-31 H 5389274245) AGAP (test code = 2-16 9696286507) BUN (test code = 37 mg/dL 7-23 H 5291667459) GLUCOSE (test code = 99 mg/dL 70-110 9888412461) CREATININE (test code = 1.26 mg/dL 0.50-1.04 H 0400284797) TOTAL BILI (test code = 0.7 mg/dL 0.1-1.6 3533426859) CALCIUM (test code = 9.1 mg/dL 8.6-10.6 2144427929) T PROTEIN (test code = 6.1 g/dL 6.3-8.2 L 7224108832) ALBUMIN (test code = 3.2 g/dL 3.5-5.0 L 9741813349) ALK PHOS (test code = 68 U/L 34-122 6193634888) ALTv (test code = 12 U/L 5-35 1742-6) AST(SGOT) (test code = 22 U/L 13-40 7254547378) eGFR (test code = mL/min/1.73m2 8788921768) DYLAN (test code = DYLAN) Association of [...] tests). Lab Interpretation Abnormal (test code = 67604-9) [facility] [id number] 12:13:11 Test Item Value Reference Range Interpretation Comments NT-proBNP (test code 4500 pg/mL See_Comment H [Autom ated = 3694456711) message] The system which generated this result transmitted reference range : <=450. The reference range was not used to interpret this result as normal/abnormal . DYLAN (test code = DYLAN) Biotin has been reported to cause a negative bias, interpret results relative to patient's use of biotin. Lab Interpretation Abnormal (test code = 92353-0) [facility] 12:04:51 Test Item Value Reference Range Interpretation Comments MAGNESIUM (test code = 6164556163) 1.7 mg/dL 1.7-2.4 Lab Interpretation (test code = Normal 05041-0) [facility] [id number] 12:04:31 Test Item Value Reference Range Interpretation [...] (test code = 52.4 fL 39.0-49.9 H 05815-7) RDW-CV (test code = 14.0 % 12.0-15.5 788-0) PLT (test code = See_Comment L [Automated 777-3) message] The sy stem which generated this result transmitted reference range : 166 - 358 10*3/ ?L. The reference r nati was not used to interpret this result as normal/abnormal . MPV (test code = 11.4 fL 9.5-12.9 53847-3) NRBC/100 WBC (test See_Comment [Automat ed code = 6371885940) message] The system which generated this result transmitted reference range : 0.0 - 10.0 /100 WBCs. The refer ence range was not u sed to interpret th is result as normal/abnormal . NRBC x10^3 (test code <0.01 See_Comment [Auto mated = 7651800643) message] The s ystem which generated this result transmitted reference range : 10*3/?L. The reference range was not used to interpret this result as normal/abnormal . GRAN MAT (NEUT) % 76.7 % (test code = 770-8) IMM GRAN % (test code 0.70 % = 9835494413) LYMPH % (test code = 10.6 % 736-9) MONO % (test code = 11.0 % 5905-5) EOS % (test code = 0.7 % 713-8) BASO % (test code = 0.3 % 706-2) GRAN MAT x10^3(ANC) 5.43 10*3/uL 1.88-7.09 (test code = 9033125621) IMM GRAN x10^3 (test 0.05 10*3/uL 0.00-0.06 code = 9035201446) LYMPH x10^3 (test code 0.75 10*3/uL 1.32-3.29 L = 731-0) MONO x10^3 (test code 0.78 10*3/uL 0.33-0.92 = 742-7) EOS x10^3 (test code = 0.05 10*3/uL 0.03-0.39 711-2) BASO x10^3 (test code <0.03 0.01-0.07 = 704-7) Lab Interpretation Abnormal (test code = 77229-2) [facility] [id number] 14:57:34 Test Item Value Reference Interpretation Comments Range TROPONIN I (test 0.009 ng/mL See_Comment [Automated code = 5008228780) message] The system which generated this result [...] biotin. Lab Interpretation Normal (test code = 00882-2) [facility] [id number] 11:51:46 Test Item Value Reference Range Interpretation Comments NT-proBNP (test code 4650 pg/mL See_Comment H [Autom ated = 4532517236) message] The system which generated this result transmitted reference range : <=450. The reference range was not used to interpret this result as normal/abnormal . DYLAN (test code = DYLAN) Biotin has been reported to cause a negative bias, interpret results relative to patient's use of biotin. Lab Interpretation Abnormal (test code = 72440-4) [facility]. METABOLIC PANEL (27465)2021-02-23 11:45:21 Test Item Value Reference Range Interpretation Comments NA (test code = 141 mmol/L 135-145 5637021264) K (test code = 4.6 mmol/L 3.5-5.0 3328403961) CL (test code = 102 mmol/L 98-108 1216846446) CO2 TOTAL (test code = 38 mmol/L 23-31 H 9022139374) AGAP (test code = 2-16 L 1096427352) BUN (test code = 37 mg/dL 7-23 H 2013678431) GLUCOSE (test code = 97 mg/dL 70-110 5094643544) CREATININE (test code = 1.29 mg/dL 0.50-1.04 H 9370231595) TOTAL BILI (test code = 0.5 mg/dL 0.1-1.2 2766403891) CALCIUM (test code = 8.9 mg/dL 8.6-10.6 8251142793) T PROTEIN (test code = 6.3 g/dL 6.3-8.2 6645443789) ALBUMIN (test code = 3.4 g/dL 3.5-5.0 L 9264433479) ALK PHOS (test code = 67 U/L 34-122 2321970021) ALTv (test code = 13 U/L 5-35 1742-6) AST(SGOT) (test code = 25 U/L 13-40 9053325423) eGFR (test code = mL/min/1.73m2 6524568962) DYLAN (test code = DYLAN) Association of [...] tests). Lab Interpretation Abnormal (test code = 95738-6) [facility] Test Item Value Reference Range Interpretation Comments MAGNESIUM (test code = 0583317815) 1.8 mg/dL 1.7-2.4 Lab Interpretation (test code = Normal 66206-8) [facility] [id number] 11:45:06 Test Item Value Reference Range Interpretation Comments URIC ACID (test code = 2520317036) 7.3 mg/dL 2.9-6.0 H Lab Interpretation (test code = Abnormal 31309-4) [facility] 11:45:06 Test Item Value Reference Range Interpretation Comments PHOSPHORUS (test code = 3704846564) 5.2 mg/dL 2.5-5.0 H Lab Interpretation (test code = Abnormal 75732-1) [facility] EUVT3312-12-70 11:41:08 Test Item Value Reference Range Interpretation [...] (test code = 54.5 fL 39.0-49.9 H 22087-8) RDW-CV (test code = 14.2 % 12.0-15.5 788-0) PLT (test code = See_Comment L [Automated 777-3) message] The sy stem which generated this result transmitted reference range : 166 - 358 10*3/ ?L. The reference r nati was not used to interpret this result as normal/abnormal . MPV (test code = 11.1 fL 9.5-12.9 27101-7) NRBC/100 WBC (test See_Comment [Automat ed code = 7672319193) message] The system which generated this result transmitted reference range : 0.0 - 10.0 /100 WBCs. The refer ence range was not u sed to interpret th is result as normal/abnormal . NRBC x10^3 (test code <0.01 See_Comment [Auto mated = 3655457617) message] The s ystem which generated this result transmitted reference range : 10*3/?L. The reference range was not used to interpret this result as normal/abnormal . GRAN MAT (NEUT) % 81.2 % (test code = 770-8) IMM GRAN % (test code 0.70 % = 5275064351) LYMPH % (test code = 7.6 % 736-9) MONO % (test code = 9.5 % 5905-5) EOS % (test code = 0.7 % 713-8) BASO % (test code = 0.3 % 706-2) GRAN MAT x10^3(ANC) 5.67 10*3/uL 1.88-7.09 (test code = 7430209395) IMM GRAN x10^3 (test 0.05 10*3/uL 0.00-0.06 code = 4668832154) LYMPH x10^3 (test code 0.53 10*3/uL 1.32-3.29 L = 731-0) MONO x10^3 (test code 0.66 10*3/uL 0.33-0.92 = 742-7) EOS x10^3 (test code = 0.05 10*3/uL 0.03-0.39 711-2) BASO x10^3 (test code <0.03 0.01-0.07 = 704-7) Lab Interpretation Abnormal (test code = 94648-8) [facility], [id number] 05:26:30 Test Item Value Reference Range Interpretation Comments AMMONIA (test code = 5219242741) <9 9-33 L Lab Interpretation (test code = Abnormal 19588-2) [facility] [id number] 21:59:55 Test Item Value Reference Interpretation Comments Range TROPONIN I (test 0.008 ng/mL See_Comment [Automated code = 5595430202) message] The system which generated this result [...] biotin. Lab Interpretation Normal (test code = 20379-5) [facility]FF CON[facility]ULT [id number] 20:03:46 ABSOLUTE LYMPHOCYTOPENIA. MACROCYTIC NORMOCHROMIC ANEMIA. MILD THROMBOCYTOPENIA. [facility] PasoFERRITIN [id number] 16:23:21 Test Item Value Reference Range Interpretation Comments FERRITIN (test code = 70.3 ng/mL 11.0-264.0 6490478292) DYLAN (test code = DYLAN) Biotin has been reported to cause a negative bias, interpret results relative to patient's use of biotin. Lab Interpretation (test Normal code = 48369-5) [facility] PasoTHYROID STIMULATING [id number] 16:19:39 Test Item Value Reference Range Interpretation Comments TSH (test code = See_Comment [Automated message] 5763867965) The system [employer] generated this result transmitted ref erence range: 0.45 - 4 .70 mIU/L. The refe rence range was not u sed to interpret this result as normal/abnor mal. Lab Interpretation (test Normal code = 91574-6) [facility] PasoIRON [id number] 15:54:20 Test Item Value Reference Range Interpretation Comments IRON (test code = 2285404267) 45 ug/dL 50-160 L TIBC (test code = 5198091379) 322 ug/dL 250-410 % FE SAT (test code = 5018750179) 14 % 20-50 L Lab Interpretation (test code = Abnormal 92647-2) [facility] PasoLIPID PANEL (13866)(TOTAL CHOLESTEROL, TRIGLYCERIDES, HDL)2021-02-22 15:45:34 Test Item Value Reference Range Interpretation Comments CHOL (test code = 123 mg/dL 120-200 0453259995) HDL (test code = 60 mg/dL >50 1945673659) HDLC RATIO (test code = See_Comment [Au tomated message] 4976967742) The system [employer] generated this result transmit maliha reference range : <=4.5. The refe rence range was not u sed to interpret th is result as normal/abnormal . TRIG (test code = 50 mg/dL 30-170 2024620901) LDL CHOL (test code = 53 mg/dL See_Comment [Auto mated message] 65146-1) The system [employer] generated this result transmit maliha reference range : <=160. The refe rence range was not u sed to interpret th is result as normal/abnormal . VLDL (test code = 10 mg/dL 5-60 5363408282) Lab Interpretation (test Normal code = 54630-3) [facility]URIC [id number] 15:45:34 Test Item Value Reference Range Interpretation Comments URIC ACID (test code = 7167542795) 6.6 mg/dL 2.9-6.0 H Lab Interpretation (test code = Abnormal 46358-3) [facility]MAGNESIUM2021-12-03 15:45:34 Test Item Value Reference Range Interpretation Comments MAGNESIUM (test code = 5599039228) 1.9 mg/dL 1.7-2.4 Lab Interpretation (test code = Normal 69564-8) [facility]PHOSPHORUS2021-12-03 15:45:34 Test Item Value Reference Range Interpretation Comments PHOSPHORUS (test code = 8950171671) 5.3 mg/dL 2.5-5.0 H Lab Interpretation (test code = Abnormal 90477-4) [facility] PasoLIPID PANEL (15116)(TOTAL CHOLESTEROL, TRIGLYCERIDES, HDL)2021-02-22 15:21:13 Test Item Value Reference Range Interpretation Comments CHOL (test code = 108 mg/dL 120-200 L 5784461810) HDL (test code = 54 mg/dL >50 9013826149) HDLC RATIO (test code = See_Comment [Au tomated message] 9242889887) The system [employer] generated this result transmit maliha reference range : <=4.5. The refe rence range was not u sed to interpret th is result as normal/abnormal . TRIG (test code = 46 mg/dL 30-170 1930760178) LDL CHOL (test code = 45 mg/dL See_Comment [Auto mated message] 55595-2) The system [employer] generated this result transmit maliha reference range : <=160. The refe rence range was not u sed to interpret th is result as normal/abnormal . VLDL (test code = 9 mg/dL 5-60 2968191809) Lab Interpretation (test Abnormal code = 07970-5) [facility] PasoPROCALCITONIN2021-12-03 14:32:44 Test Item Value Reference Range Interpretation Comments Procalcitonin (test 0.05 ng/mL <0.07 code = 3024866404) DYLAN (test code = DYLAN) INTERPRETATION OF [...] lung abscess/empyema. For further information please refer to:[email or web address] Lab Interpretation Normal (test code = 49635-5) [facility]. METABOLIC PANEL (25797)2021-02-22 13:28:43 Test Item Value Reference Range Interpretation Comments NA (test code = 142 mmol/L 135-145 7970783906) K (test code = 3.1 mmol/L 3.5-5.0 L 2259240158) CL (test code = 106 mmol/L 98-108 6872328351) CO2 TOTAL (test code = 34 mmol/L 23-31 H 0812073147) AGAP (test code = 2-16 0756312297) BUN (test code = 36 mg/dL 7-23 H 0697981618) GLUCOSE (test code = 94 mg/dL 70-110 6812332341) CREATININE (test code = 1.15 mg/dL 0.50-1.04 H 5385602377) TOTAL BILI (test code = 0.6 mg/dL 0.1-1.6 8390215162) CALCIUM (test code = 8.2 mg/dL 8.6-10.6 L 7221025925) T PROTEIN (test code = 6.1 g/dL 6.3-8.2 L 1982571714) ALBUMIN (test code = 3.3 g/dL 3.5-5.0 L 0936706379) ALK PHOS (test code = 60 U/L 34-122 1025487664) ALTv (test code = 13 U/L 5-35 1742-6) AST(SGOT) (test code = 27 U/L 13-40 6689164694) eGFR (test code = mL/min/1.73m2 7190199930) DYLAN (test code = DYLAN) Association of [...] tests). Lab Interpretation Abnormal (test code = 05377-6) [facility] PasoMARIANNE [id number] 13:17:03 Test Item Value Reference Interpretation Comments Range TROPONIN I (test 0.030 ng/mL See_Comment [Automated code = 0375210402) message] The system which generated this result [...] biotin. Lab Interpretation Normal (test code = 14567-2) [facility] PasoN-TERMINAL [id number] 13:13:44 Test Item Value Reference Range Interpretation Comments NT-proBNP (test code 4320 pg/mL See_Comment H [Autom ated = 6805763438) message] The system which generated this result transmitted reference range : <=450. The reference range was not used to interpret this result as normal/abnormal . DYLAN (test code = DYLAN) Biotin has been reported to cause a negative bias, interpret results relative to patient's use of biotin. Lab Interpretation Abnormal (test code = 49822-2) [facility] PasoMAGNESIUM2021-12-03 13:08:01 Test Item Value Reference Range Interpretation Comments MAGNESIUM (test code = 9312854115) 1.8 mg/dL 1.7-2.4 Lab Interpretation (test code = Normal 56208-4) [facility]PHOSPHORUS2021-12-03 13:07:41 Test Item Value Reference Range Interpretation Comments PHOSPHORUS (test code = 0827813664) 5.3 mg/dL 2.5-5.0 H Lab Interpretation (test code = Abnormal 01482-3) [facility]URIC [id number] 13:07:21 Test Item Value Reference Range Interpretation Comments URIC ACID (test code = 1020922620) 6.5 mg/dL 2.9-6.0 H Lab Interpretation (test code = Abnormal 76377-8) [facility] PasoCB WITH [id number] 12:46:23 Test Item Value Reference Range Interpretation Comments WBC (test code = See_Comment [Automated 7790-2) message] The sy stem which generated this result transmitted reference range : 4.30 - 11.10 10*3/?L. The reference range was not used to interpret this result as normal/abnormal . RBC (test code = See_Comment L [Automated 779-8) message] The sy stem which generated this [...] (test code = 54.2 fL 39.0-49.9 H 64158-0) RDW-CV (test code = 14.2 % 12.0-15.5 788-0) PLT (test code = See_Comment L [Automated 777-3) message] The sy stem which generated this result transmitted reference range : 166 - 358 10*3/ ?L. The reference r nati was not used to interpret this result as normal/abnormal . MPV (test code = 11.7 fL 9.5-12.9 13169-2) NRBC/100 WBC (test See_Comment [Automat ed code = 2532399986) message] The system which generated this result transmitted reference range : 0.0 - 10.0 /100 WBCs. The refer ence range was not u sed to interpret th is result as normal/abnormal . NRBC x10^3 (test code <0.01 See_Comment [Auto mated = 4207375143) message] The s ystem which generated this result transmitted reference range : 10*3/?L. The reference range was not used to interpret this result as normal/abnormal . GRAN MAT (NEUT) % 81.9 % (test code = 770-8) IMM GRAN % (test code 0.60 % = 9056366718) LYMPH % (test code = 8.3 % 736-9) MONO % (test code = 8.1 % 5905-5) EOS % (test code = 0.9 % 713-8) BASO % (test code = 0.2 % 706-2) GRAN MAT x10^3(ANC) 4.46 10*3/uL 1.88-7.09 (test code = 3639238339) IMM GRAN x10^3 (test 0.03 10*3/uL 0.00-0.06 code = 2460050904) LYMPH x10^3 (test code 0.45 10*3/uL 1.32-3.29 L = 731-0) MONO x10^3 (test code 0.44 10*3/uL 0.33-0.92 = 742-7) EOS x10^3 (test code = 0.05 10*3/uL 0.03-0.39 711-2) BASO x10^3 (test code <0.03 0.01-0.07 = 704-7) Lab Interpretation Abnormal (test code = 97877-5) [facility] PasoVITAMIN D, [id number] 11:38:50 Test Item Value Reference Range Interpretation Comments VIT D 25OH (test code = 71 ng/mL 25-80 29290-8) DYLAN (test code = DYLAN) Deficiency: <20 ng/mLInsufficiency : 20-24 ng/mLOptimal: 25-80 ng/mL Lab Interpretation (test Normal code = 99218-5) [facility]VIT[facility]IN B12, [id number] 11:35:50 Test Item Value Reference Range Interpretation Comments VIT B12 (test code = 302 pg/mL 240-930 9859562727) DYLAN (test code = DYLAN) Biotin has been reported to cause a positive bias, interpret results relative to patient's use of biotin. Lab Interpretation (test Normal code = 06850-4) [facility] PasoSEDIMENTATION [id number] 07:20:15 Test Item Value Reference Range Interpretation Comments ESR (test code = See_Comment H [Automated message] 0138314195) The system [employer] generated this result transmitted ref erence range: 0 - 20 m m/HR. The reference r nati was not used to interpret this result as normal/abnor mal. Lab Interpretation (test Abnormal code = 52747-9) [facility] PasoTROPONIN [id number] 07:08:06 Test Item Value Reference Interpretation Comments Range TROPONIN I (test 0.009 ng/mL See_Comment [Automated code = 8536302346) message] The system which generated this result [...] biotin. Lab Interpretation Normal (test code = 45861-0) [facility] PasoCREATINE [id number] 06:55:22 Test Item Value Reference Range Interpretation Comments CK (test code = 1440139861) 33 U/L 33-194 Lab Interpretation (test code = Normal 14393-5) [facility] PasoPROTHROMBIN TIME / [id number] 06:46:18 Test Item Value Reference Range Interpretation Comments PROTIME PATIENT (test See_Comment H [Auto mated message] code = 5964-2) The system [employer] generated this result transmitted ref erence range: 12.0 - 1 4.7 Seconds. The reference range was not used to int erpret this result as normal/abnormal . INR (test code = 6301-6) Nor mal INR <1.1; Warfarin Therap eutic range 2.0 to 3. 0 or 2.5 to 3.5, dep ending upon the indica tions. Lab Interpretation (test Abnormal code = 01062-8) [facility] PasoGLYCOSYLATED HEMOGLOBIN (A1C)2021-02-22 05:35:13 Test Item Value Reference Range Interpretation Comments HGB A1C (test code = 5.7 % 4.0-5.7 4548-4) DYLAN (test code = DYLAN) Reference RangesNormal: <5.7%Prediabetes: 5.7 - 6.4%Diabetes: > 6.5% Lab Interpretation (test Normal code = 30153-2) [facility] PasoTROPONIN [id number] 22:37:55 Test Item Value Reference Interpretation Comments Range TROPONIN I (test 0.012 ng/mL See_Comment [Automated code = 4531402878) message] The system which generated this result [...] biotin. Lab Interpretation Normal (test code = 72001-8) [facility] PasoN-TERMINAL [id number] 22:34:52 Test Item Value Reference Range Interpretation Comments NT-proBNP (test code 4930 pg/mL See_Comment H [Autom ated = 3222533806) message] The system which generated this result transmitted reference range : <=450. The reference range was not used to interpret this result as normal/abnormal . DYLAN (test code = DYLAN) Biotin has been reported to cause a negative bias, interpret results relative to patient's use of biotin. Lab Interpretation Abnormal (test code = 61029-6) [facility] PasoCOMP. METABOLIC PANEL (34916)2021-02-21 22:26:11 Test Item Value Reference Range Interpretation Comments NA (test code = 140 mmol/L 135-145 5205133631) K (test code = 4.1 mmol/L 3.5-5.0 1705920079) CL (test code = 104 mmol/L 98-108 2239218282) CO2 TOTAL (test code = 32 mmol/L 23-31 H 4334719553) AGAP (test code = 2-16 5116242499) BUN (test code = 41 mg/dL 7-23 H 1733510645) GLUCOSE (test code = 111 mg/dL 70-110 H 5017623388) CREATININE (test code = 1.28 mg/dL 0.50-1.04 H 7488388414) TOTAL BILI (test code = 1.0 mg/dL 0.1-1.3 5168716133) CALCIUM (test code = 9.1 mg/dL 8.6-10.6 0427735523) T PROTEIN (test code = 7.0 g/dL 6.3-8.2 8237522640) ALBUMIN (test code = 4.1 g/dL 3.5-5.0 5194197660) ALK PHOS (test code = 61 U/L 34-122 1599292937) ALTv (test code = 14 U/L 5-35 1742-6) AST(SGOT) (test code = 34 U/L 13-40 2136686721) eGFR (test code = mL/min/1.73m2 1326117260) DYLAN (test code = DYLAN) Association of [...] tests). Lab Interpretation Abnormal (test code = 41429-3) [facility] WITH [id number] 22:02:47 Test Item Value Reference Range Interpretation [...] (test code = 53.8 fL 39.0-49.9 H 13635-3) RDW-CV (test code = 14.5 % 12.0-15.5 788-0) PLT (test code = See_Comment L [Automated 777-3) message] The sy stem which generated this result transmitted reference range : 166 - 358 10*3/ ?L. The reference r nati was not used to interpret this result as normal/abnormal . MPV (test code = 11.1 fL 9.5-12.9 53371-1) IPF % (test code = 3.2 % 1.3-7.7 Platelet count 5102569790) measured by fluorescence method. NRBC/100 WBC (test See_Comment [Automat ed code = 1990056587) message] The system which generated this result transmitted reference range : 0.0 - 10.0 /100 WBCs. The refer ence range was not u sed to interpret th is result as normal/abnormal . NRBC x10^3 (test code <0.01 See_Comment [Auto mated = 3276787612) message] The s ystem which generated this result transmitted reference range : 10*3/?L. The reference range was not used to interpret this result as normal/abnormal . GRAN MAT (NEUT) % 76.4 % (test code = 770-8) IMM GRAN % (test code 0.40 % = 7629011373) LYMPH % (test code = 12.8 % 736-9) MONO % (test code = 8.0 % 5905-5) EOS % (test code = 1.8 % 713-8) BASO % (test code = 0.6 % 706-2) GRAN MAT x10^3(ANC) 5.47 10*3/uL 1.88-7.09 (test code = 1654691165) IMM GRAN x10^3 (test 0.03 10*3/uL 0.00-0.06 code = 0233206382) LYMPH x10^3 (test code 0.92 10*3/uL 1.32-3.29 L = 731-0) MONO x10^3 (test code 0.57 10*3/uL 0.33-0.92 = 742-7) EOS x10^3 (test code = 0.13 10*3/uL 0.03-0.39 711-2) BASO x10^3 (test code 0.04 10*3/uL 0.01-0.07 = 704-7) Lab Interpretation Abnormal (test code = 08333-6) [facility]"
[2021-07-21 20:54] LABS: Absolute Lymphocytes (CBC) 0.7 K/uL (0.7-4.9); Lymphocytes % 9.8 % (15.3-44.8); MPV 8.5 fL (7.6-11.3); RBC Red Blood Cell Count 2.63 M/uL (3.86-4.86)
[2021-07-21 21:00] LABS: Protime INR 1.87
[2021-07-21 21:07] LABS: Uric Acid 11.2 mg/dL (2.6-6.0)
[2021-07-21 21:15] LABS: Albumin 3.1 g/dL (3.4-5.0); Bilirubin Direct 0.2 mg/dL (0-0.2); Bilirubin Total 0.5 mg/dL (0.2-1.0); Magnesium 2.3 mg/dL (1.8-2.4); Protein, Total 6.6 g/dL (6.4-8.2); Troponin High Sensitivity 15.6 pg/mL (<58.9)
[2021-07-21 21:16] LABS: Potassium 2.8 mmol/L (3.5-5.1)
--- NOTE | 2021-07-21 21:21 | RAD REPORT ---
EXAM DESCRIPTION: RAD - Chest Single View - 07/21/2021 9:11 pm CLINICAL HISTORY: DYSPNEA Chest pain. COMPARISON: Chest Single View dated 06/22/2021; Chest Single View dated 08/22/2020; Chest Single View da maliha 11/04/2018; Chest Single View dated 06/03/2018 FINDINGS: Portable technique limits examination quality. Mild pulmonary edema is noted. The heart is moderately enlarged. Small bilateral pleural effusions. IMPRESSION: Mild CHF versus volume overload pattern.
--- NOTE | 2021-07-21 22:10 | ER ---
Nurse's Notes [facility] Name: Bibiana Lara Age: 85 yrs Sex: Female : 1935 Arrival Date: 07/21/2021 Time: 20:09 Bed 5 Private MD: Diagnosis: Chronic atrial fibrillation;Generalized edema;GI Bleed/ Gastrointestinal hemorrhage, unspecified-upper;Hypokalemia;Acute kidney failure, unspecified-on chronic Presentation: 07/21 20:12 Chief complaint: EMS states: toned out for BLE edema, pt recently had an increase in as6 Lasix. Coronavirus screen: At this time, unable to obtain information related to travel outside the [place] Ebola Screen: No symptoms or risks identified at this time. Initial Sepsis Screen: Does the patient meet any 2 criteria? No. Patient's initial sepsis screen is negative. Does the patient have a suspected source of infection? No. Patient's initial sepsis screen is negative. Risk Assessment: Do you want to hurt yourself or someone else? Patient reports no desire to harm self or others. Onset of symptoms is unknown. 20:12 Method Of Arrival: EMS: [facility] as6 20:12 Acuity: ROBERT 3 as6 Historical: - Allergies: 20:16 No Known Allergies; as6 - Home Meds: 20:16 Celexa Oral [Active]; Lasix Oral [Active]; levothyroxine oral [Active]; Norvasc Oral as6 [Active]; Oxybutynin Chloride Oral [Active]; pantoprazole oral [Active]; Simvastatin Oral [Active]; Xarelto oral [Active]; - PMHx: 20:16 Depression; High Cholesterol; Hypertension; Hypothyroidism; Congestive heart failure; as6 - PSHx: 20:16 hysterectomy; as6 - Immunization history:: Client reports receiving the 2nd dose of the Covid vaccine. - Social history:: Smoking status: Patient denies any tobacco usage or history of. - Family history:: not pertinent. Screenin:24 Abuse screen: Denies threats or abuse. Denies injuries from another. Nutritional as6 screening: No deficits noted. Tuberculosis screening: No symptoms or risk factors identified. Fall Risk None identified. Assessment: 20:23 General: Appears in no apparent distress. comfortable, Behavior is calm, cooperative. as6 Pain: Complains of pain in right leg and left leg. Neuro: Level of Consciousness is awake, alert, obeys commands, Oriented to person, place, time, situation. Cardiovascular: Denies chest pain, shortness of breath, Patient's skin is warm and dry. Edema is 4+ to left knee, left midcalf, left ankle, left foot, left toes, right knee, right midcalf, right ankle, right foot and right toes pitting to left knee, left midcalf, left ankle, left foot, left toes, right knee, right midcalf, right ankle, right foot and right toes. Respiratory: Respiratory effort is even, unlabored, Respiratory pattern is regular, symmetrical, Denies shortness of breath. Vital Signs: 20:12 BP 117 / 53; Pulse 73; Resp 20 S; Pulse Ox 95% on 4 lpm NC; Weight 78.93 kg (R); Height as6 5 ft. 6 in. (167.64 cm) (R); Pain 5/10; 21:30 BP 118 / 53; Pulse 60; Resp 24 S; Pulse Ox 99% 10% ; as6 23:29 BP 119 / 50; Pulse 62; Resp 18 S; Pulse Ox 100% on 10 lpm NC; as6 20:12 Body Mass Index 28.08 (78.93 kg, 167.64 cm) as6 ED Course: 20:09 Patient arrived in ED. [email or web address] 20:11 Giovani Wilks, RN is Primary Nurse. as6 20:16 Triage completed. as6 20:20 Arm band placed on. as6 20:24 Bed in low position. Call light in reach. Side rails up X2. Adult w/ patient. Cardiac as6 monitor on. Pulse ox on. NIBP on. Warm blanket given. 20:37 Otto Maloney MD is Attending Physician. betra 20:45 Inserted saline lock: 20 gauge in right antecubital area, using aseptic technique. as6 Blood collected. 20:49 COVID-19 SARS RT PCR (Document "Date of Onset" if Symptomatic) Sent. as6 20:49 Lipase Sent. as6 20:49 Basic Metabolic Panel Sent. as6 20:49 CBC with Diff Sent. as6 20:49 Troponin HS Sent. as6 20:49 PT-INR Sent. as6 20:49 NT PRO-BNP Sent. as6 20:49 Magnesium Sent. as6 20:49 LFT's Sent. as6 21:13 XRAY Chest (1 view) In Process Unspecified. EDMS 21:22 Safety checks: Family/friend present: yes. teletypesetter monitor on. Pulse ox on. NIBP on. 21:22 EKG done, by ED staff. 22:08 Romina Montelongo MD is Hospitalizing Provider. [facility] 23:08 CT Stone Protocol In Process Unspecified. EDMS 23:19 Murphy cath inserted, using sterile technique, 16 Fr., by pr, balloon inflated, to as6 gravity drainage, urine specimen collected. Inserted saline lock: 20 gauge in left antecubital area, using aseptic technique. Blood collected. 23:54 No provider procedures requiring assistance completed. Patient admitted, IV remains in as6 place. Administered Medications: 23:18 Drug: Vitamin K1 (phytonadione) 10 mg Route: Sub-Q; Site: abdomen; as6 23:55 Follow up: Response: No adverse reaction as6 23:18 Drug: Lasix (furosemide) 40 mg Route: IVP; Site: right antecubital; as6 23:55 Follow up: Response: No adverse reaction as6 23:19 Drug: ProTONIX (pantoprazole) 80 mg Route: IVP; Site: left antecubital; as6 23:55 Follow up: Response: No adverse reaction as6 23:19 Drug: ProTONIX (pantoprazole) 8 mg/hr Route: IV; Rate: 25 ml/hr; Site: left antecubital;as6 23:56 Follow up: IV Status: Infusion continued upon admission as6 23:19 Drug: Potassium Chloride 20 mEq Route: IV; Rate: per protocol; Site: right antecubital; as6 23:55 Follow up: IV Status: Infusion continued upon admission as6 Outcome: 22:09 Decision to Hospitalize by Provider. [facility] 23:54 Admitted to Med/surg accompanied by tech, family with patient, via stretcher, room 203, as6 with oxygen, with chart, Report called to Noelel FINLEY 23:54 Condition: stable 23:54 Instructed on the need for admit. 23:56 Patient left the ED. as6 Signatures: Dispatcher [employer] EDMS Haider, Otto, Kellie Henson MD, cha, Jennifer jj6 Giovani Wilks, RN RN as6
--- NOTE | 2021-07-21 22:10 | EDPHYS ---
Physician Documentation [facility] Name: Bibiana Lara Age: 85 yrs Sex: Female : 1935 Arrival Date: 07/21/2021 Time: 20:09 Bed 5 Private MD: LUIS ALBERTO Physician Otto Maloney HPI: 07/21 20:43 This 85 yrs old Female presents to ER via EMS with complaints of Swelling of berta Lower Extremity. 20:43 The patient presents with pain, swelling. The complaints affect the right leg and left berta leg. Context: The problem was sustained at home. Onset: The symptoms/episode began/occurred 3 day(s) ago. Modifying factors: The symptoms are alleviated by elevating leg, the symptoms are aggravated by movement, weight bearing. Associated signs and symptoms: Pertinent positives: weakness. Treatment prior to arrival includes: no previous treatment. The patient has not experienced similar symptoms in the past. Historical: - Allergies: 20:16 No Known Allergies; as6 - Home Meds: 20:16 Celexa Oral [Active]; Lasix Oral [Active]; levothyroxine oral [Active]; Norvasc Oral as6 [Active]; Oxybutynin Chloride Oral [Active]; pantoprazole oral [Active]; Simvastatin Oral [Active]; Xarelto oral [Active]; - PMHx: 20:16 Depression; High Cholesterol; Hypertension; Hypothyroidism; Congestive heart failure; as6 - PSHx: 20:16 hysterectomy; as6 - Immunization history:: Client reports receiving the 2nd dose of the Covid vaccine. - Social history:: Smoking status: Patient denies any tobacco usage or history of. - Family history:: not pertinent. ROS: 20:43 Constitutional: Negative for fever, chills, and weight loss, Eyes: Negative for injury, berta pain, redness, and discharge, ENT: Negative for injury, pain, and discharge, Neck: Negative for injury, pain, and swelling, Cardiovascular: Negative for chest pain, palpitations, and edema, Respiratory: Negative for shortness of breath, cough, wheezing, and pleuritic chest pain, Abdomen/GI: Negative for abdominal pain, nausea, vomiting, diarrhea, and constipation, Back: Negative for injury and pain, : Negative for injury, bleeding, discharge, and swelling, Skin: Negative for injury, rash, and discoloration, Neuro: Negative for headache, weakness, numbness, tingling, and seizure, Psych: Negative for depression, anxiety, suicide ideation, homicidal ideation, and hallucinations, Allergy/Immunology: Negative for hives, rash, and allergies, Endocrine: Negative for neck swelling, polydipsia, polyuria, polyphagia, and marked weight changes. 20:43 MS/extremity: Positive for swelling, tenderness, of the right leg and left leg. Exam: 20:45 Constitutional: This is a well developed, well nourished patient who is awake, alert, berta and in no acute distress. Head/Face: Normocephalic, atraumatic. Eyes: Pupils equal round and reactive to light, extra-ocular motions intact. Lids and lashes normal. Conjunctiva and sclera are non-icteric and not injected. Cornea within normal limits. Periorbital areas with no swelling, redness, or edema. ENT: Nares patent. No nasal discharge, no septal abnormalities noted. Tympanic membranes are normal and external auditory canals are clear. Oropharynx with no redness, swelling, or masses, exudates, or evidence of obstruction, uvula midline. Mucous membranes moist. Neck: Trachea midline, no thyromegaly or masses palpated, and no cervical lymphadenopathy. Supple, full range of motion without nuchal rigidity, or vertebral point tenderness. No Meningismus. Chest/axilla: Normal chest wall appearance and motion. Nontender with no deformity. No lesions are appreciated. Cardiovascular: Regular rate and rhythm with a normal S1 and S2. No gallops, murmurs, or rubs. Normal PMI, no JVD. No pulse deficits. Respiratory: Lungs have equal breath sounds bilaterally, clear to auscultation and percussion. No rales, rhonchi or wheezes noted. No increased work of breathing, no retractions or nasal flaring. Abdomen/GI: Soft, non-tender, with normal bowel sounds. No distension or tympany. No guarding or rebound. No evidence of tenderness throughout. Back: No spinal tenderness. No costovertebral tenderness. Full range of motion. Female : Normal external genitalia. Skin: Warm, dry with normal turgor. Normal color with no rashes, no lesions, and no evidence of cellulitis. Neuro: Awake and alert, GCS 15, oriented to person, place, time, and situation. Cranial nerves II-XII grossly intact. Motor strength 5/5 in all extremities. Sensory grossly intact. Cerebellar exam normal. Normal gait. Psych: Awake, alert, with orientation to person, place and time. Behavior, mood, and affect are within normal limits. 20:45 Musculoskeletal/extremity: ROM: full active range of motion, full passive range of motion, Circulation is intact in all extremities. Sensation intact. Compartment Syndrome exam of affected extremity: is normal. Weight bearing: able to fully bear weight, DVT Exam: no pain, negative Homans' sign noted on exam, no appreciated bluish discoloration, no erythema, no increased warmth, swelling, tenderness. 22:10 ECG was reviewed by the Attending Physician. berta 22:15 Abdomen/GI: Inspection: abdomen appears normal, Bowel sounds: normal, Palpation: [facility] abdomen is soft and non-tender, Rectal exam: Stool: guaiac positive, no melena, hemorrhoid(s), are not appreciated, mass, is not appreciated, the exam is chaperoned by a family member, Liver: no appreciated palpable abnormalities, Hernia: not appreciated. Vital Signs: 20:12 BP 117 / 53; Pulse 73; Resp 20 S; Pulse Ox 95% on 4 lpm NC; Weight 78.93 kg (R); Height as6 5 ft. 6 in. (167.64 cm) (R); Pain 5/10; 21:30 BP 118 / 53; Pulse 60; Resp 24 S; Pulse Ox 99% 10% ; as6 23:29 BP 119 / 50; Pulse 62; Resp 18 S; Pulse Ox 100% on 10 lpm NC; as6 20:12 Body Mass Index 28.08 (78.93 kg, 167.64 cm) as6 MDM: 20:37 Patient medically screened. berta 20:46 Differential diagnosis: contusion. Data reviewed: vital signs, nurses notes, lab test [facility] result(s), EKG, radiologic studies, plain films. Data interpreted: Pulse oximetry: on room air is 95 %. Test interpretation: by ED physician or midlevel provider: ECG, plain radiologic studies. Counseling: I had a detailed discussion with the patient and/or guardian regarding: the historical points, exam findings, and any diagnostic results supporting the discharge/admit diagnosis, lab results, radiology results, the need for further work-up and treatment in the hospital. 07/21 20:10 Order name: Basic Metabolic Panel; Complete Time: 21:29 or07/21 20:10 Order name: CBC with Diff; Complete Time: 21:13 [facility] 07/21 20:10 Order name: LFT's; Complete Time: 21:29 [facility] 07/21 20:10 Order name: Magnesium; Complete Time: 21:29 or07/21 20:10 Order name: NT PRO-BNP; Complete Time: 21:29 or07/21 20:10 Order name: PT-INR; Complete Time: 21:13 or07/21 20:10 Order name: Troponin HS; Complete Time: 21:29 [facility] 07/21 20:10 Order name: COVID-19 SARS RT PCR (Document "Date of Onset" if Symptomatic); Complete la Time: :07/21 20:42 Order name: Lipase; Complete Time: 21:13 [facility] 07/21 20:42 Order name: Uric Acid; Complete Time: 21:13 [facility] 07/21 21:15 Order name: Type And Screen [facility] 07/21 22:00 Order name: ABG; Complete Time: 23:09 [facility] 07/21 22:29 Order name: Packed RBC Leukored [facility] 07/21 23:26 Order name: Urine Dipstick-Ancillary [facility] 07/21 20:10 Order name: XRAY Chest (1 view); Complete Time: 21:29 [facility] 07/21 20:10 Order name: EKG; Complete Time: 20:11 [facility] 07/21 20:10 Order name: Cardiac monitoring; Complete Time: 20:20 [facility] 07/21 20:10 Order name: EKG - Nurse/Tech; Complete Time: 21:21 [facility] 07/21 20:10 Order name: IV Saline Lock; Complete Time: 20:48 [facility] 07/21 20:10 Order name: Labs collected and sent; Complete Time: 20:49 [facility] 07/21 20:10 Order name: O2 Per Protocol; Complete Time: 20:20 [facility] 07/21 20:10 Order name: O2 Sat Monitoring; Complete Time: 20:20 [facility] 07/21 20:42 Order name: Urine Dipstick-Ancillary (obtain specimen); Complete Time: 23:25 [facility] 07/21 20:42 Order name: Murphy; Complete Time: 23:19 berta 07/21 20:48 Order name: CT Stone Protocol [facility] 07/21 21:31 Order name: IV Saline Lock - Large Bore; Complete Time: 23:19 berta EC:10 Rate is 55 beats/min. Rhythm is irregularly irregular. QRS [place] is Normal. [place] interval berta is normal. QRS interval is normal. No Q waves. T waves are Normal. No ST changes noted. Clinical impression: Atrial Fibrillation and No evidence of ischemia. Interpreted by me. Reviewed by me. Administered Medications: 23:18 Drug: Vitamin K1 (phytonadione) 10 mg Route: Sub-Q; Site: abdomen; as6 23:55 Follow up: Response: No adverse reaction as6 23:18 Drug: Lasix (furosemide) 40 mg Route: IVP; Site: right antecubital; as6 23:55 Follow up: Response: No adverse reaction as6 23:19 Drug: ProTONIX (pantoprazole) 80 mg Route: IVP; Site: left antecubital; as6 23:55 Follow up: Response: No adverse reaction as6 23:19 Drug: ProTONIX (pantoprazole) 8 mg/hr Route: IV; Rate: 25 ml/hr; Site: left antecubital;as6 23:56 Follow up: IV Status: Infusion continued upon admission as6 23:19 Drug: Potassium Chloride 20 mEq Route: IV; Rate: per protocol; Site: right antecubital; as6 23:55 Follow up: IV Status: Infusion continued upon admission as6 Disposition Summary: 07/21/21 22:09 Hospitalization Ordered Hospitalization Status: Inpatient Admission berta Provider: Romina Montelongo cha Location: Telemetry/MedSurg (Inpatient) berta Condition: Fair berta Problem: new berta Symptoms: have improved berta Bed/Room Type: Standard berta Room Assignment: 203(07/21/21 23:10) cg Diagnosis - Chronic atrial fibrillation berta - Generalized edema berta - GI Bleed/ Gastrointestinal hemorrhage, unspecified - upper berta - Hypokalemia berta - Acute kidney failure, unspecified - on chronic berta Forms: - Medication Reconciliation Form berta - SBAR form berta Signatures: Dispatcher [employer] EDOtto Guzman MD MD cha Attema, Lee, KEY HOLDER-C KEY HOLDER-Cla1 Bre López, RN RN cg Giovani Wilks RN RN as6 Corrections: (The following items were deleted from the chart) : 22:09 berta kang
[2021-07-21 22:44] LABS: Blood Gas Oxyhemoglobin 82.4 % (94-97); Blood O2 Saturation 84.9 % (92-98.5)
[2021-07-21] MEDS ORDERED: VITAMIN K (ADULT) 10 MG/ML ONE (22:47)
[2021-07-21] MEDS ORDERED: NA CHLORIDE 0.9% 250 ML ONE (22:47)
[2021-07-21] MEDS ORDERED: PANTOPRAZOLE 40 MG INJ ONE (22:47)
[2021-07-21] MEDS ORDERED: FUROSEMIDE 40 MG/4 ML VIAL ONE (22:47)
[2021-07-21] MEDS ORDERED: KCL 20 MEQ/100 mL IVPB 100 ML IV ONE (22:48)
[2021-07-21 23:26] LABS: Urine Blood Trace-lysed (Negative); Urine Glucose Negative (Negative); Urine Protein 1+ (Negative); Urine Specific Gravity 1.015 (1.005-1.030); Urine pH 5.5 (5.0-7.0)
--- NOTE | 2021-07-21 23:28 | P.HP ---
Certification for Inpatient Patient admitted to: Inpatient With expected LOS: >2 Midnights Patient will require the following post-hospital care: None Practitioner: I am a practitioner with admitting privileges, knowledge of patient current condition, hospital course, and medical plan of care. Services: Services provided to patient in accordance with Admission requirements found in Title 42 Section 412.3 of the Code of Federal Regulations <Heriberto Perales - Last Filed: 07/21/21 23:21> Patient History Date of Service: 07/21/21 Primary Care Provider: Dr. Lizama, Dr. Aponte Reason for admission: CHF, MARCIN, GI bleed History of Present Illness: 85-year-old female patient with history of chronic diastolic congestive heart failure, atrial fibrillation on chronic anticoagulation, hypertension, hyperlipidemia, hypothyroidism, CKD 3 and recent GI bleed presents the emergency department for lower extremity edema. Patient was seen at our facility approximately 2 weeks ago diagnosed with GI bleed and transferred to [facility] in [place] where she had endoscopy, colonoscopy which could not identify the source of blood loss. Patient stabilized and discharged on Protonix as well as home oxygen. Over the course of the last week or so patient has developed significant edema of the lower extremities she has seen her PCP Dr. Lizama who placed her on Lasix 40 mg daily she then went to follow-up with her automobile club travel counselor Dr. Aponte who increased the Lasix to 80 mg in the morning, 40 mg at night. She continues to have significant edema of lower extremities, anasarca. She was evaluated the emergency department her labs were significant for normocytic anemia with a hemoglobin of 7.6 hypokalemia to 2.8 acute kidney injury creatinine 2.09 GFR 23 BUN 49 elevated BNP 6578 chest x-ray demonstrating mild CHF/volume overload pattern. Patient on 7 to 10 L per nasal cannula at this time, she was discharged on 5 L. When if admitted for further evaluation and management of CHF exacerbation, acute kidney injury and GI bleed. GI was consulted by ED physician, will see patient in the morning. - Past Medical/Surgical History Diabetic: No -: Hyperlipidemia -: HTN -: Hypothyroidism -: GERD -: Shouler Sprain -: Chronic diastolic CHF -: GI bleed -: CKD 3 -: Hysterectomy -: Hernia repair -: appendectomy -: cholecystectomy -: Thyroiectomy Psychosocial/ Personal History: Patient lives at home with her family - Family History Mother -: Diabetes, Liver disease Brother -: Diabetes Sister -: Diabetes - Social History Smoking Status: Never smoker Alcohol use: No CD- Drugs: No Caffeine use: No Place of Residence: Home <Heriberto Perales Ruthy Darnell - Last Filed: 07/21/21 23:21> Date of Service: 07/22/21 <ReginaldAraalejandro Andres - Last Filed: 07/25/21 07:57> Allergies No Known Allergies Allergy (Verified 07/13/15 10:33) Home Medications: Citalopram Hydrobromide [Citalopram HBr] 10 mg PO DAILY 11/04/18 Levothyroxine Sodium 100 mcg PO 0630 11/04/18 Simvastatin 1 tab PO BEDTIME 11/04/18 Amlodipine [Norvasc] 10 mg PO BEDTIME 07/22/21 Ferrous Sulfate [Feosol] 2 tab PO DAILY 07/22/21 Furosemide [Lasix] 40 mg PO BIDL 07/22/21 Oxybutynin Chloride [Oxybutynin Chloride ER] 5 mg PO DAILY 07/22/21 Pantoprazole [Protonix Tab*] 40 mg PO BID 07/22/21 Rivaroxaban [Xarelto] 15 mg PO DAILY 07/22/21 Review of Systems 10-point ROS is otherwise unremarkable Respiratory: Shortness of Breath Cardiovascular: Edema, As per HPI <AnitaHeriberto luu Ruthy Darnell - Last Filed: 07/21/21 23:21> Physical Examination - Physical Exam General: Alert, In no apparent distress, Oriented x3 HEENT: Atraumatic, PERRLA, Mucous membr. moist/pink, EOMI, Sclerae nonicteric Neck: Supple, 2+ carotid pulse no bruit, No LAD, Without JVD or thyroid abnormality Respiratory: Diminished, Crackles/rales Cardiovascular: Normal S1 S2, Edema (3+ pitting edema bilateral lower extremities to the level of thighs), Irregular heart rate/rhythm (A. fib, rate controlled) Capillary refill: <2 Seconds Gastrointestinal: Normal bowel sounds, No tenderness Musculoskeletal: No tenderness Integumentary: No rashes Neurological: Normal gait, Normal speech, Normal strength at 5/5 x4 extr, Normal tone, Normal affect - Studies Laboratory Data (last 24 hrs) 07/21/21 20:43: Uric Acid 11.2 H D, Lipase 166 07/21/21 20:43: PT 20.8 H, INR 1.87 07/21/21 20:43: WBC 7.0, Hgb 7.6 L, Hct 23.0 L, Plt Count 138 L 07/21/21 20:43: Sodium 135 L, Potassium 2.8 L*, BUN 49 H, Creatinine 2.09 H, Glucose 150 H, Magnesium 2.3, Total Bilirubin 0.5, AST 19, ALT 15, Alkaline Phosphatase 62 <Heriberto Perales - Last Filed: 07/21/21 23:21> Assessment and Plan - Plan Assessment: Acute on chronic diastolic congestive heart failure Acute on chronic hypoxic/hypercapnic respiratory failure Acute blood loss anemiaGI bleed on Xarelto Acute worsening of CKD 3 Hypokalemia Plan: Acute on chronic diastolic congestive heart failure: Murphy catheter placed in the emergency department to promote diuresis/strict intake/output. We will continue with Lasix IV 40 3 times daily, nephrology and cardiology consults in place echocardiogram has been ordered. Obtain and continue home medications as appropriate. Acute on chronic hypoxic/hypercapnic respiratory failure: Supplemental oxygen as needed, was reportedly by family discharged on 5 L per nasal cannula currently requiring 7 to 10 L. Likely related to acute CHF continue diuresis. BiPAP if needed. Acute blood loss anemiaGI bleed on Xarelto: Hold Xarelto continue Protonix drip, GI consulted. Currently being transfused 1 unit we will recheck posttransfusion H&H. Patient had endoscopy/colonoscopy at [facility] approximately 2 weeks ago, could not find location of bleed. Appreciate further input from GI. Acute worsening of CKD 3: Nephrology consulted possibly CRS, continue diuresis at this time obtain renal ultrasound, Murphy catheter in place monitor strict intake/output. Appreciate further input from nephrology. Hypokalemia: Given IV potassium in the ER recheck in the morning, will hold off on protocol given acute kidney injury. DVT PPX: SCD Code status: Full Discharge Plan: Home Plan to discharge in: Greater than 2 days - Advance Directives Does patient have a Living Will: No Does patient have a Durable POA for Healthcare: No - Code Status/Comfort Care Code Status Assessed: Yes (Full code) Critical Care: No Time Spent Managing Pts Care (In Minutes): 55 <Heriberto Perales - Last Filed: 07/21/21 23:21> Date of Service: 07/22/21 Subjective: HPI as mentioned above Physical Examination: Vitals: Afebrile vital signs are stable Physical exam: Cardiovascular: Within normal limits. Lungs: Within normal limits Abdomen: Within normal limits Neuro: Awake, alert, oriented to person place and time Assessment: 1. Shortness of breath 2. Hypoxemia 3. Anemia Plan: 1. Continue with current plan of care as mentioned above <Romina Montelongo - Last Filed: 07/25/21 07:57>
[2021-07-22] MEDS: PANTOPRAZOLE INJ 80 MG in NA CHLORIDE 0.9% 250 ML IV SCH ×3 (00:40→20:09)
[2021-07-22] MEDS ORDERED: ONDANSETRON 4 MG/2 ML VIAL IV PRN (00:40)
[2021-07-22] MEDS ORDERED: NA CHLORIDE 0.9% 250 ML ONE ×2 (00:41→04:45)
[2021-07-22] MEDS ORDERED: NA CHLORIDE 0.9% 500 ML ONE (00:58)
[2021-07-22] MEDS: FUROSEMIDE 40 MG/4 ML VIAL IV SCH ×3 (01:00→17:09)
[2021-07-22 03:13] VITALS: BMI 28.5
[2021-07-22 04:37] LABS: Absolute Lymphocytes (CBC) 0.7 K/uL (0.7-4.9); Hematocrit 25.5 % (36.0-45.0); Lymphocytes % 10.9 % (15.3-44.8); MPV 8.9 fL (7.6-11.3); RBC Red Blood Cell Count 2.84 M/uL (3.86-4.86)
[2021-07-22 05:21] LABS: Albumin 2.9 g/dL (3.4-5.0); Bilirubin Total 0.6 mg/dL (0.2-1.0); Protein, Total 6.3 g/dL (6.4-8.2)
[2021-07-22 05:23] LABS: Potassium 2.7 mmol/L (3.5-5.1)
[2021-07-22] MEDS ORDERED: KCL 20 MEQ/100 mL IVPB 20 MEQ/100 ML BAG IV ONE (06:00)
[2021-07-22 06:07] LABS: Urine Appearance Cloudy (Clear); Urine Bilirubin Negative (Negative); Urine Blood 2+ (Negative); Urine Color Yellow (Yellow); Urine Glucose Negative (Negative); Urine Protein 1+ (Negative); Urine Specific Gravity 1.015 (1.005-1.030); Urine Urobilinogen 0.2 mg/dL (0.2-1.0); Urine pH 5.5 (5.0-7.0)
[2021-07-22 06:08] LABS: Urine Microscopic Reflex ORDER UMIC
[2021-07-22 06:16] LABS: Urine Bacteria 20-50 /HPF (<20); Urine Urothelial Cells <5 /HPF (NONE SEEN)
--- NOTE | 2021-07-22 08:09 | RAD REPORT ---
EXAM DESCRIPTION: US - Renal Ultrasound-Complete - 07/22/2021 2:16 am CLINICAL HISTORY: Acute renal failure COMPARISON: July 21, 2021 cat scan FINDINGS: The right kidney measures 8 cm with a normal echotexture. 3.6 centimeter cyst The left kidney measures 8 cm with a normal echotexture. Hydronephrosis is not seen. A Murphy catheter is present within a collapsed bladder IMPRESSION: 3.6 centimeter right renal cyst No hydronephrosis
--- NOTE | 2021-07-22 10:26 | P.CNS ---
Date of Consult: 07/22/21 Reason for Consult: MARCIN/ CKD Requesting Physician: Romina Montelongo Primary Care Provider: Dr. Lizama, Dr. Aponte Chief Complaint: CHF, MARCIN, GI bleed History of Present Illness: 85-year-old female patient with history of chronic diastolic congestive heart failure, atrial fibrillation on chronic anticoagulation, hypertension, hyperlipidemia, hypothyroidism, CKD 3 and recent GI bleed presents the emergency department for lower extremity edema. Patient was seen at our facility approximately 2 weeks ago diagnosed with GI bleed and transferred to [facility] in [place] where she had endoscopy, colonoscopy which could not identify the source of blood loss. Patient stabilized and discharged on Protonix as well as home oxygen. Over the course of the last week or so patient has developed significant edema of the lower extremities she has seen her PCP Dr. 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 Aponte who increased the Lasix to 80 mg in the morning, 40 mg at night. She continues to have significant edema of lower extremities, anasarca. She was evaluated the emergency department her labs were significant for normocytic anemia with a hemoglobin of 7.6 hypokalemia to 2.8 acute kidney injury creatinine 2.09 GFR 23 BUN 49 elevated BNP 6578 chest x-ray demonstrating mild CHF/volume overload pattern. Patient on 7 to 10 L per nasal cannula at this time, she was discharged on 5 L. When if admitted for further evaluation and management of CHF exacerbation, acute kidney injury and GI bleed. GI was consulted by ED physician, will see patient in the morning. 20:43 This 85 yrs old Female presents to ER via EMS with complaints of Swelling of berta Lower Extremity. 20:43 The patient presents with pain, swelling. The complaints affect the right leg and left berta leg. Context: The problem was sustained at home. Onset: The symptoms/epis ode began/occurred 3 day(s) ago. Modifying factors: The symptoms are alleviated by elevating leg, the symptoms are aggravated by movement, weight bearing. Associated signs and symptoms: Pertinent positives: weakness. Treatment prior to arrival includes: no previous treatment. The patient has not experienced similar symptoms in the past. No current NSAIDs. Poor bladder emptying. Allergies No Known Allergies Allergy (Verified 07/13/15 10:33) Home medications list reviewed: Yes Home Medications: Citalopram Hydrobromide [Citalopram HBr] 10 mg PO DAILY 11/04/18 Levothyroxine Sodium 100 mcg PO 0630 11/04/18 Simvastatin 1 tab PO BEDTIME 11/04/18 Amlodipine [Norvasc] 10 mg PO BEDTIME 07/22/21 Ferrous Sulfate [Feosol] 2 tab PO DAILY 07/22/21 Furosemide [Lasix] 40 mg PO BIDL 07/22/21 Oxybutynin Chloride [Oxybutynin Chloride ER] 5 mg PO DAILY 07/22/21 Pantoprazole [Protonix Tab*] 40 mg PO BID 07/22/21 Rivaroxaban [Xarelto] 15 mg PO DAILY 07/22/21 - Past Medical/Surgical History Diabetic: No -: Hyperlipidemia -: HTN -: Hypothyroidism -: GERD -: Shouler Sprain -: Chronic diastolic CHF -: GI bleed -: CKD 3/ Dr. Aponte -: Hysterectomy -: Hernia repair -: appendectomy -: cholecystectomy -: Thyroiectomy Psychosocial/ Personal History: Patient lives at home with her family - Family History Mother Medical History: Diabetes, Liver disease Brother Medical History: Diabetes Sister Medical History: Diabetes - Social History Smoking Status: Never smoker Alcohol use: No CD- Drugs: No Caffeine use: No Place of Residence: Home Review of Systems 10-point ROS is otherwise unremarkable General: Weakness, Malaise Respiratory: SOB with Excertion Cardiovascular: Edema Neurological: Weakness Physical Examination Temp Pulse Resp BP Pulse Ox 97.6 F 57 16 116/59 L 100 07/22/21 08:00 07/22/21 08:35 07/22/21 08:00 07/22/21 08:35 07/22/21 08:00 General: In no apparent distress, Oriented x3, Cooperative HEENT: Atraumatic Neck: Supple Respiratory: Crackles/rales Cardiovascular: Regular rate/rhythm, Edema Gastrointestinal: Soft and benign, Non-distended Musculoskeletal: No clubbing, No contractures Integumentary: No rashes, No cyanosis Neurological: Normal speech Laboratory Data (last 24 hrs) 07/21/21 20:43: Uric Acid 11.2 H D, Lipase 166 07/21/21 20:43: PT 20.8 H, INR 1.87 07/21/21 20:43: WBC 7.0, Hgb 7.6 L, Hct 23.0 L, Plt Count 138 L 07/21/21 20:43: Sodium 135 L, Potassium 2.8 L*, BUN 49 H, Creatinine 2.09 H, Glucose 150 H, Magnesium 2.3, Total Bilirubin 0.5, AST 19, ALT 15, Alkaline Phosphatase 62 Imagings Data: EXAM DESCRIPTION: US - Renal Ultrasound-Complete - 07/22/2021 2:16 am CLINICAL HISTORY: Acute renal failure COMPARISON: July 21, 2021 cat scan FINDINGS: The right kidney measures 8 cm with a normal echotexture. 3.6 centimeter cyst The left kidney measures 8 cm with a normal echotexture. Hydronephrosis is not seen. A Murphy catheter is present within a collapsed bladder IMPRESSION: 3.6 centimeter right renal cyst. No hydronephrosis EXAM DESCRIPTION: RAD - Chest Single View - 07/21/2021 9:11 pm CLINICAL HISTORY: DYSPNEA Chest pain. COMPARISON: Chest Single View dated 06/22/2021; Chest Single View dated 08/22/2020; Chest Single View dated 11/04/2018; Chest Single View dated 06/03/2018 FINDINGS: Portable technique limits examination quality. Mild pulmonary edema is noted. The heart is moderately enlarged. Small bilateral pleural effusions. IMPRESSION: Mild CHF versus volume overload pattern. Conclusions/Impression: MARCIN likely CRS CKD III -No NSAIDs Hyponatremia -Continue Lasix Hypokalemia -Replete potassium Alkalosis -Continue spironolactone HTN with CKD/ CHF -Continue Coreg Diastolic CHF, A/C -Continue Lasix Moderate malnutrition -Encourage nutrition Anemia in chronic illness -Monitor H&H Thank you kindly for the consultation.
[2021-07-22 10:43] LABS: Hematocrit 28.3 % (36.0-45.0)
[2021-07-22] MEDS: PREGABALIN 75 MG CAP PO SCH ×2 (10:52→20:10)
[2021-07-22 11:17] LABS: Urine Bilirubin Negative (Negative); Urine Blood 2+ (Negative); Urine Glucose Negative (Negative); Urine Protein Trace (Negative); Urine Urobilinogen 0.2 mg/dL (0.2-1.0); Urine pH 5.5 (5.0-7.0)
[2021-07-22 11:22] LABS: Urine Appearance SL CLOUDY (Clear); Urine Color PALE YELLOW (Yellow); Urine Microscopic Reflex ORDER UMIC
[2021-07-22 11:26] LABS: Urine Bacteria 20-50 /HPF (<20); Urine Mucus 1+ /HPF (NONE SEEN)
[2021-07-22 11:27] LABS: Urine Urothelial Cells <5 /HPF (NONE SEEN)
[2021-07-22] MEDS ORDERED: NA CHLORIDE 0.9% 100 ML ONE ×2 (17:53→20:38)
[2021-07-22] MEDS: KCL 20 MEQ/100 mL IVPB 100 ML IV SCH ×2 (18:41→20:09)
[2021-07-22] MEDS: HYDROCODONE/APAP 10/325 TAB PO PRN (20:09)
[2021-07-22] MEDS: SPIRONOLACTONE 25 MG TABLET PO SCH (20:09)
[2021-07-22] MEDS: carvediloL 6.25 MG TAB PO SCH (21:00)
[2021-07-22] MEDS ORDERED: MORPHINE 4 MG/ML SYR IV ONE (21:17)
--- NOTE | 2021-07-22 21:32 | RAD REPORT ---
EXAM DESCRIPTION: CT - Stone Protocol - 07/22/2021 5:18 am CLINICAL HISTORY: 85 years Female, Flank pain, kidney stone suspected TECHNIQUE: Helical CT axial images are obtained from the lung bases to the pubic symphysis without I V contrast. No oral contrast was administered. Multiplanar reconstruction. This exam was performed ac cording to our departmental dose-optimization program, which includes automated exposure control, adj ustment of the mA and/or kV according to patient size and/or use of iterative reconstruction techniqu e. COMPARISON: 06/22/2021 FINDINGS: LUNG BASES: Small right pleural effusion. Mild bibasilar subsegmental atelectasis. Right m iddle lobe and lingular atelectasis versus scarring. Query calcified pleural plaques bilaterally vers us pleurodesis. LIVER: Elevated bilateral hemidiaphragm. Normal in size. Normal attenuation. No focal masses. HEPATOBILIARY: Status post cholecystectomy. No intra- or extrahepatic ductal dilatation. SPLEEN: Normal size. PANCREAS: Mild atrophic changes. No focal abnormality. ADRENAL GLANDS: Unremarkable. KIDNEYS: No obstructing calculi or hydronephrosis bilaterally. Right upper pole 4.0 cm simple renal cyst, no further workup is warranted. No nephrolithiasis. BOWEL AND MESENTERY: Minimal volume ascites. No small or large bowel dilatation. Descending and sigmo id colon diverticulosis. The appendix is not visualized, no secondary signs of appendicitis. No abn ormal mesenteric lymphadenopathy. No pneumoperitoneum. RETROPERITONEUM: Normal caliber abdominal aorta without aneurysm. Mild ASVD. No abnormal retroperit irving lymphadenopathy. PELVIS: Urinary bladder is unremarkable. Status post hysterectomy. ABDOMINAL WALL: The abdominal wall is intact. BONES: Moderate levoconvex scoliosis upper lumbar spine. Moderate to severe degenerative changes th oracolumbar spine. No suspicious osseous lytic or blastic lesions seen. IMPRESSION: 1. No obstructing calculi or hydronephrosis bilaterally. 2. Minimal volume ascites. 3. Descending and sigmoid colon diverticulosis. 4. Status post cholecystectomy and hysterectomy. 5. Small right pleural effusion. Mild bibasilar subsegmental atelectasis. Query calcified pleural p laques bilaterally versus pleurodesis. Electronically signed by: Jorge Barrientos MD 07/21/2021 11:37 PM CDT Due to temporary technical issues with the PACS/Fluency reporting system, reports are being signed by the in house radiologists without review as a courtesy to insure prompt reporting. The interpreting radiologist is fully responsible for the content of the report.
[2021-07-23] MEDS: FUROSEMIDE 40 MG/4 ML VIAL IV SCH ×3 (00:02→17:12)
--- NOTE | 2021-07-23 01:31 | CON ---
Date of Consultation: 07/22/2021 Reason For Consultation: Atrial fibrillation, GI bleed, congestive heart failure, anasarca. History Of Present Illness: Ms. Lara is 85 and has a history of chronic diastolic congestive hear t failure, hypothyroidism, hypertension, depression, dyslipidemia. She came in with anasarca, hemogl obin was 8.4, atrial fibrillation, shortness of breath, PND, orthopnea, pedal edema. No palpitations , no syncope, and no chest pain. Denies any nausea, vomiting, or diaphoresis. She denied any palpit ations, syncope, fever or chills. Past Medical History: As stated above. Allergies: NONE. Review of Systems: Negative. Social History: Negative. Family History: Noncontributory. Medications: Include Norvasc, Lasix, iron, thyroid, Zocor, Protonix and Xarelto. Physical Examination: General: She was rather somnolent. Vital Signs: Stable. She was afebrile. She was in atrial fibrillation, rate controlled. HEENT: Negative. Neck: Supple. No bruit. Chest: Reveals rales at both bases. Cardiac: Exam revealed irregularly irregular rhythm and rate without murmurs, gallops, or rubs. Abdomen: Benign. Extremities: Revealed no clubbing or cyanosis. She had 2+ edema to the knees. Diagnostic Data: EKG showed atrial fibrillation. Blood gas showed pO2 of 50, pCO2 of 55, pH is 7.44 3. Her creatinine is 1.87. Hemoglobin 8.4. Potassium was 2.7. Her BNP was 6578. Impression And Plan: 1.Swmpa-vr-[id number] diastolic congestive heart failure. 2.Renal failure, acute. 3.Hypokalemia. 4.Anemia. 5.Hypercapnia. 6.Elevated BNP secondary to congestive heart failure. 7.History of hypothyroidism. 8.Hypertension, well controlled. 9.Dyslipidemia. 10.Depression. I think we need to obtain an echocardiogram. Increase her IV Lasix. Stop her Norvasc, switch her to carvedilol. Hold anticoagulants. Transfuse as needed. Nephrology consultation. Should consider A ldactone. I will continue to follow. DESTINEE/GHANSHYAM Voice ID: [id number] Report ID: [id number]
[2021-07-23 04:34] LABS: Absolute Lymphocytes (CBC) 0.8 K/uL (0.7-4.9); Hematocrit 29.8 % (36.0-45.0); Lymphocytes % 12.2 % (15.3-44.8); Protime INR 1.31; RBC Red Blood Cell Count 3.38 M/uL (3.86-4.86)
[2021-07-23 05:31] LABS: ALT/SGPT 12 U/L (12-78); AST/SGOT 15 U/L (15-37); Albumin 2.9 g/dL (3.4-5.0); Alkaline Phosphatase 68 U/L (45-117); BUN Blood Urea Nitrogen 44 mg/dL (7-18); Bicarbonate 36 mmol/L (21-32); Bilirubin Total 0.8 mg/dL (0.2-1.0); Ferritin 66.5 ng/mL (8-388); Folic Acid, (Folate) > 20.0 ng/mL (3.1-17.5); Glucose Level 79 mg/dL (74-106); NT PRO-BNP 6406 pg/mL (<450); Phosphorus 4.5 mg/dL (2.5-4.9); Potassium 3.2 mmol/L (3.5-5.1); Protein, Total 6.3 g/dL (6.4-8.2); Sodium Level 137 mmol/L (136-145)
[2021-07-23] MEDS: PANTOPRAZOLE INJ 80 MG in NA CHLORIDE 0.9% 250 ML IV SCH ×2 (05:52→08:45)
[2021-07-23] MEDS ORDERED: KCL 20 MEQ/100 mL IVPB 20 MEQ/100 ML BAG IV SCH (06:00)
[2021-07-23] MEDS ORDERED: NA CHLORIDE 0.9% 100 ML ONE (06:04)
--- NOTE | 2021-07-23 07:36 | ECHO ---
HEIGHT: 5 ft 6 in WEIGHT: 177 lb 0 oz DATE OF STUDY: 07/22/[address]: Heriberto Perales NP 2-DIMENSIONAL: YES M.MODE: YES DOPPLER: YES COLOR FLOW: YES TDS: NO PORTABLE: YES DEFINITY: NO BUBBLE STUDY: NO DIAGNOSIS: CONGESTIVE HEART FAILURE CARDIAC HISTORY: CATHERIZATION: SURGERY: PROSTHETIC VALVE: PACEMAKER: MEASUREMENTS (cm) DIASTOLIC (NORMALS) SYSTOLIC (NORMALS) IVSd 1.0 (0.6-1.2) LA Diam 3.3 (1.9-4.0) LVEF 60-65% LVIDd 4.4 (3.5-5.7) LVIDs 2.4 (2.0-3.5) %FS 45% LVPWd 1.1 (0.6-1.2) Ao Diam 3.1 (2.0-3.7) 2 DIMENSIONAL ASSESSMENT: RIGHT ATRIUM: NORMAL LEFT ATRIUM: NORMAL RIGHT VENTRICLE: NORMAL LEFT VENTRICLE: NORMAL TRICUSPID VALVE: MODERATE TRICUSPID REGURGITATION MITRAL VALVE: MILD MITRAL REGURGITATION PULMONIC VALVE: MILD PULMONIC INSUFFICIENCY AORTIC VALVE: MILD AORTIC INSUFFICIENCY PERICARDIAL EFFUSION: NONE AORTIC ROOT: NORMAL LEFT VENTRICULAR WALL MOTION: NORMAL. DOPPLER/COLOR FLOW: SEE BELOW. COMMENTS: NORMAL LEFT VENTRICULAR EJECTION FRACTION 60-65%. MILD MITRAL REGURGITATION. MILD AORTIC INSUFFICIENCY. MILD PULMONIC INSUFFICIENCY. MODERATE TRICUSPID REGURGITATION. SEVERE PULMONARY HYPERTENSION WITH RIGHT VENTRICULAR SYSTOLIC PRESSURE GREATER THAN 60mmHg. TECHNOLOGIST: EVAN QUEZADA
[2021-07-23] MEDS: SPIRONOLACTONE 25 MG TABLET PO SCH ×2 (08:46→21:00)
[2021-07-23] MEDS: PREGABALIN 75 MG CAP PO SCH ×2 (08:46→20:53)
[2021-07-23] MEDS: carvediloL 6.25 MG TAB PO SCH (08:47)
--- NOTE | 2021-07-23 12:01 | PN ---
Date of Progress Note: 07/23/2021 The patient is being seen today 07/23/2021 in followup for congestive heart failure, atrial fibrillat ion, GI bleed, and anasarca. Echocardiogram which was done yesterday showed an ejection fraction 65% with decreased left ventricular compliance. She had severe pulmonary hypertension with right ventri cular systolic pressure of more than 60 mmHg. The patient was seen by Dr. Aponte. Renal Doppler sh owed renal cyst, otherwise normal echotexture. No hydronephrosis. Her present medications include L asix and Aldactone as well as carvedilol, which is very appropriate therapy. Today, her blood pressu re is 115/61. She is in atrial fibrillation, on Xarelto, rate controlled. Her I's and O's are adequ ate. Her last creatinine is 1.87. I agree with her present regimen. We will continue to follow. DESTINEE/GHANSHYAM Voice ID: [id number] Report ID: [id number]
--- NOTE | 2021-07-23 16:57 | P.PN ---
Date of Service: 07/23/21 Vital Signs Temp Pulse Resp BP Pulse Ox 96.9 F 53 18 117/55 L 98 07/23/21 16:00 07/23/21 16:00 07/23/21 16:00 07/23/21 16:00 07/23/21 16:00 Medications Hydrocodone Bitart/Acetaminophen (Hydrocodone/Apap 10/325 Tab) 1 tab PO Q6H PRN PRN Reason: Pain scale 5-7 (Moderate) Last Admin: 07/22/21 20:09 Dose: 1 tab Documented by: Furosemide (Furosemide 40 Mg/4 Ml Vial) 40 mg IV Q8HR [facility]LEEN Last Admin: 07/23/21 08:46 Dose: 40 mg Documented by: Ondansetron HCl (Ondansetron 4 Mg/2 Ml Vial) 4 mg IV Q6HP PRN PRN Reason: NAUSEA / VOMITING Pantoprazole Sodium (Pantoprazole 40 Mg Inj) 40 mg IVP BID [facility] Potassium Bicarbonate (Potassium 25 Meq Efferv Tab) 50 meq PO 1X ONE Stop: 07/23/21 17:01 Pregabalin (Pregabalin 75 Mg Cap) 75 mg PO BID [facility] Last Admin: 07/23/21 08:46 Dose: 75 mg Documented by: Sodium Chloride (Flush Normal Saline 10 Ml) 10 ml IV BID [facility] Last Admin: 07/23/21 09:00 Dose: 10 ml Documented by: Spironolactone (Spironolactone 25 Mg Tablet) 50 mg PO BID [facility] Lab Results (last 24 hrs) 07/21/21 22:24: ABO/Rh O POSITIVE, Solid Phase Ab Screen Negative, Crossmatch See Detail Assessment/ Plan: Nephrology Dyspnea improving No chest pain No acute events overnight Vitals, medications, blood work and imaging reviewed in the chart. General: In no apparent distress, Oriented x3, Cooperative HEENT: Atraumatic Neck: Supple Respiratory: Crackles/rales Cardiovascular: Regular rate/rhythm, Edema Gastrointestinal: Soft and benign, Non-distended Musculoskeletal: No clubbing, No contractures Integumentary: No rashes, No cyanosis Neurological: Normal speech Laboratory Data (last 24 hrs) 07/21/21 20:43: Uric Acid 11.2 H D, Lipase 166 07/21/21 20:43: PT 20.8 H, INR 1.87 07/21/21 20:43: WBC 7.0, Hgb 7.6 L, Hct 23.0 L, Plt Count 138 L 07/21/21 20:43: Sodium 135 L, Potassium 2.8 L*, BUN 49 H, Creatinine 2.09 H, Glucose 150 H, Magnesium 2.3, Total Bilirubin 0.5, AST 19, ALT 15, Alkaline Phosphatase 62 Imagings Data: EXAM DESCRIPTION: US - Renal Ultrasound-Complete - 07/22/2021 2:16 am CLINICAL HISTORY: Acute renal failure COMPARISON: July 21, 2021 cat scan FINDINGS: The right kidney measures 8 cm with a normal echotexture. 3.6 centimeter cyst The left kidney measures 8 cm with a normal echotexture. Hydronephrosis is not seen. A Murphy catheter is present within a collapsed bladder IMPRESSION: 3.6 centimeter right renal cyst. No hydronephrosis EXAM DESCRIPTION: RAD - Chest Single View - 07/21/2021 9:11 pm CLINICAL HISTORY: DYSPNEA Chest pain. COMPARISON: Chest Single View dated 06/22/2021; Chest Single View dated 08/22/2020; Chest Single View dated 11/04/2018; Chest Single View dated 06/03/2018 FINDINGS: Portable technique limits examination quality. Mild pulmonary edema is noted. The heart is moderately enlarged. Small bilateral pleural effusions. IMPRESSION: Mild CHF versus volume overload pattern. Conclusions/Impression: MARCIN likely CRS CKD III -No NSAIDs Hyponatremia -Continue Lasix Hypokalemia -Replete potassium -Increase Spironolactone 50mg BID Alkalosis -Continue spironolactone HTN with CKD/ CHF -Hold Coreg due to hypotension Diastolic CHF, A/C -Continue Lasix Moderate malnutrition -Encourage nutrition Anemia in chronic illness -Monitor H&H
[2021-07-23] MEDS ORDERED: POTASSIUM 25 MEQ EFFERV TAB PO ONE (17:00)
[2021-07-23] MEDS: PANTOPRAZOLE 40 MG INJ IVP SCH (20:53)
[2021-07-24] MEDS: FUROSEMIDE 40 MG/4 ML VIAL IV SCH ×2 (00:10→09:27)
[2021-07-24 05:49] LABS: Hematocrit 29.2 % (36.0-45.0); RBC Red Blood Cell Count 3.28 M/uL (3.86-4.86)
[2021-07-24 05:50] LABS: Absolute Lymphocytes (CBC) 0.5 K/uL (0.7-4.9); Lymphocytes % 7.6 % (15.3-44.8); MPV 8.8 fL (7.6-11.3)
[2021-07-24 05:58] LABS: Albumin 2.9 g/dL (3.4-5.0); Bilirubin Total 0.6 mg/dL (0.2-1.0); Potassium 3.8 mmol/L (3.5-5.1); Protein, Total 6.2 g/dL (6.4-8.2)
[2021-07-24 08:02] LABS: Anisocytosis 1+; Basophilic Stippling 1+; Blood Morphology Comment NOTED (NOT SEEN); Hypochromasia 1+; Platelet Estimate ADEQ; Poikilocytosis 1+; Stomatocytes 1+; White Blood Cell Scan OK (OK)
[2021-07-24 08:03] LABS: Teardrop Cell 1+
[2021-07-24] MEDS: PREGABALIN 75 MG CAP PO SCH ×2 (09:27→20:34)
[2021-07-24] MEDS: SPIRONOLACTONE 25 MG TABLET PO SCH ×2 (09:27→20:33)
[2021-07-24] MEDS: PANTOPRAZOLE 40 MG INJ IVP SCH (09:28)
--- NOTE | 2021-07-24 14:23 | P.PN ---
Subjective Date of Service: 07/24/21 Primary Care Provider: Dr. Lizama, Dr. Aponte Chief Complaint: CHF, MARCIN, GI bleed Subjective: Improving (No further GI bleeding. Hgb stable. Awaiting [facility] records of 06/11 extensive GI bleed testing as per patient and family.) Physical Examination - Vital Signs Temperature: 96.7 F Blood Pressure: 100/49 Pulse: 56 Respirations: 20 Pulse Ox (%): 92 - Physical Exam General: Alert, In no apparent distress, Oriented x3, Cooperative HEENT: Atraumatic, Normocephalic, PERRLA, EOMI Neck: 2+ carotid pulse no bruit Respiratory: Normal air movement Cardiovascular: Normal pulses Gastrointestinal: Soft and benign, No tenderness, No rebound, No guarding Neurological: Normal speech, Normal strength at 5/5 x4 extr Assessment And Plan - Current Problems (Diagnosis) (1) Melena Current Visit: Yes Status: Acute (2) GI bleed Current Visit: Yes Status: Acute (3) Dyspnea Current Visit: Yes Status: Acute (4) Anemia Current Visit: No Status: Acute Qualifiers: Anemia type: unspecified type Qualified Code(s): D64.9 - Anemia, unspecified - Plan REC: 1) await records from [facility] of extensive GI work-up there in 06/11 2) PPI therapy 3) monitor labs
--- NOTE | 2021-07-24 14:42 | RAD REPORT ---
EXAM DESCRIPTION: RAD - Knee Left 2 View - 07/24/2021 2:24 pm CLINICAL HISTORY: pain COMPARISON: No comparisons FINDINGS/IMPRESSION: No acute fracture. No malalignment. Tricompartmental degenerative changes which are advanced in the lateral and moderate in the patellofemoral compartments. Near [id number] conta ct is present in the lateral compartment . Moderate size nonspecific knee effusion.
[2021-07-24] MEDS ORDERED: CEFTRIAXONE 1,000 MG in NA CHLORIDE 0.9% 50 ML IVPB ONE (15:00)
--- NOTE | 2021-07-24 16:41 | RAD REPORT ---
EXAM DESCRIPTION: US - UPPER EXTREMITY VENOUS UNILATE - 07/24/2021 4:34 pm CLINICAL HISTORY: lue dvt COMPARISON: Chest Pa And Lat (2 Views) dated 01/14/2019Extrem Venous W Compress Aramis dated 07/24/2021 FINDINGS: Color Doppler, grayscale, and spectral analysis was performed. The left upper extremity veins were compressible, demonstrate normal color flow, and waveforms. IMPRESSION: No left upper extremity venous thrombosis identified.
[2021-07-24] MEDS ORDERED: BENZONATATE 100 MG CAP PO PRN (16:42)
--- NOTE | 2021-07-24 16:50 | RAD REPORT ---
EXAM DESCRIPTION: US - Extrem Venous W Compress Aramis - 07/24/2021 4:34 pm CLINICAL HISTORY: bilateral lower extremity COMPARISON: No comparisons TECHNIQUE: Real-time sonographic evaluation of the lower extremity deep venous systems was performed using color Doppler, grayscale, and compression. FINDINGS: Bilateral lower extremities. Normal compressibility, flow augmentation, phasic flow and spontaneous flow is identified in both the left and right lower extremity deep venous systems. No intraluminal filling defects seen. IMPRESSION: No DVT in either lower extremity.
[2021-07-24] MEDS ORDERED: SOD FERRIC GLUC COMPLX/SUCROSE 125 MG in NA CHLORIDE 0.9% 250 ML IV ONE (17:00)
[2021-07-24] MEDS: METHYLPREDNISOLONE 125 MG INJ IV SCH ×2 (17:10→23:24)
[2021-07-24] MEDS: FUROSEMIDE 40 MG TABLET PO SCH (17:11)
[2021-07-24] MEDS: ARFORMOTEROL TARTRATE 15 MCG/2 ML VIAL.NEB NEB SCH (19:55)
[2021-07-24] MEDS: IPRATROPIUM BROM 0.5MG/2.5ML NEB SCH (19:55)
--- NOTE | 2021-07-24 20:21 | P.PN ---
Date of Service: 07/24/21 Vital Signs Temp Pulse Resp BP Pulse Ox 96.8 F 61 18 124/85 94 07/24/21 20:00 07/24/21 20:00 07/24/21 20:00 07/24/21 20:00 07/24/21 20:00 Medications Hydrocodone Bitart/Acetaminophen (Hydrocodone/Apap 10/325 Tab) 1 tab PO Q6H PRN PRN Reason: Pain scale 5-7 (Moderate) Last Admin: 07/22/21 20:09 Dose: 1 tab Documented by: Arformoterol Tartrate (Arformoterol Tartrate 15 Mcg/2 Ml Vial.Neb) 15 mcg NEB BIDRESP [facility] Atorvastatin Calcium (Atorvastatin 10 Mg Tab) 10 mg PO BEDTIME [facility]LE[facility] Benzonatate (Benzonatate 100 Mg Cap) 100 mg PO Q6H PRN PRN Reason: COUGH Last Admin: 07/24/21 17:11 Dose: 100 mg Documented by: Citalopram Hydrobromide (Citalopram 10 Mg Tablet) 10 mg PO DAILY [facility] Ferrous Sulfate (Ferrous Sulfate 325 Mg Tab) 325 mg PO DAILY [facility] Furosemide (Furosemide 40 Mg Tablet) 40 mg PO BIDL [facility] Last Admin: 07/24/21 17:11 Dose: 40 mg Documented by: Ceftriaxone Sodium 1,000 mg/ (Sodium Chloride) 50 mls @ 100 mls/hr IVPB Q12HR [facility]; Protocol Ferric Sodium Gluconate Complex 125 mg/ Sodium Chloride 110 mls @ 100 mls/hr IV DAILY [facility] Stop: 08/01/21 10:05 Ipratropium [place] (Ipratropium Brom 0.5mg/2.5ml) 0.5 mg NEB BIDRESP [facility] Levothyroxine Sodium (Levothyroxine Sod 0.1 Mg Tab) 0.1 mg PO 0630 [facility] Methylprednisolone Sodium Succinate (Methylprednisolone 125 Mg Inj) 60 mg IV Q6HR [facility]LEEN Last Admin: 07/24/21 17:10 Dose: 60 mg Documented by: Ondansetron HCl (Ondansetron 4 Mg/2 Ml Vial) 4 mg IV Q6HP PRN PRN Reason: NAUSEA / VOMITING Oxybutynin Chloride (Oxybutynin Er 5 Mg Tab) 5 mg PO DAILY [facility] Pantoprazole Sodium (Pantoprazole 40mg Tablet) 40 mg PO BID [facility]; Protocol Pregabalin (Pregabalin 75 Mg Cap) 75 mg PO BID [facility] Last Admin: 07/24/21 09:27 Dose: 75 mg Documented by: Sodium Chloride (Flush Normal Saline 10 Ml) 10 ml IV BID [facility] Last Admin: 07/24/21 09:00 Dose: 10 ml Documented by: Spironolactone (Spironolactone 25 Mg Tablet) 50 mg PO BID [facility] Last Admin: 07/24/21 09:27 Dose: 50 mg Documented by: Assessment/ Plan: Nephrology Dyspnea improving No chest pain LUE swelling No acute events overnight Vitals, medications, blood work and imaging reviewed in the chart. General: In no apparent distress, Oriented x3, Cooperative HEENT: Atraumatic Neck: Supple Respiratory: Crackles/rales Cardiovascular: Regular rate/rhythm, Edema Gastrointestinal: Soft and benign, Non-distended Musculoskeletal: No clubbing, No contractures Integumentary: No rashes, No cyanosis Neurological: Normal speech Laboratory Data (last 24 hrs) 07/21/21 20:43: Uric Acid 11.2 H D, Lipase 166 07/21/21 20:43: PT 20.8 H, INR 1.87 07/21/21 20:43: WBC 7.0, Hgb 7.6 L, Hct 23.0 L, Plt Count 138 L 07/21/21 20:43: Sodium 135 L, Potassium 2.8 L*, BUN 49 H, Creatinine 2.09 H, Glucose 150 H, Magnesium 2.3, Total Bilirubin 0.5, AST 19, ALT 15, Alkaline Phosphatase 62 Imagings Data: EXAM DESCRIPTION: US - Renal Ultrasound-Complete - 07/22/2021 2:16 am CLINICAL HISTORY: Acute renal failure COMPARISON: July 21, 2021 cat scan FINDINGS: The right kidney measures 8 cm with a normal echotexture. 3.6 centimeter cyst The left kidney measures 8 cm with a normal echotexture. Hydronephrosis is not seen. A Murphy catheter is present within a collapsed bladder IMPRESSION: 3.6 centimeter right renal cyst. No hydronephrosis EXAM DESCRIPTION: RAD - Chest Single View - 07/21/2021 9:11 pm CLINICAL HISTORY: DYSPNEA Chest pain. COMPARISON: Chest Single View dated 06/22/2021; Chest Single View dated 08/22/2020; Chest Single View dated 11/04/2018; Chest Single View dated 06/03/2018 FINDINGS: Portable technique limits examination quality. Mild pulmonary edema is noted. The heart is moderately enlarged. Small bilateral pleural effusions. IMPRESSION: Mild CHF versus volume overload pattern. Conclusions/Impression: MARCIN likely CRS CKD III -No NSAIDs Hyponatremia -Continue Lasix Hypokalemia -Replete potassium -Continue Spironolactone 50mg BID Alkalosis -Continue spironolactone HTN with CKD/ CHF -Hold Coreg due to hypotension Diastolic CHF, A/C Moderate TR Pulmonary HTN -Continue Lasix Moderate malnutrition -Encourage nutrition Anemia in chronic illness -Monitor H&H
[2021-07-24] MEDS: ATORVASTATIN 10 MG TAB PO SCH (20:34)
[2021-07-24] MEDS: PANTOPRAZOLE 40MG TABLET PO SCH (20:34)
[2021-07-24] MEDS: CEFTRIAXONE 1,000 MG in NA CHLORIDE 0.9% 50 ML IVPB SCH (20:34)
[2021-07-24] MEDS ORDERED: HOME MED 1 EA UNK (Simvastatin [Simvastatin] 20 MG Tablet) PO SCH (21:00)
[2021-07-24] MEDS: HYDROCODONE/APAP 10/325 TAB PO PRN (21:12)
[2021-07-25] MEDS: LEVOTHYROXINE SOD 0.1 MG TAB PO SCH (06:02)
[2021-07-25] MEDS: METHYLPREDNISOLONE 125 MG INJ IV SCH (06:02)
[2021-07-25 06:23] LABS: Absolute Lymphocytes (CBC) 0.3 K/uL (0.7-4.9); Hematocrit 31.4 % (36.0-45.0); Lymphocytes % 5.3 % (15.3-44.8); MPV 9.1 fL (7.6-11.3); RBC Red Blood Cell Count 3.51 M/uL (3.86-4.86)
[2021-07-25 06:31] LABS: Magnesium 2.1 mg/dL (1.8-2.4); Phosphorus 3.7 mg/dL (2.5-4.9); Potassium 4.6 mmol/L (3.5-5.1); Uric Acid 11.7 mg/dL (2.6-6.0)
--- NOTE | 2021-07-25 07:29 | RAD REPORT ---
EXAM DESCRIPTION: David Single View07/25/2021 6:04 am CLINICAL HISTORY: Chest pain COMPARISON: July 21, 2021 FINDINGS: Moderate bilateral pulmonary opacities with small pleural effusions. Cardiomegaly IMPRESSION: These findings probably represent CHF
[2021-07-25] MEDS: ARFORMOTEROL TARTRATE 15 MCG/2 ML VIAL.NEB NEB SCH (07:37)
--- NOTE | 2021-07-25 07:41 | RAD REPORT ---
EXAM DESCRIPTION: CT - Thorax Wo Con - 07/25/2021 7:28 am CLINICAL HISTORY: sob COMPARISON: May 25, 2021 chest x-ray TECHNIQUE: Computed axial tomography of the chest was obtained. Contrast was not requested. All CT scans are performed using dose optimization technique as appropriate and may include automated exposure control or mA/KV adjustment according to patient size. FINDINGS: The evaluation of mediastinum, zoltan and vessels is limited secondary to lack of IV contras t administration. Mild to moderate bilateral pulmonary opacities. Bibasilar lung opacities. No mediastinal or hilar lymphadenopathy is seen. Small left and small to moderate right pleural effusions. Small amount ascites within the upper abdom en. Coronary arterial calcifications. IMPRESSION: [id number] bilateral pulmonary opacities probably pulmonary edema Bibasilar opacities probably atelectasis. Underlying pneumonia although possible is probably less lik brandon
[2021-07-25] MEDS: IPRATROPIUM BROM 0.5MG/2.5ML NEB SCH ×2 (07:43→20:05)
--- NOTE | 2021-07-25 08:00 | P.PN ---
Date of Service: 07/22/21 Subjective Patient still lethargic and hypoxic. Hemoglobin has been low and patient getting blood transfusion. We will continue with gentle diuresing. Monitor H&H. Cardiac work-up pending as well. Recent work-up at [facility] including EGD and colonoscopy have been negative. Physical Examination - Physical Exam General: Alert, In no apparent distress, Oriented x3 Respiratory: Diminished, Crackles/rales Cardiovascular: Normal S1 S2, Edema (3+ pitting edema bilateral lower extremities to the level of thighs), Irregular heart rate/rhythm (A. fib, rate controlled) Gastrointestinal: Normal bowel sounds, No tenderness Neurological: Normal gait, Normal speech, Normal strength at 5/5 x4 extr, Normal tone, Normal affect Assessment and Plan - Plan Assessment: Acute on chronic diastolic congestive heart failure Acute on chronic hypoxic/hypercapnic respiratory failure Acute blood loss anemiaGI bleed on Xarelto Acute worsening of CKD 3 Hypokalemia Plan: 1. Echocardiogram if it has not been performed in the last 6 months 2. Transfuse 1 unit 3. Discontinue Xarelto 4. Monitor for clots 5. Aggressive diuresis 6. Strict I's and O's 7. Repeat CXR 8. Daily weights 9. Education regarding diet and treatment of congestive heart failure
--- NOTE | 2021-07-25 08:01 | P.PN ---
Date of Service: 07/23/21 Subjective Patient little more awake. We will start working with physical therapy. We will get out of bed and ambulate. Physical Examination - Physical Exam General: Alert, In no apparent distress, Oriented x3 Respiratory: Diminished, Crackles/rales Cardiovascular: Normal S1 S2, Edema (3+ pitting edema bilateral lower extremities to the level of thighs), Irregular heart rate/rhythm (A. fib, rate controlled) Gastrointestinal: Normal bowel sounds, No tenderness Neurological: Normal gait, Normal speech, Normal strength at 5/5 x4 extr, Normal tone, Normal affect Assessment and Plan - Plan Assessment: Acute on chronic diastolic congestive heart failure Acute on chronic hypoxic/hypercapnic respiratory failure Acute blood loss anemiaGI bleed on Xarelto Acute worsening of CKD 3 Hypokalemia Plan: 1. Echocardiogram with diastolic heart failure. 2. Transfuse 1 unit; hemoglobin stable 3. Discontinue Xarelto 4. Continue with diuresing 5. Aggressive diuresis 6. Strict I's and O's 7. Repeat CXR 8. Daily weights 9. Education regarding diet and treatment of congestive heart failure
--- NOTE | 2021-07-25 08:05 | P.PN ---
Date of Service: 07/24/21 Subjective Patient clinically doing well. Patient with no new complaints. Echocardiogram with severe pulmonary hypertension. Right-sided heart failure. Physical Examination - Physical Exam General: Alert, In no apparent distress, Oriented x3 Respiratory: Diminished, Crackles/rales Cardiovascular: Normal S1 S2, Edema (3+ pitting edema bilateral lower extremities to the level of thighs), Irregular heart rate/rhythm (A. fib, rate controlled) Gastrointestinal: Normal bowel sounds, No tenderness Neurological: Normal gait, Normal speech, Normal strength at 5/5 x4 extr, Normal tone, Normal affect Assessment and Plan - Plan Assessment: Acute on chronic diastolic congestive heart failure; severe pulmonary hypertension; right-sided heart failure Acute on chronic hypoxic/hypercapnic respiratory failure Acute blood loss anemiaGI bleed on Xarelto Acute worsening of CKD 3 Hypokalemia Plan: 1. Echocardiogram with right-sided heart failure with severe pulmonary hypertension 2. H&H stable 3. Discontinue Xarelto 4. Continue with diuresing 5. Continue with diuretics 6. Strict I's and O's 7. Repeat CXR 8. Daily weights 9. Arrange for home oxygen 10. Education regarding diet and treatment of congestive heart failure
[2021-07-25] MEDS ORDERED: SOD FERRIC GLUC COMPLX/SUCROSE 125 MG in NA CHLORIDE 0.9% 100 ML IV SCH (09:00)
[2021-07-25] MEDS ORDERED: OXYBUTYNIN ER 5 MG TAB PO SCH (09:00)
[2021-07-25] MEDS: SPIRONOLACTONE 25 MG TABLET PO SCH (09:00)
--- NOTE | 2021-07-25 09:35 | PN ---
Date of Progress Note: 07/24/2021 Ms. Lara was admitted with atrial fibrillation, congestive heart failure, renal failure, anemia. Today, her BNP is 4247. Her sodium is 132, her potassium is 4.6, her creatinine is 1.89. She has feliciano d adequate urinary output. Her nasal cannula O2 saturation 94%. Her vital signs stable today. She is in a sinus rhythm. Nephrology is following along. Her present medical regimen includes inhalers, Lipitor, aspirin, Lasix 40 mg. she is on . She is on spironolactone. She is on antibiot ics and Protonix. Her Norvasc has been held. She is bradycardic. Not on any beta-germain, which is appropriate. We will continue to follow her. DESTINEE/GHANSHYAM Voice ID: [id number] Report ID: [id number]
[2021-07-25] MEDS: PREGABALIN 75 MG CAP PO SCH (10:52)
[2021-07-25] MEDS: FUROSEMIDE 40 MG TABLET PO SCH ×2 (10:52→17:04)
[2021-07-25] MEDS: PANTOPRAZOLE 40MG TABLET PO SCH ×2 (10:52→20:31)
[2021-07-25] MEDS: FERROUS SULFATE 325 MG TAB PO SCH (10:52)
[2021-07-25] MEDS: CITALOPRAM 10 MG TABLET PO SCH (10:52)
[2021-07-25] MEDS: CEFTRIAXONE 1,000 MG in NA CHLORIDE 0.9% 50 ML IVPB SCH (10:53)
[2021-07-25] MEDS: SOD FERRIC GLUC COMPLX/SUCROSE 125 MG in NA CHLORIDE 0.9% 100 ML IV SCH (11:41)
[2021-07-25] MEDS ORDERED: levoFLOXacin 750 MG TAB PO SCH (13:00)
--- NOTE | 2021-07-25 13:20 | PN ---
Date of Progress Note: 07/25/2021 Mrs. Lara had a chest x-ray today showing congestive heart failure, which she has been treated for appropriately with Aldactone and Lasix. Her kidney function has improved from the time she came int o the hospital. Last creatinine was 1.89. She remains mildly anemic. Her BNP is elevated. Echocar diogram showed a normal ejection fraction with mitral annular calcification, mild aortic insufficienc y with severe pulmonary hypertension. Down the road maybe a calcium channel germain will be appropri ate except that for now she is bradycardic. Norvasc has caused her significant swelling, so we shoul d avoid that. We should also avoid beta-germain because of her bradycardia. Continue Lasix. Contin ue Aldactone. Continue antibiotics and inhalers. She is saturating well. No further cardiac workup at this point. I agree with her present regimen. DESTINEE/GHANSHYAM Voice ID: [id number] Report ID: [id number]
--- NOTE | 2021-07-25 15:10 | RAD REPORT ---
EXAM DESCRIPTION: CT - Head Brain Wo Cont - 07/25/2021 3:03 pm CLINICAL HISTORY: dystonia COMPARISON: Head Brain Wo Cont dated 05/18/2020 TECHNIQUE: All CT scans are performed using dose optimization technique as appropriate and may inclu de automated exposure control or mA/KV adjustment according to patient size. FINDINGS: No intracranial hemorrhage, hydrocephalus or extra-axial fluid collection.No areas of brai n edema or evidence of midline shift. Remote right parietal lobe infarct. Cerebral atrophy. Chronic s mall vessel ischemic changes. The paranasal sinuses and mastoids are clear. The calvarium is intact. IMPRESSION: No acute intracranial abnormality. Remote right parietal lobe infarct.
[2021-07-25] MEDS: ATORVASTATIN 10 MG TAB PO SCH (20:31)
--- NOTE | 2021-07-25 21:20 | P.PN ---
Date of Service: 07/25/21 Vital Signs Temp Pulse Resp BP Pulse Ox 97.2 F 69 20 111/57 L 94 07/25/21 16:00 07/25/21 16:00 07/25/21 16:00 07/25/21 16:00 07/25/21 16:00 Medications Hydrocodone Bitart/Acetaminophen (Hydrocodone/Apap 10/325 Tab) 1 tab PO Q6H PRN PRN Reason: Pain scale 5-7 (Moderate) Last Admin: 07/24/21 21:12 Dose: 1 tab Documented by: Atorvastatin Calcium (Atorvastatin 10 Mg Tab) 10 mg PO BEDTIME [facility] Last Admin: 07/25/21 20:31 Dose: 10 mg Documented by: Benzonatate (Benzonatate 100 Mg Cap) 100 mg PO Q6H PRN PRN Reason: COUGH Last Admin: 07/24/21 17:11 Dose: 100 mg Documented by: Citalopram Hydrobromide (Citalopram 10 Mg Tablet) 10 mg PO DAILY [facility] Last Admin: 07/25/21 10:52 Dose: 10 mg Documented by: Ferrous Sulfate (Ferrous Sulfate 325 Mg Tab) 325 mg PO DAILY [facility] Last Admin: 07/25/21 10:52 Dose: 325 mg Documented by: Furosemide (Furosemide 40 Mg Tablet) 40 mg PO BIDL [facility] Last Admin: 07/25/21 17:04 Dose: 40 mg Documented by: Ferric Sodium Gluconate Complex 125 mg/ Sodium Chloride 110 mls @ 100 mls/hr IV DAILY [facility] Stop: 08/01/21 10:05 Last Admin: 07/25/21 11:41 Dose: 110 mls Documented by: Ipratropium [place] (Ipratropium Brom 0.5mg/2.5ml) 0.5 mg NEB BIDRESP [facility] Last Admin: 07/25/21 20:05 Dose: 0.5 mg Documented by: Levofloxacin (Levofloxacin 750 Mg Tab) 750 mg PO Q48H [facility] Last Admin: 07/25/21 12:48 Dose: 750 mg Documented by: Levothyroxine Sodium (Levothyroxine Sod 0.1 Mg Tab) 0.1 mg PO 0630 [facility] Last Admin: 07/25/21 06:02 Dose: 0.1 mg Documented by: Ondansetron HCl (Ondansetron 4 Mg/2 Ml Vial) 4 mg IV Q6HP PRN PRN Reason: NAUSEA / VOMITING Pantoprazole Sodium (Pantoprazole 40mg Tablet) 40 mg PO BID [facility]; Protocol Last Admin: 07/25/21 20:31 Dose: 40 mg Documented by: Sodium Chloride (Flush Normal Saline 10 Ml) 10 ml IV BID [facility] Last Admin: 07/25/21 20:37 Dose: 10 ml Documented by: Spironolactone (Spironolactone 25 Mg Tablet) 50 mg PO DAILY [facility] Assessment/ Plan: Nephrology Dyspnea improving No chest pain LUE improving No acute events overnight Vitals, medications, blood work and imaging reviewed in the chart. General: In no apparent distress, Oriented x3, Cooperative HEENT: Atraumatic Neck: Supple Respiratory: Normal respiratory effort Cardiovascular: Regular rate/rhythm, Edema Gastrointestinal: Soft and benign, Non-distended Musculoskeletal: No clubbing, No contractures Integumentary: No rashes, No cyanosis Neurological: Normal speech Laboratory Data (last 24 hrs) 07/21/21 20:43: Uric Acid 11.2 H D, Lipase 166 07/21/21 20:43: PT 20.8 H, INR 1.87 07/21/21 20:43: WBC 7.0, Hgb 7.6 L, Hct 23.0 L, Plt Count 138 L 07/21/21 20:43: Sodium 135 L, Potassium 2.8 L*, BUN 49 H, Creatinine 2.09 H, Glucose 150 H, Magnesium 2.3, Total Bilirubin 0.5, AST 19, ALT 15, Alkaline Phosphatase 62 Imagings Data: EXAM DESCRIPTION: US - Renal Ultrasound-Complete - 07/22/2021 2:16 am CLINICAL HISTORY: Acute renal failure COMPARISON: July 21, 2021 cat scan FINDINGS: The right kidney measures 8 cm with a normal echotexture. 3.6 centimeter cyst The left kidney measures 8 cm with a normal echotexture. Hydronephrosis is not seen. A Murphy catheter is present within a collapsed bladder IMPRESSION: 3.6 centimeter right renal cyst. No hydronephrosis EXAM DESCRIPTION: RAD - Chest Single View - 07/21/2021 9:11 pm CLINICAL HISTORY: DYSPNEA Chest pain. COMPARISON: Chest Single View dated 06/22/2021; Chest Single View dated 08/22/2020; Chest Single View dated 11/04/2018; Chest Single View dated 06/03/2018 FINDINGS: Portable technique limits examination quality. Mild pulmonary edema is noted. The heart is moderately enlarged. Small bilateral pleural effusions. IMPRESSION: Mild CHF versus volume overload pattern. Conclusions/Impression: MARCIN likely CRS CKD III -No NSAIDs -Continue diuresis Hyponatremia -Continue Lasix Hypokalemia -Replete potassium prn -Reduce Spironolactone 50mg Daily Alkalosis -Continue spironolactone HTN with CKD/ CHF -Hold Coreg due to hypotension Diastolic CHF, A/C Moderate TR Pulmonary HTN -Continue Lasix -Continue Spironolactone Moderate malnutrition -Encourage nutrition Anemia in chronic illness -Monitor H&H -IV iron as ordered
[2021-07-26] MEDS: LEVOTHYROXINE SOD 0.1 MG TAB PO SCH (05:50)
[2021-07-26] MEDS: IPRATROPIUM BROM 0.5MG/2.5ML NEB SCH (07:37)
[2021-07-26] MEDS: CITALOPRAM 10 MG TABLET PO SCH (08:27)
[2021-07-26] MEDS: PANTOPRAZOLE 40MG TABLET PO SCH (08:27)
[2021-07-26] MEDS: FERROUS SULFATE 325 MG TAB PO SCH (08:27)
[2021-07-26] MEDS: FUROSEMIDE 40 MG TABLET PO SCH (08:27)
[2021-07-26 08:32] VITALS: O2SAT 96
[2021-07-26] MEDS ORDERED: SPIRONOLACTONE 25 MG TABLET PO SCH (09:00)
[2021-07-26] MEDS: SOD FERRIC GLUC COMPLX/SUCROSE 125 MG in NA CHLORIDE 0.9% 100 ML IV SCH (10:00)
[2021-07-26 12:35] VITALS: BP 106/59; TEMP 97.8
--- NOTE | 2021-07-26 19:22 | P.PN ---
Date of Service: 07/26/21 Vital Signs Temp Pulse Resp BP Pulse Ox 97.8 F 73 16 106/59 L 98 07/26/21 12:00 07/26/21 12:00 07/26/21 12:00 07/26/21 12:00 07/26/21 12:00 Assessment/ Plan: Nephrology Confusion overnight No dyspnea No chest pain Case reviewed with her daughter No acute events overnight Vitals, medications, blood work and imaging reviewed in the chart. General: In no apparent distress, Oriented x3, Cooperative HEENT: Atraumatic Neck: Supple Respiratory: Normal respiratory effort Cardiovascular: Regular rate/rhythm, Edema Gastrointestinal: Soft and benign, Non-distended Musculoskeletal: No clubbing, No contractures Integumentary: No rashes, No cyanosis Neurological: Normal speech Laboratory Data (last 24 hrs) 07/21/21 20:43: Uric Acid 11.2 H D, Lipase 166 07/21/21 20:43: PT 20.8 H, INR 1.87 07/21/21 20:43: WBC 7.0, Hgb 7.6 L, Hct 23.0 L, Plt Count 138 L 07/21/21 20:43: Sodium 135 L, Potassium 2.8 L*, BUN 49 H, Creatinine 2.09 H, Glucose 150 H, Magnesium 2.3, Total Bilirubin 0.5, AST 19, ALT 15, Alkaline Phosphatase 62 Imagings Data: EXAM DESCRIPTION: US - Renal Ultrasound-Complete - 07/22/2021 2:16 am CLINICAL HISTORY: Acute renal failure COMPARISON: July 21, 2021 cat scan FINDINGS: The right kidney measures 8 cm with a normal echotexture. 3.6 centimeter cyst The left kidney measures 8 cm with a normal echotexture. Hydronephrosis is not seen. A Murphy catheter is present within a collapsed bladder IMPRESSION: 3.6 centimeter right renal cyst. No hydronephrosis EXAM DESCRIPTION: RAD - Chest Single View - 07/21/2021 9:11 pm CLINICAL HISTORY: DYSPNEA Chest pain. COMPARISON: Chest Single View dated 06/22/2021; Chest Single View dated 08/22/2020; Chest Single View dated 11/04/2018; Chest Single View dated 06/03/2018 FINDINGS: Portable technique limits examination quality. Mild pulmonary edema is noted. The heart is moderately enlarged. Small bilateral pleural effusions. IMPRESSION: Mild CHF versus volume overload pattern. Conclusions/Impression: MARCIN likely CRS CKD III -No NSAIDs -Continue diuresis Hyponatremia -Continue Lasix Hypokalemia -Replete potassium prn -Continue Spironolactone 50mg Daily Alkalosis -Continue Spironolactone HTN with CKD/ CHF -Hold Coreg due to hypotension Diastolic CHF, A/C Moderate TR Pulmonary HTN -Continue Lasix -Continue Spironolactone Moderate malnutrition -Encourage nutrition Anemia in chronic illness -Monitor H&H -IV iron as ordered
== END 2021-07-26 15:05 | disposition hospice, home (50) | DRG 291 ==
LOC: ER 20:08 → 2ND 23:41
PROVIDERS: ADMIT Hospitalist; ATTEND Hospitalist
PROC: 30233N1 Transfusion of Nonautologous Red Blood Cells into Peripheral Vein, Percutaneous Approach (ICD-10-PCS; principal; 2021-07-22)
DX: I13.0 Hypertensive heart and chronic kidney disease with heart failure and stage 1 through stage 4 chronic kidney disease, or unspecified chronic kidney disease (principal); I50.33 Acute on chronic diastolic (congestive) heart failure; J96.22 Acute and chronic respiratory failure with hypercapnia; J96.21 Acute and chronic respiratory failure with hypoxia; N17.9 Acute kidney failure, unspecified; D62 Acute posthemorrhagic anemia; E87.1 Hypo-osmolality and hyponatremia; E44.0 Moderate protein-calorie malnutrition; E87.3 Alkalosis; K92.1 Melena; E78.5 Hyperlipidemia, unspecified; E03.9 Hypothyroidism, unspecified; K21.9 Gastro-esophageal reflux disease without esophagitis; N18.30 Chronic kidney disease, stage 3 unspecified; E87.6 Hypokalemia; I48.91 Unspecified atrial fibrillation; Z68.28 Body mass index [BMI] 28.0-28.9, adult; I27.20 Pulmonary hypertension, unspecified; N28.1 Cyst of kidney, acquired; N34.2 Other urethritis; Z79.01 Long term (current) use of anticoagulants; Z20.822 Contact with and (suspected) exposure to COVID-19
CPT/HCPCS: 36415; 51702; 70450; 71045; 71250; 74176; 76377; 76770; 80048; 80053; 80076; 81003; 81015; 82607; 82728; 82746; 82805; 83540; 83615; 83690; 83735; 83880; 84100; 84132; 84145; 84439; 84443; 84484; 84550; 85014; 85018; 85025; 85044; 85610; 86850; 86900; 86901; 87077; 87086; 87088; 87186; 93005; 93306; 93970; 93971; 94640; 94760; 94762; 96372; 97110; 97116; 97161; 97530; 99285; C9113; J1940; J2916; J2930; J3430; J3480; J7040; J7050; J7605; P9016; U0003